=== PATIENT | female | born 1945 | race Caucasian/White ===

== ENCOUNTER → 2016-06-05 | Outpatient (CLI) | payer MEDICARE ==
--- NOTE | 2016-06-06 07:34 | BD ---
EXAMINATION TYPE: MG DEXA axial skeleton. DATE OF EXAM: 06/05/2016 3:21 PM COMPARISON: NONE CLINICAL HISTORY: POST MENOPAUSAL Height: 5'7 Weight: 179 FRAX RISK QUESTIONS: Alcohol (3 or more units per day): no Family History (Parent hip fracture): no Glucocorticoids (More than 3mos): no (Ex: prednisone, prednisolone, methylprednisolone, dexamethasone, and hydrocortisone). History of Fracture in Adulthood: no Secondary Osteoporosis: 1. Type 1 Diabetes: no 2. Hyperthyroidism: no 3. Menopause before 45: yes 4. Malnutrition: no 5. Chronic liver disease: no Rheumatoid Arthritis: not sure Current Tobacco Use: no RISK FACTORS HISTORY OF: Active: Postmenopausal woman: MEDICATIONS: Additional Medications: vitamins Additional History: post menopausal EXAM MEASUREMENTS: Bone mineral densitometry was performed using the [employer] System. Bone mineral density as measured about the Lumbar spine is: ----- L1-L4(G/cm2): 1.005 T Score Values are as follows: ----- L2: -2.1 ----- L3: -1.4 ----- L4: -1.1 ----- L1-L4:-1.5 Bone mineral density about the R hip (g/cm2): 0.872 Bone mineral density about the L hip (g/cm2): 0.822 T Score values are as follows: -----R Neck: -1.2 -----L Neck: -1.6 -----R Intertrochanter: -0.2 -----L Intertrochanter: -0.5 IMPRESSION: Osteopenia (T Score between -2.5 and -1 as noted by T score values: In the low back and bilateral hip s. There is slightly increased risk of fracture and the patient may be considered for treatment. Re-S creen 1-2 years. NOTE: T-SCORE=SD OF THE YOUNG ADULT MEAN.
--- NOTE | 2016-06-06 08:07 | MM ---
Reason for exam: screening (asymptomatic). Last mammogram was performed 16 years and 10 months ago. History: Patient is postmenopausal. Physical Findings: A clinical breast exam by your physician is recommended on an annual basis and results should be correlated with mammographic findings. MG Screening Mammo w CAD Bilateral CC and MLO view(s) were taken. Prior study comparison: May 04, 2014, mammogram, performed at [facility]. March 31, 2013, mammogram, performed at [facility]. There are scattered fibroglandular densities. Finding: There are typically benign vascular calcifications in both breasts. Asymmetric breast tissue in the right breast outer quadrant is stable. There is no discrete abnormality. ASSESSMENT: Negative, BI-RAD 1 RECOMMENDATION: Routine screening mammogram of both breasts in 1 year.
== END | disposition home or self-care (01) ==
LOC: RADMAMWWP 14:24
PROVIDERS: ATTEND Family Medicine
DX: Z12.31 Encounter for screening mammogram for malignant neoplasm of breast (principal); M85.852 Other specified disorders of bone density and structure, left thigh; M85.851 Other specified disorders of bone density and structure, right thigh; M85.88 Other specified disorders of bone density and structure, other site; Z78.0 Asymptomatic menopausal state
CPT/HCPCS: 77080; G0202

== ENCOUNTER → 2016-06-06 | Outpatient (CLI) | payer MEDICARE ==
[2016-06-06 10:11] LABS: CH 31.3; CHCM 33.4; HCT 41.2 % (34.0-46.0); HDW 2.57; HGB 13.7 gm/dL (11.4-16.0); MCH 31.4 pg (25.0-35.0); MCHC 33.3 g/dL (31.0-37.0); MCV 94.2 fL (80.0-100.0); Mean Platelet Volume 7.3; RBC 4.37 m/uL (3.80-5.40); RDW 13.2 % (11.5-15.5); WBC 5.5 k/uL (3.8-10.6); WBC (Perox) 5.47
[2016-06-06 12:00] LABS: Add Differential Manual Differential
[2016-06-06 12:02] LABS: Nucleated Red Blood Cells 0 /100 WBC (0-0); Total Cells Counted 100
[2016-06-06 12:04] LABS: Manual Review Performed
[2016-06-06 13:10] LABS: ALT 45 U/L (9-52); AST 28 U/L (14-36); Alkaline Phosphatase 93 U/L (38-126); Anion Gap 15 mmol/L; Blood Urea Nitrogen 13 mg/dL (7-17); Calcium 9.4 mg/dL (8.4-10.2); Carbon Dioxide 21 mmol/L (22-30); Chloride 107 mmol/L (98-107); Cholesterol 168 mg/dL (<200); Glucose 120 mg/dL (74-99); HDL Cholesterol 52 mg/dL (40-60); Non-African American GFR(MDRD) >60 (>60 ml/min/1.73 sqM); Potassium 4.5 mmol/L (3.5-5.1); Sodium 143 mmol/L (137-145); Total Bilirubin 0.6 mg/dL (0.2-1.3); Total Protein 7.3 g/dL (6.3-8.2); Triglycerides 112 mg/dL (<150)
[2016-06-06 13:56] LABS: Vitamin B12 580 pg/mL
== END | disposition home or self-care (01) ==
LOC: LABWHC1 09:13
PROVIDERS: ATTEND Family Medicine
DX: I10 Essential (primary) hypertension (principal); R53.83 Other fatigue; Z12.11 Encounter for screening for malignant neoplasm of colon
CPT/HCPCS: 36415; 80053; 80061; 82272; 82607; 84443; 85025

== ENCOUNTER → 2018-03-12 | Outpatient (CLI) | payer MEDICARE ==
--- NOTE | 2018-03-12 16:50 | US ---
EXAMINATION TYPE: US carotid duplex BILAT DATE OF EXAM: 03/12/2018 COMPARISON: NONE CLINICAL HISTORY: 72-year-old female 785.9 R09.89. Possible bruit on right per patient, HTN- on meds, no hx of TIA or stroke TECHNIQUE: Carotid duplex ultrasound examination. Direct Doppler criteria was utilized. FINDINGS: EXAM MEASUREMENTS: RIGHT: Peak Systolic Velocity (PSV) cm/sec ----- Right CCA: 90.4 ----- Right ICA: 111.4 ----- Right ECA: 78.9 ICA/CCA ratio: 1.2 RIGHT: End Diastole cm/sec ----- Right CCA: 24.8 ----- Right ICA: 33.8 ----- Right ECA: 10.2 LEFT: Peak Systolic Velocity (PSV) cm/sec ----- Left CCA: 84.1 ----- Left ICA: 111.4 ----- Left ECA: 43.6 ICA/CCA ratio: 1.3 LEFT: End Diastole cm/sec ----- Left CCA: 24.5 ----- Left ICA: 38.6 ----- Left ECA: 15.6 VERTEBRALS (direction of flow): Right Vertebral: Antegrade Left Vertebral: Antegrade Rhythm: Normal Nurse Executive notes: No elevated velocities or significant stenosis. No plaque. Bilateral wall thicke maria l. Limited visualization of bilateral ECA due to location of bifurcation. IMPRESSION: No hemodynamically significant stenosis appreciated in either internal carotid artery. Criteria for Assigning % of Stenosis / Diameter reduction (Estimation based on the indirect measurements of the internal carotid artery velocities (ICA PSV). 1. Normal (no stenosis)=ICA PSV < 125 cm/s: ratio < 2.0: ICA EDV<40 cm/s. 2. Less than 50% stenosis=ICA PSV < 125 cm/s: ratio < 2.0: ICA EDV<40 cm/s. 3. 50 to 69% stenosis=ICA PSV of 125 to 230 cm/s: ration 2.0 ? 4.0: ICA EDV 40-100 cm/s. 4. Greater than 70% stenosis to near occlusion= ICA PSV > 230 cm/s: ratio > 4.0: ICA EDV > 100 cm/s. 5. Near occlusion= ICA PSV velocities may be low or undetectable: variable ratio and ICA EDV. 6. Total occlusion=unable to detect flow.
--- NOTE | 2018-03-13 07:14 | ECHOF ---
Referral Reason:I10 Hypertension MEASUREMENTS -------- HEIGHT: 160.0 cm WEIGHT: 82.1 kg BP: RVIDd: 3.1 cm (< 3.3) IVSd: 1.1 cm (0.6 - 1.1) LVIDd: 3.2 cm (3.9 - 5.3) LVPWd: 1.1 cm (0.6 - 1.1) IVSs: 1.4 cm LVIDs: 2.4 cm LVPWs: 1.5 cm LAESV Index (A-L): 23.69 ml/m Ao Diam: 3.0 cm (2.0 - 3.7) AV Cusp: 1.5 cm (1.5 - 2.6) LA Diam: 3.5 cm (2.7 - 3.8) EPSS: 0.5 cm MV E Hong: 0.75 m/s MV DecT: 276 ms MV A Hong: 1.03 m/s MV E/A Ratio: 0.72 RAP: 5.00 mmHg RVSP: 12.74 mmHg MV EF SLOPE: 22.52 mm/s (70 - 150) MV EXCURSION: 1.27 cm (> 18.000) FINDINGS -------- Sinus rhythm. This was a technically adequate study. The left ventricular size is normal. There is borderline concentric left ventricular hypertrophy. Overall left ventricular systolic function is normal with, an EF between 55 - 60 %. The right ventricle is normal in size and function. Normal LA size by volume 22+/-6 ml/m2. The right atrium is normal in size. Aortic valve is trileaflet and is mildly thickened. There is no evidence of aortic regurgitation. There is no evidence of aortic stenosis. The mitral valve is normal. Mild mitral regurgitation is present. Trace tricuspid regurgitation present. Right ventricular systolic pressure is normal at < 35 mmHg. The right ventricular systolic pressure, as measured by Doppler, is 12.74mmHg. Trace/mild (physiologic) pulmonic regurgitation. The aortic root size is normal. Normal inferior vena cava with normal inspiratory collapse consistent with estimated right atrial pre ssure of 5 mmHg. There is no pericardial effusion. CONCLUSIONS -------- 1. Sinus rhythm. 2. This was a technically adequate study. 3. The left ventricular size is normal. 4. There is borderline concentric left ventricular hypertrophy. 5. Overall left ventricular systolic function is normal with, an EF between 55 - 60 %. 6. Normal LA size by volume 22+/-6 ml/m2. 7. Aortic valve is trileaflet and is mildly thickened. 8. Mild mitral regurgitation is present. 9. Trace tricuspid regurgitation present. 10. Right ventricular systolic pressure is normal at < 35 mmHg. 11. Trace/mild (physiologic) pulmonic regurgitation. 12. The aortic root size is normal. 13. There is no pericardial effusion. PRINTING ENGINEER: Christopher Dey RDCS
== END | disposition home or self-care (01) ==
LOC: RADECHMAIN 14:24
PROVIDERS: ATTEND Family Medicine
DX: I34.0 Nonrheumatic mitral (valve) insufficiency (principal); I35.8 Other nonrheumatic aortic valve disorders; I37.1 Nonrheumatic pulmonary valve insufficiency; I10 Essential (primary) hypertension; R09.89 Other specified symptoms and signs involving the circulatory and respiratory systems
CPT/HCPCS: 93306; 93880

== ENCOUNTER → 2019-01-09 | Outpatient (CLI) | payer MEDICARE ==
--- NOTE | 2019-01-13 08:18 | MM ---
Reason for exam: screening (asymptomatic). Last mammogram was performed 2 years and 7 months ago. History: Patient is postmenopausal. Physical Findings: A clinical breast exam by your physician is recommended on an annual basis and results should be correlated with mammographic findings. MG Screening Mammo w CAD Bilateral CC and MLO view(s) were taken. Prior study comparison: June 05, 2016, bilateral MG screening mammo w CAD. There are scattered fibroglandular densities. Benign vascular calcifications. No significant changes when compared with prior studies. ASSESSMENT: Negative, BI-RAD 1 RECOMMENDATION: Routine screening mammogram of both breasts in 1 year.
== END | disposition home or self-care (01) ==
LOC: RADMAMWWP 08:35
PROVIDERS: ATTEND Family Medicine
DX: Z12.31 Encounter for screening mammogram for malignant neoplasm of breast (principal)
CPT/HCPCS: 77067

== ENCOUNTER 2019-01-22 08:04 | Day surgery (SDC) | payer MEDICARE, OTHER ==
[~2019-01-22 08:04] MED LIST: LACTATED RINGERS 1,000 ML IV SCH
[2019-01-22 08:32] VITALS: TEMP 97
[2019-01-22] MEDS ORDERED: LIDOCAINE 1% 20 ML VIAL (10MG/ML) FOR IV START INTRADERMA ONE (08:32)
[2019-01-22] MEDS ORDERED: PROPOFOL 10 MG/ML 20 ML VIAL IV ONE (09:30)
[2019-01-22] MEDS ORDERED: LIDOCAINE 1% INJ 10MG/ML (20 ML MDV) ONE (09:30)
--- NOTE | 2019-01-22 09:37 | P.GSHP ---
History of Present Illness H&P Date: 01/22/19 Chief Complaint: Screening colonoscopy This is a 73-year-old female who presents today for screening colonoscopy. Patient denies a significant GI complaints. Past Medical History Past Medical History: Eye Disorder, Hypertension Additional Past Medical History / Comment(s): GLAUCOMA History of Any Multi-Drug Resistant Organisms: None Reported Past Surgical History: Cholecystectomy, Hysterectomy Additional Past Surgical History / Comment(s): BILATERAL CATARCTS WITH LENS IMPLANT. NOSE FX WHEN SHE WAS 12 YRS. Past Anesthesia/Blood Transfusion Reactions: No Reported Reaction Past Psychological History: No Psychological Hx Reported Smoking Status: Never smoker Past Alcohol Use History: None Reported Past Drug Use History: None Reported Medications and Allergies Home Medications Medication Instructions Recorded Confirmed Type Acetaminophen [Tylenol] 325 - 650 mg PO Q6H PRN 01/20/19 01/22/19 History Aspirin [Adult Low Dose Aspirin EC] 81 mg PO DAILY 01/20/19 01/22/19 History Brimonidine Tartrate [Alphagan P 1 drop BOTH EYES BID 01/20/19 01/22/19 History 0.2% Ophth Soln] Latanoprost Ophth [Xalatan 0.005%] 1 drop BOTH EYES HS 01/20/19 01/22/19 History Losartan [Cozaar] 50 mg PO QAM 01/20/19 01/22/19 History Multivitamins, Thera [Multivitamin 1 tab PO DAILY 01/20/19 01/22/19 History (formulary)] Vitamin D3 Solution 4,000 unit PO DAILY 01/20/19 01/22/19 History amLODIPine [Norvasc] 5 mg PO QAM 01/20/19 01/22/19 History Allergies Allergy/AdvReac Type Severity Reaction Status Date / Time indomethacin [From Indocin] Allergy Rapid Verified 01/22/19 08:21 Heart Rate codeine AdvReac Nausea & Verified 01/22/19 08:21 Vomiting Surgical - Exam Vital Signs Temp Pulse Resp BP Pulse Ox 97 F L 88 16 170/77 99 01/22/19 08:25 01/22/19 08:25 01/22/19 08:25 01/22/19 08:25 01/22/19 08:25 - General well developed, well nourished, no distress - Eyes PERRL - ENT normal pinna - Neck no masses - Respiratory normal expansion - Cardiovascular Rhythm: regular - Abdomen Abdomen: soft, non tender Assessment and Plan Assessment: We'll perform screening colonoscopy.
--- NOTE | 2019-01-22 09:54 | P.OP ---
Date of Procedure: 01/22/19 Preoperative Diagnosis: Screening colonoscopy Postoperative Diagnosis: Normal colon Procedure(s) Performed: Colonoscopy Anesthesia: MAC Pathology: none sent Condition: stable Disposition: PACU Description of Procedure: PROCEDURE: The patient was placed on the endoscopy table in the lateral position. Digital rectal examination was performed which revealed no abnormalities. s. Flexible colonoscope was then placed in the patient's anus and passed throughout the entire colon. The ileocecal valve was visualized. The cecum, ascending, transverse, descending and sigmoid colon were normal. The rectum was normal as well. There were no masses, polyps or diverticula noted in the entire colon. SUMMARY OF FINDINGS: Normal colonoscopy.
[2019-01-22 10:00] VITALS: RESP 16
[2019-01-22 10:26] VITALS: BP 168/74; PULSE 63
== END 2019-01-22 10:40 | disposition home or self-care (01) ==
LOC: ORWHC2ENDO 08:04
PROVIDERS: ATTEND Surgery
DX: Z12.11 Encounter for screening for malignant neoplasm of colon (principal); I10 Essential (primary) hypertension; H40.9 Unspecified glaucoma; Z90.49 Acquired absence of other specified parts of digestive tract; Z90.710 Acquired absence of both cervix and uterus; Z98.42 Cataract extraction status, left eye; Z98.41 Cataract extraction status, right eye; Z96.1 Presence of intraocular lens; Z79.82 Long term (current) use of aspirin; Z79.899 Other long term (current) drug therapy; Z88.6 Allergy status to analgesic agent; Z88.5 Allergy status to narcotic agent
CPT/HCPCS: J2001; J2704; G0121

== ENCOUNTER 2020-03-03 19:19 | Emergency (ER) | payer MEDICARE ==
--- NOTE | 2020-03-03 20:05 | ED ---
General Adult HPI - General Chief complaint: Fever Stated complaint: Fever Time Seen by Provider: 03/03/20 19:37 Source: patient Mode of arrival: ambulatory Limitations: no limitations - History of Present Illness Initial comments: 74-year-old female presents to the emergency Department with complaints congested cough, onset 1 week prior to arrival. States she developed a fever (T=101) today and is experiencing increased fatigue and mild intermittent dizziness; took 2 extra strength Tylenol at 5 PM. Reports loss of appetite, altered taste, and several episodes of diarrhea. Also states she has tried homeopathic remedies in addition to OTC cold medicine with no improvement. Denies any chest pain, shortness of breath, or difficulty breathing. No known sick contacts. Patient denies any recent rash, abdominal pain, nausea, vomiting, constipation, back pain, numbness, tingling, hematuria, dysuria, urinary urgency, urinary frequency, headache, visual changes, or any other complaints. - Related Data Home Medications Medication Instructions Recorded Confirmed Aspirin [Adult Low Dose Aspirin EC] 81 mg PO DAILY 01/20/19 03/03/20 Latanoprost Ophth [Xalatan 0.005%] 1 drop BOTH EYES HS 01/20/19 03/03/20 Acetaminophen [Tylenol Arthritis] 650 mg PO Q8H PRN 03/03/20 03/03/20 Cholecalciferol [Vitamin D3 (25 5,000 unit PO DAILY 03/03/20 03/03/20 Mcg = 1000 Iu)] Krill/Om-3/Dha/Epa/Phospho/Ast 1 cap PO DAILY 03/03/20 03/03/20 [[place]-3 Krill Oil 300 mg Sfgl] Losartan Potassium [Cozaar] 100 mg PO DAILY 03/03/20 03/03/20 Meclizine HCl [Bonine] 25 mg PO Q6H PRN 03/03/20 03/03/20 Timolol 0.5% Ophth Soln [Timoptic 1 drop BOTH EYES BID 03/03/20 03/03/20 0.5% Ophth Soln] Triamcinolone 0.1% Cream [Kenalog 1 applicatio TOPICAL DAILY 03/03/20 03/03/20 0.1% Cream] Vitamin B Complex 1 cap PO DAILY 03/03/20 03/03/20 Allergies Allergy/AdvReac Type Severity Reaction Status Date / Time indomethacin [From Indocin] Allergy Rapid Verified 03/03/20 20:00 Heart Rate codeine AdvReac Nausea & Verified 03/03/20 20:00 Vomiting Review of Systems ROS Statement: Those systems with pertinent positive or pertinent negative responses have been documented in the HPI. ROS Other: All systems not noted in ROS Statement are negative. Past Medical History Past Medical History: Hypertension, Rheumatoid Arthritis (RA) Additional Past Medical History / Comment(s): Glaucoma,vertigo History of Any Multi-Drug Resistant Organisms: None Reported Past Surgical History: Hysterectomy Additional Past Surgical History / Comment(s): nasal bone Past Psychological History: No Psychological Hx Reported Smoking Status: Never smoker Past Alcohol Use History: None Reported Past Drug Use History: None Reported General Exam Limitations: no limitations (Well-developed, well-nourished female in no acute distress. Initial temperature 99.8F, pulse 103, respirations 22, blood pressure 172/83, pulse ox 100% on room air.) General appearance: alert, in no apparent distress ENT exam: Present: normal exam, normal oropharynx, mucous membranes moist, TM's normal bilaterally Respiratory exam: Present: normal lung sounds bilaterally. Absent: respiratory distress, wheezes, rales, rhonchi, stridor Cardiovascular Exam: Present: regular rate, tachycardia, normal heart sounds, systolic murmur. Absent: rubs, gallop, clicks GI/Abdominal exam: Present: soft, normal bowel sounds. Absent: distended, tenderness, guarding, rebound, rigid Neurological exam: Present: alert, oriented X3, CN II-XII intact Psychiatric exam: Present: normal affect, normal mood Skin exam: Present: intact, diaphoretic, other (Skin somewhat cool to touch) Course Vital Signs 03/03/20 19:22 Temperature 99.8 F H Pulse Rate 103 H Respiratory 22 Rate Blood Pressure 172/83 O2 Sat by Pulse 100 Oximetry Medical Decision Making - Medical Decision Making 74-year-old female presents to the emergency Department with complaints of cough, fatigue, and decreased appetite for the past week. States she developed a fever today; reports T-max 101F. Did take 2 extra strength Tylenol prior to arrival and temperature improved. Physical examination did reveal clear equal lung sounds. No signs of respiratory distress. She reports eating and drinking without difficulty. Chest Xray was obtained and was negative for any acute proce ss. COVID swab was positive; remainder of blood work was unremarkable. Discharge instructions were discussed with patient at great length. Return parameters reviewed in detail. Patient verbalizes understanding and agrees with this plan. - Lab Data Result diagrams: 03/03/20 20:39 03/03/20 20:39 Lab Results 03/03/20 03/03/20 03/03/20 Range/Units 20:39 20:39 20:39 WBC 5.4 (3.8-10.6) k/uL RBC 4.31 (3.80-5.40) m/uL Hgb 13.0 (11.4-16.0) gm/dL Hct 38.8 (34.0-46.0) % MCV 90.0 (80.0-100.0) fL MCH 30.1 (25.0-35.0) pg MCHC 33.4 (31.0-37.0) g/dL RDW 13.1 (11.5-15.5) % Plt Count 220 (150-450) k/uL MPV 7.3 Neutrophils % 65 % Lymphocytes % 26 % Monocytes % 6 % Eosinophils % 0 % Basophils % 1 % Neutrophils # 3.5 (1.3-7.7) k/uL Lymphocytes # 1.4 (1.0-4.8) k/uL Monocytes # 0.3 (0-1.0) k/uL Eosinophils # 0.0 (0-0.7) k/uL Basophils # 0.0 (0-0.2) k/uL PT 9.7 (9.0-12.0) sec INR 0.9 (<1.2) APTT 22.1 (22.0-30.0) sec Sodium (137-145) mmol/L Potassium (3.5-5.1) mmol/L Chloride (98-107) mmol/L Carbon Dioxide (22-30) mmol/L Anion Gap mmol/L BUN (7-17) mg/dL Creatinine (0.52-1.04) mg/dL Est GFR (CKD-EPI)AfAm (>60 ml/min/1.73 sqM) Est GFR (CKD-EPI)NonAf (>60 ml/min/1.73 sqM) Glucose (74-99) mg/dL Plasma Lactic Acid Andre (0.7-2.0) mmol/L Calcium (8.4-10.2) mg/dL Total Bilirubin (0.2-1.3) mg/dL AST (14-36) U/L ALT (4-34) U/L Alkaline Phosphatase (38-126) U/L Total Protein (6.3-8.2) g/dL Albumin (3.5-5.0) g/dL Urine Color Yellow Urine Appearance Cloudy H (Clear) Urine pH 7.5 (5.0-8.0) Ur Specific [place] 1.030 (1.001-1.035) Urine Protein Trace H (Negative) Urine Glucose (UA) 4+ H (Negative) Urine Ketones Negative (Negative) Urine Blood Negative (Negative) Urine Nitrite Negative (Negative) Urine Bilirubin Negative (Negative) Urine Urobilinogen <2.0 (<2.0) mg/dL Ur Leukocyte Esterase Negative (Negative) Urine RBC 2 (0-5) /hpf Amorphous Sediment Rare H (None) /hpf Urine Mucus Rare H (None) /hpf Coronavirus (PCR) (Not Detectd) Influenza Type A RNA (Not Detectd) Influenza Type B (PCR) (Not Detectd) 03/03/20 03/03/20 03/03/20 Range/Units 20:39 20:39 20:39 WBC (3.8-10.6) k/uL RBC (3.80-5.40) m/uL Hgb (11.4-16.0) gm/dL Hct (34.0-46.0) % MCV (80.0-100.0) fL MCH (25.0-35.0) pg MCHC (31.0-37.0) g/dL RDW (11.5-15.5) % Plt Count (150-450) k/uL MPV Neutrophils % % Lymphocytes % % Monocytes % % Eosinophils % % Basophils % % Neutrophils # (1.3-7.7) k/uL Lymphocytes # (1.0-4.8) k/uL Monocytes # (0-1.0) k/uL Eosinophils # (0-0.7) k/uL Basophils # (0-0.2) k/uL PT (9.0-12.0) sec INR (<1.2) APTT (22.0-30.0) sec Sodium 138 (137-145) mmol/L Potassium 4.0 (3.5-5.1) mmol/L Chloride 108 H (98-107) mmol/L Carbon Dioxide 22 (22-30) mmol/L Anion Gap 8 mmol/L BUN 17 (7-17) mg/dL Creatinine 0.98 (0.52-1.04) mg/dL Est GFR (CKD-EPI)AfAm 66 (>60 ml/min/1.73 sqM) Est GFR (CKD-EPI)NonAf 57 (>60 ml/min/1.73 sqM) Glucose 130 H (74-99) mg/dL Plasma Lactic Acid Andre 0.8 (0.7-2.0) mmol/L Calcium 8.9 (8.4-10.2) mg/dL Total Bilirubin 0.5 (0.2-1.3) mg/dL AST 35 (14-36) U/L ALT 38 H (4-34) U/L Alkaline Phosphatase 104 (38-126) U/L Total Protein 7.4 (6.3-8.2) g/dL Albumin 4.0 (3.5-5.0) g/dL Urine Color Urine Appearance (Clear) Urine pH (5.0-8.0) Ur Specific [place] (1.001-1.035) Urine Protein (Negative) Urine Glucose (UA) (Negative) Urine Ketones (Negative) Urine Blood (Negative) Urine Nitrite (Negative) Urine Bilirubin (Negative) Urine Urobilinogen (<2.0) mg/dL Ur Leukocyte Esterase (Negative) Urine RBC (0-5) /hpf Amorphous Sediment (None) /hpf Urine Mucus (None) /hpf Coronavirus (PCR) (Not Detectd) Influenza Type A RNA Not Detected (Not Detectd) Influenza Type B (PCR) Not Detected (Not Detectd) 03/03/20 Range/Units 20:39 WBC (3.8-10.6) k/uL RBC (3.80-5.40) m/uL Hgb (11.4-16.0) gm/dL Hct (34.0-46.0) % MCV (80.0-100.0) fL MCH (25.0-35.0) pg MCHC (31.0-37.0) g/dL RDW (11.5-15.5) % Plt Count (150-450) k/uL MPV Neutrophils % % Lymphocytes % % Monocytes % % Eosinophils % % Basophils % % Neutrophils # (1.3-7.7) k/uL Lymphocytes # (1.0-4.8) k/uL Monocytes # (0-1.0) k/uL Eosinophils # (0-0.7) k/uL Basophils # (0-0.2) k/uL PT (9.0-12.0) sec INR (<1.2) APTT (22.0-30.0) sec Sodium (137-145) mmol/L Potassium (3.5-5.1) mmol/L Chloride (98-107) mmol/L Carbon Dioxide (22-30) mmol/L Anion Gap mmol/L BUN (7-17) mg/dL Creatinine (0.52-1.04) mg/dL Est GFR (CKD-EPI)AfAm (>60 ml/min/1.73 sqM) Est GFR (CKD-EPI)NonAf (>60 ml/min/1.73 sqM) Glucose (74-99) mg/dL Plasma Lactic Acid Andre (0.7-2.0) mmol/L Calcium (8.4-10.2) mg/dL Total Bilirubin (0.2-1.3) mg/dL AST (14-36) U/L ALT (4-34) U/L Alkaline Phosphatase (38-126) U/L Total Protein (6.3-8.2) g/dL Albumin (3.5-5.0) g/dL Urine Color Urine Appearance (Clear) Urine pH (5.0-8.0) Ur Specific [place] (1.001-1.035) Urine Protein (Negative) Urine Glucose (UA) (Negative) Urine Ketones (Negative) Urine Blood (Negative) Urine Nitrite (Negative) Urine Bilirubin (Negative) Urine Urobilinogen (<2.0) mg/dL Ur Leukocyte Esterase (Negative) Urine RBC (0-5) /hpf Amorphous Sediment (None) /hpf Urine Mucus (None) /hpf Coronavirus (PCR) Detected A (Not Detectd) Influenza Type A RNA (Not Detectd) Influenza Type B (PCR) (Not Detectd) - EKG Data EKG shows normal: sinus rhythm Rate: normal EKG Comments: EKG was obtained at 2131 shows normal sinus rhythm. Ventricular rate 76, WI interval 188, QRS duration 84, QT/QTC 406/456. Interpreted as abnormal ECG with possible left atrial enlargement, left ventricular hypertrophy, and cannot rule out septal infarct. - Radiology Data Radiology results: report reviewed Chest x-ray was obtained. Impression per Dr. Belcher is no active cardiopulmonary disease. No change. Disposition Clinical Impression: COVID-19, Viral syndrome Disposition: HOME SELF-CARE Condition: Good Instructions (If sedation given, give patient instructions): Fever in Adults (ED), Viral Syndrome (ED) Additional Instructions: Rest. Increase fluids. Alternate Tylenol and Motrin for fever control. Remaining home and away from others until symptoms resolve. Call your primary care provider for a recheck in 1-2 days. Return to the emergency Department with any shortness of breath, difficulty breathing, or chest tightness. Is patient prescribed a controlled substance at d/c from ED?: No Referrals: Corona Yao MD [Primary Care Provider] - 1-2 days Time of Disposition: 22:36
--- NOTE | 2020-03-03 20:41 | XR ---
EXAMINATION TYPE: XR chest 2V DATE OF EXAM: 03/03/2020 COMPARISON: 09/17/2009 HISTORY: Fever TECHNIQUE: FINDINGS: There is no heart failure nor confluent pneumonic infiltrate. Costophrenic angles are clear . There are no hilar masses. Bony thorax is intact. IMPRESSION: No active cardiopulmonary disease. No change.
[2020-03-03] MEDS: SODIUM CHLORIDE 0.9% 500 ML 500 ML IV SCH (21:00)
[2020-03-03 21:19] LABS: Calcium 8.9 mg/dL (8.4-10.2); Total Bilirubin 0.5 mg/dL (0.2-1.3); Total Protein 7.4 g/dL (6.3-8.2)
[2020-03-03 21:34] LABS: INR 0.9 (<1.2); Partial Thromboplastin Time 22.1 sec (22.0-30.0); Prothrombin Time 9.7 sec (9.0-12.0)
[2020-03-03 21:49] LABS: Basophils % (A) 1 %; Eosinophils % (A) 0 %; HCT 38.8 % (34.0-46.0); Lymphocytes # (A) 1.4 k/uL (1.0-4.8); Lymphocytes % (A) 26 %; MCH 30.1 pg (25.0-35.0); MCHC 33.4 g/dL (31.0-37.0); Mean Platelet Volume 7.3; Monocytes # (A) 0.3 k/uL (0-1.0); Monocytes % (A) 6 %; Neutrophils # (A) 3.5 k/uL (1.3-7.7); Neutrophils % (A) 65 %; Platelet Count 220 k/uL (150-450); RBC 4.31 m/uL (3.80-5.40); RDW 13.1 % (11.5-15.5); WBC 5.4 k/uL (3.8-10.6)
[2020-03-03 22:08] LABS: Amorphous Sediment,Urine Rare /hpf; Appearance,Urine Cloudy (Clear); Bilirubin,Urine Negative (Negative); Blood,Urine Negative (Negative); Color,Urine Yellow; Glucose,Urine (UA) 4+ (Negative); Ketones,Urine Negative (Negative); Leukocyte Esterase,Urine Negative (Negative); Mucus,Urine Rare /hpf; Nitrite,Urine Negative (Negative); PH, Urine 7.5 (5.0-8.0); Protein,Urine Trace (Negative); RBC,Urine 2 /hpf (0-5); Urobilinogen,Urine <2.0 mg/dL (<2.0)
[2020-03-03 22:59] VITALS: BP 179/79; PULSE 88; RESP 16; TEMP 98.9
== END 2020-03-03 22:59 | disposition home or self-care (01) ==
LOC: EC 19:19
DX: U07.1 COVID-19 (principal); B34.9 Viral infection, unspecified; I10 Essential (primary) hypertension; Z79.82 Long term (current) use of aspirin; Z79.899 Other long term (current) drug therapy; Z88.5 Allergy status to narcotic agent; Z88.8 Allergy status to other drugs, medicaments and biological substances
CPT/HCPCS: 36415; 71046; 80053; 81001; 83605; 85025; 85610; 85730; 87040; 87502; 87635; 93005; 96360; 96361; 99284

== ENCOUNTER → 2020-04-11 | Outpatient (CLI) | payer MEDICARE ==
[~2020-04-11] MED LIST changes: +ASPIRIN 81 MG ONE; -LACTATED RINGERS 1,000 ML IV SCH; +REGADENOSON 0.4 MG/5 ML SYRINGE IV ONE
--- NOTE | 2020-04-11 13:40 | P.STRESS ---
- Stress Test Note Stress Test Results/Findings: Exam Performed: NM stress lexiscan cardiolite Exam Date: 04/11/20 Reason for Exam: CAD Height: 5 ft 3 in Weight: 83.915 kg Protocol: Lexiscan Stage: NA Duration of Exercise: NA Resting Heart Rate: 78 Resting Blood Pressure: 172/88 Maximum Achieved Heart Rate: 102 Maximum Achieved Blood Pressure: 185/74 85% PMHR: 124 100% PMHR: 146 METS: NA Technologist Comment: Stress Test Results/Findings: Baseline 178 beats a minute, Baseline blood pressure 170-88 mmHg Baseline crit ECG shows sinus rhythm with normal ST segments Patient received Lexiscan infusion per protocol. Heart rate increased to the 90s. Blood pressure remained stable There is no ECG was ischemia intermittent PVCs and noted with a left bundle branch block morphology No sustained arrhythmias Impression No ECG is for ischemia during Lexiscan infusion Nuclear portion will be reported separately
--- NOTE | 2020-04-11 14:06 | NM ---
EXAMINATION TYPE: NM stress lexiscan cardiolite DATE OF EXAM: 04/11/2020 COMPARISON: NONE HISTORY: 74-year-old female shortness of breath, difficulty breathing, palpitations, hypercholesterol emia, hypertension, positive family history. I21.09, myocardial infarction. TECHNIQUE: After the intravenous administration of 10.22 mCi Tc 99m Sestamibi - Cardiolite resting S PECT images acquired 60 minutes post injection. The patient received 0.4mg Lexiscan, 25.5 mCi Tc 99m Sestamibi - Stress images obtained [address] injection FINDINGS: Review of stress and rest SPECT images demonstrates a large area of fixed decreased perfusion along t he lateral wall. Another defect on rest images along the anteroseptal wall does not persist on stress images suggesting attenuation artifact. No distinct reversibility is seen. Gated analysis shows norm al wall motion with an estimated left ventricular ejection fraction of 74 %. TID is calculated at 0.7 6, within normal limits. IMPRESSION: 1. Large fixed perfusion defect along the lateral wall could represent prominent attenuation artifact or an area of prior infarct. Further clinical correlation recommended. 2. Perfusion defect involving the anteroseptal wall on rest compatible with artifact as this area caroline ears normal on stress images. 3. Estimated LVEF of 74%. No discrete reversibility is seen.
== END | disposition home or self-care (01) ==
LOC: RADNMMAIN 08:00
PROVIDERS: ATTEND Internal Medicine
DX: Q21.8 Other congenital malformations of cardiac septa (principal)
CPT/HCPCS: 93017; 78452; A9500; J2785

== ENCOUNTER → 2020-04-29 | Outpatient (CLI) | payer MEDICARE ==
[2020-04-29 13:37] LABS: HCT 37.8 % (34.0-46.0); HGB 12.9 gm/dL (11.4-16.0); MCHC 34.3 g/dL (31.0-37.0); MCV 93.3 fL (80.0-100.0); Mean Platelet Volume 6.5; Platelet Count 355 k/uL (150-450); RBC 4.05 m/uL (3.80-5.40); RDW 13.2 % (11.5-15.5); WBC 8.3 k/uL (3.8-10.6)
[2020-04-29 13:52] LABS: Potassium 4.6 mmol/L (3.5-5.1)
== END | disposition home or self-care (01) ==
LOC: LABPAT 12:37
PROVIDERS: ATTEND Internal Medicine Interventional Cardiology
DX: Z01.818 Encounter for other preprocedural examination (principal); R07.9 Chest pain, unspecified
CPT/HCPCS: 36415; 80051; 82565; 84520; 85027

== ENCOUNTER 2020-05-03 12:02 | Inpatient (IN) | payer MEDICARE ==
[2020-05-03] MEDS ORDERED: SODIUM CHLORIDE 0.9% 1,000 ML IV SCH (13:00)
[2020-05-03] MEDS ORDERED: hydrALAZINE HCL 20 MG/ML 1 ML VIAL ONE (13:41)
[2020-05-03] MEDS ORDERED: HYDROmorphone 0.5 MG/0.5 ML SYRINGE IVP STA (13:57)
[2020-05-03] MEDS ORDERED: ASPIRIN 325 MG TAB PO STA (14:00)
[2020-05-03] MEDS ORDERED: ATORVASTATIN 80 MG TAB PO STA (14:00)
[2020-05-03] MEDS ORDERED: ALPRAZolam 0.5 MG TAB PO PRN (14:00)
[2020-05-03] MEDS ORDERED: SODIUM CHLORIDE 0.9% 1,000 ML in EMPTY BAG 1 BAG IV ONE (14:00)
[2020-05-03] MEDS ORDERED: NITROGLYCERIN SL TABS 0.4 MG TAB SUBLINGUAL PRN (14:00)
[2020-05-03] MEDS ORDERED: ACETAMINOPHEN TAB 325 MG TAB PO PRN (16:38)
[2020-05-03] MEDS: carvediloL 6.25 MG TAB PO SCH (18:01)
[2020-05-03] MEDS: LATANOPROST 0.005% OPHTH DROPS 2.5 ML BTL BOTH EYES SCH (20:10)
[2020-05-03] MEDS: TIMOLOL 0.5% OPHTH DROPS 5 ML BTL BOTH EYES SCH (20:11)
[2020-05-03] MEDS: ALPRAZolam 0.25 MG TAB PO PRN (23:24)
[2020-05-04] MEDS: LOSARTAN 50 MG TAB PO SCH (06:10)
[2020-05-04] MEDS: carvediloL 6.25 MG TAB PO SCH ×2 (06:11→17:25)
[2020-05-04] MEDS: ASPIRIN 81 MG PO SCH (06:11)
[2020-05-04] MEDS ORDERED: HEPARIN SODIUM,PORCINE 10,000 UNIT in SODIUM CHLORIDE 0.9% 1,000 ML IRRIGATION PRN (07:00)
[2020-05-04] MEDS ORDERED: HEPARIN SODIUM,PORCINE 2,500 UNIT in SODIUM CHLORIDE 0.9% 250 ML IRRIGATION PRN (07:00)
[2020-05-04] MEDS: TIMOLOL 0.5% OPHTH DROPS 5 ML BTL BOTH EYES SCH ×2 (08:09→19:46)
[2020-05-04 08:15] VITALS: RESP 16
[2020-05-04 08:15] LABS: Basophils % (A) 1 %; Eosinophils # (A) 0.2 k/uL (0-0.7); Eosinophils % (A) 4 %; HCT 34.6 % (34.0-46.0); HGB 11.9 gm/dL (11.4-16.0); Lymphocytes # (A) 1.2 k/uL (1.0-4.8); Lymphocytes % (A) 21 %; MCH 32.1 pg (25.0-35.0); MCHC 34.5 g/dL (31.0-37.0); MCV 93.2 fL (80.0-100.0); Mean Platelet Volume 6.3; Monocytes # (A) 0.4 k/uL (0-1.0); Monocytes % (A) 6 %; Neutrophils % (A) 67 %; Platelet Count 301 k/uL (150-450); RBC 3.71 m/uL (3.80-5.40); RDW 13.2 % (11.5-15.5)
[2020-05-04 08:45] LABS: African American GFR (CKD) >90 (>60 ml/min/1.73 sqM); Anion Gap 5 mmol/L; Blood Urea Nitrogen 12 mg/dL (7-17); Calcium 8.9 mg/dL (8.4-10.2); Carbon Dioxide 23 mmol/L (22-30); Chloride 109 mmol/L (98-107); Glucose 119 mg/dL (74-99); Non-African American GFR(CKD) 89 (>60 ml/min/1.73 sqM); Potassium 3.8 mmol/L (3.5-5.1); Sodium 137 mmol/L (137-145)
[2020-05-04] MEDS ORDERED: IV FLUID CONTINUATION 1,000 ML IV ONE (13:05)
[2020-05-04] MEDS ORDERED: MIDAZOLAM 2 MG/2 ML VIAL IV ONE ×2 (13:19→13:29)
[2020-05-04] MEDS ORDERED: LIDOCAINE 1% INJ 10MG/ML (20 ML MDV) SQ ONE (13:22)
[2020-05-04] MEDS ORDERED: BIVALIRUDIN BOLUS 250 MG/50 ML IV ONE (13:27)
[2020-05-04] MEDS ORDERED: BIVALIRUDIN 250 MG in SODIUM CHLORIDE 0.9% 50 ML IV ONE (13:30)
[2020-05-04] MEDS ORDERED: IOPAMIDOL-370 125ML BTL INJ ONE (13:44)
[2020-05-04] MEDS ORDERED: NITROGLYCERIN SL TABS 0.4 MG TAB SUBLINGUAL PRN (13:52)
[2020-05-04] MEDS ORDERED: MAG HYDROX/AL HYDROX/SIMETH 30 ML CUP PO PRN (13:52)
[2020-05-04] MEDS ORDERED: ATROPINE SULFATE 0.1 MG/ML 10ML SYRINGE IV PRN (13:52)
[2020-05-04] MEDS ORDERED: RX INFO: IV CONTRAST WAS GIVEN 1 EACH MISC MISCELLANE PRN (13:52)
[2020-05-04] MEDS ORDERED: ZOLPIDEM 5 MG TAB PO PRN (13:52)
[2020-05-04] MEDS ORDERED: SODIUM CHLORIDE 0.9% 1,000 ML IV SCH (14:00)
--- NOTE | 2020-05-04 15:43 | PTCA ---
PERCUTANEOUSTRANS CORORONARY ANGIOGRAPHY DATE OF SERVICE: 05/04/2020 PERFORMING PHYSICIAN: Jaquan Noriega M.D. PROCEDURES PERFORMED: 1. Intravascular ultrasound (IVUS) of the left main coronary artery. 2. Right common femoral artery angiogram. INDICATION: This is a 74-year-old female patient who was seen in the office recently for symptoms of chest discomfort concerning for angina. She underwent a heart catheterization yesterday at [facility] that revealed a concerning lesion involving the ostial left main. During engaging the left main, the patient started experiencing chest discomfort and EKG changes with dampening and ventricularization of the waveform. Because of that she was brought today to undergo an intravascular ultrasound (IVUS) of the left main coronary artery. APPROACH: Right common femoral artery. COMPLICATIONS: None. LEVEL OF SEDATION: Moderate, with sedation length of 24 minutes. PROCEDURE DESCRIPTION: After obtaining informed consent, the patient was brought to the cardiac tutorial laboratory supervisor. The right common femoral artery was cannulated using micropuncture technique. The micropuncture wire passed easily. Then I placed a 6-Moldovan sheath 11 cm at the right common femoral artery. After that, anticoagulation was initiated using Angiomax. The left main was engaged using a JL4 guide with a side hole. After that, I wired the left main and the wire was advanced to the mid LAD. After that, I did intravascular ultrasound (IVUS) of the left main with manual pullback. We identified a lesion at the ostial left main with mixed plaque and an area stenosis of 79% with a minimal luminal area of 4.6 mm2. CONCLUSION: 1. Severe ostial left main disease with a minimal luminal area of 4.6 mm2 and an area of stenosis of 79%. POST-PROCEDURE MANAGEMENT: 1. Consult surgeon for evaluation of coronary artery bypass grafting and heart team. 2. Follow up with the patient. MMODL / IJN: [id number] /
[2020-05-04 16:24] LABS: Appearance,Urine Clear (Clear); Bacteria,Urine Rare /hpf; Bilirubin,Urine Negative (Negative); Blood,Urine Large (Negative); Color,Urine Light Yellow; Glucose,Urine (UA) Negative (Negative); Ketones,Urine Negative (Negative); Leukocyte Esterase,Urine Negative (Negative); Nitrite,Urine Negative (Negative); Protein,Urine Negative (Negative); RBC,Urine 3 /hpf (0-5); Specific Gravity,Urine 1.032 (1.001-1.035); Squamous Epithelial Cell,Urine 3 /hpf (0-4); Urobilinogen,Urine <2.0 mg/dL (<2.0); WBC,Urine 2 /hpf (0-5)
--- NOTE | 2020-05-04 16:26 | US ---
EXAMINATION TYPE: US carotid duplex BILAT DATE OF EXAM: 05/04/2020 COMPARISON: US CLINICAL HISTORY: Pre-Op Cardiac Surgery. CAD EXAM MEASUREMENTS: RIGHT: Peak Systolic Velocity (PSV) cm/sec ----- Right CCA: 85.2 ----- Right ICA: 86.7 ----- Right ECA: 67.5 ICA/CCA ratio: 1.0 RIGHT: End Diastole cm/sec ----- Right CCA: 18.3 ----- Right ICA: 20.6 ----- Right ECA: 5.9 LEFT: Peak Systolic Velocity (PSV) cm/sec ----- Left CCA: 18.3 ----- Left ICA: 20.6 ----- Left ECA: 5.9 ICA/CCA ratio: 1.3 LEFT: End Diastole cm/sec ----- Left CCA: 91.9 ----- Left ICA: 120.1 ----- Left ECA: 47.6 VERTEBRALS (direction of flow): Right Vertebral: Antegrade Left Vertebral: Antegrade Rhythm: one episode arrhythmia noted on image #[id number] Grayscale, color Doppler, spectral Doppler imaging performed of the carotid arteries. Waveform analys is does not show significant stenosis of the internal carotid arteries. Mild intimal wall changes noted at bilateral carotid bifurcation, and PSV is wnl bilaterally. High ca rotid bifurcation is noted bilaterally. Tortuous right CCA is noted proximally. IMPRESSION: No hemodynamic significant stenosis of the proximal internal carotid arteries by Doppler criteria, an indirect measurement of carotid stenosis Criteria for Assigning % of Stenosis / Diameter reduction (Estimation based on the indirect measurements of the internal carotid artery velocities (ICA PSV). 1. Normal (no stenosis)=ICA PSV < 125 cm/s: ratio < 2.0: ICA EDV<40 cm/s. 2. Less than 50% stenosis=ICA PSV < 125 cm/s: ratio < 2.0: ICA EDV<40 cm/s. 3. 50 to 69% stenosis=ICA PSV of 125 to 230 cm/s: ration 2.0 ? 4.0: ICA EDV 40-100 cm/s. 4. Greater than 70% stenosis to near occlusion= ICA PSV > 230 cm/s: ratio > 4.0: ICA EDV > 100 cm/s. 5. Near occlusion= ICA PSV velocities may be low or undetectable: variable ratio and ICA EDV. 6. Total occlusion=unable to detect flow.
--- NOTE | 2020-05-04 16:58 | P.GSCN ---
<Dhaval Jackson - Last Filed: 05/04/20 16:56> History of Present Illness Consult date: 05/04/20 Reason for Consult: Coronary artery disease with left main disease per IVUS Requesting physician: Jaquan Noriega History of present illness: This is a 74-year-old female patient who follows with Dr. Corona Yao on an outpatient basis. She has past medical history significant for hypertension, hyperlipidemia, rheumatoid arthritis, glaucoma, vertigo, depression, COVID 19 positive in February 2020 and she is a lifetime nonsmoker. Recently, the patie nt has had complaints of progressive shortness of breath associated with episodes of becoming diaphoretic with activity. The patient denies any complaints of chest pain or pressure, nausea, vomiting, diarrhea, constipation, fever, chills, orthopnea, edema or any other aggravating or relieving symptoms. According to the patient she underwent a 12-lead EKG at her primary care physician's office which showed some abnormal EKG changes. For further evaluation she underwent a stress Lexiscan Cardiolite test on 04/11/2020 which showed a large fixed perfusion defect along the lateral wall which was suspicious for an area of prior infarct, a perfusion defect involving the anterior septal wall on rest compatible with artifact as the area appeared normal on the stress images per the report, and an estimated left ventricular ejection fraction of 74%. Due to the findings on the stress test she was recommended to undergo an elective cardiac catheterization and on 05/03/2020 a cardiac catheterization was performed at [facility]. During heart catheterization at [facility] the patient developed some chest pain and EKG changes and the cardiac catheterization was halted and was subsequently brought to [facility] for further evaluation and cardiac catheterization with IVUS. Today 05/04/2020 the patient underwent a cardiac catheterization with IVUS which was performed by Dr. Noriega and demonstrated a 79% stenosis to her left main coronary artery by IVUS. Due to the findings on the cardiac catheterization a consult was placed to Dr. Cleveland Bullard from cardiothoracic surgery for further evaluation and treatment recommendations including myocardial revascularization surgery. The patient also was noted to have a COVID 19 test and result from [facility] which will showed not detected. Review of Systems A 14 point review of systems was completed was negative except as mentioned in HPI. Past Medical History Past Medical History: Hyperlipidemia, Hypertension, Rheumatoid Arthritis (RA) Additional Past Medical History / Comment(s): Glaucoma,vertigo, blood clot with my last 40 years ago. History of Any Multi-Drug Resistant Organisms: None Reported Past Surgical History: Cholecystectomy, Hysterectomy Additional Past Surgical History / Comment(s): nasal surgery due to a broken nose in the past, bilateral cataracts. Past Anesthesia/Blood Transfusion Reactions: No Reported Reaction Additional Past Anesthesia/Blood Transfusion Reaction / Comm: never had a blood transfusion. Past Psychological History: Depression Smoking Status: Never smoker Past Alcohol Use History: Rare Past Drug Use History: None Reported - Past Family History Mother Family Medical History: CVA/TIA, Diabetes Mellitus, Hypertension, Thyroid Disorder Additional Family Medical History / Comment(s): She is currently 94 years old. Father Family Medical History: Dementia Medications and Allergies Home Medications Medication Instructions Recorded Confirmed Type Aspirin [Adult Low Dose Aspirin EC] 81 mg PO DAILY 01/20/19 05/03/20 History Latanoprost Ophth [Xalatan 0.005%] 1 drop BOTH EYES HS 01/20/19 05/03/20 History Acetaminophen [Tylenol Arthritis] 650 mg PO Q8H PRN 03/03/20 05/03/20 History Cholecalciferol [Vitamin D3 (25 5,000 unit PO DAILY 03/03/20 05/03/20 History Mcg = 1000 Iu)] Krill/Om-3/Dha/Epa/Phospho/Ast 1 cap PO DAILY 03/03/20 05/03/20 History [[place]-3 Krill Oil 300 mg Sfgl] Timolol 0.5% Ophth Soln [Timoptic 1 drop BOTH EYES BID 03/03/20 05/03/20 History 0.5% Ophth Soln] Triamcinolone 0.1% Cream [Kenalog 1 applicatio TOPICAL DAILY 03/03/20 05/03/20 History 0.1% Cream] Ashwagandha Root Extract 300 mg PO DAILY 05/03/20 05/03/20 History Turmeric Root Extract [Turmeric] 1,053 mg PO DAILY 05/03/20 05/03/20 History Valsartan 320 mg PO DAILY 05/03/20 05/03/20 History Vit B-12 + Folic Acid + Vit C 1 tab PO DAILY 05/03/20 05/03/20 History carvediloL [Coreg] 6.25 mg PO BID 05/03/20 05/03/20 History traZODone HCL 50 mg PO HS PRN 05/03/20 05/03/20 History Allergies Allergy/AdvReac Type Severity Reaction Status Date / Time indomethacin [From Indocin] Allergy Rapid Verified 05/03/20 18:21 Heart Rate codeine AdvReac Nausea & Verified 05/03/20 18:21 Vomiting Surgical - Exam Vital Signs Pulse Resp BP Pulse Ox 70 16 209/89 100 05/03/20 12:55 05/03/20 12:55 05/03/20 12:55 05/03/20 12:55 - General well developed, well nourished, no distress, no pain, obese - Eyes PERRL, normal ocular movement, no icteric - ENT normal pinna, normal nares, normal mucosa, no hearing loss, no congestion, poor correction - Neck Neck is supple, no lymphadenopathy. no masses, no bruits, trachea midline, no venous distension - Respiratory Lung sounds essentially clear throughout. No wheezes, rhonchi or crackles. Respirations are symmetrical and nonlabored. - Cardiovascular Regular rhythm and rate. S1 and S2 present, negative for S3, or gallop. Positive systolic murmur 2/6 heard best to her left sternal border. No edema present. - Abdomen Abdomen is soft, nontender and nondistended. Active bowel sounds present in all 4 abdominal quadrants. No guarding or rigidity. No organomegaly appreciated. - Genitourinary Deferred - Rectum deferred - Integumentary no rash, no growths, no abnormal pigmentation - Neurologic Cranial nerves II through XII intact. No focal or motor deficit. normal coordination, normal sensation - Musculoskeletal Strength equal bilaterally. - Psychiatric oriented to time, oriented to person, oriented to place, speech is normal, memory intact Results - Labs 05/04/20 07:58 05/04/20 07:58 Abnormal Lab Results - Last 24 Hours (Table) 05/04/20 05/04/20 Range/Units 07:58 07:58 RBC 3.71 L (3.80-5.40) m/uL Chloride 109 H (98-107) mmol/L Glucose 119 H (74-99) mg/dL Diabetes panel 05/04/20 Range/Units 07:58 Sodium 137 (137-145) mmol/L Potassium 3.8 (3.5-5.1) mmol/L Chloride 109 H (98-107) mmol/L Carbon Dioxide 23 (22-30) mmol/L BUN 12 (7-17) mg/dL Creatinine 0.62 (0.52-1.04) mg/dL Glucose 119 H (74-99) mg/dL Calcium 8.9 (8.4-10.2) mg/dL Calcium panel 05/04/20 Range/Units 07:58 Calcium 8.9 (8.4-10.2) mg/dL Pituitary panel 05/04/20 Range/Units 07:58 Sodium 137 (137-145) mmol/L Potassium 3.8 (3.5-5.1) mmol/L Chloride 109 H (98-107) mmol/L Carbon Dioxide 23 (22-30) mmol/L BUN 12 (7-17) mg/dL Creatinine 0.62 (0.52-1.04) mg/dL Glucose 119 H (74-99) mg/dL Calcium 8.9 (8.4-10.2) mg/dL Adrenal panel 05/04/20 Range/Units 07:58 Sodium 137 (137-145) mmol/L Potassium 3.8 (3.5-5.1) mmol/L Chloride 109 H (98-107) mmol/L Carbon Dioxide 23 (22-30) mmol/L BUN 12 (7-17) mg/dL Creatinine 0.62 (0.52-1.04) mg/dL Glucose 119 H (74-99) mg/dL Calcium 8.9 (8.4-10.2) mg/dL - Imaging Additional studies: Cardiac catheterization films reviewed by Dr. Cleveland Bullard. Assessment and Plan Assessment: 1. Coronary artery disease with left main disease 2. History of hypertension 3. History of hyperlipidemia 4. History of vertigo 5. History of rheumatoid arthritis 6. History of glaucoma 7. Lifetime nonsmoker Plan: The patient was seen and examined at her bedside on the cardiac stepdown unit. Her chart diagnostics were reviewed. Her case was discussed in detail with Dr. Cleveland Bullard from cardiothoracic surgery. Dr. Cleveland Bullard evaluated the patient also at her bedside on the cardiac stepdown unit. Preoperative teaching and preoperative testing have been initiated. Once her preoperative testing has been completed and all the results of been obtained a STS risk score will be calculated in discussed with the patient. Treatment options including myocardial revascularization surgery were discussed with the patient by Dr. Cleveland Bullard. Knowing and understanding the risks of myocardial revascularization surgery the patient wishes to proceed with the surgical option. Continue to optimize medical management with aspirin, statin and beta carlos. Medical management other comorbidities per primary care service. More recommendations to follow based on patient's clinical course. The patient will tentatively be scheduled for myocardial revascularization surgery with Dr. Cleveland Bullard on 05/11/2020 with left internal mammary artery and endoscopic vein harvest. Per the cardiothoracic surgery standpoint the patient can be discharged home and brought back for surgery on an outpatient basis. We will obtain a 5 m walk test tomorrow 05/05/2020 when the patient is able to ambulate. Thank you Dr. Noriega for this consult and we will look for to working with you in the care of this patient. Time with Patient: Greater than 30 <Cleveland Bullard - Last Filed: 05/04/20 17:05> Surgical - Exam Vital Signs Pulse Resp BP Pulse Ox 70 16 209/89 100 05/03/20 12:55 05/03/20 12:55 05/03/20 12:55 05/03/20 12:55 Results - Labs 05/04/20 07:58 05/04/20 07:58 Abnormal Lab Results - Last 24 Hours (Table) 05/04/20 05/04/20 05/04/20 Range/Units 07:58 07:58 16:19 RBC 3.71 L (3.80-5.40) m/uL Chloride 109 H (98-107) mmol/L Glucose 119 H (74-99) mg/dL Urine Blood Large H (Negative) Urine Bacteria Rare H (None) /hpf Diabetes panel 05/04/20 Range/Units 07:58 Sodium 137 (137-145) mmol/L Potassium 3.8 (3.5-5.1) mmol/L Chloride 109 H (98-107) mmol/L Carbon Dioxide 23 (22-30) mmol/L BUN 12 (7-17) mg/dL Creatinine 0.62 (0.52-1.04) mg/dL Glucose 119 H (74-99) mg/dL Calcium 8.9 (8.4-10.2) mg/dL Calcium panel 05/04/20 Range/Units 07:58 Calcium 8.9 (8.4-10.2) mg/dL Pituitary panel 05/04/20 Range/Units 07:58 Sodium 137 (137-145) mmol/L Potassium 3.8 (3.5-5.1) mmol/L Chloride 109 H (98-107) mmol/L Carbon Dioxide 23 (22-30) mmol/L BUN 12 (7-17) mg/dL Creatinine 0.62 (0.52-1.04) mg/dL Glucose 119 H (74-99) mg/dL Calcium 8.9 (8.4-10.2) mg/dL Adrenal panel 05/04/20 Range/Units 07:58 Sodium 137 (137-145) mmol/L Potassium 3.8 (3.5-5.1) mmol/L Chloride 109 H (98-107) mmol/L Carbon Dioxide 23 (22-30) mmol/L BUN 12 (7-17) mg/dL Creatinine 0.62 (0.52-1.04) mg/dL Glucose 119 H (74-99) mg/dL Calcium 8.9 (8.4-10.2) mg/dL Assessment and Plan Plan: The patient was seen and examined. The history and physical findings were verified. I agree with the above assessment and plan. The patient is a 74 y/o female who presented to her guest relations coordinator with shortness of breath and was found to have an abnormal stress test. Cardiac catheterization revealed a left main coronary artery lesion confirmed with IVUS. Coronary artery bypass was recommended. The risks, benefits, and alternatives to surgery were discussed with the patient. All of her questions were answered. We will obtain our pre-operative workup. Plan for CABG as outpatient 05/11/2020.
[2020-05-04] MEDS: LATANOPROST 0.005% OPHTH DROPS 2.5 ML BTL BOTH EYES SCH (19:47)
[2020-05-04] MEDS ORDERED: ATORVASTATIN 80 MG TAB PO SCH (21:00)
--- NOTE | 2020-05-04 21:20 | XR ---
EXAMINATION TYPE: XR chest 2V DATE OF EXAM: 05/04/2020 COMPARISON: 03/03/2020 HISTORY: Fever TECHNIQUE: 2 views FINDINGS: Heart and mediastinum are normal. Lungs are clear. Diaphragm is normal. Bony thorax appears normal. There are chest leads. IMPRESSION: Normal chest. No adverse change.
[2020-05-04] MEDS ORDERED: traZODone HCL 50 MG TAB PO PRN (21:51)
--- NOTE | 2020-05-04 21:51 | P.CONS ---
History of Present Illness - Reason for Consult Consult date: 05/04/20 Medical Management Requesting physician: Jaquan Noriega - Chief Complaint Left main 79 % stenosis/ medical management. - History of Present Illness This is a 74 year old female one of my patient with a previous medical history significant for hypertension and hypertensive cardiovascular disease, hyperlipidemia, Rheumatoid arthritis, vertigo, depression and Glaucoma, was seen and evaluated in my office for uncontrolled hypertension and feeling diaphoretic, with dyspnea on exertion, had a 12- Lead EKG that showed poor R wave progression and based on that it was recommended for her to undergo Lexiscan stress test on 04/11/2020 which showed a large fixed area of perfusion defect in the lateral wall suggestive of prior AR and a defect in the anteroseptal area during rest and not during exercise suggestive of an artifact, was not too sure so I referred the patient to see who recommended Left heart catherization which was done today at [facility] through the right radial approach and while he was engaging the left main she developed EKG changes and chest pain so the procedure was aborted and she was sent to [facility] for Left heart catherization through the right femoral artery with IVUS that showed 79 % stenosis of Left main and the option was given to her of doing angioplasty VS revascularization so she was admitted for evaluation by cardiothoracic surgery for CABG that will be performed by next week. Review of Systems Constitutional: Denies anorexia, Denies chronic pain, Denies lethargy, Denies weakness, Denies weight gain Eyes: denies blurred vision, denies bulging eye, denies decreased vision Ears, nose, mouth and throat: Reports vertigo, Denies dysphagia, Denies neck lump, Denies sore throat Cardiovascular: Reports decreased exercise tolerance, Reports dyspnea on exertion, Reports shortness of breath, Denies chest pain, Denies leg edema, Denies lightheadedness, Denies rapid heart beat, Denies syncope Respiratory: Denies congestion, Denies cough, Denies cough with sputum, Denies home oxygen, Denies respiratory infections, Denies sleep apnea, Denies snoring, Denies wheezing Gastrointestinal: Denies abdominal pain, Denies bloating, Denies BRBPR, Denies diarrhea, Denies loss of appetite, Denies melena, Denies nausea, Denies vomiting Genitourinary: Denies dysuria, Denies nocturia Menstruation: Reports postmenopausal Musculoskeletal: Denies myalgias Musculoskeletal: absent: ankle pain, ankle stiffness, ankle swelling, elbow pain, elbow stiffness, elbow swelling, foot pain, foot stiffness, foot swelling, hand pain, hand stiffness, hand swelling, hip pain, hip stiffness, hip swelling, knee pain, knee stiffness, knee swelling, shoulder pain, shoulder stiffness, shoulder swelling, wrist pain, wrist stiffness, wrist swelling Integumentary: Denies pruritus, Denies rash Neurological: Denies numbness, Denies weakness Psychiatric: Reports depression, Denies anxiety, Denies sadness/tearfulness, Denies sleep disturbances, Denies suicidal ideation Endocrine: Denies fatigue, Denies weight change Past Medical History Past Medical History: Coronary Artery Disease (CAD), Eye Disorder, Hyperlipidemia, Hypertension, Rheumatoid Arthritis (RA) Additional Past Medical History / Comment(s): Glaucoma,vertigo, blood clot with my last 40 years ago. History of Any Multi-Drug Resistant Organisms: None Reported Past Surgical History: Cholecystectomy, Hysterectomy Additional Past Surgical History / Comment(s): nasal surgery due to a broken nose in the past, bilateral cataracts, colonoscopy 2019 Past Anesthesia/Blood Transfusion Reactions: No Reported Reaction Additional Past Anesthesia/Blood Transfusion Reaction / Comm: never had a blood transfusion. Past Psychological History: Depression Smoking Status: Never smoker Past Alcohol Use History: Rare Past Drug Use History: None Reported - Past Family History Mother Family Medical History: CVA/TIA, Diabetes Mellitus, Hypertension, Thyroid Disorder Additional Family Medical History / Comment(s): She is currently 94 years old. Father History Unknown: Yes Family Medical History: Dementia (Father at the age of 80 from dementia) Brother(s) Family Medical History: No Reported History (patient has 5 brothers ok.) Sister(s) Family Medical History: No Reported History (patient had 7 sisters one .) Son(s) Family Medical History: No Reported History (patient has 3 sons with no major medical issues.) Daughter(s) Family Medical History: No Reported History (Patient has 4 daughters with no major medical priblems.) Medications and Allergies Home Medications Medication Instructions Recorded Confirmed Type Aspirin [Adult Low Dose Aspirin EC] 81 mg PO DAILY 01/20/19 05/03/20 History Latanoprost Ophth [Xalatan 0.005%] 1 drop BOTH EYES HS 01/20/19 05/03/20 History Acetaminophen [Tylenol Arthritis] 650 mg PO Q8H PRN 03/03/20 05/03/20 History Cholecalciferol [Vitamin D3 (25 5,000 unit PO DAILY 03/03/20 05/03/20 History Mcg = 1000 Iu)] Krill/Om-3/Dha/Epa/Phospho/Ast 1 cap PO DAILY 03/03/20 05/03/20 History [[place]-3 Krill Oil 300 mg Sfgl] Timolol 0.5% Ophth Soln [Timoptic 1 drop BOTH EYES BID 03/03/20 05/03/20 History 0.5% Ophth Soln] Triamcinolone 0.1% Cream [Kenalog 1 applicatio TOPICAL DAILY 03/03/20 05/03/20 History 0.1% Cream] Ashwagandha Root Extract 300 mg PO DAILY 05/03/20 05/03/20 History Turmeric Root Extract [Turmeric] 1,053 mg PO DAILY 05/03/20 05/03/20 History Valsartan 320 mg PO DAILY 05/03/20 05/03/20 History Vit B-12 + Folic Acid + Vit C 1 tab PO DAILY 05/03/20 05/03/20 History carvediloL [Coreg] 6.25 mg PO BID 05/03/20 05/03/20 History traZODone HCL 50 mg PO HS PRN 05/03/20 05/03/20 History Allergies Allergy/AdvReac Type Severity Reaction Status Date / Time indomethacin [From Indocin] Allergy Rapid Verified 05/03/20 18:21 Heart Rate codeine AdvReac Nausea & Verified 05/03/20 18:21 Vomiting Physical Exam Vitals: Vital Signs Temp Pulse Resp BP Pulse Ox 05/04/20 14:45 171/79 05/04/20 11:26 98.7 F 71 16 151/70 98 05/04/20 07:30 98.6 F 77 16 147/66 98 05/04/20 06:12 97.4 F L 79 18 174/76 98 05/04/20 04:00 98.4 F 76 16 148/65 98 05/03/20 23:54 98.4 F 82 18 142/62 98 05/03/20 20:00 98.4 F 91 18 170/74 93 L 05/03/20 16:52 78 16 158/68 99 Intake and Output 05/04/20 05/04/20 05/04/20 06:59 14:59 22:59 Intake Total 456 Balance 456 Intake: IV 56 Intake, IV Titration 400 Amount Sodium Chloride 0.9% 1, 400 000 ml @ 75 mls/hr IV . [id number] JOSE DAVID Rx#:[id number] Other: Voiding Method Toilet # Voids 1 Weight 82.7 kg Physical examination: HEENT: head is atraumatic normocephalic pupils were equal round reactive to light and accommodations extra ocular muscle movements were intact. Neck: supple, no JVP. Chest: decreased breath sounds at the bases otherwise clear to auscultation bilaterally. Heart: first heart sound is depressed , second heart sound is normal there is no gallop or murmur. Abdomen: soft non tender, non distended positive bowel sounds. Extremities: there is no edema no calf tenderness DP + 2 bilaterally. Neurologic examination: patient is awake alert and oriented X 3 CN II-XII are grossly intact, muscle power 5/5 in upper and lower extremity bilaterally. Results CBC & Chem 7: 05/04/20 07:58 05/04/20 07:58 Labs: Abnormal Lab Results - Last 24 Hours (Table) 05/04/20 05/04/20 Range/Units 07:58 07:58 RBC 3.71 L (3.80-5.40) m/uL Chloride 109 H (98-107) mmol/L Glucose 119 H (74-99) mg/dL Assessment and Plan Assessment: Assessment and Plan: 1. CAD with 79 % stenosis of the left main by IVUS. patient is being evaluated by cardiothoracic surgery for CABG next week. 2. Hypertension and hypertensive cardiovascular disease. we will continue with Diovan 320 mg orally daily and Carvedilol 6.25 mg orally bid, we will continue with BP monitoring. 3. Glaucoma. we will continue with current eye drops. 4. Insomnia. we will continue with Trazodone 100 mg orally daily. 5. Vitamin D deficiency. we will continue with vitamin D supplement. 6. Hyperlipidemia. we will start Lipitor 80 mg orally daily. 7. Thank you for the consult we will follow up with you.
[2020-05-04] MEDS: ALPRAZolam 0.25 MG TAB PO PRN (22:27)
[2020-05-05 04:34] LABS: Hepatitis A Antibody IgM Non-Reactive (Non-Reactive); Hepatitis B Core IgM Non-Reactive (Non-Reactive); Hepatitis B Surface Antigen Non-Reactive (Non-Reactive); Hepatitis C IgG Antibody Non-Reactive (Non-Reactive)
[2020-05-05] MEDS: carvediloL 6.25 MG TAB PO SCH (06:25)
[2020-05-05] MEDS ORDERED: carvediloL 6.25 MG TAB PO STA (07:48)
[2020-05-05 08:17] LABS: INR 0.9 (<1.2); Partial Thromboplastin Time 23.6 sec (22.0-30.0); Prothrombin Time 10.2 sec (9.0-12.0)
[2020-05-05 08:18] LABS: ALT 27 U/L (4-34); AST 21 U/L (14-36); African American GFR (CKD) >90 (>60 ml/min/1.73 sqM); Albumin 3.5 g/dL (3.5-5.0); Alkaline Phosphatase 78 U/L (38-126); Anion Gap 3 mmol/L; Blood Urea Nitrogen 13 mg/dL (7-17); Carbon Dioxide 26 mmol/L (22-30); Chloride 109 mmol/L (98-107); Cholesterol 149 mg/dL (<200); Glucose 133 mg/dL (74-99); HDL Cholesterol 38 mg/dL (40-60); LDL Cholesterol,Calculated 90 mg/dL (0-99); Magnesium 1.9 mg/dL (1.6-2.3); Non-African American GFR(CKD) 79 (>60 ml/min/1.73 sqM); Potassium 4.1 mmol/L (3.5-5.1); Sodium 138 mmol/L (137-145); Total Bilirubin 0.4 mg/dL (0.2-1.3); Total Protein 6.6 g/dL (6.3-8.2); Triglycerides 104 mg/dL (<150)
[2020-05-05] MEDS: LOSARTAN 50 MG TAB PO SCH (09:17)
[2020-05-05] MEDS: ASPIRIN 81 MG PO SCH (09:17)
[2020-05-05] MEDS: TIMOLOL 0.5% OPHTH DROPS 5 ML BTL BOTH EYES SCH (09:18)
--- NOTE | 2020-05-05 10:47 | P.CNPUL ---
History of Present Illness Consult date: 05/05/20 Requesting physician: Cleveland Bullard Reason for consult: dyspnea Chief complaint: Shortness of breath, chest pain History of present illness: This is a very pleasant 74-year-old female patient with a known history hypertension, hyperlipidemia, rheumatoid arthritis. She is a lifelong nonsmoker and has not been seen by a nicking machine operator in the past. recently she had been having issues with shortness oxertion. Subsequent stress test revealed possible ischemiand she was admitted to [facility] for cardiac catheterization at which time she developed chest discomfort and EKG changes. the procedure was stopped and she was transferred here to [facility] and found to have left main disease and is now recommended coronary artery bypass grafting. The plan is for her to be discharged home and brought back on 05/11/2020 for the pro She did undergo spirometry with an FEV1 81%. Currently she denies shortness of breath, cough or congestion. No fever, chills or night sweats. No nausea, vomiting or diarrhea. Of note, she did have CoVID 19 back in February 2020 and subsequently recovered. Follow-up testing here was negative. Review of Systems REVIEW OF SYSTEMS: CONSTITUTIONAL: Denies any recent significant weight loss or weight gain. EYES: Denies change in vision. EARS, NOSE, MOUTH, THROAT: Denies headaches, denies sore throat. CARDIOVASCULAR: Positive for chest pain, palpitations no syncopal episodes. RESPIRATORY: Positive for shortness of breath, no cough, congestion or hemoptysis. GASTROINTESTINAL: Denies change in appetite, denies abdominal pain GENITOURINARY: Denies hematuria, denies infections. MUSKULOSKELETAL: Denies pain, denies swelling. INTEGUMENTARY: Denies rash, denies eczema. NEUROLOGICAL: Denies recent memory loss, no recent seizure activity. PSYCHIATRIC: Denies anxiety, denies depression. HEMATOLOGIC/LYMPHATIC: Denies anemia, denies enlarged lymph nodes. Past Medical History Past Medical History: Coronary Artery Disease (CAD), Eye Disorder, Hyperlipidemia, Hypertension, Rheumatoid Arthritis (RA) Additional Past Medical History / Comment(s): Glaucoma,vertigo, blood clot with my last 40 years ago. History of Any Multi-Drug Resistant Organisms: None Reported Past Surgical History: Cholecystectomy, Hysterectomy Additional Past Surgical History / Comment(s): nasal surgery due to a broken nose in the past, bilateral cataracts, colonoscopy 2019 Past Anesthesia/Blood Transfusion Reactions: No Reported Reaction Additional Past Anesthesia/Blood Transfusion Reaction / Comment(s): never had a blood transfusion. Past Psychological History: Depression Smoking Status: Never smoker Past Alcohol Use History: Rare Past Drug Use History: None Reported - Past Family History Mother Family Medical History: CVA/TIA, Diabetes Mellitus, Hypertension, Thyroid Disorder Additional Family Medical History / Comment(s): She is currently 94 years old. Father History Unknown: Yes Family Medical History: Dementia (Father at the age of 80 from dementia) Brother(s) Family Medical History: No Reported History (patient has 5 brothers ok.) Sister(s) Family Medical History: No Reported History (patient had 7 sisters one .) Son(s) Family Medical History: No Reported History (patient has 3 sons with no major medical issues.) Daughter(s) Family Medical History: No Reported History (Patient has 4 daughters with no major medical priblems.) Medications and Allergies Home Medications Medication Instructions Recorded Confirmed Type Aspirin [Adult Low Dose Aspirin EC] 81 mg PO DAILY 01/20/19 05/03/20 History Latanoprost Ophth [Xalatan 0.005%] 1 drop BOTH EYES HS 01/20/19 05/03/20 History Acetaminophen [Tylenol Arthritis] 650 mg PO Q8H PRN 03/03/20 05/03/20 History Cholecalciferol [Vitamin D3 (25 5,000 unit PO DAILY 03/03/20 05/03/20 History Mcg = 1000 Iu)] Krill/Om-3/Dha/Epa/Phospho/Ast 1 cap PO DAILY 03/03/20 05/03/20 History [[place]-3 Krill Oil 300 mg Sfgl] Timolol 0.5% Ophth Soln [Timoptic 1 drop BOTH EYES BID 03/03/20 05/03/20 History 0.5% Ophth Soln] Triamcinolone 0.1% Cream [Kenalog 1 applicatio TOPICAL DAILY 03/03/20 05/03/20 History 0.1% Cream] Ashwagandha Root Extract 300 mg PO DAILY 05/03/20 05/03/20 History Turmeric Root Extract [Turmeric] 1,053 mg PO DAILY 05/03/20 05/03/20 History Valsartan 320 mg PO DAILY 05/03/20 05/03/20 History Vit B-12 + Folic Acid + Vit C 1 tab PO DAILY 05/03/20 05/03/20 History carvediloL [Coreg] 6.25 mg PO BID 05/03/20 05/03/20 History traZODone HCL 50 mg PO HS PRN 05/03/20 05/03/20 History Allergies Allergy/AdvReac Type Severity Reaction Status Date / Time indomethacin [From Indocin] Allergy Rapid Verified 05/03/20 18:21 Heart Rate codeine AdvReac Nausea & Verified 05/03/20 18:21 Vomiting Physical Exam Vitals: Vital Signs Temp Pulse Resp BP BP Pulse Ox 05/05/20 05:03 98.0 F 72 16 169/71 94 L 05/04/20 23:00 86 16 149/67 98 05/04/20 19:44 98.5 F 90 16 145/65 97 05/04/20 17:37 80 174/59 97 05/04/20 16:37 78 186/81 98 05/04/20 16:00 75 177/75 98 05/04/20 15:37 74 175/77 98 05/04/20 14:45 171/79 05/04/20 11:26 98.7 F 71 16 151/70 98 Intake and Output 05/04/20 05/05/20 05/05/20 22:59 06:59 14:59 Intake Total 540 560 Output Total 300 Balance 240 560 Intake: Oral 540 560 Output: Urine 300 Other: # Voids 1 Weight 82.8 kg GENERAL EXAM: Alert, very pleasant 74-year-old female patient, on room air, comfortable in no apparent distress. HEAD: Normocephalic. EYES: Normal reaction of pupils, equal size. NOSE: Clear with pink turbinates. THROAT: No erythema or exudates. NECK: No masses, no JVD. CHEST: No chest wall deformity. LUNGS: Equal air entry with no crackles, wheeze, rhonchi or dullness. CVS: S1 and S2 normal with no audible murmur, regular rhythm. ABDOMEN: No hepatosplenomegaly, normal bowel sounds, no guarding or rigidity. SPINE: No scoliosis or deformity SKIN: No rashes CENTRAL NERVOUS SYSTEM: No focal deficits, tone is normal in all 4 extremities. EXTREMITIES: There is no peripheral edema. No clubbing, no cyanosis. Peripheral pulses are intact. Results - Laboratory Findings CBC and BMP: 05/04/20 07:58 05/05/20 07:09 PT/INR, D-dimer PT 10.2 sec (9.0-12.0) 05/05/20 07:09 INR 0.9 (<1.2) 05/05/20 07:09 Abnormal lab findings: Abnormal Labs 05/04/20 05/04/20 05/04/20 07:58 07:58 16:19 RBC 3.71 L Chloride 109 H Glucose 119 H HDL Cholesterol Urine Blood Large H Urine Bacteria Rare H 05/05/20 07:09 RBC Chloride 109 H Glucose 133 H HDL Cholesterol 38 L Urine Blood Urine Bacteria - Diagnostic Findings Chest x-ray: image reviewed Assessment and Plan Assessment: 1 Coronary artery disease including left main stenosis, plan is for coronary artery bypass grafting on 05/11/2020. 2 Hyperlipidemia 3 Hypertension 4 Rheumatoid arthritis 5 Lifelong nonsmoker 6 Glaucoma plan: The patient was seen and evaluated by Dr. Cottrell She is stable for surgery from the pulmonary standpoint We will follow her in the immediate postoperative setting We will plan for early extubation protocol as tolerated She has been educated regarding use of the incentive spirometer I, the cosigning physician, performed a history & physical examination of the patient. Lungs sounds are clear. Maintaining good O2 saturations in the 90s on room air. I discussed the assessment and plan of care with my nurse practitioner, Filomena Ariza. I attest to the above consultation as dictated by her. Time with Patient: Greater than 30
[2020-05-05 11:10] VITALS: TEMP 97.3
[2020-05-05 11:11] VITALS: BMI 32.3
--- NOTE | 2020-05-05 12:43 | ECHOF ---
Referral Reason:preop cardiac surgery MEASUREMENTS -------- HEIGHT: 160.0 cm WEIGHT: 82.6 kg BP: 169/71 RVIDd: 2.8 cm (< 3.3) IVSd: 1.5 cm (0.6 - 1.1) LVIDd: 4.5 cm (3.9 - 5.3) LVPWd: 1.4 cm (0.6 - 1.1) IVSs: 1.6 cm LVIDs: 3.0 cm LVPWs: 1.7 cm LA Diam: 3.4 cm (2.7 - 3.8) LAESV Index (A-L): 27.22 ml/m Ao Diam: 3.1 cm (2.0 - 3.7) AV Cusp: 1.7 cm (1.5 - 2.6) MV EXCURSION: 12.364 mm (> 18.000) MV EF SLOPE: 18 mm/s (70 - 150) EPSS: 0.9 cm MV E Hong: 0.72 m/s MV DecT: 328 ms MV A Hong: 1.06 m/s MV E/A Ratio: 0.68 RAP: 5.00 mmHg RVSP: 20.86 mmHg FINDINGS -------- Sinus rhythm. This was a technically adequate study. The left ventricular size is normal. There is moderate concentric left ventricular hypertrophy. O verall left ventricular systolic function is normal with, an EF between 55 - 60 %. The right ventricle is normal in size. Normal LA size by volume 22+/-6 ml/m2. The right atrial size is normal. Aneurysmal Interatrial septum. There is mild aortic valve sclerosis. The mitral valve leaflets are mildly thickened. Mild mitral regurgitation is present. The tricuspid valve appears structurally normal. Trace tricuspid regurgitation present. Right alberto tricular systolic pressure is normal at < 35 mmHg. There is no pulmonic regurgitation present. The aortic root size is normal. Normal inferior vena cava with normal inspiratory collapse consistent with estimated right atrial pre ssure of 5 mmHg. There is no pericardial effusion. CONCLUSIONS -------- 1. The left ventricular size is normal. 2. There is moderate concentric left ventricular hypertrophy. 3. Overall left ventricular systolic function is normal with, an EF between 55 - 60 %. 4. Normal LA size by volume 22+/-6 ml/m2. 5. There is mild aortic valve sclerosis. 6. Mild mitral regurgitation is present. 7. Trace tricuspid regurgitation present. 8. There is no pericardial effusion. WELDER TACK: Jada Frank RDCS
[2020-05-05 13:46] VITALS: BP 134/61; PULSE 71
--- NOTE | 2020-05-05 13:54 | P.PN ---
Subjective Progress Note Date: 05/05/20 This is a 74 year old female one of my patient with a previous medical history significant for hypertension and hypertensive cardiovascular disease, hyperlipidemia, Rheumatoid arthritis, vertigo, depression and Glaucoma, was seen and evaluated in my office for uncontrolled hypertension and feeling diapho retic, with dyspnea on exertion, had a 12- Lead EKG that showed poor R wave progression and based on that it was recommended for her to undergo Lexiscan stress test on 04/11/2020 which showed a large fixed area of perfusion defect in the lateral wall suggestive of prior MO and a defect in the anteroseptal area during rest and not during exercise suggestive of an artifact, was not too sure so I referred the patient to see who recommended Left heart catherization which was done today at [facility] through the right radial approach and while he was engaging the left main she developed EKG changes and chest pain so the procedure was aborted and she was sent to [facility] for Left heart catherization through the right femoral artery with IVUS that showed 79 % stenosis of Left main and the option was given to her of doing angioplasty VS revascularization so she was admitted for evaluation by cardiothoracic surgery for CABG that will be performed by next week. 05/05: Chest x-ray done this morning is normal. Carotid ultrasound revealed no hemodynamically significant stenosis. Patient has been seen by cardiothoracic surgery and plan is for CABG as outpatient on May 11. Patient has been afebrile, heart rate 72, blood pressure 169/71, pulse ox 94-98% on room air. INR 0.9. BUN 13 and creatinine 0.75. Blood sugar 133. Liver function tests normal. TSH 3.580. Triglycerides 104, cholesterol 149, LDL 90, HDL 38. Hepatitis panel negative. His afternoon. She is currently denying having any chest pain or shortness of breath. She states she is less anxious from yesterday. No abdominal pain. She had a BM today. She is scheduled for discharge home later today. Objective - Vital Signs Vital signs: Vital Signs Temp 98.0 F 05/05/20 05:03 Pulse 72 05/05/20 05:03 Resp 16 05/05/20 05:03 BP 169/71 05/05/20 05:03 Pulse Ox 94 L 05/05/20 05:03 Intake & Output 01/05/05/20 05/05/20 18:59 06:59 18:59 Intake Total 996 560 Output Total 300 Balance 696 560 Weight 82.8 kg Intake: IV 56 Intake, IV Titration 400 Amount Sodium Chloride 0.9% 1, 400 000 ml @ 75 mls/hr IV . [id number] JOSE DAVID Rx#:[id number] Oral 540 560 Output: Urine 300 Other: Voiding Method Toilet # Voids 1 - Exam Review of Systems Constitutional: Denies anorexia, Denies chronic pain, Denies lethargy, Denies weakness, Denies weight gain Eyes: denies blurred vision, denies bulging eye, denies decreased vision Ears, nose, mouth and throat: Reports vertigo, Denies dysphagia, Denies neck lump, Denies sore throat Cardiovascular: Reports decreased exercise tolerance, Reports dyspnea on exertion, denies shortness of breath, Denies chest pain, Denies leg edema, Denies lightheadedness, Denies rapid heart beat, Denies syncope Respiratory: Denies congestion, Denies cough, Denies cough with sputum, Denies home oxygen, Denies respiratory infections, Denies sleep apnea, Denies snoring, Denies wheezing Gastrointestinal: Denies abdominal pain, Denies bloating, Denies BRBPR, Denies diarrhea, Denies loss of appetite, Denies melena, Denies nausea, Denies vomiting Genitourinary: Denies dysuria, Denies nocturia Menstruation: Reports postmenopausal Musculoskeletal: Denies myalgias Musculoskeletal: absent: ankle pain, ankle stiffness, ankle swelling, elbow pain, elbow stiffness, elbow swelling, foot pain, foot stiffness, foot swelling, hand pain, hand stiffness, hand swelling, hip pain, hip stiffness, hip swelling, knee pain, knee stiffness, knee swelling, shoulder pain, shoulder stiffness, shoulder swelling, wrist pain, wrist stiffness, wrist swelling Integumentary: Denies pruritus, Denies rash Neurological: Denies numbness, Denies weakness Psychiatric: Reports depression, Denies anxiety, Denies sadness/tearfulness, Denies sleep disturbances, Denies suicidal ideation Endocrine: Denies fatigue, Denies weight change Physical examination: GEN: Patient is sitting up at the edge of the bed appears to be comfortable and in no acute distress. HEENT: head is atraumatic normocephalic pupils were equal round reactive to light and accommodations extra ocular muscle movements were intact. Neck: supple, no JVP. Chest: decreased breath sounds at the bases otherwise clear to auscultation bilaterally. Heart: first heart sound is depressed , second heart sound is normal there is no gallop or murmur. Abdomen: soft non tender, non distended positive bowel sounds. Extremities: there is no edema no calf tenderness DP + 2 bilaterally. Neurologic examination: patient is awake alert and oriented X 3 CN II-XII are grossly intact, muscle power 5/5 in upper and lower extremity bilaterally. - Labs CBC & Chem 7: 05/04/20 07:58 05/05/20 07:09 Labs: Abnormal Lab Results - Last 24 Hours (Table) 05/04/20 05/05/20 Range/Units 16:19 07:09 Chloride 109 H (98-107) mmol/L Glucose 133 H (74-99) mg/dL HDL Cholesterol 38 L (40-60) mg/dL Urine Blood Large H (Negative) Urine Bacteria Rare H (None) /hpf Assessment and Plan Assessment: 1. CAD with 79 % stenosis of the left main by IVUS. patient is being evaluated by cardiothoracic surgery for CABG on May 11. 2. Hypertension and hypertensive cardiovascular disease. we will continue with Diovan 320 mg orally daily and Carvedilol 6.25 mg orally bid, we will continue with BP monitoring. 3. Glaucoma. we will continue with current eye drops. 4. Insomnia. we will continue with Trazodone 100 mg orally daily. 5. Vitamin D deficiency. we will continue with vitamin D supplement. 6. Hyperlipidemia. we will start Lipitor 80 mg orally daily. 7. Thank you for the consult we will follow up with you. Discharge plan: Home today. Impression and plan of care have been directed as dictated by the signing physician. Barbara De Los Santos nurse practitioner acting as scribe for signing physician.
--- NOTE | 2020-05-05 16:20 | DS ---
DISCHARGE SUMMARY DATE OF ADMISSION: 05/04/2020 DATE OF DISCHARGE: 05/05/2020 BRIEF HISTORY: This is a 74-year-old female patient who was experiencing symptoms of chest pain and shortness of breath with exertion and underwent a heart catheterization that revealed intermediate to severe lesion involving the ostial left main coronary artery. She underwent intravascular ultrasound (IVUS) yesterday and that confirmed the persistence of the flow-limiting lesion. She was seen yesterday by the cardiothoracic surgical team and the plan is to pursue coronary artery bypass grafting in the next few days. The patient is going to be discharged home and I am going to follow up with the patient in a week in the office. MMODL / IJN: [id number] /
[2020-05-05] MEDS ORDERED: carvediloL 6.25 MG TAB PO SCH (17:30)
== END 2020-05-05 14:25 | disposition home or self-care (01) | DRG 303 ==
LOC: 3SCARD 12:52
PROVIDERS: ADMIT Internal Medicine Interventional Cardiology; ATTEND Internal Medicine Interventional Cardiology
PROC: B241ZZ3 Ultrasonography of Multiple Coronary Arteries, Intravascular (ICD-10-PCS; principal; 2020-05-04 08:30)
DX: I25.10 Atherosclerotic heart disease of native coronary artery without angina pectoris (principal); F17.210 Nicotine dependence, cigarettes, uncomplicated; E78.5 Hyperlipidemia, unspecified; M06.9 Rheumatoid arthritis, unspecified; I11.9 Hypertensive heart disease without heart failure; H40.9 Unspecified glaucoma; G47.00 Insomnia, unspecified; E55.9 Vitamin D deficiency, unspecified; F32.9 Major depressive disorder, single episode, unspecified; Z79.82 Long term (current) use of aspirin; Z79.899 Other long term (current) drug therapy; Z88.6 Allergy status to analgesic agent; Z88.5 Allergy status to narcotic agent; Z90.49 Acquired absence of other specified parts of digestive tract; Z90.710 Acquired absence of both cervix and uterus; Z98.42 Cataract extraction status, left eye; Z98.41 Cataract extraction status, right eye; Z98.890 Other specified postprocedural states; Z82.3 Family history of stroke; Z83.3 Family history of diabetes mellitus; Z82.49 Family history of ischemic heart disease and other diseases of the circulatory system; Z83.49 Family history of other endocrine, nutritional and metabolic diseases; Z81.8 Family history of other mental and behavioral disorders
CPT/HCPCS: 71046; 80048; 80053; 80061; 80074; 81001; 83036; 83735; 84443; 85025; 85610; 85730; 86850; 86900; 86901; 87070; 92978; 93306; 93454; 93880; 93922; 93970; 94150

== ENCOUNTER 2020-05-11 05:31 | Inpatient (IN) | payer MEDICARE ==
[~2020-05-11 05:31] MED LIST changes: +ALBUMIN HUMAN 25% 50 ML IV ONE; +ALBUMIN HUMAN 5% 500 ML IVPB ONE; +ASPIRIN 325 MG TAB PO ONE; -ASPIRIN 81 MG ONE; +ATORVASTATIN 10 MG TAB PO ONE; +CALCIUM CHLORIDE 100 MG/ML 10 ML SYRINGE IV ONE; +CHLORHEXIDINE GLUCONATE 15 ML CUP MUCOUS MEM ONE; +CLEVIDIPINE BUTYRATE 25 MG in EMPTY BAG 1 BAG IV ONE; +DEXTROSE 5% IN WATER 1,000 ML with POTASSIUM CHLORIDE 110 MEQ, MAGNESIUM SULFATE 16 MEQ... IV ONE; +DEXTROSE 5% IN WATER 1,000 ML with POTASSIUM CHLORIDE 25 MEQ, SODIUM CHLORIDE 4MEQ/ML V... IRRIGATION ONE; +HEPARIN SODIUM 1,000 UN/ML (10ML VL) IV ONE; +HEPARIN SODIUM,PORCINE 5,000 UNIT in SODIUM CHLORIDE 0.9% 500 ML 500 ML IV ONE; +INSULIN REGULAR 100 UNIT in SODIUM CHLORIDE 0.9% 100 ML IV ONE; +LACTATED RINGERS 1,000 ML IV ONE; +MAGNESIUM SULFATE MG 500 MG/ML IV ONE; +MANNITOL 25% 12.5 GM/50 ML VIAL IV ONE; +METOPROLOL TARTRATE 12.5 MG TAB PO ONE; +NITROGLYCERIN-D5W PMX 25 MG/250 ML BTL IV ONE; +NITROGLYCERIN-D5W PMX 50 MG in DEXTROSE/WATER 1 250ML.BAG IV ONE; +NOREPINEPHRINE 4 MG in SODIUM CHLORIDE 0.9% 250 ML IV ONE; +PAPAVERINE 360 MG in SODIUM CHLORIDE 0.9% 90 ML IV ONE; +PHENYLEPHRINE 10 MG/ML VIAL IV ONE; +PHENYLEPHRINE 40 MG in SODIUM CHLORIDE 0.9% 250 ML IV ONE; +PROTAMINE SULFATE 10 MG/ML 25 ML VIAL IV ONE; +PROTAMINE SULFATE 250 MG in EMPTY BAG 1 BAG IV ONE; -REGADENOSON 0.4 MG/5 ML SYRINGE IV ONE; +SODIUM BICARB 8.4% 50 ML SYR (1 MEQ/ML) IV ONE; +SODIUM CHLORIDE 0.9% 1,000 ML IV ONE; +TRANEXAMIC ACID 2,000 MG in SODIUM CHLORIDE 0.9% 80 ML IV ONE; +ceFAZolin 1,000 MG in SODIUM CHLORIDE 0.9% IRRIGATIO 1,000 ML IRRIGATION ONE; +propofoL 1,000 MG/100 ML VIAL IV ONE
[2020-05-11] MEDS ORDERED: ONDANSETRON 4 MG/2 ML VIAL ONE (06:34)
[2020-05-11] MEDS ORDERED: ONDANSETRON 4 MG/2 ML VIAL IVP ONE (06:38)
[2020-05-11] MEDS ORDERED: PROTAMINE SULFATE 10 MG/ML 25 ML VIAL IV ONE (07:20)
[2020-05-11] MEDS ORDERED: MAGNESIUM SULFATE 4 MEQ/ML 10ML VIAL ONE (07:20)
[2020-05-11] MEDS ORDERED: fentaNYL (PF) 50 MCG/ML 50 ML VIAL ONE (07:20)
[2020-05-11] MEDS ORDERED: CALCIUM CHLORIDE 100 MG/ML 10 ML SYRINGE ONE (07:20)
[2020-05-11] MEDS ORDERED: PROPOFOL 10 MG/ML 20 ML VIAL IV ONE (07:20)
[2020-05-11] MEDS ORDERED: SODIUM CHLORIDE 0.9% 250 ML BAG ONE (07:20)
[2020-05-11] MEDS ORDERED: LIDOCAINE 2% SYG (PF) 100 MG/5 ML ONE (07:20)
[2020-05-11] MEDS ORDERED: SODIUM CHLORIDE 0.9% IRRIG 1,000 ML BTL IRRIGATION ONE (07:20)
[2020-05-11] MEDS ORDERED: INSULIN REGULAR 100 UNIT/ML VIAL ONE (07:20)
[2020-05-11] MEDS ORDERED: HEPARIN SODIUM,PORCINE 10,000 UNIT/ML 1 ML VIAL ONE (07:20)
[2020-05-11] MEDS ORDERED: PHENYLEPHRINE 10 MG/ML VIAL ONE (07:20)
[2020-05-11] MEDS ORDERED: POTASSIUM CHLORIDE OPEN HEART 20 MEQ/50 ML BAG IVPB ONE (07:20)
[2020-05-11] MEDS ORDERED: VECURONIUM 10 MG VIAL IV ONE (07:20)
[2020-05-11] MEDS ORDERED: TRANEXAMIC ACID 1,000 MG/10 ML VIAL ONE (07:20)
[2020-05-11] MEDS ORDERED: ELECTROLYTE-R (PH 7.4) 1,000 ML IV.SOLN IV ONE (07:20)
[2020-05-11] MEDS ORDERED: MIDAZOLAM 2 MG/2 ML VIAL ONE (07:20)
[2020-05-11] MEDS ORDERED: NITROGLYCERIN-D5W PMX 50 MG/250 ML BOTTLE IV ONE (07:20)
[2020-05-11] MEDS ORDERED: fentaNYL (PF) 50 MCG/ML 2 ML AMP ONE (07:20)
[2020-05-11 08:24] LABS: ABG Base Excess -0.7 mmol/L; ABG Glucose Whole Blood 107 mg/dL (75-99); ABG HCO3 23 mmol/L (21-25); ABG Hematocrit 33 % (34.0-46.0); ABG Ionized Calcium 4.6 mg/dL (4.5-5.3); ABG Lactic Acid Whole Blood 1.3 mmol/L (0.5-1.6); ABG PCO2 34 mmHg (35-45); ABG PH 7.44 (7.35-7.45); ABG Potassium Whole Blood 4.3 mmol/L (3.4-4.5); ABG Sodium Whole Blood 140 mmol/L (135-146); ABG TCO2 24 mmol/L (19-24)
[2020-05-11 10:24] LABS: ABG Glucose Whole Blood 146 mg/dL (75-99); ABG HCO3 23 mmol/L (21-25); ABG Hematocrit 29 % (34.0-46.0); ABG Ionized Calcium 4.6 mg/dL (4.5-5.3); ABG Lactic Acid Whole Blood 0.9 mmol/L (0.5-1.6); ABG Oxygen Saturation 99.7 % (94-97); ABG PCO2 38 mmHg (35-45); ABG PH 7.39 (7.35-7.45); ABG PO2 275 mmHg (83-108); ABG Potassium Whole Blood 3.6 mmol/L (3.4-4.5); ABG Sodium Whole Blood 139 mmol/L (135-146); ABG TCO2 24 mmol/L (19-24)
[2020-05-11 10:59] LABS: ABG Glucose Whole Blood 123 mg/dL (75-99); ABG HCO3 20 mmol/L (21-25); ABG Ionized Calcium 3.7 mg/dL (4.5-5.3); ABG Lactic Acid Whole Blood 0.9 mmol/L (0.5-1.6); ABG PCO2 33 mmHg (35-45); ABG PH 7.38 (7.35-7.45); ABG Potassium Whole Blood 3.5 mmol/L (3.4-4.5); ABG Sodium Whole Blood 134 mmol/L (135-146); ABG TCO2 21 mmol/L (19-24)
[2020-05-11 11:31] LABS: ABG Base Excess 1.5 mmol/L; ABG Glucose Whole Blood 199 mg/dL (75-99); ABG HCO3 26 mmol/L (21-25); ABG Lactic Acid Whole Blood 1.3 mmol/L (0.5-1.6); ABG PCO2 37 mmHg (35-45); ABG PH 7.45 (7.35-7.45); ABG PO2 349 mmHg (83-108); ABG Potassium Whole Blood 4.6 mmol/L (3.4-4.5); ABG Sodium Whole Blood 137 mmol/L (135-146); ABG TCO2 27 mmol/L (19-24)
[2020-05-11 12:11] LABS: ABG Base Excess -0.4 mmol/L; ABG Glucose Whole Blood 205 mg/dL (75-99); ABG HCO3 25 mmol/L (21-25); ABG Ionized Calcium 4.1 mg/dL (4.5-5.3); ABG PCO2 40 mmHg (35-45); ABG PH 7.39 (7.35-7.45); ABG PO2 388 mmHg (83-108); ABG Potassium Whole Blood 4.6 mmol/L (3.4-4.5); ABG Sodium Whole Blood 137 mmol/L (135-146); ABG TCO2 26 mmol/L (19-24)
[2020-05-11 13:01] LABS: ABG Glucose Whole Blood 96 mg/dL (75-99); ABG HCO3 23 mmol/L (21-25); ABG Ionized Calcium 4.6 mg/dL (4.5-5.3); ABG Oxygen Saturation 99.4 % (94-97); ABG PCO2 38 mmHg (35-45); ABG PH 7.39 (7.35-7.45); ABG PO2 160 mmHg (83-108); ABG Potassium Whole Blood 3.7 mmol/L (3.4-4.5); ABG Sodium Whole Blood 140 mmol/L (135-146); ABG TCO2 24 mmol/L (19-24)
[2020-05-11] MEDS ORDERED: ALBUMIN HUMAN 5% 250 ML IVPB ONE (13:04)
[2020-05-11 13:27] LABS: ABG PO2 >420 mmHg (83-108)
[2020-05-11 13:28] LABS: ABG PO2 >420 mmHg (83-108)
[2020-05-11 13:29] LABS: ABG Hematocrit 20 % (34.0-46.0)
[2020-05-11 13:30] LABS: ABG Hematocrit 18 % (34.0-46.0)
[2020-05-11 13:31] LABS: ABG Hematocrit 18 % (34.0-46.0); ABG Lactic Acid Whole Blood 2.6 mmol/L (0.5-1.6)
[2020-05-11 13:32] LABS: ABG Hematocrit 21 % (34.0-46.0); ABG Lactic Acid Whole Blood 3.6 mmol/L (0.5-1.6)
[2020-05-11] MEDS ORDERED: CALCIUM GLUCONATE 2 GM in SODIUM CHLORIDE 0.9% 100 ML IVPB PRN (13:52)
[2020-05-11] MEDS ORDERED: DEXTROSE 5% IN WATER 100 ML with AMIODARONE 150 MG IV PRN (13:52)
[2020-05-11] MEDS ORDERED: ONDANSETRON 4 MG/2 ML VIAL IVP PRN (13:52)
[2020-05-11] MEDS ORDERED: Potassium Replacement Protocol 1 EACH MISC MISCELLANE PRN (13:52)
[2020-05-11] MEDS ORDERED: LACTATED RINGERS 1,000 ML IV SCH (13:52)
[2020-05-11] MEDS ORDERED: DEXMEDETOMIDINE/0.9% NACL(PMX) 400 MCG in EMPTY BAG 1 BAG IV SCH (13:52)
[2020-05-11] MEDS ORDERED: NITROGLYCERIN-D5W PMX 50 MG in DEXTROSE/WATER 1 250ML.BAG IV SCH (13:52)
[2020-05-11] MEDS ORDERED: hydrALAZINE HCL 20 MG/ML 1 ML VIAL IVP PRN (13:52)
[2020-05-11] MEDS ORDERED: AMIODARONE 450 MG in DEXTROSE 5% IN WATER 250 ML IV PRN ×2 (13:52)
[2020-05-11] MEDS ORDERED: IPRATROPIUM-ALBUTEROL 3 ML NEB INHALATION PRN (13:52)
[2020-05-11] MEDS ORDERED: METOCLOPRAMIDE 5 MG/ML 2 ML VIAL IVP PRN (13:52)
[2020-05-11] MEDS ORDERED: Magnesium Replacement Protocol 1 EACH MISC MISCELLANE PRN (13:52)
[2020-05-11] MEDS ORDERED: AMIODARONE 360 MG in DEXTROSE 5% IN WATER 200 ML IV PRN ×2 (13:52)
[2020-05-11] MEDS ORDERED: Phosphorus Replacement Protoco 1 EACH MISC MISCELLANE PRN (13:52)
[2020-05-11 14:37] LABS: Glucose,Whole Blood 92 mg/dL (75-99)
[2020-05-11] MEDS: CLEVIDIPINE BUTYRATE 25 MG in EMPTY BAG 1 BAG IV SCH (14:45)
[2020-05-11] MEDS ORDERED: MUPIROCIN 2% OINT 22 GM TUBE NASAL ONE (14:45)
[2020-05-11 14:56] LABS: Ionized Calcium 4.9 mg/dL (4.5-5.3)
[2020-05-11 14:59] LABS: INR 1.2 (<1.2); Partial Thromboplastin Time 28.2 sec (22.0-30.0); Prothrombin Time 12.2 sec (9.0-12.0)
[2020-05-11 15:05] LABS: Glucose,Whole Blood 129 mg/dL (75-99)
[2020-05-11 15:10] LABS: ABG Base Excess -0.6 mmol/L; ABG HCO3 25 mmol/L (21-25); ABG Oxygen Saturation 99.3 % (94-97); ABG PCO2 43 mmHg (35-45); ABG PH 7.37 (7.35-7.45); ABG PO2 146 mmHg (83-108); ABG TCO2 26 mmol/L (19-24)
[2020-05-11 15:22] LABS: Basophils % (A) 0 %; Eosinophils # (A) 0.1 k/uL (0-0.7); Eosinophils % (A) 1 %; HCT 23.4 % (34.0-46.0); Lymphocytes # (A) 0.6 k/uL (1.0-4.8); Lymphocytes % (A) 7 %; MCHC 34.9 g/dL (31.0-37.0); MCV 91.8 fL (80.0-100.0); Mean Platelet Volume 6.8; Monocytes # (A) 0.6 k/uL (0-1.0); Monocytes % (A) 7 %; Neutrophils # (A) 7.4 k/uL (1.3-7.7); Platelet Count 159 k/uL (150-450); RBC 2.55 m/uL (3.80-5.40); WBC 8.7 k/uL (3.8-10.6)
--- NOTE | 2020-05-11 15:22 | XR ---
EXAMINATION TYPE: XR chest 1V portable DATE OF EXAM: 05/11/2020 CLINICAL HISTORY: Post open cardiac surgery. TECHNIQUE: Single AP portable supine view of the chest is obtained. COMPARISON: Chest x-ray from one week earlier FINDINGS: New endotracheal tube at aortic knob level just above marianela 1 to 2 cm. Advise pulling miller k 3 cm to be in more ideal position. Orogastric tube projects below diaphragm. Left-sided chest tube. 2 mediastinal drainage catheters. Right internal jugular Dwight-Cristobal catheter terminates the level of pulmonary outflow tract. Overlying epicardial pacer wires. Post-CABG changes with mediastinal clips a nd sternal wires now present. Left atrial appendage clip noted. Heart size more prominent, upper limits of normal. Thoracic aorta. Mild to moderate central vascular congestion and patchy bibasilar opacities. Cholecystectomy clips noted. Osseous structures are intact . No pneumothorax noted bilaterally. IMPRESSION: 1. Tubes and lines as detailed above fairly satisfactory in position. Consider pulling back endotrach eal tube 3 cm. 2. Mild to moderate central vascular congestion and patchy left greater than right bibasilar atelecta sis and/or infiltrate.
[2020-05-11 15:32] LABS: ALT 261 U/L (4-34); AST 415 U/L (14-36); African American GFR (CKD) >90 (>60 ml/min/1.73 sqM); Albumin 2.9 g/dL (3.5-5.0); Alkaline Phosphatase 62 U/L (38-126); Anion Gap 5 mmol/L; Blood Urea Nitrogen 18 mg/dL (7-17); Calcium 7.7 mg/dL (8.4-10.2); Carbon Dioxide 24 mmol/L (22-30); Chloride 109 mmol/L (98-107); Glucose 88 mg/dL (74-99); Magnesium 2.9 mg/dL (1.6-2.3); Non-African American GFR(CKD) 87 (>60 ml/min/1.73 sqM); Potassium 4.3 mmol/L (3.5-5.1); Sodium 138 mmol/L (137-145); Total Bilirubin 1.3 mg/dL (0.2-1.3); Total Protein 4.9 g/dL (6.3-8.2)
[2020-05-11 15:54] LABS: HGB 8.2 gm/dL (11.4-16.0)
[2020-05-11] MEDS ORDERED: IPRATROPIUM-ALBUTEROL 3 ML NEB INHALATION SCH (16:00)
[2020-05-11 16:03] LABS: Glucose,Whole Blood 125 mg/dL (75-99)
[2020-05-11] MEDS: INSULIN REGULAR 100 UNIT in SODIUM CHLORIDE 0.9% 100 ML IV SCH (16:17)
--- NOTE | 2020-05-11 16:37 | P.CNPUL ---
History of Present Illness Consult date: 05/11/20 Requesting physician: Cleveland Bullard Reason for consult: other (Ventilator/critical care management) Chief complaint: Chest pain, shortness of breath on exertion History of present illness: This is a very pleasant 74-year-old female patient with a known history hypertension, hyperlipidemia, rheumatoid arthritis. She is a lifelong nonsmoker and has not been seen by a managed care analyst in the past. Recently she had been having issues with shortness of breath on exertion. Subsequent stress test reve aled possible ischemia and she was admitted to [facility] for cardiac catheterization at which time she developed chest discomfort and EKG changes. The procedure was stopped and she was transferred here to [facility] and found to have significant coronary artery disease was recommended coronary artery bypass grafting. Echocardiogram revealed preserved left ventricular systolic function with ejection fraction 55-60%. Spirometry with an FEV1 81%. She was subsequently discharged on 05/05/2020 and brought in today 05/11/2020 for the surgery. She had undergone coronary artery bypass grafting utilizing a RIVERA to the LAD and saphenous vein graft to the OM. She is seen today in the ntensive care unit in the immediate postoperative period. She is currently intubated on a mechanical ventilator at assist control 12, tidal on 400, FiO2 40% and a PEEP of 5. Arterial blood gases revealed a pO2 of 146, pCO2 43, pH 7.37. White count 8.7. Hemoglobin 8.2. Platelet count 159. Sodium 138. Potassium 4.3. Creatinine 0.67. Glucose 125. AST 4:15. ALT 261. She is currently on a clevidipine at 2 mg per hour, insulin drip at 1 unit per hour. Propofol at 30 mcg/kg/m, nitroglycerin drip at 5 mcg/m. Right IJ Elmendorf-Cristobal catheter in place. Cardiac output 4.0. Cardiac index 2.2. CVP 17. PA pressure 31/21. Chest x-ray reveals optimal placement of he nasogastric tube. Endotrach eal tube to be pulled back 2 cm. Two mediastinal and left sided chest tubes in place. Epicardial wires in place. She is initiated on bronchodilators. Review of Systems ROS unobtainable: due to endotracheal tube Past Medical History Past Medical History: Coronary Artery Disease (CAD), Eye Disorder, Hyperlipidemia, Hypertension, Rheumatoid Arthritis (RA) Additional Past Medical History / Comment(s): Glaucoma,vertigo, superficial blood clot with last 40 years ago, SOB w/exertion, states had mild covid in Nov.-not hospitalized for History of Any Multi-Drug Resistant Organisms: None Reported Past Surgical History: Cholecystectomy, Heart Catheterization, Hysterectomy Additional Past Surgical History / Comment(s): nasal surgery due to a broken nose in the past, bilateral cataracts, colonoscopy 2019 Past Anesthesia/Blood Transfusion Reactions: No Reported Reaction Additional Past Anesthesia/Blood Transfusion Reaction / Comment(s): never had a blood transfusion. Smoking Status: Never smoker - Past Family History Mother Family Medical History: CVA/TIA, Diabetes Mellitus, Hypertension, Thyroid Disorder Additional Family Medical History / Comment(s): She is currently 94 years old. Father History Unknown: Yes Family Medical History: Dementia Brother(s) Family Medical History: No Reported History Sister(s) Family Medical History: No Reported History Son(s) Family Medical History: No Reported History Daughter(s) Family Medical History: No Reported History Medications and Allergies Home Medications Medication Instructions Recorded Confirmed Type Aspirin [Adult Low Dose Aspirin EC] 81 mg PO DAILY 01/20/19 05/11/20 History Latanoprost Ophth [Xalatan 0.005%] 1 drop BOTH EYES HS 01/20/19 05/11/20 History Cholecalciferol [Vitamin D3 (25 5,000 unit PO DAILY 03/03/20 05/11/20 History Mcg = 1000 Iu)] Timolol 0.5% Ophth Soln [Timoptic 1 drop BOTH EYES BID 03/03/20 05/11/20 History 0.5% Ophth Soln] Vit B-12 + Folic Acid + Vit C 1 tab PO DAILY 05/03/20 05/11/20 History carvediloL [Coreg] 6.25 mg PO BID 05/03/20 05/11/20 History traZODone HCL 50 mg PO HS PRN 05/03/20 05/11/20 History Atorvastatin [Lipitor] 80 mg PO HS #90 tab 05/05/20 05/11/20 Rx Losartan [Cozaar] 50 mg PO DAILY #90 tab 05/05/20 05/11/20 Rx Mupirocin [Mupirocin 2%] 1 applic EA NOSTRIL BID #1 tube 05/07/20 05/11/20 Rx Krill/Om-3/Dha/Epa/Phospho/Ast 1 each PO DAILY 05/09/20 05/11/20 History [Megared [place]-3 Krill 350 mg] Mupirocin 2% Oint [Bactroban 2% 1 applic NASAL BID 05/10/20 05/11/20 History Oint] Allergies Allergy/AdvReac Type Severity Reaction Status Date / Time indomethacin [From Indocin] Allergy Rapid Verified 05/11/20 05:47 Heart Rate codeine AdvReac Nausea & Verified 05/11/20 05:47 Vomiting hydromorphone [From Dilaudid] AdvReac Nausea & Verified 05/11/20 05:47 Vomiting Physical Exam Vitals: Vital Signs Temp Pulse Pulse Resp BP Pulse Ox 05/11/20 15:00 96.8 F L 72 12 100 05/11/20 14:50 70 12 100 05/11/20 14:40 13 100 05/11/20 14:30 73 13 05/11/20 06:03 98.9 F 74 16 153/80 98 Intake and Output 05/11/20 05/11/20 05/11/20 06:59 14:59 22:59 Intake Total 100 52.233 90.733 Output Total 1250 90 Balance 100 -1197.767 0.733 Intake: IV 100 52 89 CO/CI 30 LR 50 pressure bag 9 Intake, IV Titration 0.233 1.733 Amount Clevidipine Butyrate 25 0.233 1.733 mg In Empty Bag 1 bag @ 1 MG/HR 2 mls/hr IV .Q24H [facility] Rx#:[id number] Output: Chest Tube Drainage 15 LP 0 MS x2 15 Urine 250 75 Estimated Blood Loss 1000 Other: Weight 83.4 kg ABP, PAP, CO, CI - Last 8 Hours Arterial Blood Pressure 126/51 Arterial Blood Pressure 132/62 Arterial Blood Pressure 165/71 Arterial Blood Pressure 132/63 Arterial Blood Pressure 162/9 Pulmonary Artery Pressure 53/10 Pulmonary Artery Pressure 37/25 Pulmonary Artery Pressure 45/16 Pulmonary Artery Pressure 43/17 Pulmonary Artery Pressure 113/22 Cardiac Output 4.4 Cardiac Output 4.4 Cardiac Output 3.8 Cardiac Index 2.4 Cardiac Index 2.4 Cardiac Index 2 GENERAL EXAM: Intubated, sedated 74-year-old female patient, on the mechanical ventilator, comfortable in no apparent distress. HEAD: Normocephalic. EYES: Sluggish reaction of pupils, equal size. NOSE: Clear with pink turbinates. THROAT: Oral gastric in endotracheal tubes in place. No erythema or exudates. NECK: Right IJ Elmendorf-Cristobal catheter in place. No masses, no JVD. CHEST: Sternal dressing dry and intact. Heart rate in place. LUNGS: Equal air entry with no crackles, wheeze, rhonchi or dullness. CVS: S1 and S2 normal with no audible murmur, regular rhythm. ABDOMEN: No hepatosplenomegaly, hypoactive bowel sounds, no guarding or rigidity. SPINE: No scoliosis or deformity SKIN: No rashes CENTRAL NERVOUS SYSTEM: Sedated, tone is normal in all 4 extremities. EXTREMITIES: There is trace peripheral edema. SCDs in place. No clubbing, no cyanosis. Peripheral pulses are intact. Results - Laboratory Findings CBC and BMP: 05/11/20 14:30 05/11/20 14:30 ABG ABG pH 7.37 (7.35-7.45) 05/11/20 14:37 ABG pCO2 43 mmHg (35-45) 05/11/20 14:37 ABG pO2 146 mmHg (83-108) H 05/11/20 14:37 ABG O2 Saturation 99.3 % (94-97) H 05/11/20 14:37 PT/INR, D-dimer PT 12.2 sec (9.0-12.0) H 05/11/20 14:30 INR 1.2 (<1.2) H 05/11/20 14:30 Abnormal lab findings: Abnormal Labs 05/05/20 05/11/20 05/11/20 07:09 08:25 10:25 PT INR ABG pCO2 34 L ABG pO2 >420 H 275 H ABG HCO3 ABG Total CO2 ABG O2 Saturation 100.0 H 99.7 H ABG Hematocrit 33 L 29 L ABG Sodium ABG Potassium ABG Ionized Calcium ABG Glucose 107 H 146 H ABG Lactic Acid Hemoglobin 10.9 L 9.6 L Chloride BUN POC Glucose (mg/dL) Calcium Magnesium AST ALT Total Protein Albumin Arterial Blood Potassium Arterial Blood Glucose 107 H 146 H Crossmatch See Detail 05/11/20 05/11/20 05/11/20 11:00 11:32 12:12 PT INR ABG pCO2 33 L ABG pO2 >420 H 349 H 160 H ABG HCO3 20 L 26 H ABG Total CO2 27 H ABG O2 Saturation 100.0 H 100.0 H 99.4 H ABG Hematocrit 20 L* 18 L* 21 L ABG Sodium 134 L ABG Potassium 4.6 H ABG Ionized Calcium 3.7 L 4.0 L ABG Glucose 123 H 199 H ABG Lactic Acid 3.6 H* Hemoglobin 6.4 L* 6.0 L* 6.9 L* Chloride BUN POC Glucose (mg/dL) Calcium Magnesium AST ALT Total Protein Albumin Arterial Blood Potassium 4.6 H Arterial Blood Glucose 123 H 199 H Crossmatch 05/11/20 05/11/20 05/11/20 13:01 14:30 14:30 PT 12.2 H INR 1.2 H ABG pCO2 ABG pO2 388 H ABG HCO3 ABG Total CO2 26 H ABG O2 Saturation 100.0 H ABG Hematocrit 18 L* ABG Sodium ABG Potassium 4.6 H ABG Ionized Calcium 4.1 L ABG Glucose 205 H ABG Lactic Acid 2.6 H* Hemoglobin 5.8 L* Chloride 109 H BUN 18 H POC Glucose (mg/dL) Calcium 7.7 L Magnesium 2.9 H AST 415 H ALT 261 H Total Protein 4.9 L Albumin 2.9 L Arterial Blood Potassium 4.6 H Arterial Blood Glucose 205 H Crossmatch 05/11/20 05/11/20 14:37 15:04 PT INR ABG pCO2 ABG pO2 146 H ABG HCO3 ABG Total CO2 26 H ABG O2 Saturation 99.3 H ABG Hematocrit ABG Sodium ABG Potassium ABG Ionized Calcium ABG Glucose ABG Lactic Acid Hemoglobin Chloride BUN POC Glucose (mg/dL) 129 H Calcium Magnesium AST ALT Total Protein Albumin Arterial Blood Potassium Arterial Blood Glucose Crossmatch - Diagnostic Findings Chest x-ray: image reviewed Assessment and Plan Assessment: 1 Coronary artery disease status post coronary artery bypass grafting utilizing a RIVERA to the LAD, saphenous vein graft to the OM. Postoperative day #0 2 Hyperlipidemia 3 Hypertension 4 Rheumatoid arthritis 5 Lifelong nonsmoker 6 Glaucoma Plan: The patient was seen and evaluated by Dr. Jamison Chest x-ray, ABGs and labs reviewed Endotracheal tube to be pulled back 2 cm Continue bronchodilators Plan is to follow early extubation protocol Will await weaning parameters once awake and appropriate We will continue to follow and make further recommendations based on her clinical status. I, the cosigning physician, performed a history & physical examination of the patient. Lungs sounds are clear. Maintaining good O2 saturations in the 90s on 50% FiO2 via the mechanical ventilator. I discussed the assessment and plan of care with my nurse practitioner, Filomena Ariza. I attest to the above consultation as dictated by her. Time with Patient: Greater than 30
[2020-05-11 17:22] LABS: Glucose,Whole Blood 116 mg/dL (75-99)
[2020-05-11] MEDS: FERROUS SULFATE 325 MG TAB PO SCH (17:48)
[2020-05-11] MEDS: KETOROLAC 15 MG/ML 1 ML VIAL IVP SCH ×2 (17:48→23:00)
[2020-05-11] MEDS: ACETAMINOPHEN IV (For NPO) 1,000 MG in EMPTY BAG 1 BAG IVPB SCH ×2 (17:49→23:00)
[2020-05-11 17:55] LABS: Basophils % (A) 0 %; Eosinophils % (A) 0 %; HGB 8.5 gm/dL (11.4-16.0); Lymphocytes # (A) 0.5 k/uL (1.0-4.8); Lymphocytes % (A) 5 %; MCH 31.4 pg (25.0-35.0); MCHC 34.1 g/dL (31.0-37.0); Mean Platelet Volume 7.5; Monocytes # (A) 0.5 k/uL (0-1.0); Monocytes % (A) 5 %; Neutrophils # (A) 8.9 k/uL (1.3-7.7); Neutrophils % (A) 88 %; Platelet Count 216 k/uL (150-450); RBC 2.72 m/uL (3.80-5.40); RDW 13.6 % (11.5-15.5)
[2020-05-11 18:14] LABS: Glucose,Whole Blood 130 mg/dL (75-99)
[2020-05-11] MEDS ORDERED: MILRINONE-D5W PMX 20 MG in DEXTROSE/WATER 1 100ML.BAG IV SCH (18:30)
[2020-05-11] MEDS: IPRATROPIUM-ALBUTEROL 3 ML NEB INHALATION SCH ×2 (19:07→19:51)
[2020-05-11 19:30] LABS: Glucose,Whole Blood 145 mg/dL (75-99)
--- NOTE | 2020-05-11 19:44 | OP ---
OPERATIVE REPORT DATE OF SURGERY: 05/11/2020 PREOPERATIVE DIAGNOSIS: Coronary artery disease. POSTOPERATIVE DIAGNOSIS: Coronary artery disease. PROCEDURE: 1. Coronary artery bypass grafting x 2 vessels (left internal mammary artery to left anterior descending artery, saphenous vein graft to obtuse marginal artery). 2. Endoscopic harvest, left greater saphenous vein. 3. Epiaortic ultrasound. 4. Transesophageal echocardiogram. 5. Ligation of left atrial appendage using 35 mm AtriClip. 6. Lysis of pericardial adhesions SURGEON: Cleveland Bullard M.D. ASSISTANTS: 1. Dhaval Jackson NP. 2. MAIDA Ortega. ANESTHESIA: General. SPECIMEN: None. COMPLICATIONS: None. INDICATION: The patient is a 74-year-old female with a past medical history significant for hyperlipidemia, hypertension and rheumatoid arthritis who reports progressive shortness of breath with diaphoresis during activity. A cardiac catheterization revealed a nearly 80% stenosis in the left main coronary artery as documented by IVUS. A coronary artery bypass was recommended. The risks, benefits and alternatives of this procedure were discussed the patient. All of her questions were answered. Consent was obtained. FINDINGS: The left internal mammary artery was a good conduit with brisk flow. The saphenous vein was a good conduit. The LAD measured 1.3 mm in diameter. The obtuse marginal artery measured 1.5 mm in diameter. PROCEDURE IN DETAIL: The patient was taken to the operating room and placed supine on the operating table. After the induction of general anesthesia, she was prepped and draped in the usual sterile fashion. Preoperative transesophageal echocardiogram confirmed a normal ejection fraction with no significant valvular pathology. A median sternotomy was performed. The left internal mammary artery was harvested in the standard fashion, taking care to clip all branches. Intravenous heparin was administered and the vessel was transected distally revealing brisk flow. Simultaneously, greater saphenous vein was harvested from the left lower extremity using endoscopic technique. All branches were tied. Both the mammary artery and the saphenous vein were good conduits. The pericardium was carefully opened and significant adhesions were encountered. The majority were sharply lysed using scissors. A pericardial cradle was created. The ascending aorta was palpated. There was no calcified plaque noted. Epiaortic ultrasound was then performed on the ascending aorta. No significant calcific plaque or atheromatous disease was identified. An arterial cannula was placed in the distal ascending aorta. A venous cannula was placed through the right atrial appendage and directed into the IVC. Both antegrade and retrograde catheters were placed as well. The patient was then placed on cardiopulmonary bypass with good decompression of the heart. At this point the remainder of the adhesions were divided with the heart on bypass and empty. Again adhesions were lysed sharply using scissors. Once the heart was circumferentially freed up from the pericardium, an aortic cross-clamp was applied to the ascending aorta. Cold blood potassium cardioplegia was delivered in both antegrade and retrograde fashion to achieve arrest of the heart. Of note, cardioplegia was delivered every 15 to 20 minutes while the patient remained under cross- clamp. I began by inspecting the lateral wall. The obtuse marginal artery was identified. It was dissected free. A small arteriotomy was created. This vessel accepted a 1.0 mm probe. Using saphenous vein in reverse fashion, an end-to-side anastomosis was created. This was performed using running 7-0 Prolene suture. The graft was hemostatic and had great flow. Of note, the coronary artery was thin-walled. Next, attention was turned to the anterior wall. A single vessel was noted on the anterior surface of the heart. It was dissected free. I felt this was compatible with the left anterior descending artery. A small arteriotomy was created. This vessel accepted a 1.0 mm probe. Using the left internal mammary artery, an end-to-side anastomosis was created. This was performed running 8-0 Prolene suture. The graft was hemostatic. The mammary pedicle was then tacked down to the anterior surface of the heart. Attention was then turned to the proximal anastomosis. This was performed using a running 6-0 Prolene suture. One liter of warm blood was delivered in retrograde fashion. Both lidocaine and magnesium were administered as well. The aortic cross- clamp was removed. The vein graft was de-aired in the standard fashion. Distal anastomoses were inspected and appeared to be hemostatic. Temporary atrial and ventricular pacing wires were placed and brought through the skin. The patient was then weaned off cardiopulmonary bypass. She without difficulty or need for any pressors. Follow-up transesophageal echocardiogram confirmed good left ventricular ejection fraction and no valvular pathology. Protamine was administered. There were no adverse reactions. Remaining cannulas were then removed. The mediastinum was copiously irrigated with warm saline solution. Again all surgical sites were inspected and appeared to be hemostatic. Soft tissues were reapproximated over the ascending aorta as well as over the apex of the heart. Straight 32-Sami chest tubes were placed in both the left pleural space and the mediastinum. These were all secured to the skin using sutures. 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 Concord cables were placed carefully in a [id number] fashion. At the completion of the closure, the sternum was well aligned. The remainder of the wound was closed in layers. A sterile dressing was applied. The patient appeared to tolerate the procedure well. There were no immediate complications. She returned to the ICU in critical but stable condition. MMODL / TIMN: [id number] / [id number]
[2020-05-11] MEDS: LATANOPROST 0.005% OPHTH DROPS 2.5 ML BTL BOTH EYES SCH (20:37)
[2020-05-11] MEDS: MUPIROCIN 2% OINT 22 GM TUBE NASAL SCH (20:37)
[2020-05-11] MEDS: TIMOLOL 0.5% OPHTH DROPS 5 ML BTL BOTH EYES SCH (20:37)
[2020-05-11 20:39] LABS: Basophils % (A) 0 %; Eosinophils % (A) 0 %; HCT 23.9 % (34.0-46.0); HGB 8.4 gm/dL (11.4-16.0); Lymphocytes # (A) 0.3 k/uL (1.0-4.8); Lymphocytes % (A) 3 %; MCV 91.4 fL (80.0-100.0); Mean Platelet Volume 8.3; Monocytes # (A) 0.5 k/uL (0-1.0); Monocytes % (A) 6 %; Neutrophils # (A) 7.7 k/uL (1.3-7.7); Neutrophils % (A) 90 %; Platelet Count 169 k/uL (150-450); RBC 2.61 m/uL (3.80-5.40); RDW 13.2 % (11.5-15.5); WBC 8.6 k/uL (3.8-10.6)
[2020-05-11 21:03] LABS: Glucose,Whole Blood 168 mg/dL (75-99)
[2020-05-11] MEDS: ALBUMIN HUMAN 5% 250 ML in EMPTY BAG 1 BAG IVPB PRN (21:11)
[2020-05-11 21:55] LABS: Glucose,Whole Blood 151 mg/dL (75-99)
[2020-05-11 22:56] LABS: Glucose,Whole Blood 138 mg/dL (75-99)
[2020-05-11] MEDS: HEPARIN SODIUM,PORCINE 5,000 UNIT/ML 1 ML VIAL SQ SCH (23:00)
[2020-05-12] MEDS: HEPARIN SODIUM,PORCINE 5,000 UNIT/ML 1 ML VIAL SQ SCH ×4 (00:01→23:09)
[2020-05-12 00:03] LABS: Glucose,Whole Blood 145 mg/dL (75-99)
[2020-05-12 00:56] LABS: Glucose,Whole Blood 132 mg/dL (75-99)
[2020-05-12 01:58] LABS: Glucose,Whole Blood 127 mg/dL (75-99)
[2020-05-12 02:56] LABS: Glucose,Whole Blood 130 mg/dL (75-99)
[2020-05-12 03:49] LABS: Glucose,Whole Blood 133 mg/dL (75-99)
[2020-05-12 04:01] LABS: Basophils % (A) 1 %; Eosinophils % (A) 0 %; HCT 21.2 % (34.0-46.0); HGB 7.4 gm/dL (11.4-16.0); Lymphocytes # (A) 0.4 k/uL (1.0-4.8); Lymphocytes % (A) 6 %; MCH 32.4 pg (25.0-35.0); MCHC 35.1 g/dL (31.0-37.0); MCV 92.3 fL (80.0-100.0); Mean Platelet Volume 8.4; Monocytes # (A) 0.4 k/uL (0-1.0); Monocytes % (A) 5 %; Neutrophils # (A) 6.8 k/uL (1.3-7.7); Neutrophils % (A) 88 %; Platelet Count 167 k/uL (150-450); RBC 2.29 m/uL (3.80-5.40); RDW 13.3 % (11.5-15.5); WBC 7.7 k/uL (3.8-10.6)
[2020-05-12 04:19] LABS: Ionized Calcium 4.7 mg/dL (4.5-5.3)
[2020-05-12 04:32] LABS: Calcium 7.9 mg/dL (8.4-10.2); Magnesium 2.3 mg/dL (1.6-2.3); Total Bilirubin 0.7 mg/dL (0.2-1.3); Total Protein 4.9 g/dL (6.3-8.2)
[2020-05-12 05:03] LABS: Glucose,Whole Blood 135 mg/dL (75-99)
[2020-05-12] MEDS: KETOROLAC 15 MG/ML 1 ML VIAL IVP SCH ×3 (05:20→17:10)
[2020-05-12] MEDS: ALBUMIN HUMAN 5% 250 ML in EMPTY BAG 1 BAG IVPB PRN ×5 (06:15→14:28)
[2020-05-12] MEDS: HYDROcodone/APAP 5-325MG 1 EACH TAB PO PRN ×3 (06:24→22:07)
--- NOTE | 2020-05-12 06:41 | P.CONS ---
History of Present Illness - Reason for Consult Consult date: 05/11/20 Medical Management Requesting physician: Cleveland Bullard - Chief Complaint Post CABG X 2 RIVERA to LAD and SBG to OM1. - History of Present Illness This is a 74 year old female one of my patient with a previous medical history significant for hypertension and hypertensive cardiovascular disease, hyperlipidemia, Rheumatoid arthritis, vertigo, depression and Glaucoma, was seen and evaluated in my office for uncontrolled hypertension and feeling diaphoretic, with dyspnea on exertion, had a 12- Lead EKG that showed poor R wave progression and based on that it was recommended for her to undergo Lexiscan stress test on 04/11/2020 which showed a large fixed area of perfusion defect in the lateral wall suggestive of prior RI and a defect in the anteroseptal area during rest and not during exercise suggestive of an artifact, was not too sure so I referred the patient to see who recommended Left heart catherization which was done at [facility] through the right radial approach and while he was engaging the left main she developed EKG changes and chest pain so the procedure was aborted and she was sent to [facility] for Left heart catherization through the right femoral artery with IVUS that showed 79 % stenosis of Left main and the option was given to her of doing angioplasty VS revascularization so she was evaluated by cardiothoracic surgery for CABG an s he is scheduled for today , she underwent RIVERA to LAD and SVG to OM1 patient had lost a lot of blood in the OR her HGB dropped to 5 and she is currently in the ICU on Cleviprex drip 3 mg/h and also currently on the ventilator with FIO2 50% and the plan is to extubate later on tonight. Review of Systems ROS unobtainable: due to endotracheal tube Past Medical History Past Medical History: Coronary Artery Disease (CAD), Eye Disorder, Hyperlipidemia, Hypertension, Rheumatoid Arthritis (RA) Additional Past Medical History / Comment(s): Glaucoma,vertigo, superficial blood clot with last 40 years ago, SOB w/exertion, states had mild covid in Nov.-not hospitalized for History of Any Multi-Drug Resistant Organisms: None Reported Past Surgical History: Cholecystectomy, Heart Catheterization, Hysterectomy Additional Past Surgical History / Comment(s): nasal surgery due to a broken nose in the past, bilateral cataracts, colonoscopy 2018 Past Anesthesia/Blood Transfusion Reactions: No Reported Reaction Additional Past Anesthesia/Blood Transfusion Reaction / Comm: never had a blood transfusion. Smoking Status: Never smoker - Past Family History Mother Family Medical History: CVA/TIA, Diabetes Mellitus, Hypertension, Thyroid Disorder Additional Family Medical History / Comment(s): She is currently 94 years old. Father History Unknown: Yes Family Medical History: Dementia Brother(s) Family Medical History: No Reported History Sister(s) Family Medical History: No Reported History Son(s) Family Medical History: No Reported History Daughter(s) Family Medical History: No Reported History Medications and Allergies Home Medications Medication Instructions Recorded Confirmed Type Aspirin [Adult Low Dose Aspirin EC] 81 mg PO DAILY 01/20/19 05/11/20 History Latanoprost Ophth [Xalatan 0.005%] 1 drop BOTH EYES HS 01/20/19 05/11/20 History Cholecalciferol [Vitamin D3 (25 5,000 unit PO DAILY 03/03/20 05/11/20 History Mcg = 1000 Iu)] Timolol 0.5% Ophth Soln [Timoptic 1 drop BOTH EYES BID 03/03/20 05/11/20 History 0.5% Ophth Soln] Vit B-12 + Folic Acid + Vit C 1 tab PO DAILY 05/03/20 05/11/20 History carvediloL [Coreg] 6.25 mg PO BID 05/03/20 05/11/20 History traZODone HCL 50 mg PO HS PRN 05/03/20 05/11/20 History Atorvastatin [Lipitor] 80 mg PO HS #90 tab 05/05/20 05/11/20 Rx Losartan [Cozaar] 50 mg PO DAILY #90 tab 05/05/20 05/11/20 Rx Mupirocin [Mupirocin 2%] 1 applic EA NOSTRIL BID #1 tube 05/07/20 05/11/20 Rx Krill/Om-3/Dha/Epa/Phospho/Ast 1 each PO DAILY 05/09/20 05/11/20 History [[place]-3 Krill 350 mg] Mupirocin 2% Oint [Bactroban 2% 1 applic NASAL BID 05/10/20 05/11/20 History Oint] Allergies Allergy/AdvReac Type Severity Reaction Status Date / Time indomethacin [From Indocin] Allergy Rapid Verified 05/11/20 05:47 Heart Rate codeine AdvReac Nausea & Verified 05/11/20 05:47 Vomiting hydromorphone [From Dilaudid] AdvReac Nausea & Verified 05/11/20 05:47 Vomiting Physical Exam Vitals: Vital Signs Temp Pulse Pulse Resp BP Pulse Ox 05/12/20 05:00 96 20 97 05/12/20 04:30 96 18 98 05/12/20 04:00 99 22 98 05/12/20 03:30 93 20 99 05/12/20 03:00 92 22 99 05/12/20 02:30 91 19 98 05/12/20 02:00 93 28 H 98 05/12/20 01:30 96 19 99 05/12/20 01:00 95 18 99 05/12/20 00:30 97 20 99 05/12/20 00:06 96 19 100 05/12/20 00:00 97 19 98 05/11/20 23:30 96 21 98 05/11/20 23:00 102 H 27 H 100 05/11/20 22:30 104 H 20 100 05/11/20 22:00 99 20 100 05/11/20 21:30 97 25 H 100 05/11/20 21:00 98 24 100 05/11/20 20:30 97 20 100 05/11/20 20:06 104 H 05/11/20 20:00 97 27 H 100 05/11/20 19:51 96 05/11/20 19:30 95 24 100 05/11/20 19:10 87 26 H 100 05/11/20 19:00 80 16 100 05/11/20 18:50 80 17 100 05/11/20 18:40 80 14 100 05/11/20 18:30 80 25 H 100 05/11/20 18:20 80 15 100 05/11/20 18:10 80 13 100 05/11/20 18:00 80 17 99 05/11/20 17:50 80 13 99 05/11/20 17:40 80 14 99 05/11/20 17:30 13 100 05/11/20 17:20 60 16 100 05/11/20 17:10 59 L 19 100 05/11/20 17:00 61 17 100 05/11/20 16:50 61 18 100 05/11/20 16:40 62 16 100 05/11/20 16:30 70 13 05/11/20 16:20 63 13 05/11/20 16:10 71 12 05/11/20 16:00 97.2 F L 70 10 L 100 05/11/20 15:50 71 12 05/11/20 15:40 67 12 05/11/20 15:30 75 12 05/11/20 15:20 74 13 05/11/20 15:10 74 12 05/11/20 15:00 96.8 F L 72 12 05/11/20 14:50 70 12 05/11/20 14:40 13 05/11/20 14:30 73 13 05/11/20 06:03 98.9 F 74 16 153/80 98 Intake and Output 05/11/20 05/11/20 05/12/20 14:59 22:59 06:59 Intake Total 52.233 1003.695 575.425 Output Total 1250 1355 430 Balance -1197.767 -351.305 145.425 Intake: IV 52 982 573 ACETAMINOPHEN IV (For NPO 100 100 ) 1,000 mg In Empty Bag 1 bag @ 400 mls/hr IVPB Q6HR JOSE DAVID Rx#:[id number] Albumin Human 5% 250 ml @ 250 0 mls/hr IVPB .STK-MED ONE Rx#:[id number] CO/CI 190 60 LR 370 350 pressure bag 72 63 Intake, IV Titration 0.233 21.695 2.425 Amount Clevidipine Butyrate 25 0.233 10.366 mg In Empty Bag 1 bag @ 1 MG/HR 2 mls/hr IV .Q24H JOSE DAVID Rx#:[id number] Insulin Regular 100 unit 8.576 2.425 In Sodium Chloride 0.9% 100 ml @ Per Protocol IV .Q0M JOSE DAVID Rx#:[id number] propofoL 1,000 mg In 2.753 Empty Bag 1 bag @ Titrate IV .Q0M JOSE DAVID Rx#: [id number] Output: Chest Tube Drainage 275 210 LP 160 102 MS x2 115 108 Gastric Drainage 400 Urine 250 680 220 Estimated Blood Loss 1000 Other: Voiding Method Indwelling Catheter Indwelling Catheter ABP, PAP, CO, CI - Last 8 Hours Arterial Blood Pressure 108/45 Arterial Blood Pressure 124/47 Arterial Blood Pressure 106/44 Arterial Blood Pressure 120/49 Arterial Blood Pressure 96/45 Arterial Blood Pressure 99/46 Arterial Blood Pressure 101/49 Arterial Blood Pressure 113/52 Arterial Blood Pressure 111/52 Arterial Blood Pressure 109/54 Arterial Blood Pressure 108/53 Arterial Blood Pressure 115/54 Arterial Blood Pressure 113/54 Arterial Blood Pressure 109/56 Arterial Blood Pressure 106/50 Arterial Blood Pressure 104/49 Pulmonary Artery Pressure 25/10 Pulmonary Artery Pressure 25/10 Pulmonary Artery Pressure 27/13 Pulmonary Artery Pressure 27/13 Pulmonary Artery Pressure 28/14 Pulmonary Artery Pressure 28/15 Pulmonary Artery Pressure 25/13 Pulmonary Artery Pressure 24/12 Pulmonary Artery Pressure 26/14 Pulmonary Artery Pressure 27/16 Pulmonary Artery Pressure 26/16 Pulmonary Artery Pressure 25/14 Pulmonary Artery Pressure 29/18 Pulmonary Artery Pressure 23/10 Pulmonary Artery Pressure 25/11 Cardiac Output 4.5 Cardiac Output 4.1 Cardiac Output 4.7 Cardiac Output 4.6 Cardiac Index 2.4 Cardiac Index 2.2 Cardiac Index 2.5 Cardiac Index 2.5 Physical examination: HEENT: head is atraumatic normocephalic there is ET and OGT in place. Neck: supple, no JVP. Chest: decreased breath sounds at the bases otherwise clear to auscultation bilaterally, there is [address] Heart: first heart sound is depressed , second heart sound is normal there is gallop but no murmur. Abdomen: soft non tender, non distended positive bowel sounds. Extremities: there is no edema no calf tenderness DP + 2 bilaterally. Neurologic examination: patient is currently sedated on the ventilator. Results CBC & Chem 7: 05/12/20 03:50 05/12/20 03:50 Labs: Abnormal Lab Results - Last 24 Hours (Table) 05/05/20 05/11/20 05/11/20 Range/Units 07:09 08:25 10:25 RBC (3.80-5.40) m/uL Hgb (11.4-16.0) gm/dL Hct (34.0-46.0) % Neutrophils # (1.3-7.7) k/uL Lymphocytes # (1.0-4.8) k/uL PT (9.0-12.0) sec INR (<1.2) ABG pCO2 34 L (35-45) mmHg ABG pO2 >420 H 275 H (83-108) mmHg ABG HCO3 (21-25) mmol/L ABG Total CO2 (19-24) mmol/L ABG O2 Saturation 100.0 H 99.7 H (94-97) % ABG Hematocrit 33 L 29 L (34.0-46.0) % ABG Sodium (135-146) mmol/L ABG Potassium (3.4-4.5) mmol/L ABG Ionized Calcium (4.5-5.3) mg/dL ABG Glucose 107 H 146 H (75-99) mg/dL ABG Lactic Acid (0.5-1.6) mmol/L Hemoglobin 10.9 L 9.6 L (11.4-16.0) gm/dL Chloride (98-107) mmol/L BUN (7-17) mg/dL Glucose (74-99) mg/dL POC Glucose (mg/dL) (75-99) mg/dL Calcium (8.4-10.2) mg/dL Magnesium (1.6-2.3) mg/dL AST (14-36) U/L ALT (4-34) U/L Total Protein (6.3-8.2) g/dL Albumin (3.5-5.0) g/dL Arterial Blood Potassium (3.4-4.5) mmol/L Arterial Blood Glucose 107 H 146 H (75-99) mg/dL Crossmatch See Detail 05/11/20 05/11/20 05/11/20 Range/Units 11:00 11:32 12:12 RBC (3.80-5.40) m/uL Hgb (11.4-16.0) gm/dL Hct (34.0-46.0) % Neutrophils # (1.3-7.7) k/uL Lymphocytes # (1.0-4.8) k/uL PT (9.0-12.0) sec INR (<1.2) ABG pCO2 33 L (35-45) mmHg ABG pO2 >420 H 349 H 160 H (83-108) mmHg ABG HCO3 20 L 26 H (21-25) mmol/L ABG Total CO2 27 H (19-24) mmol/L ABG O2 Saturation 100.0 H 100.0 H 99.4 H (94-97) % ABG Hematocrit 20 L* 18 L* 21 L (34.0-46.0) % ABG Sodium 134 L (135-146) mmol/L ABG Potassium 4.6 H (3.4-4.5) mmol/L ABG Ionized Calcium 3.7 L 4.0 L (4.5-5.3) mg/dL ABG Glucose 123 H 199 H (75-99) mg/dL ABG Lactic Acid 3.6 H* (0.5-1.6) mmol/L Hemoglobin 6.4 L* 6.0 L* 6.9 L* (11.4-16.0) gm/dL Chloride (98-107) mmol/L BUN (7-17) mg/dL Glucose (74-99) mg/dL POC Glucose (mg/dL) (75-99) mg/dL Calcium (8.4-10.2) mg/dL Magnesium (1.6-2.3) mg/dL AST (14-36) U/L ALT (4-34) U/L Total Protein (6.3-8.2) g/dL Albumin (3.5-5.0) g/dL Arterial Blood Potassium 4.6 H (3.4-4.5) mmol/L Arterial Blood Glucose 123 H 199 H (75-99) mg/dL Crossmatch 05/11/20 05/11/20 05/11/20 Range/Units 13:01 14:30 14:30 RBC 2.55 L (3.80-5.40) m/uL Hgb 8.2 L D (11.4-16.0) gm/dL Hct 23.4 L (34.0-46.0) % Neutrophils # (1.3-7.7) k/uL Lymphocytes # 0.6 L (1.0-4.8) k/uL PT 12.2 H (9.0-12.0) sec INR 1.2 H (<1.2) ABG pCO2 (35-45) mmHg ABG pO2 388 H (83-108) mmHg ABG HCO3 (21-25) mmol/L ABG Total CO2 26 H (19-24) mmol/L ABG O2 Saturation 100.0 H (94-97) % ABG Hematocrit 18 L* (34.0-46.0) % ABG Sodium (135-146) mmol/L ABG Potassium 4.6 H (3.4-4.5) mmol/L ABG Ionized Calcium 4.1 L (4.5-5.3) mg/dL ABG Glucose 205 H (75-99) mg/dL ABG Lactic Acid 2.6 H* (0.5-1.6) mmol/L Hemoglobin 5.8 L* (11.4-16.0) gm/dL Chloride (98-107) mmol/L BUN (7-17) mg/dL Glucose (74-99) mg/dL POC Glucose (mg/dL) (75-99) mg/dL Calcium (8.4-10.2) mg/dL Magnesium (1.6-2.3) mg/dL AST (14-36) U/L ALT (4-34) U/L Total Protein (6.3-8.2) g/dL Albumin (3.5-5.0) g/dL Arterial Blood Potassium 4.6 H (3.4-4.5) mmol/L Arterial Blood Glucose 205 H (75-99) mg/dL Crossmatch 05/11/20 05/11/20 05/11/20 Range/Units 14:30 14:37 15:04 RBC (3.80-5.40) m/uL Hgb (11.4-16.0) gm/dL Hct (34.0-46.0) % Neutrophils # (1.3-7.7) k/uL Lymphocytes # (1.0-4.8) k/uL PT (9.0-12.0) sec INR (<1.2) ABG pCO2 (35-45) mmHg ABG pO2 146 H (83-108) mmHg ABG HCO3 (21-25) mmol/L ABG Total CO2 26 H (19-24) mmol/L ABG O2 Saturation 99.3 H (94-97) % ABG Hematocrit (34.0-46.0) % ABG Sodium (135-146) mmol/L ABG Potassium (3.4-4.5) mmol/L ABG Ionized Calcium (4.5-5.3) mg/dL ABG Glucose (75-99) mg/dL ABG Lactic Acid (0.5-1.6) mmol/L Hemoglobin (11.4-16.0) gm/dL Chloride 109 H (98-107) mmol/L BUN 18 H (7-17) mg/dL Glucose (74-99) mg/dL POC Glucose (mg/dL) 129 H (75-99) mg/dL Calcium 7.7 L (8.4-10.2) mg/dL Magnesium 2.9 H (1.6-2.3) mg/dL AST 415 H (14-36) U/L ALT 261 H (4-34) U/L Total Protein 4.9 L (6.3-8.2) g/dL Albumin 2.9 L (3.5-5.0) g/dL Arterial Blood Potassium (3.4-4.5) mmol/L Arterial Blood Glucose (75-99) mg/dL Crossmatch 05/11/20 05/11/20 05/11/20 Range/Units 16:02 17:20 17:45 RBC 2.72 L (3.80-5.40) m/uL Hgb 8.5 L (11.4-16.0) gm/dL Hct 25.0 L (34.0-46.0) % Neutrophils # 8.9 H (1.3-7.7) k/uL Lymphocytes # 0.5 L (1.0-4.8) k/uL PT (9.0-12.0) sec INR (<1.2) ABG pCO2 (35-45) mmHg ABG pO2 (83-108) mmHg ABG HCO3 (21-25) mmol/L ABG Total CO2 (19-24) mmol/L ABG O2 Saturation (94-97) % ABG Hematocrit (34.0-46.0) % ABG Sodium (135-146) mmol/L ABG Potassium (3.4-4.5) mmol/L ABG Ionized Calcium (4.5-5.3) mg/dL ABG Glucose (75-99) mg/dL ABG Lactic Acid (0.5-1.6) mmol/L Hemoglobin (11.4-16.0) gm/dL Chloride (98-107) mmol/L BUN (7-17) mg/dL Glucose (74-99) mg/dL POC Glucose (mg/dL) 125 H 116 H (75-99) mg/dL Calcium (8.4-10.2) mg/dL Magnesium (1.6-2.3) mg/dL AST (14-36) U/L ALT (4-34) U/L Total Protein (6.3-8.2) g/dL Albumin (3.5-5.0) g/dL Arterial Blood Potassium (3.4-4.5) mmol/L Arterial Blood Glucose (75-99) mg/dL Crossmatch 05/11/20 05/11/20 05/11/20 Range/Units 18:13 19:28 20:36 RBC 2.61 L (3.80-5.40) m/uL Hgb 8.4 L (11.4-16.0) gm/dL Hct 23.9 L (34.0-46.0) % Neutrophils # (1.3-7.7) k/uL Lymphocytes # 0.3 L (1.0-4.8) k/uL PT (9.0-12.0) sec INR (<1.2) ABG pCO2 (35-45) mmHg ABG pO2 (83-108) mmHg ABG HCO3 (21-25) mmol/L ABG Total CO2 (19-24) mmol/L ABG O2 Saturation (94-97) % ABG Hematocrit (34.0-46.0) % ABG Sodium (135-146) mmol/L ABG Potassium (3.4-4.5) mmol/L ABG Ionized Calcium (4.5-5.3) mg/dL ABG Glucose (75-99) mg/dL ABG Lactic Acid (0.5-1.6) mmol/L Hemoglobin (11.4-16.0) gm/dL Chloride (98-107) mmol/L BUN (7-17) mg/dL Glucose (74-99) mg/dL POC Glucose (mg/dL) 130 H 145 H (75-99) mg/dL Calcium (8.4-10.2) mg/dL Magnesium (1.6-2.3) mg/dL AST (14-36) U/L ALT (4-34) U/L Total Protein (6.3-8.2) g/dL Albumin (3.5-5.0) g/dL Arterial Blood Potassium (3.4-4.5) mmol/L Arterial Blood Glucose (75-99) mg/dL Crossmatch 05/11/20 05/11/20 05/11/20 Range/Units 21:02 21:54 22:55 RBC (3.80-5.40) m/uL Hgb (11.4-16.0) gm/dL Hct (34.0-46.0) % Neutrophils # (1.3-7.7) k/uL Lymphocytes # (1.0-4.8) k/uL PT (9.0-12.0) sec INR (<1.2) ABG pCO2 (35-45) mmHg ABG pO2 (83-108) mmHg ABG HCO3 (21-25) mmol/L ABG Total CO2 (19-24) mmol/L ABG O2 Saturation (94-97) % ABG Hematocrit (34.0-46.0) % ABG Sodium (135-146) mmol/L ABG Potassium (3.4-4.5) mmol/L ABG Ionized Calcium (4.5-5.3) mg/dL ABG Glucose (75-99) mg/dL ABG Lactic Acid (0.5-1.6) mmol/L Hemoglobin (11.4-16.0) gm/dL Chloride (98-107) mmol/L BUN (7-17) mg/dL Glucose (74-99) mg/dL POC Glucose (mg/dL) 168 H 151 H 138 H (75-99) mg/dL Calcium (8.4-10.2) mg/dL Magnesium (1.6-2.3) mg/dL AST (14-36) U/L ALT (4-34) U/L Total Protein (6.3-8.2) g/dL Albumin (3.5-5.0) g/dL Arterial Blood Potassium (3.4-4.5) mmol/L Arterial Blood Glucose (75-99) mg/dL Crossmatch 05/11/20 05/12/20 05/12/20 Range/Units 23:59 00:55 01:56 RBC (3.80-5.40) m/uL Hgb (11.4-16.0) gm/dL Hct (34.0-46.0) % Neutrophils # (1.3-7.7) k/uL Lymphocytes # (1.0-4.8) k/uL PT (9.0-12.0) sec INR (<1.2) ABG pCO2 (35-45) mmHg ABG pO2 (83-108) mmHg ABG HCO3 (21-25) mmol/L ABG Total CO2 (19-24) mmol/L ABG O2 Saturation (94-97) % ABG Hematocrit (34.0-46.0) % ABG Sodium (135-146) mmol/L ABG Potassium (3.4-4.5) mmol/L ABG Ionized Calcium (4.5-5.3) mg/dL ABG Glucose (75-99) mg/dL ABG Lactic Acid (0.5-1.6) mmol/L Hemoglobin (11.4-16.0) gm/dL Chloride (98-107) mmol/L BUN (7-17) mg/dL Glucose (74-99) mg/dL POC Glucose (mg/dL) 145 H 132 H 127 H (75-99) mg/dL Calcium (8.4-10.2) mg/dL Magnesium (1.6-2.3) mg/dL AST (14-36) U/L ALT (4-34) U/L Total Protein (6.3-8.2) g/dL Albumin (3.5-5.0) g/dL Arterial Blood Potassium (3.4-4.5) mmol/L Arterial Blood Glucose (75-99) mg/dL Crossmatch 05/12/20 05/12/20 05/12/20 Range/Units 02:54 03:47 03:50 RBC 2.29 L (3.80-5.40) m/uL Hgb 7.4 L (11.4-16.0) gm/dL Hct 21.2 L (34.0-46.0) % Neutrophils # (1.3-7.7) k/uL Lymphocytes # 0.4 L (1.0-4.8) k/uL PT (9.0-12.0) sec INR (<1.2) ABG pCO2 (35-45) mmHg ABG pO2 (83-108) mmHg ABG HCO3 (21-25) mmol/L ABG Total CO2 (19-24) mmol/L ABG O2 Saturation (94-97) % ABG Hematocrit (34.0-46.0) % ABG Sodium (135-146) mmol/L ABG Potassium (3.4-4.5) mmol/L ABG Ionized Calcium (4.5-5.3) mg/dL ABG Glucose (75-99) mg/dL ABG Lactic Acid (0.5-1.6) mmol/L Hemoglobin (11.4-16.0) gm/dL Chloride (98-107) mmol/L BUN (7-17) mg/dL Glucose (74-99) mg/dL POC Glucose (mg/dL) 130 H 133 H (75-99) mg/dL Calcium (8.4-10.2) mg/dL Magnesium (1.6-2.3) mg/dL AST (14-36) U/L ALT (4-34) U/L Total Protein (6.3-8.2) g/dL Albumin (3.5-5.0) g/dL Arterial Blood Potassium (3.4-4.5) mmol/L Arterial Blood Glucose (75-99) mg/dL Crossmatch 05/12/20 05/12/20 Range/Units 03:50 05:01 RBC (3.80-5.40) m/uL Hgb (11.4-16.0) gm/dL Hct (34.0-46.0) % Neutrophils # (1.3-7.7) k/uL Lymphocytes # (1.0-4.8) k/uL PT (9.0-12.0) sec INR (<1.2) ABG pCO2 (35-45) mmHg ABG pO2 (83-108) mmHg ABG HCO3 (21-25) mmol/L ABG Total CO2 (19-24) mmol/L ABG O2 Saturation (94-97) % ABG Hematocrit (34.0-46.0) % ABG Sodium (135-146) mmol/L ABG Potassium (3.4-4.5) mmol/L ABG Ionized Calcium (4.5-5.3) mg/dL ABG Glucose (75-99) mg/dL ABG Lactic Acid (0.5-1.6) mmol/L Hemoglobin (11.4-16.0) gm/dL Chloride (98-107) mmol/L BUN 20 H (7-17) mg/dL Glucose 120 H (74-99) mg/dL POC Glucose (mg/dL) 135 H (75-99) mg/dL Calcium 7.9 L (8.4-10.2) mg/dL Magnesium (1.6-2.3) mg/dL AST 177 H (14-36) U/L ALT 183 H (4-34) U/L Total Protein 4.9 L (6.3-8.2) g/dL Albumin 3.0 L (3.5-5.0) g/dL Arterial Blood Potassium (3.4-4.5) mmol/L Arterial Blood Glucose (75-99) mg/dL Crossmatch Assessment and Plan Assessment: Assessment and plan: 1. POD #0 S/P CABG X2 with RIVERA to LAD and SCG to OM1. we will continue with current treatment as per cardiothoracic and ICU teams. 2. Acute blood loss anemia. Post 2 units of PRBCs. 3. Acute vent dependent respiratory failure due to CABG x2 . we will continue with weaning parameter and she will likely be extubated later on today. 4. Hypertension and hypertensive cardiovascular disease. we will continue with metoprolol 12.5 mg orally bid and currently on Cleviprex drip 3 mg/h and hydralazine as needed. 5. Glaucoma. we will continue with current eye drops. 6. Hyperlipidemia. we will start Lipitor 40 mg orally daily. 9. Thank you for the consult we will follow with you.
[2020-05-12 06:57] LABS: Glucose,Whole Blood 139 mg/dL (75-99)
[2020-05-12] MEDS: FERROUS SULFATE 325 MG TAB PO SCH ×2 (06:59→17:10)
[2020-05-12] MEDS: IPRATROPIUM-ALBUTEROL 3 ML NEB INHALATION SCH ×4 (07:28→19:16)
[2020-05-12] MEDS ORDERED: ACETAMINOPHEN TAB 325 MG TAB PO PRN (07:28)
[2020-05-12 08:15] LABS: Glucose,Whole Blood 208 mg/dL (75-99)
[2020-05-12] MEDS: CHOLECALCIFEROL 25 MCG (1000 IU) TABLET PO SCH (08:20)
[2020-05-12] MEDS: ATORVASTATIN 40 MG TAB PO SCH (08:20)
[2020-05-12] MEDS: CLOPIDOGREL 75 MG TAB PO SCH (08:20)
[2020-05-12] MEDS: ASPIRIN 325 MG TAB PO SCH (08:20)
[2020-05-12] MEDS: METOPROLOL TARTRATE 12.5 MG TAB PO SCH ×2 (08:20→20:27)
[2020-05-12] MEDS: TIMOLOL 0.5% OPHTH DROPS 5 ML BTL BOTH EYES SCH ×2 (08:22→20:16)
[2020-05-12] MEDS: MUPIROCIN 2% OINT 22 GM TUBE NASAL SCH ×2 (08:24→20:24)
--- NOTE | 2020-05-12 08:54 | P.PN ---
Subjective Progress Note Date: 05/12/20 Principal diagnosis: Coronary artery disease with left main disease. Previous medical history of hypertension, hyperlipidemia, lifelong nonsmoker, Covid 19 positive in February 2020, rheumatoid arthritis, vertigo, depression, and glaucoma. POD #1 coronary bypass grafting 2 vessels, left internal mammary artery to the left anterior descending artery, reverse saphenous vein graft to the obtuse marginal artery, endoscopic harvesting of the left greater saphenous vein, epi-aortic ultrasound, intraoperative transesophageal echocardiogram, ligation of the left atrial appendage using a 35 mm AtriClip Postoperative acute blood loss anemia, expected outcome given hemodilution and cardiopulmonary bypass pump Elevated transaminases, unexpected, trending down The patient is currently sitting up in a recliner in no acute distress. She was successfully extubated last night at 19:46. Does complain of mild postoperative surgical pain, difficulty taking deep breath due to chest tubes but otherwise no significant complaints. Remains in sinus rhythm and hemodynamically stable. Was on a touch of Primacor overnight, currently off Primacor with CO/CI 4.6/2.5. Right internal jugular [place]/Cordis, right radial line, mediastinal and left pleural chest tubes along with epicardial pacemaker wires all present. No other new concerns. Objective - Vital Signs Vital signs: Vital Signs Temp 97.2 F L 05/11/20 16:00 Pulse 93 05/12/20 08:00 Resp 22 05/12/20 08:00 BP 126/50 05/12/20 06:30 Pulse Ox 98 05/12/20 08:00 Intake & Output 05/11/20 05/12/20 05/12/20 18:59 06:59 18:59 Intake Total 682.495 6689.001 165.626 Output Total 2230 805 250 Balance -1738.648 644.001 -84.374 Weight 86.5 kg Intake: IV 478 1438 158 ACETAMINOPHEN IV (For NPO 100 100 ) 1,000 mg In Empty Bag 1 bag @ 400 mls/hr IVPB Q6HR [facility] Rx#:[id number] Albumin Human 5% 250 ml @ 500 0 mls/hr IVPB .[facility] Rx#:[id number] CO/CI 120 130 40 LR 170 600 100 pressure bag 36 108 18 Intake, IV Titration 13.352 11.001 7.626 Amount Clevidipine Butyrate 25 10.599 mg In Empty Bag 1 bag @ 1 MG/HR 2 mls/hr IV .Q24H [facility] Rx#:[id number] Insulin Regular 100 unit 11.001 7.626 In Sodium Chloride 0.9% 100 ml @ Per Protocol IV .Q0M [facility] Rx#:[id number] propofoL 1,000 mg In 2.753 Empty Bag 1 bag @ Titrate IV .Q0M [facility] Rx#: [id number] Output: Chest Tube Drainage 95 390 160 LP 60 202 60 MS x2 35 188 100 Gastric Drainage 400 Urine 735 415 90 Estimated Blood Loss 1000 Other: Voiding Method Indwelling Catheter Indwelling Catheter ABP, PAP, CO, CI - Last Documented Arterial Blood Pressure 112/43 Pulmonary Artery Pressure 25/10 Cardiac Output 4.6 Cardiac Index 2.5 - Constitutional General appearance: Present: cooperative, no acute distress, obese - Respiratory Details: Lungs sounds diminished bilaterally. Respirations even, nonlabored. Currently on 2 L nasal cannula with oxygen saturation 98%. Barely able to achieve 250 mL on incentive spirometry. Weak cough. Mediastinal chest tubes present to continuous wall suction, 110 mL serosanguineous drainage overnight, 300 mL since surgery. Left pleural chest tubes present to continuous wall suction, 100 mL serosanguineous drainage overnight, 350 mL since surgery. No air leaks present. - Cardiovascular Details: S1, S2 present. Regular rate and rhythm, sinus rhythm on telemetry. Sternum stable. A/V epicardial pacemaker wires present, connected to generator, generator currently off. Palpable peripheral pulses bilaterally. Generalized trace edema present. No calf pain or tenderness noted. Heart hugger in place with patient demonstrating appropriate use. Antiembolism stockings, SCDs present. Right internal jugular [place]/Cordis, right radial arterial line present. Last CO/CI 4.6/2.5 on no inotropes or pressors. - Gastrointestinal Gastrointestinal Comment(s): Soft, nontender, nondistended. Hypoactive bowel sounds present 4 quadrants. Tolerating clear liquids. Negative flatus - Genitourinary Genitourinary Comment(s): Zavala present draining clear, yellow urine. Output 30-60 mL/h overnight. - Integumentary Integumentary Comment(s): Skin is warm and dry with evidence of good perfusion. Anterior chest incision well approximated and covered with dry intact dressing. Left lower extremity EVH site well approximated without redness or drainage - Neurologic Neurologic: Present: CNII-XII intact - Musculoskeletal Musculoskeletal: Present: gait normal, strength equal bilaterally - Psychiatric Psychiatric: Present: A&O x's 3, appropriate affect, intact judgment & insight - Allied health notes Allied health notes reviewed: nursing - Labs CBC & Chem 7: 05/12/20 03:50 05/12/20 03:50 Labs: Abnormal Lab Results - Last 24 Hours (Table) 05/05/20 05/11/20 05/11/20 Range/Units 07:09 08:25 10:25 RBC (3.80-5.40) m/uL Hgb (11.4-16.0) gm/dL Hct (34.0-46.0) % Neutrophils # (1.3-7.7) k/uL Lymphocytes # (1.0-4.8) k/uL PT (9.0-12.0) sec INR (<1.2) ABG pCO2 34 L (35-45) mmHg ABG pO2 >420 H 275 H (83-108) mmHg ABG HCO3 (21-25) mmol/L ABG Total CO2 (19-24) mmol/L ABG O2 Saturation 100.0 H 99.7 H (94-97) % ABG Hematocrit 33 L 29 L (34.0-46.0) % ABG Sodium (135-146) mmol/L ABG Potassium (3.4-4.5) mmol/L ABG Ionized Calcium (4.5-5.3) mg/dL ABG Glucose 107 H 146 H (75-99) mg/dL ABG Lactic Acid (0.5-1.6) mmol/L Hemoglobin 10.9 L 9.6 L (11.4-16.0) gm/dL Chloride (98-107) mmol/L BUN (7-17) mg/dL Glucose (74-99) mg/dL POC Glucose (mg/dL) (75-99) mg/dL Calcium (8.4-10.2) mg/dL Magnesium (1.6-2.3) mg/dL AST (14-36) U/L ALT (4-34) U/L Total Protein (6.3-8.2) g/dL Albumin (3.5-5.0) g/dL Arterial Blood Potassium (3.4-4.5) mmol/L Arterial Blood Glucose 107 H 146 H (75-99) mg/dL Crossmatch See Detail 05/11/20 05/11/20 05/11/20 Range/Units 11:00 11:32 12:12 RBC (3.80-5.40) m/uL Hgb (11.4-16.0) gm/dL Hct (34.0-46.0) % Neutrophils # (1.3-7.7) k/uL Lymphocytes # (1.0-4.8) k/uL PT (9.0-12.0) sec INR (<1.2) ABG pCO2 33 L (35-45) mmHg ABG pO2 >420 H 349 H 160 H (83-108) mmHg ABG HCO3 20 L 26 H (21-25) mmol/L ABG Total CO2 27 H (19-24) mmol/L ABG O2 Saturation 100.0 H 100.0 H 99.4 H (94-97) % ABG Hematocrit 20 L* 18 L* 21 L (34.0-46.0) % ABG Sodium 134 L (135-146) mmol/L ABG Potassium 4.6 H (3.4-4.5) mmol/L ABG Ionized Calcium 3.7 L 4.0 L (4.5-5.3) mg/dL ABG Glucose 123 H 199 H (75-99) mg/dL ABG Lactic Acid 3.6 H* (0.5-1.6) mmol/L Hemoglobin 6.4 L* 6.0 L* 6.9 L* (11.4-16.0) gm/dL Chloride (98-107) mmol/L BUN (7-17) mg/dL Glucose (74-99) mg/dL POC Glucose (mg/dL) (75-99) mg/dL Calcium (8.4-10.2) mg/dL Magnesium (1.6-2.3) mg/dL AST (14-36) U/L ALT (4-34) U/L Total Protein (6.3-8.2) g/dL Albumin (3.5-5.0) g/dL Arterial Blood Potassium 4.6 H (3.4-4.5) mmol/L Arterial Blood Glucose 123 H 199 H (75-99) mg/dL Crossmatch 05/11/20 05/11/20 05/11/20 Range/Units 13:01 14:30 14:30 RBC 2.55 L (3.80-5.40) m/uL Hgb 8.2 L D (11.4-16.0) gm/dL Hct 23.4 L (34.0-46.0) % Neutrophils # (1.3-7.7) k/uL Lymphocytes # 0.6 L (1.0-4.8) k/uL PT 12.2 H (9.0-12.0) sec INR 1.2 H (<1.2) ABG pCO2 (35-45) mmHg ABG pO2 388 H (83-108) mmHg ABG HCO3 (21-25) mmol/L ABG Total CO2 26 H (19-24) mmol/L ABG O2 Saturation 100.0 H (94-97) % ABG Hematocrit 18 L* (34.0-46.0) % ABG Sodium (135-146) mmol/L ABG Potassium 4.6 H (3.4-4.5) mmol/L ABG Ionized Calcium 4.1 L (4.5-5.3) mg/dL ABG Glucose 205 H (75-99) mg/dL ABG Lactic Acid 2.6 H* (0.5-1.6) mmol/L Hemoglobin 5.8 L* (11.4-16.0) gm/dL Chloride (98-107) mmol/L BUN (7-17) mg/dL Glucose (74-99) mg/dL POC Glucose (mg/dL) (75-99) mg/dL Calcium (8.4-10.2) mg/dL Magnesium (1.6-2.3) mg/dL AST (14-36) U/L ALT (4-34) U/L Total Protein (6.3-8.2) g/dL Albumin (3.5-5.0) g/dL Arterial Blood Potassium 4.6 H (3.4-4.5) mmol/L Arterial Blood Glucose 205 H (75-99) mg/dL Crossmatch 05/11/20 05/11/20 05/11/20 Range/Units 14:30 14:37 15:04 RBC (3.80-5.40) m/uL Hgb (11.4-16.0) gm/dL Hct (34.0-46.0) % Neutrophils # (1.3-7.7) k/uL Lymphocytes # (1.0-4.8) k/uL PT (9.0-12.0) sec INR (<1.2) ABG pCO2 (35-45) mmHg ABG pO2 146 H (83-108) mmHg ABG HCO3 (21-25) mmol/L ABG Total CO2 26 H (19-24) mmol/L ABG O2 Saturation 99.3 H (94-97) % ABG Hematocrit (34.0-46.0) % ABG Sodium (135-146) mmol/L ABG Potassium (3.4-4.5) mmol/L ABG Ionized Calcium (4.5-5.3) mg/dL ABG Glucose (75-99) mg/dL ABG Lactic Acid (0.5-1.6) mmol/L Hemoglobin (11.4-16.0) gm/dL Chloride 109 H (98-107) mmol/L BUN 18 H (7-17) mg/dL Glucose (74-99) mg/dL POC Glucose (mg/dL) 129 H (75-99) mg/dL Calcium 7.7 L (8.4-10.2) mg/dL Magnesium 2.9 H (1.6-2.3) mg/dL AST 415 H (14-36) U/L ALT 261 H (4-34) U/L Total Protein 4.9 L (6.3-8.2) g/dL Albumin 2.9 L (3.5-5.0) g/dL Arterial Blood Potassium (3.4-4.5) mmol/L Arterial Blood Glucose (75-99) mg/dL Crossmatch 05/11/20 05/11/20 05/11/20 Range/Units 16:02 17:20 17:45 RBC 2.72 L (3.80-5.40) m/uL Hgb 8.5 L (11.4-16.0) gm/dL Hct 25.0 L (34.0-46.0) % Neutrophils # 8.9 H (1.3-7.7) k/uL Lymphocytes # 0.5 L (1.0-4.8) k/uL PT (9.0-12.0) sec INR (<1.2) ABG pCO2 (35-45) mmHg ABG pO2 (83-108) mmHg ABG HCO3 (21-25) mmol/L ABG Total CO2 (19-24) mmol/L ABG O2 Saturation (94-97) % ABG Hematocrit (34.0-46.0) % ABG Sodium (135-146) mmol/L ABG Potassium (3.4-4.5) mmol/L ABG Ionized Calcium (4.5-5.3) mg/dL ABG Glucose (75-99) mg/dL ABG Lactic Acid (0.5-1.6) mmol/L Hemoglobin (11.4-16.0) gm/dL Chloride (98-107) mmol/L BUN (7-17) mg/dL Glucose (74-99) mg/dL POC Glucose (mg/dL) 125 H 116 H (75-99) mg/dL Calcium (8.4-10.2) mg/dL Magnesium (1.6-2.3) mg/dL AST (14-36) U/L ALT (4-34) U/L Total Protein (6.3-8.2) g/dL Albumin (3.5-5.0) g/dL Arterial Blood Potassium (3.4-4.5) mmol/L Arterial Blood Glucose (75-99) mg/dL Crossmatch 05/11/20 05/11/20 05/11/20 Range/Units 18:13 19:28 20:36 RBC 2.61 L (3.80-5.40) m/uL Hgb 8.4 L (11.4-16.0) gm/dL Hct 23.9 L (34.0-46.0) % Neutrophils # (1.3-7.7) k/uL Lymphocytes # 0.3 L (1.0-4.8) k/uL PT (9.0-12.0) sec INR (<1.2) ABG pCO2 (35-45) mmHg ABG pO2 (83-108) mmHg ABG HCO3 (21-25) mmol/L ABG Total CO2 (19-24) mmol/L ABG O2 Saturation (94-97) % ABG Hematocrit (34.0-46.0) % ABG Sodium (135-146) mmol/L ABG Potassium (3.4-4.5) mmol/L ABG Ionized Calcium (4.5-5.3) mg/dL ABG Glucose (75-99) mg/dL ABG Lactic Acid (0.5-1.6) mmol/L Hemoglobin (11.4-16.0) gm/dL Chloride (98-107) mmol/L BUN (7-17) mg/dL Glucose (74-99) mg/dL POC Glucose (mg/dL) 130 H 145 H (75-99) mg/dL Calcium (8.4-10.2) mg/dL Magnesium (1.6-2.3) mg/dL AST (14-36) U/L ALT (4-34) U/L Total Protein (6.3-8.2) g/dL Albumin (3.5-5.0) g/dL Arterial Blood Potassium (3.4-4.5) mmol/L Arterial Blood Glucose (75-99) mg/dL Crossmatch 05/11/20 05/11/20 05/11/20 Range/Units 21:02 21:54 22:55 RBC (3.80-5.40) m/uL Hgb (11.4-16.0) gm/dL Hct (34.0-46.0) % Neutrophils # (1.3-7.7) k/uL Lymphocytes # (1.0-4.8) k/uL PT (9.0-12.0) sec INR (<1.2) ABG pCO2 (35-45) mmHg ABG pO2 (83-108) mmHg ABG HCO3 (21-25) mmol/L ABG Total CO2 (19-24) mmol/L ABG O2 Saturation (94-97) % ABG Hematocrit (34.0-46.0) % ABG Sodium (135-146) mmol/L ABG Potassium (3.4-4.5) mmol/L ABG Ionized Calcium (4.5-5.3) mg/dL ABG Glucose (75-99) mg/dL ABG Lactic Acid (0.5-1.6) mmol/L Hemoglobin (11.4-16.0) gm/dL Chloride (98-107) mmol/L BUN (7-17) mg/dL Glucose (74-99) mg/dL POC Glucose (mg/dL) 168 H 151 H 138 H (75-99) mg/dL Calcium (8.4-10.2) mg/dL Magnesium (1.6-2.3) mg/dL AST (14-36) U/L ALT (4-34) U/L Total Protein (6.3-8.2) g/dL Albumin (3.5-5.0) g/dL Arterial Blood Potassium (3.4-4.5) mmol/L Arterial Blood Glucose (75-99) mg/dL Crossmatch 05/11/20 05/12/20 05/12/20 Range/Units 23:59 00:55 01:56 RBC (3.80-5.40) m/uL Hgb (11.4-16.0) gm/dL Hct (34.0-46.0) % Neutrophils # (1.3-7.7) k/uL Lymphocytes # (1.0-4.8) k/uL PT (9.0-12.0) sec INR (<1.2) ABG pCO2 (35-45) mmHg ABG pO2 (83-108) mmHg ABG HCO3 (21-25) mmol/L ABG Total CO2 (19-24) mmol/L ABG O2 Saturation (94-97) % ABG Hematocrit (34.0-46.0) % ABG Sodium (135-146) mmol/L ABG Potassium (3.4-4.5) mmol/L ABG Ionized Calcium (4.5-5.3) mg/dL ABG Glucose (75-99) mg/dL ABG Lactic Acid (0.5-1.6) mmol/L Hemoglobin (11.4-16.0) gm/dL Chloride (98-107) mmol/L BUN (7-17) mg/dL Glucose (74-99) mg/dL POC Glucose (mg/dL) 145 H 132 H 127 H (75-99) mg/dL Calcium (8.4-10.2) mg/dL Magnesium (1.6-2.3) mg/dL AST (14-36) U/L ALT (4-34) U/L Total Protein (6.3-8.2) g/dL Albumin (3.5-5.0) g/dL Arterial Blood Potassium (3.4-4.5) mmol/L Arterial Blood Glucose (75-99) mg/dL Crossmatch 05/12/20 05/12/20 05/12/20 Range/Units 02:54 03:47 03:50 RBC 2.29 L (3.80-5.40) m/uL Hgb 7.4 L (11.4-16.0) gm/dL Hct 21.2 L (34.0-46.0) % Neutrophils # (1.3-7.7) k/uL Lymphocytes # 0.4 L (1.0-4.8) k/uL PT (9.0-12.0) sec INR (<1.2) ABG pCO2 (35-45) mmHg ABG pO2 (83-108) mmHg ABG HCO3 (21-25) mmol/L ABG Total CO2 (19-24) mmol/L ABG O2 Saturation (94-97) % ABG Hematocrit (34.0-46.0) % ABG Sodium (135-146) mmol/L ABG Potassium (3.4-4.5) mmol/L ABG Ionized Calcium (4.5-5.3) mg/dL ABG Glucose (75-99) mg/dL ABG Lactic Acid (0.5-1.6) mmol/L Hemoglobin (11.4-16.0) gm/dL Chloride (98-107) mmol/L BUN (7-17) mg/dL Glucose (74-99) mg/dL POC Glucose (mg/dL) 130 H 133 H (75-99) mg/dL Calcium (8.4-10.2) mg/dL Magnesium (1.6-2.3) mg/dL AST (14-36) U/L ALT (4-34) U/L Total Protein (6.3-8.2) g/dL Albumin (3.5-5.0) g/dL Arterial Blood Potassium (3.4-4.5) mmol/L Arterial Blood Glucose (75-99) mg/dL Crossmatch 05/12/20 05/12/20 05/12/20 Range/Units 03:50 05:01 06:56 RBC (3.80-5.40) m/uL Hgb (11.4-16.0) gm/dL Hct (34.0-46.0) % Neutrophils # (1.3-7.7) k/uL Lymphocytes # (1.0-4.8) k/uL PT (9.0-12.0) sec INR (<1.2) ABG pCO2 (35-45) mmHg ABG pO2 (83-108) mmHg ABG HCO3 (21-25) mmol/L ABG Total CO2 (19-24) mmol/L ABG O2 Saturation (94-97) % ABG Hematocrit (34.0-46.0) % ABG Sodium (135-146) mmol/L ABG Potassium (3.4-4.5) mmol/L ABG Ionized Calcium (4.5-5.3) mg/dL ABG Glucose (75-99) mg/dL ABG Lactic Acid (0.5-1.6) mmol/L Hemoglobin (11.4-16.0) gm/dL Chloride (98-107) mmol/L BUN 20 H (7-17) mg/dL Glucose 120 H (74-99) mg/dL POC Glucose (mg/dL) 135 H 139 H (75-99) mg/dL Calcium 7.9 L (8.4-10.2) mg/dL Magnesium (1.6-2.3) mg/dL AST 177 H (14-36) U/L ALT 183 H (4-34) U/L Total Protein 4.9 L (6.3-8.2) g/dL Albumin 3.0 L (3.5-5.0) g/dL Arterial Blood Potassium (3.4-4.5) mmol/L Arterial Blood Glucose (75-99) mg/dL Crossmatch 05/12/20 Range/Units 08:13 RBC (3.80-5.40) m/uL Hgb (11.4-16.0) gm/dL Hct (34.0-46.0) % Neutrophils # (1.3-7.7) k/uL Lymphocytes # (1.0-4.8) k/uL PT (9.0-12.0) sec INR (<1.2) ABG pCO2 (35-45) mmHg ABG pO2 (83-108) mmHg ABG HCO3 (21-25) mmol/L ABG Total CO2 (19-24) mmol/L ABG O2 Saturation (94-97) % ABG Hematocrit (34.0-46.0) % ABG Sodium (135-146) mmol/L ABG Potassium (3.4-4.5) mmol/L ABG Ionized Calcium (4.5-5.3) mg/dL ABG Glucose (75-99) mg/dL ABG Lactic Acid (0.5-1.6) mmol/L Hemoglobin (11.4-16.0) gm/dL Chloride (98-107) mmol/L BUN (7-17) mg/dL Glucose (74-99) mg/dL POC Glucose (mg/dL) 208 H (75-99) mg/dL Calcium (8.4-10.2) mg/dL Magnesium (1.6-2.3) mg/dL AST (14-36) U/L ALT (4-34) U/L Total Protein (6.3-8.2) g/dL Albumin (3.5-5.0) g/dL Arterial Blood Potassium (3.4-4.5) mmol/L Arterial Blood Glucose (75-99) mg/dL Crossmatch - Imaging and Cardiology Chest x-ray: image reviewed Assessment and Plan Assessment: 1. Coronary artery disease with left main disease, status post 2 vessel CABG 2. Hypertension 3. Hyperlipidemia, treated, cholesterol 149, LDL 90 4. Lifelong nonsmoker, preoperative FEV1 81% of predicted 5. Covid 19 positive in February 2020, repeat test completed 05/03/2020 at [facility] was negative 6. Rheumatoid arthritis 7. Vertigo 8. Depression 9. Glaucoma 10. Postoperative acute blood loss anemia 11. Elevated transaminases Plan: 1. Continue aspirin, statin, Plavix, beta carlos therapy. Will increase beta carlos therapy as tolerated 2. Discontinue Primacor, IV nitro 3. Wean O2 as tolerated. Encourage incentive spirometry 10 times every hour while awake. Bronchodilators per pulmonology 4. Increase activity, ambulate as tolerated. PT/OT/cardiac rehab consulted 5. Will monitor daily labs and x-rays. Electrolyte replacement per protocol. No transfusion at this point, will avoid if possible 6. GI/DVT prophylaxis 7. Discontinue [place]. Connect Cordis to continuous CVP monitoring 8. Insulin management per primary care service. Patient is not diabetic, preoperative hemoglobin A1c 6% 9. Continue mediastinal and left pleural chest tubes, arterial line for another 24 hours 10. Continue Zavala catheter for another 24 hours for strict accurate intake and output. Daily weights 11. More recommendations to follow based on patient's progress Time with Patient: Greater than 30
[2020-05-12] MEDS ORDERED: FOLIC ACID PO SCH (09:00)
[2020-05-12] MEDS ORDERED: PANTOPRAZOLE 40 MG/10 ML VIAL IVP SCH (09:00)
[2020-05-12] MEDS ORDERED: ASCORBIC ACID PO SCH (09:00)
[2020-05-12] MEDS ORDERED: bisacodyL 10 MG SUPP RECTAL PRN (09:00)
[2020-05-12] MEDS ORDERED: CYANOCOBALAMIN PO SCH (09:00)
[2020-05-12] MEDS ORDERED: MAGNESIUM HYDROXIDE 2,400 MG/10 ML CUP PO PRN (09:00)
--- NOTE | 2020-05-12 09:02 | CONS ---
CONSULTATION This is a 74-year-old lady with a known history of hypertension, hyperlipidemia, who had abnormal stress test and underwent a cardiac cath performed by Dr. Noriega, which revealed an ostial left main lesion which was again confirmed by intravascular ultrasound and yesterday she underwent aortocoronary bypass surgery with a RIVERA to LAD and vein graft to the obtuse marginal. Postoperatively I am seeing this patient. She has been extubated. She is not on any pressors. She is in sinus rhythm, hemodynamically stable, but not doing so well with incentive spirometry. She is resting comfortably with some incisional pain. PAST MEDICAL HISTORY: 1. Hypertension. 2. Hyperlipidemia. 3. History of abnormal stress test. 4. Cardiac cath which revealed ostial left main disease and underwent aortocoronary bypass surgery yesterday. MEDICATIONS: Medications at home include Coreg 6.25 mg b.i.d., losartan 50 mg daily, atorvastatin 80 mg daily, aspirin 81 mg daily. ALLERGIES: INDOCIN, CODEINE, and HYDROMORPHONE. PHYSICAL EXAMINATION: On examination, blood pressure is 120/70, pulse rate is 70 per minute, regular. HEENT: Unremarkable. Fundus was not examined. No JVD. S1, S2 heard normally. No significant murmurs. Lungs reveal diminished air entry. Abdomen is soft. Lower extremities reveal diminished pulses. Central nervous system assessment revealed no focal deficits. EKG revealed no acute changes, sinus rhythm. IMPRESSION: 1. Status post aortocoronary bypass surgery yesterday. 2. Hypertension. 3. Hyperlipidemia. RECOMMENDATIONS: I would recommend that we continue incentive spirometry pulmonary toilet. Same medications. Gradual increase in activity. MMODL / IJN: [id number] /
[2020-05-12 09:11] LABS: Glucose,Whole Blood 223 mg/dL (75-99)
--- NOTE | 2020-05-12 09:32 | XR ---
EXAMINATION TYPE: XR chest 1V portable DATE OF EXAM: 05/12/2020 COMPARISON: 05/11/2020 INDICATION: Postoperative cardiac surgery TECHNIQUE: Single frontal view of the chest is obtained. FINDINGS: The heart size is normal. The pulmonary vasculature is normal. There is a infiltrate at the left base. Right lung appears clear. Bethany-Cristobal catheter is present with the tip in the main urinary artery region. Mediastinal tubes are p resent. Left-sided chest tube is present. No sizable pneumothorax is evident. IMPRESSION: 1. Left lower lobe infiltrate, worsening from comparison. 2. Lines and catheters discussed above.
[2020-05-12] MEDS: SODIUM CHLORIDE 0.9% 500 ML 500 ML IV SCH (10:12)
[2020-05-12 10:21] LABS: Glucose,Whole Blood 177 mg/dL (75-99)
[2020-05-12 10:31] VITALS: BMI 33.7
[2020-05-12 11:11] LABS: Glucose,Whole Blood 137 mg/dL (75-99)
[2020-05-12 12:14] LABS: Glucose,Whole Blood 107 mg/dL (75-99)
--- NOTE | 2020-05-12 13:25 | P.PN ---
Subjective Progress Note Date: 05/12/20 Principal diagnosis: Status post CABG 2 vessels, postoperative day #1. This is a very pleasant 74-year-old female patient with a known history hypertension, hyperlipidemia, rheumatoid arthritis. 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 Recently she had been having issues with shortness of breath on exertion. Subsequent stress test rev ealed possible ischemia and she was admitted to [facility] for cardiac catheterization at which time she developed chest discomfort and EKG changes. The procedure was stopped and she was transferred here to [facility] and found to have significant coronary artery disease was recommended coronary artery bypass grafting. Echocardiogram revealed preserved left ventricular systolic function with ejection fraction 55-60%. Spirometry with an FEV1 81%. She was subsequently discharged on 05/05/2020 and brought in today 05/11/2020 for the surgery. She had undergone coronary artery bypass grafting utilizing a RIVERA to the LAD and saphenous vein graft to the OM. She is seen today in the intensive care unit in the immediate postoperative period. She is currently intubated on a mechanical ventilator at assist control 12, tidal on 400, FiO2 40% and a PEEP of 5. Arterial blood gases revealed a pO2 of 146, pCO2 43, pH 7.37. White count 8.7. Hemoglobin 8.2. Platelet count 159. Sodium 138. Potassium 4.3. Creatinine 0.67. Glucose 125. AST 4:15. ALT 261. She is currently on a clevidipine at 2 mg per hour, insulin drip at 1 unit per hour. Propofol at 30 mcg/kg/m, nitroglycerin drip at 5 mcg/m. Right IJ Garland-Cristobal catheter in place. Cardiac output 4.0. Cardiac index 2.2. CVP 17. PA pressure 31/21. Chest x-ray reveals optimal placement of he nasogastric tube. Endotrac heal tube to be pulled back 2 cm. Two mediastinal and left sided chest tubes in place. Epicardial wires in place. She is initiated on bronchodilators. Reevaluated today on 05/12/2020, patient is postoperative day #1, she had CABG 2, RIVERA to LAD, and saphenous vein graft to obtuse marginal artery. Patient was extubated at 19:46, uneventfully, and she tolerated the extubation well. She is presently sitting in bed, on 2 L nasal cannula, in no distress. She is hemodynamically stable, not requiring any inotropes or process. Her cardiac output is 4.6 cardiac index is 2.5. Continues to have a right internal jugular Garland/Cordis, she continues to have mediastinal and left pleural chest tubes along with epicardial pacemaker wires. Chest x-ray showed mostly left lower lobe atelectasis, lines and catheters are all in place as expected. WBC count is 7.7 hemoglobin is 7.4. Basic metabolic profile and renal profile are normal. Objective - Vital Signs Vital signs: Vital Signs Temp 97.2 F L 05/11/20 16:00 Pulse 87 05/12/20 12:01 Resp 23 05/12/20 12:15 BP 119/59 05/12/20 11:30 Pulse Ox 94 L 05/12/20 12:01 Intake & Output 05/11/20 05/12/20 05/12/20 18:59 06:59 18:59 Intake Total 064.413 4429.001 775.037 Output Total 2230 805 544 Balance -1738.648 644.001 231.037 Weight 86.5 kg 86.5 kg Intake: IV 478 1438 632 ACETAMINOPHEN IV (For NPO 100 100 ) 1,000 mg In Empty Bag 1 bag @ 400 mls/hr IVPB Q6HR [facility] Rx#:[id number] Albumin Human 5% 250 ml @ 500 250 0 mls/hr IVPB .STK-MED ONE Rx#:[id number] CO/CI 120 130 40 LR 170 600 210 Sodium Chloride 0.9% 500 40 ml 500 ml @ 20 mls/hr IV .Q24H [facility] Rx#:[id number] ceFAZolin 2 gm In Sodium 50 Chloride 0.9% 50 ml @ 100 mls/hr IVPB Q8H [facility] Rx#: [id number] pressure bag 36 108 42 Intake, IV Titration 13.352 11.001 23.037 Amount Clevidipine Butyrate 25 10.599 mg In Empty Bag 1 bag @ 1 MG/HR 2 mls/hr IV .Q24H [facility] Rx#:[id number] Insulin Regular 100 unit 11.001 23.037 In Sodium Chloride 0.9% 100 ml @ Per Protocol IV .Q0M [facility] Rx#:[id number] propofoL 1,000 mg In 2.753 Empty Bag 1 bag @ Titrate IV .Q0M [facility] Rx#: [id number] Oral 120 Output: Chest Tube Drainage 95 390 350 LP 60 202 90 MS x2 35 188 260 Gastric Drainage 400 Urine 735 415 194 Estimated Blood Loss 1000 Other: Voiding Method Indwelling Catheter Indwelling Catheter Indwelling Catheter ABP, PAP, CO, CI - Last Documented Arterial Blood Pressure 90/39 Pulmonary Artery Pressure 19/8 Cardiac Output 4.6 Cardiac Index 2.5 - Exam Physical Exam: Revealed a 74-year-old female, sitting in a bedside chair, on 2 L nasal cannula, in no distress, O2 saturations 98%. Doing poorly with incentive spirometry achieving less than 250 ML. Head: Atraumatic, normocephalic. HEENT:[Neck is supple.] [No neck masses.] [No thyromegaly.] [No JVD.] Chest: [Symmetrical chest expansion, diminished breath sounds at the bases especially at the left base..]Mediastinal chest tubes present to continuous wall suction, 110 mL serosanguineous drainage overnight, 300 mL since surgery. Left pleural chest tubes present to continuous wall suction, 100 mL serosanguineous drainage overnight, 350 mL since surgery. No air leaks present. Cardiac Exam: [Normal S1 and S2, no S3 gallop, no murmur.]Sternum stable. A/V epicardial pacemaker wires present, connected to generator, generator currently off. Palpable peripheral pulses bilaterally. Generalized trace edema present. No calf pain or tenderness noted. Heart hugger in place with patient demonstrating appropriate use. Antiembolism stockings, SCDs present. Right internal jugular Garland/Cordis, right radial arterial line present. Last CO/CI 4.6/2.5 on no inotropes or pressors. Abdomen: [Soft, nontender, no megaly, no rebound, no guarding, normal bowel sounds.] Extremities: [No clubbing, no edema, no cyanosis.] Neurological Exam: [No focal neurologic deficit.] Alert and oriented 3. Psychiatric: Normal mood, affect and normal mental status examination. Skin: No rashes. Musculoskeletal: No limitation in range of motion, no deformities. - Labs CBC & Chem 7: 05/12/20 03:50 05/12/20 03:50 Labs: Abnormal Lab Results - Last 24 Hours (Table) 0105/11/20 05/11/20 Range/Units 07:09 08:25 10:25 RBC (3.80-5.40) m/uL Hgb (11.4-16.0) gm/dL Hct (34.0-46.0) % Neutrophils # (1.3-7.7) k/uL Lymphocytes # (1.0-4.8) k/uL PT (9.0-12.0) sec INR (<1.2) ABG pCO2 34 L (35-45) mmHg ABG pO2 >420 H 275 H (83-108) mmHg ABG HCO3 (21-25) mmol/L ABG Total CO2 (19-24) mmol/L ABG O2 Saturation 100.0 H 99.7 H (94-97) % ABG Hematocrit 33 L 29 L (34.0-46.0) % ABG Sodium (135-146) mmol/L ABG Potassium (3.4-4.5) mmol/L ABG Ionized Calcium (4.5-5.3) mg/dL ABG Glucose 107 H 146 H (75-99) mg/dL ABG Lactic Acid (0.5-1.6) mmol/L Hemoglobin 10.9 L 9.6 L (11.4-16.0) gm/dL Chloride (98-107) mmol/L BUN (7-17) mg/dL Glucose (74-99) mg/dL POC Glucose (mg/dL) (75-99) mg/dL Calcium (8.4-10.2) mg/dL Magnesium (1.6-2.3) mg/dL AST (14-36) U/L ALT (4-34) U/L Total Protein (6.3-8.2) g/dL Albumin (3.5-5.0) g/dL Arterial Blood Potassium (3.4-4.5) mmol/L Arterial Blood Glucose 107 H 146 H (75-99) mg/dL Crossmatch See Detail 05/11/20 05/11/20 05/11/20 Range/Units 11:00 11:32 12:12 RBC (3.80-5.40) m/uL Hgb (11.4-16.0) gm/dL Hct (34.0-46.0) % Neutrophils # (1.3-7.7) k/uL Lymphocytes # (1.0-4.8) k/uL PT (9.0-12.0) sec INR (<1.2) ABG pCO2 33 L (35-45) mmHg ABG pO2 >420 H 349 H 160 H (83-108) mmHg ABG HCO3 20 L 26 H (21-25) mmol/L ABG Total CO2 27 H (19-24) mmol/L ABG O2 Saturation 100.0 H 100.0 H 99.4 H (94-97) % ABG Hematocrit 20 L* 18 L* 21 L (34.0-46.0) % ABG Sodium 134 L (135-146) mmol/L ABG Potassium 4.6 H (3.4-4.5) mmol/L ABG Ionized Calcium 3.7 L 4.0 L (4.5-5.3) mg/dL ABG Glucose 123 H 199 H (75-99) mg/dL ABG Lactic Acid 3.6 H* (0.5-1.6) mmol/L Hemoglobin 6.4 L* 6.0 L* 6.9 L* (11.4-16.0) gm/dL Chloride (98-107) mmol/L BUN (7-17) mg/dL Glucose (74-99) mg/dL POC Glucose (mg/dL) (75-99) mg/dL Calcium (8.4-10.2) mg/dL Magnesium (1.6-2.3) mg/dL AST (14-36) U/L ALT (4-34) U/L Total Protein (6.3-8.2) g/dL Albumin (3.5-5.0) g/dL Arterial Blood Potassium 4.6 H (3.4-4.5) mmol/L Arterial Blood Glucose 123 H 199 H (75-99) mg/dL Crossmatch 05/11/20 05/11/20 05/11/20 Range/Units 13:01 14:30 14:30 RBC 2.55 L (3.80-5.40) m/uL Hgb 8.2 L D (11.4-16.0) gm/dL Hct 23.4 L (34.0-46.0) % Neutrophils # (1.3-7.7) k/uL Lymphocytes # 0.6 L (1.0-4.8) k/uL PT 12.2 H (9.0-12.0) sec INR 1.2 H (<1.2) ABG pCO2 (35-45) mmHg ABG pO2 388 H (83-108) mmHg ABG HCO3 (21-25) mmol/L ABG Total CO2 26 H (19-24) mmol/L ABG O2 Saturation 100.0 H (94-97) % ABG Hematocrit 18 L* (34.0-46.0) % ABG Sodium (135-146) mmol/L ABG Potassium 4.6 H (3.4-4.5) mmol/L ABG Ionized Calcium 4.1 L (4.5-5.3) mg/dL ABG Glucose 205 H (75-99) mg/dL ABG Lactic Acid 2.6 H* (0.5-1.6) mmol/L Hemoglobin 5.8 L* (11.4-16.0) gm/dL Chloride (98-107) mmol/L BUN (7-17) mg/dL Glucose (74-99) mg/dL POC Glucose (mg/dL) (75-99) mg/dL Calcium (8.4-10.2) mg/dL Magnesium (1.6-2.3) mg/dL AST (14-36) U/L ALT (4-34) U/L Total Protein (6.3-8.2) g/dL Albumin (3.5-5.0) g/dL Arterial Blood Potassium 4.6 H (3.4-4.5) mmol/L Arterial Blood Glucose 205 H (75-99) mg/dL Crossmatch 05/11/20 05/11/20 05/11/20 Range/Units 14:30 14:37 15:04 RBC (3.80-5.40) m/uL Hgb (11.4-16.0) gm/dL Hct (34.0-46.0) % Neutrophils # (1.3-7.7) k/uL Lymphocytes # (1.0-4.8) k/uL PT (9.0-12.0) sec INR (<1.2) ABG pCO2 (35-45) mmHg ABG pO2 146 H (83-108) mmHg ABG HCO3 (21-25) mmol/L ABG Total CO2 26 H (19-24) mmol/L ABG O2 Saturation 99.3 H (94-97) % ABG Hematocrit (34.0-46.0) % ABG Sodium (135-146) mmol/L ABG Potassium (3.4-4.5) mmol/L ABG Ionized Calcium (4.5-5.3) mg/dL ABG Glucose (75-99) mg/dL ABG Lactic Acid (0.5-1.6) mmol/L Hemoglobin (11.4-16.0) gm/dL Chloride 109 H (98-107) mmol/L BUN 18 H (7-17) mg/dL Glucose (74-99) mg/dL POC Glucose (mg/dL) 129 H (75-99) mg/dL Calcium 7.7 L (8.4-10.2) mg/dL Magnesium 2.9 H (1.6-2.3) mg/dL AST 415 H (14-36) U/L ALT 261 H (4-34) U/L Total Protein 4.9 L (6.3-8.2) g/dL Albumin 2.9 L (3.5-5.0) g/dL Arterial Blood Potassium (3.4-4.5) mmol/L Arterial Blood Glucose (75-99) mg/dL Crossmatch 05/11/20 05/11/20 05/11/20 Range/Units 16:02 17:20 17:45 RBC 2.72 L (3.80-5.40) m/uL Hgb 8.5 L (11.4-16.0) gm/dL Hct 25.0 L (34.0-46.0) % Neutrophils # 8.9 H (1.3-7.7) k/uL Lymphocytes # 0.5 L (1.0-4.8) k/uL PT (9.0-12.0) sec INR (<1.2) ABG pCO2 (35-45) mmHg ABG pO2 (83-108) mmHg ABG HCO3 (21-25) mmol/L ABG Total CO2 (19-24) mmol/L ABG O2 Saturation (94-97) % ABG Hematocrit (34.0-46.0) % ABG Sodium (135-146) mmol/L ABG Potassium (3.4-4.5) mmol/L ABG Ionized Calcium (4.5-5.3) mg/dL ABG Glucose (75-99) mg/dL ABG Lactic Acid (0.5-1.6) mmol/L Hemoglobin (11.4-16.0) gm/dL Chloride (98-107) mmol/L BUN (7-17) mg/dL Glucose (74-99) mg/dL POC Glucose (mg/dL) 125 H 116 H (75-99) mg/dL Calcium (8.4-10.2) mg/dL Magnesium (1.6-2.3) mg/dL AST (14-36) U/L ALT (4-34) U/L Total Protein (6.3-8.2) g/dL Albumin (3.5-5.0) g/dL Arterial Blood Potassium (3.4-4.5) mmol/L Arterial Blood Glucose (75-99) mg/dL Crossmatch 05/11/20 05/11/20 05/11/20 Range/Units 18:13 19:28 20:36 RBC 2.61 L (3.80-5.40) m/uL Hgb 8.4 L (11.4-16.0) gm/dL Hct 23.9 L (34.0-46.0) % Neutrophils # (1.3-7.7) k/uL Lymphocytes # 0.3 L (1.0-4.8) k/uL PT (9.0-12.0) sec INR (<1.2) ABG pCO2 (35-45) mmHg ABG pO2 (83-108) mmHg ABG HCO3 (21-25) mmol/L ABG Total CO2 (19-24) mmol/L ABG O2 Saturation (94-97) % ABG Hematocrit (34.0-46.0) % ABG Sodium (135-146) mmol/L ABG Potassium (3.4-4.5) mmol/L ABG Ionized Calcium (4.5-5.3) mg/dL ABG Glucose (75-99) mg/dL ABG Lactic Acid (0.5-1.6) mmol/L Hemoglobin (11.4-16.0) gm/dL Chloride (98-107) mmol/L BUN (7-17) mg/dL Glucose (74-99) mg/dL POC Glucose (mg/dL) 130 H 145 H (75-99) mg/dL Calcium (8.4-10.2) mg/dL Magnesium (1.6-2.3) mg/dL AST (14-36) U/L ALT (4-34) U/L Total Protein (6.3-8.2) g/dL Albumin (3.5-5.0) g/dL Arterial Blood Potassium (3.4-4.5) mmol/L Arterial Blood Glucose (75-99) mg/dL Crossmatch 05/11/20 05/11/20 05/11/20 Range/Units 21:02 21:54 22:55 RBC (3.80-5.40) m/uL Hgb (11.4-16.0) gm/dL Hct (34.0-46.0) % Neutrophils # (1.3-7.7) k/uL Lymphocytes # (1.0-4.8) k/uL PT (9.0-12.0) sec INR (<1.2) ABG pCO2 (35-45) mmHg ABG pO2 (83-108) mmHg ABG HCO3 (21-25) mmol/L ABG Total CO2 (19-24) mmol/L ABG O2 Saturation (94-97) % ABG Hematocrit (34.0-46.0) % ABG Sodium (135-146) mmol/L ABG Potassium (3.4-4.5) mmol/L ABG Ionized Calcium (4.5-5.3) mg/dL ABG Glucose (75-99) mg/dL ABG Lactic Acid (0.5-1.6) mmol/L Hemoglobin (11.4-16.0) gm/dL Chloride (98-107) mmol/L BUN (7-17) mg/dL Glucose (74-99) mg/dL POC Glucose (mg/dL) 168 H 151 H 138 H (75-99) mg/dL Calcium (8.4-10.2) mg/dL Magnesium (1.6-2.3) mg/dL AST (14-36) U/L ALT (4-34) U/L Total Protein (6.3-8.2) g/dL Albumin (3.5-5.0) g/dL Arterial Blood Potassium (3.4-4.5) mmol/L Arterial Blood Glucose (75-99) mg/dL Crossmatch 05/11/20 05/12/20 05/12/20 Range/Units 23:59 00:55 01:56 RBC (3.80-5.40) m/uL Hgb (11.4-16.0) gm/dL Hct (34.0-46.0) % Neutrophils # (1.3-7.7) k/uL Lymphocytes # (1.0-4.8) k/uL PT (9.0-12.0) sec INR (<1.2) ABG pCO2 (35-45) mmHg ABG pO2 (83-108) mmHg ABG HCO3 (21-25) mmol/L ABG Total CO2 (19-24) mmol/L ABG O2 Saturation (94-97) % ABG Hematocrit (34.0-46.0) % ABG Sodium (135-146) mmol/L ABG Potassium (3.4-4.5) mmol/L ABG Ionized Calcium (4.5-5.3) mg/dL ABG Glucose (75-99) mg/dL ABG Lactic Acid (0.5-1.6) mmol/L Hemoglobin (11.4-16.0) gm/dL Chloride (98-107) mmol/L BUN (7-17) mg/dL Glucose (74-99) mg/dL POC Glucose (mg/dL) 145 H 132 H 127 H (75-99) mg/dL Calcium (8.4-10.2) mg/dL Magnesium (1.6-2.3) mg/dL AST (14-36) U/L ALT (4-34) U/L Total Protein (6.3-8.2) g/dL Albumin (3.5-5.0) g/dL Arterial Blood Potassium (3.4-4.5) mmol/L Arterial Blood Glucose (75-99) mg/dL Crossmatch 05/12/20 05/12/20 05/12/20 Range/Units 02:54 03:47 03:50 RBC 2.29 L (3.80-5.40) m/uL Hgb 7.4 L (11.4-16.0) gm/dL Hct 21.2 L (34.0-46.0) % Neutrophils # (1.3-7.7) k/uL Lymphocytes # 0.4 L (1.0-4.8) k/uL PT (9.0-12.0) sec INR (<1.2) ABG pCO2 (35-45) mmHg ABG pO2 (83-108) mmHg ABG HCO3 (21-25) mmol/L ABG Total CO2 (19-24) mmol/L ABG O2 Saturation (94-97) % ABG Hematocrit (34.0-46.0) % ABG Sodium (135-146) mmol/L ABG Potassium (3.4-4.5) mmol/L ABG Ionized Calcium (4.5-5.3) mg/dL ABG Glucose (75-99) mg/dL ABG Lactic Acid (0.5-1.6) mmol/L Hemoglobin (11.4-16.0) gm/dL Chloride (98-107) mmol/L BUN (7-17) mg/dL Glucose (74-99) mg/dL POC Glucose (mg/dL) 130 H 133 H (75-99) mg/dL Calcium (8.4-10.2) mg/dL Magnesium (1.6-2.3) mg/dL AST (14-36) U/L ALT (4-34) U/L Total Protein (6.3-8.2) g/dL Albumin (3.5-5.0) g/dL Arterial Blood Potassium (3.4-4.5) mmol/L Arterial Blood Glucose (75-99) mg/dL Crossmatch 05/12/20 05/12/20 05/12/20 Range/Units 03:50 05:01 06:56 RBC (3.80-5.40) m/uL Hgb (11.4-16.0) gm/dL Hct (34.0-46.0) % Neutrophils # (1.3-7.7) k/uL Lymphocytes # (1.0-4.8) k/uL PT (9.0-12.0) sec INR (<1.2) ABG pCO2 (35-45) mmHg ABG pO2 (83-108) mmHg ABG HCO3 (21-25) mmol/L ABG Total CO2 (19-24) mmol/L ABG O2 Saturation (94-97) % ABG Hematocrit (34.0-46.0) % ABG Sodium (135-146) mmol/L ABG Potassium (3.4-4.5) mmol/L ABG Ionized Calcium (4.5-5.3) mg/dL ABG Glucose (75-99) mg/dL ABG Lactic Acid (0.5-1.6) mmol/L Hemoglobin (11.4-16.0) gm/dL Chloride (98-107) mmol/L BUN 20 H (7-17) mg/dL Glucose 120 H (74-99) mg/dL POC Glucose (mg/dL) 135 H 139 H (75-99) mg/dL Calcium 7.9 L (8.4-10.2) mg/dL Magnesium (1.6-2.3) mg/dL AST 177 H (14-36) U/L ALT 183 H (4-34) U/L Total Protein 4.9 L (6.3-8.2) g/dL Albumin 3.0 L (3.5-5.0) g/dL Arterial Blood Potassium (3.4-4.5) mmol/L Arterial Blood Glucose (75-99) mg/dL Crossmatch 05/12/20 05/12/20 05/12/20 Range/Units 08:13 09:10 10:18 RBC (3.80-5.40) m/uL Hgb (11.4-16.0) gm/dL Hct (34.0-46.0) % Neutrophils # (1.3-7.7) k/uL Lymphocytes # (1.0-4.8) k/uL PT (9.0-12.0) sec INR (<1.2) ABG pCO2 (35-45) mmHg ABG pO2 (83-108) mmHg ABG HCO3 (21-25) mmol/L ABG Total CO2 (19-24) mmol/L ABG O2 Saturation (94-97) % ABG Hematocrit (34.0-46.0) % ABG Sodium (135-146) mmol/L ABG Potassium (3.4-4.5) mmol/L ABG Ionized Calcium (4.5-5.3) mg/dL ABG Glucose (75-99) mg/dL ABG Lactic Acid (0.5-1.6) mmol/L Hemoglobin (11.4-16.0) gm/dL Chloride (98-107) mmol/L BUN (7-17) mg/dL Glucose (74-99) mg/dL POC Glucose (mg/dL) 208 H 223 H 177 H (75-99) mg/dL Calcium (8.4-10.2) mg/dL Magnesium (1.6-2.3) mg/dL AST (14-36) U/L ALT (4-34) U/L Total Protein (6.3-8.2) g/dL Albumin (3.5-5.0) g/dL Arterial Blood Potassium (3.4-4.5) mmol/L Arterial Blood Glucose (75-99) mg/dL Crossmatch 05/12/20 05/12/20 Range/Units 11:10 12:13 RBC (3.80-5.40) m/uL Hgb (11.4-16.0) gm/dL Hct (34.0-46.0) % Neutrophils # (1.3-7.7) k/uL Lymphocytes # (1.0-4.8) k/uL PT (9.0-12.0) sec INR (<1.2) ABG pCO2 (35-45) mmHg ABG pO2 (83-108) mmHg ABG HCO3 (21-25) mmol/L ABG Total CO2 (19-24) mmol/L ABG O2 Saturation (94-97) % ABG Hematocrit (34.0-46.0) % ABG Sodium (135-146) mmol/L ABG Potassium (3.4-4.5) mmol/L ABG Ionized Calcium (4.5-5.3) mg/dL ABG Glucose (75-99) mg/dL ABG Lactic Acid (0.5-1.6) mmol/L Hemoglobin (11.4-16.0) gm/dL Chloride (98-107) mmol/L BUN (7-17) mg/dL Glucose (74-99) mg/dL POC Glucose (mg/dL) 137 H 107 H (75-99) mg/dL Calcium (8.4-10.2) mg/dL Magnesium (1.6-2.3) mg/dL AST (14-36) U/L ALT (4-34) U/L Total Protein (6.3-8.2) g/dL Albumin (3.5-5.0) g/dL Arterial Blood Potassium (3.4-4.5) mmol/L Arterial Blood Glucose (75-99) mg/dL Crossmatch Assessment and Plan Assessment: Impression: Status post CABG, RIVERA to LAD, and SVG to obtuse marginal artery, postoperative day #1. Benign essential hypertension. Dyslipidemia. Postoperative atelectasis, expected mostly involving the left base. History of rheumatoid arthritis. History of depression. History of covid 19 infection in February of 2020 History of glaucoma. History of depression. Lifelong nonsmoker. Recommendation: Continue postoperative care including Beta blockers aspirin and Plavix and statins. Continue incentive spirometry and encouraged to use more frequently. Early ambulation. Increase activity. Continue to monitor daily labs. Discontinue unnecessary catheters and lines. Continue insulin as per protocol. We'll continue to follow. Time with Patient: Less than 30
[2020-05-12 13:52] LABS: Glucose,Whole Blood 244 mg/dL (75-99)
[2020-05-12 14:11] LABS: Glucose,Whole Blood 230 mg/dL (75-99)
[2020-05-12] MEDS: INSULIN REGULAR 100 UNIT in SODIUM CHLORIDE 0.9% 100 ML IV SCH (14:24)
--- NOTE | 2020-05-12 15:02 | P.PN ---
Subjective Progress Note Date: 05/12/20 This is a 74 year old female one of my patient with a previous medical history significant for hypertension and hypertensive cardiovascular disease, hyperlipidemia, Rheumatoid arthritis, vertigo, depression and Glaucoma, was seen and evaluated in my office for uncontrolled hypertension and feeling diaphor etic, with dyspnea on exertion, had a 12- Lead EKG that showed poor R wave progression and based on that it was recommended for her to undergo Lexiscan stress test on 04/11/2020 which showed a large fixed area of perfusion defect in the lateral wall suggestive of prior ME and a defect in the anteroseptal area during rest and not during exercise suggestive of an artifact, was not too sure so I referred the patient to see who recommended Left heart catherization which was done at [facility] through the right radial approach and while he was engaging the left main she developed EKG changes and chest pain so the procedure was aborted and she was sent to [facility] for Left heart catherization through the right femoral artery with IVUS that showed 79 % stenosis of Left main and the option was given to her of doing angioplasty VS revascularization so she was evaluated by cardiothoracic surgery for CABG an she is scheduled for today , she underwent RIVERA to LAD and SVG to OM1 patient had lost a lot of blood in the OR her HGB dropped to 5 and she is currently in the ICU on Cleviprex drip 3 mg/h and also currently on the ventilator with FIO2 50% and the plan is to extubate later on tonight. 05/12: Patient is seen today sitting up in a recliner. She appears to be in no acute distress. Patient was extubated last evening. Incentive spirometry is 450-500. She is currently on O2 at 2 L with pulse ox of 94%. Heart rate 87, blood pressure 90/39. 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 Chest tubes, epidural pacemaker, cordis and Zavala remain in place. WBC 7.7, hemoglobin 7.4, platelet count 167. Electrolytes normal, BUN 20 creatinine 0.85. Capillary blood glucose running between 107 and 223. Patient is on insulin drip. Chest x-ray reveals left lower lobe infiltrate worsening from comparison. Cardiology is also on consult. Objective - Vital Signs Vital signs: Vital Signs Temp 97.2 F L 05/11/20 16:00 Pulse 87 05/12/20 12:01 Resp 23 01/28/21 12:01 BP 119/59 05/12/20 11:30 Pulse Ox 94 L 05/12/20 12:01 Intake & Output 05/11/20 05/12/20 05/12/20 18:59 06:59 18:59 Intake Total 809.744 5688.001 775.037 Output Total 2230 805 544 Balance -1738.648 644.001 231.037 Weight 86.5 kg 86.5 kg Intake: IV 478 1438 632 ACETAMINOPHEN IV (For NPO 100 100 ) 1,000 mg In Empty Bag 1 bag @ 400 mls/hr IVPB Q6HR [facility] Rx#:[id number] Albumin Human 5% 250 ml @ 500 250 0 mls/hr IVPB .[facility]K-[facility] ONE Rx#:[id number] CO/CI 120 130 40 LR 170 600 210 Sodium Chloride 0.9% 500 40 ml 500 ml @ 20 mls/hr IV .Q24H [facility] Rx#:[id number] ceFAZolin 2 gm In Sodium 50 Chloride 0.9% 50 ml @ 100 mls/hr IVPB Q8H [facility] Rx#: [id number] pressure bag 36 108 42 Intake, IV Titration 13.352 11.001 23.037 Amount Clevidipine Butyrate 25 10.599 mg In Empty Bag 1 bag @ 1 MG/HR 2 mls/hr IV .Q24H [facility] Rx#:[id number] Insulin Regular 100 unit 11.001 23.037 In Sodium Chloride 0.9% 100 ml @ Per Protocol IV .Q0M [facility] Rx#:[id number] propofoL 1,000 mg In 2.753 Empty Bag 1 bag @ Titrate IV .Q0M [facility] Rx#: [id number] Oral 120 Output: Chest Tube Drainage 95 390 350 LP 60 202 90 MS x2 35 188 260 Gastric Drainage 400 Urine 735 415 194 Estimated Blood Loss 1000 Other: Voiding Method Indwelling Catheter Indwelling Catheter Indwelling Catheter ABP, PAP, CO, CI - Last Documented Arterial Blood Pressure 90/39 Pulmonary Artery Pressure 19/8 Cardiac Output 4.6 Cardiac Index 2.5 - Exam Review Of Systems: Constitutional: No fever, no chills, no night sweats. No weight change. Rep orts fatigue. No daytime sleepiness. EENT: No headache. No nasal drainage or congestion. No epistaxis. No sore throat. Lungs: No shortness of breath, cough, no sputum production. No wheezing. Cardiovascular: Reports chest discomfort, reports pain with inspiration, no lower extremity edema. No palpitations. No paroxysmal nocturnal dyspnea. No orthopnea. No lightheadedness or dizziness. No syncopal episodes. Abdominal: No abdominal pain. No nausea, vomiting. No diarrhea. No constipati on. No bloody or tarry stools.. No loss of appetite. Genitourinary: No dysuria, increased frequency, urgency. No urinary retention. Musculoskeletal: No myalgias. No muscle weakness, no gait dysfunction, no frequent falls. No back pain. No neck pain. Integumentary: No wounds, no lesions. No rash or pruritus. Neurologic: No aphasia. No facial droop. No change in mentation. Psychiatric: No depression. No anxiety. Endocrine: Reported abnormal blood sugars. Physical examination: HEENT: head is atraumatic normocephalic. Patient is resting and 90 ICU bed and appears to be comfortable. Cordis remains in place. Neck: supple, no JVP. Chest: decreased breath sounds at the bases otherwise clear to auscultation bilaterally, there is [address] Heart: first heart sound is depressed , second heart sound is normal there is gallop but no murmur. Abdomen: soft non tender, non distended positive bowel sounds. Zavala catheter draining clear gabby urine. Extremities: there is no edema no calf tenderness DP + 2 bilaterally. Neurologic examination: patient is awake alert and oriented 3, no focal neuro deficits. - Labs CBC & Chem 7: 05/12/20 03:50 05/12/20 03:50 Labs: Abnormal Lab Results - Last 24 Hours (Table) 05/05/20 05/11/20 05/11/20 Range/Units 07:09 08:25 10:25 RBC (3.80-5.40) m/uL Hgb (11.4-16.0) gm/dL Hct (34.0-46.0) % Neutrophils # (1.3-7.7) k/uL Lymphocytes # (1.0-4.8) k/uL PT (9.0-12.0) sec INR (<1.2) ABG pCO2 34 L (35-45) mmHg ABG pO2 >420 H 275 H (83-108) mmHg ABG HCO3 (21-25) mmol/L ABG Total CO2 (19-24) mmol/L ABG O2 Saturation 100.0 H 99.7 H (94-97) % ABG Hematocrit 33 L 29 L (34.0-46.0) % ABG Sodium (135-146) mmol/L ABG Potassium (3.4-4.5) mmol/L ABG Ionized Calcium (4.5-5.3) mg/dL ABG Glucose 107 H 146 H (75-99) mg/dL ABG Lactic Acid (0.5-1.6) mmol/L Hemoglobin 10.9 L 9.6 L (11.4-16.0) gm/dL Chloride (98-107) mmol/L BUN (7-17) mg/dL Glucose (74-99) mg/dL POC Glucose (mg/dL) (75-99) mg/dL Calcium (8.4-10.2) mg/dL Magnesium (1.6-2.3) mg/dL AST (14-36) U/L ALT (4-34) U/L Total Protein (6.3-8.2) g/dL Albumin (3.5-5.0) g/dL Arterial Blood Potassium (3.4-4.5) mmol/L Arterial Blood Glucose 107 H 146 H (75-99) mg/dL Crossmatch See Detail 05/11/20 05/11/20 05/11/20 Range/Units 11:00 11:32 12:12 RBC (3.80-5.40) m/uL Hgb (11.4-16.0) gm/dL Hct (34.0-46.0) % Neutrophils # (1.3-7.7) k/uL Lymphocytes # (1.0-4.8) k/uL PT (9.0-12.0) sec INR (<1.2) ABG pCO2 33 L (35-45) mmHg ABG pO2 >420 H 349 H 160 H (83-108) mmHg ABG HCO3 20 L 26 H (21-25) mmol/L ABG Total CO2 27 H (19-24) mmol/L ABG O2 Saturation 100.0 H 100.0 H 99.4 H (94-97) % ABG Hematocrit 20 L* 18 L* 21 L (34.0-46.0) % ABG Sodium 134 L (135-146) mmol/L ABG Potassium 4.6 H (3.4-4.5) mmol/L ABG Ionized Calcium 3.7 L 4.0 L (4.5-5.3) mg/dL ABG Glucose 123 H 199 H (75-99) mg/dL ABG Lactic Acid 3.6 H* (0.5-1.6) mmol/L Hemoglobin 6.4 L* 6.0 L* 6.9 L* (11.4-16.0) gm/dL Chloride (98-107) mmol/L BUN (7-17) mg/dL Glucose (74-99) mg/dL POC Glucose (mg/dL) (75-99) mg/dL Calcium (8.4-10.2) mg/dL Magnesium (1.6-2.3) mg/dL AST (14-36) U/L ALT (4-34) U/L Total Protein (6.3-8.2) g/dL Albumin (3.5-5.0) g/dL Arterial Blood Potassium 4.6 H (3.4-4.5) mmol/L Arterial Blood Glucose 123 H 199 H (75-99) mg/dL Crossmatch 05/11/20 05/11/20 05/11/20 Range/Units 13:01 14:30 14:30 RBC 2.55 L (3.80-5.40) m/uL Hgb 8.2 L D (11.4-16.0) gm/dL Hct 23.4 L (34.0-46.0) % Neutrophils # (1.3-7.7) k/uL Lymphocytes # 0.6 L (1.0-4.8) k/uL PT 12.2 H (9.0-12.0) sec INR 1.2 H (<1.2) ABG pCO2 (35-45) mmHg ABG pO2 388 H (83-108) mmHg ABG HCO3 (21-25) mmol/L ABG Total CO2 26 H (19-24) mmol/L ABG O2 Saturation 100.0 H (94-97) % ABG Hematocrit 18 L* (34.0-46.0) % ABG Sodium (135-146) mmol/L ABG Potassium 4.6 H (3.4-4.5) mmol/L ABG Ionized Calcium 4.1 L (4.5-5.3) mg/dL ABG Glucose 205 H (75-99) mg/dL ABG Lactic Acid 2.6 H* (0.5-1.6) mmol/L Hemoglobin 5.8 L* (11.4-16.0) gm/dL Chloride (98-107) mmol/L BUN (7-17) mg/dL Glucose (74-99) mg/dL POC Glucose (mg/dL) (75-99) mg/dL Calcium (8.4-10.2) mg/dL Magnesium (1.6-2.3) mg/dL AST (14-36) U/L ALT (4-34) U/L Total Protein (6.3-8.2) g/dL Albumin (3.5-5.0) g/dL Arterial Blood Potassium 4.6 H (3.4-4.5) mmol/L Arterial Blood Glucose 205 H (75-99) mg/dL Crossmatch 05/11/20 05/11/20 05/11/20 Range/Units 14:30 14:37 15:04 RBC (3.80-5.40) m/uL Hgb (11.4-16.0) gm/dL Hct (34.0-46.0) % Neutrophils # (1.3-7.7) k/uL Lymphocytes # (1.0-4.8) k/uL PT (9.0-12.0) sec INR (<1.2) ABG pCO2 (35-45) mmHg ABG pO2 146 H (83-108) mmHg ABG HCO3 (21-25) mmol/L ABG Total CO2 26 H (19-24) mmol/L ABG O2 Saturation 99.3 H (94-97) % ABG Hematocrit (34.0-46.0) % ABG Sodium (135-146) mmol/L ABG Potassium (3.4-4.5) mmol/L ABG Ionized Calcium (4.5-5.3) mg/dL ABG Glucose (75-99) mg/dL ABG Lactic Acid (0.5-1.6) mmol/L Hemoglobin (11.4-16.0) gm/dL Chloride 109 H (98-107) mmol/L BUN 18 H (7-17) mg/dL Glucose (74-99) mg/dL POC Glucose (mg/dL) 129 H (75-99) mg/dL Calcium 7.7 L (8.4-10.2) mg/dL Magnesium 2.9 H (1.6-2.3) mg/dL AST 415 H (14-36) U/L ALT 261 H (4-34) U/L Total Protein 4.9 L (6.3-8.2) g/dL Albumin 2.9 L (3.5-5.0) g/dL Arterial Blood Potassium (3.4-4.5) mmol/L Arterial Blood Glucose (75-99) mg/dL Crossmatch 05/11/20 05/11/20 05/11/20 Range/Units 16:02 17:20 17:45 RBC 2.72 L (3.80-5.40) m/uL Hgb 8.5 L (11.4-16.0) gm/dL Hct 25.0 L (34.0-46.0) % Neutrophils # 8.9 H (1.3-7.7) k/uL Lymphocytes # 0.5 L (1.0-4.8) k/uL PT (9.0-12.0) sec INR (<1.2) ABG pCO2 (35-45) mmHg ABG pO2 (83-108) mmHg ABG HCO3 (21-25) mmol/L ABG Total CO2 (19-24) mmol/L ABG O2 Saturation (94-97) % ABG Hematocrit (34.0-46.0) % ABG Sodium (135-146) mmol/L ABG Potassium (3.4-4.5) mmol/L ABG Ionized Calcium (4.5-5.3) mg/dL ABG Glucose (75-99) mg/dL ABG Lactic Acid (0.5-1.6) mmol/L Hemoglobin (11.4-16.0) gm/dL Chloride (98-107) mmol/L BUN (7-17) mg/dL Glucose (74-99) mg/dL POC Glucose (mg/dL) 125 H 116 H (75-99) mg/dL Calcium (8.4-10.2) mg/dL Magnesium (1.6-2.3) mg/dL AST (14-36) U/L ALT (4-34) U/L Total Protein (6.3-8.2) g/dL Albumin (3.5-5.0) g/dL Arterial Blood Potassium (3.4-4.5) mmol/L Arterial Blood Glucose (75-99) mg/dL Crossmatch 05/11/20 05/11/20 05/11/20 Range/Units 18:13 19:28 20:36 RBC 2.61 L (3.80-5.40) m/uL Hgb 8.4 L (11.4-16.0) gm/dL Hct 23.9 L (34.0-46.0) % Neutrophils # (1.3-7.7) k/uL Lymphocytes # 0.3 L (1.0-4.8) k/uL PT (9.0-12.0) sec INR (<1.2) ABG pCO2 (35-45) mmHg ABG pO2 (83-108) mmHg ABG HCO3 (21-25) mmol/L ABG Total CO2 (19-24) mmol/L ABG O2 Saturation (94-97) % ABG Hematocrit (34.0-46.0) % ABG Sodium (135-146) mmol/L ABG Potassium (3.4-4.5) mmol/L ABG Ionized Calcium (4.5-5.3) mg/dL ABG Glucose (75-99) mg/dL ABG Lactic Acid (0.5-1.6) mmol/L Hemoglobin (11.4-16.0) gm/dL Chloride (98-107) mmol/L BUN (7-17) mg/dL Glucose (74-99) mg/dL POC Glucose (mg/dL) 130 H 145 H (75-99) mg/dL Calcium (8.4-10.2) mg/dL Magnesium (1.6-2.3) mg/dL AST (14-36) U/L ALT (4-34) U/L Total Protein (6.3-8.2) g/dL Albumin (3.5-5.0) g/dL Arterial Blood Potassium (3.4-4.5) mmol/L Arterial Blood Glucose (75-99) mg/dL Crossmatch 05/11/20 05/11/20 05/11/20 Range/Units 21:02 21:54 22:55 RBC (3.80-5.40) m/uL Hgb (11.4-16.0) gm/dL Hct (34.0-46.0) % Neutrophils # (1.3-7.7) k/uL Lymphocytes # (1.0-4.8) k/uL PT (9.0-12.0) sec INR (<1.2) ABG pCO2 (35-45) mmHg ABG pO2 (83-108) mmHg ABG HCO3 (21-25) mmol/L ABG Total CO2 (19-24) mmol/L ABG O2 Saturation (94-97) % ABG Hematocrit (34.0-46.0) % ABG Sodium (135-146) mmol/L ABG Potassium (3.4-4.5) mmol/L ABG Ionized Calcium (4.5-5.3) mg/dL ABG Glucose (75-99) mg/dL ABG Lactic Acid (0.5-1.6) mmol/L Hemoglobin (11.4-16.0) gm/dL Chloride (98-107) mmol/L BUN (7-17) mg/dL Glucose (74-99) mg/dL POC Glucose (mg/dL) 168 H 151 H 138 H (75-99) mg/dL Calcium (8.4-10.2) mg/dL Magnesium (1.6-2.3) mg/dL AST (14-36) U/L ALT (4-34) U/L Total Protein (6.3-8.2) g/dL Albumin (3.5-5.0) g/dL Arterial Blood Potassium (3.4-4.5) mmol/L Arterial Blood Glucose (75-99) mg/dL Crossmatch 05/11/20 05/12/20 05/12/20 Range/Units 23:59 00:55 01:56 RBC (3.80-5.40) m/uL Hgb (11.4-16.0) gm/dL Hct (34.0-46.0) % Neutrophils # (1.3-7.7) k/uL Lymphocytes # (1.0-4.8) k/uL PT (9.0-12.0) sec INR (<1.2) ABG pCO2 (35-45) mmHg ABG pO2 (83-108) mmHg ABG HCO3 (21-25) mmol/L ABG Total CO2 (19-24) mmol/L ABG O2 Saturation (94-97) % ABG Hematocrit (34.0-46.0) % ABG Sodium (135-146) mmol/L ABG Potassium (3.4-4.5) mmol/L ABG Ionized Calcium (4.5-5.3) mg/dL ABG Glucose (75-99) mg/dL ABG Lactic Acid (0.5-1.6) mmol/L Hemoglobin (11.4-16.0) gm/dL Chloride (98-107) mmol/L BUN (7-17) mg/dL Glucose (74-99) mg/dL POC Glucose (mg/dL) 145 H 132 H 127 H (75-99) mg/dL Calcium (8.4-10.2) mg/dL Magnesium (1.6-2.3) mg/dL AST (14-36) U/L ALT (4-34) U/L Total Protein (6.3-8.2) g/dL Albumin (3.5-5.0) g/dL Arterial Blood Potassium (3.4-4.5) mmol/L Arterial Blood Glucose (75-99) mg/dL Crossmatch 05/12/20 05/12/20 05/12/20 Range/Units 02:54 03:47 03:50 RBC 2.29 L (3.80-5.40) m/uL Hgb 7.4 L (11.4-16.0) gm/dL Hct 21.2 L (34.0-46.0) % Neutrophils # (1.3-7.7) k/uL Lymphocytes # 0.4 L (1.0-4.8) k/uL PT (9.0-12.0) sec INR (<1.2) ABG pCO2 (35-45) mmHg ABG pO2 (83-108) mmHg ABG HCO3 (21-25) mmol/L ABG Total CO2 (19-24) mmol/L ABG O2 Saturation (94-97) % ABG Hematocrit (34.0-46.0) % ABG Sodium (135-146) mmol/L ABG Potassium (3.4-4.5) mmol/L ABG Ionized Calcium (4.5-5.3) mg/dL ABG Glucose (75-99) mg/dL ABG Lactic Acid (0.5-1.6) mmol/L Hemoglobin (11.4-16.0) gm/dL Chloride (98-107) mmol/L BUN (7-17) mg/dL Glucose (74-99) mg/dL POC Glucose (mg/dL) 130 H 133 H (75-99) mg/dL Calcium (8.4-10.2) mg/dL Magnesium (1.6-2.3) mg/dL AST (14-36) U/L ALT (4-34) U/L Total Protein (6.3-8.2) g/dL Albumin (3.5-5.0) g/dL Arterial Blood Potassium (3.4-4.5) mmol/L Arterial Blood Glucose (75-99) mg/dL Crossmatch 05/12/20 05/12/20 05/12/20 Range/Units 03:50 05:01 06:56 RBC (3.80-5.40) m/uL Hgb (11.4-16.0) gm/dL Hct (34.0-46.0) % Neutrophils # (1.3-7.7) k/uL Lymphocytes # (1.0-4.8) k/uL PT (9.0-12.0) sec INR (<1.2) ABG pCO2 (35-45) mmHg ABG pO2 (83-108) mmHg ABG HCO3 (21-25) mmol/L ABG Total CO2 (19-24) mmol/L ABG O2 Saturation (94-97) % ABG Hematocrit (34.0-46.0) % ABG Sodium (135-146) mmol/L ABG Potassium (3.4-4.5) mmol/L ABG Ionized Calcium (4.5-5.3) mg/dL ABG Glucose (75-99) mg/dL ABG Lactic Acid (0.5-1.6) mmol/L Hemoglobin (11.4-16.0) gm/dL Chloride (98-107) mmol/L BUN 20 H (7-17) mg/dL Glucose 120 H (74-99) mg/dL POC Glucose (mg/dL) 135 H 139 H (75-99) mg/dL Calcium 7.9 L (8.4-10.2) mg/dL Magnesium (1.6-2.3) mg/dL AST 177 H (14-36) U/L ALT 183 H (4-34) U/L Total Protein 4.9 L (6.3-8.2) g/dL Albumin 3.0 L (3.5-5.0) g/dL Arterial Blood Potassium (3.4-4.5) mmol/L Arterial Blood Glucose (75-99) mg/dL Crossmatch 05/12/20 05/12/20 05/12/20 Range/Units 08:13 09:10 10:18 RBC (3.80-5.40) m/uL Hgb (11.4-16.0) gm/dL Hct (34.0-46.0) % Neutrophils # (1.3-7.7) k/uL Lymphocytes # (1.0-4.8) k/uL PT (9.0-12.0) sec INR (<1.2) ABG pCO2 (35-45) mmHg ABG pO2 (83-108) mmHg ABG HCO3 (21-25) mmol/L ABG Total CO2 (19-24) mmol/L ABG O2 Saturation (94-97) % ABG Hematocrit (34.0-46.0) % ABG Sodium (135-146) mmol/L ABG Potassium (3.4-4.5) mmol/L ABG Ionized Calcium (4.5-5.3) mg/dL ABG Glucose (75-99) mg/dL ABG Lactic Acid (0.5-1.6) mmol/L Hemoglobin (11.4-16.0) gm/dL Chloride (98-107) mmol/L BUN (7-17) mg/dL Glucose (74-99) mg/dL POC Glucose (mg/dL) 208 H 223 H 177 H (75-99) mg/dL Calcium (8.4-10.2) mg/dL Magnesium (1.6-2.3) mg/dL AST (14-36) U/L ALT (4-34) U/L Total Protein (6.3-8.2) g/dL Albumin (3.5-5.0) g/dL Arterial Blood Potassium (3.4-4.5) mmol/L Arterial Blood Glucose (75-99) mg/dL Crossmatch 05/12/20 05/12/20 Range/Units 11:10 12:13 RBC (3.80-5.40) m/uL Hgb (11.4-16.0) gm/dL Hct (34.0-46.0) % Neutrophils # (1.3-7.7) k/uL Lymphocytes # (1.0-4.8) k/uL PT (9.0-12.0) sec INR (<1.2) ABG pCO2 (35-45) mmHg ABG pO2 (83-108) mmHg ABG HCO3 (21-25) mmol/L ABG Total CO2 (19-24) mmol/L ABG O2 Saturation (94-97) % ABG Hematocrit (34.0-46.0) % ABG Sodium (135-146) mmol/L ABG Potassium (3.4-4.5) mmol/L ABG Ionized Calcium (4.5-5.3) mg/dL ABG Glucose (75-99) mg/dL ABG Lactic Acid (0.5-1.6) mmol/L Hemoglobin (11.4-16.0) gm/dL Chloride (98-107) mmol/L BUN (7-17) mg/dL Glucose (74-99) mg/dL POC Glucose (mg/dL) 137 H 107 H (75-99) mg/dL Calcium (8.4-10.2) mg/dL Magnesium (1.6-2.3) mg/dL AST (14-36) U/L ALT (4-34) U/L Total Protein (6.3-8.2) g/dL Albumin (3.5-5.0) g/dL Arterial Blood Potassium (3.4-4.5) mmol/L Arterial Blood Glucose (75-99) mg/dL Crossmatch Assessment and Plan Plan: 1. POD #1 S/P CABG X2 with RIVERA to LAD and SCG to OM1. we will continue with current treatment as per cardiothoracic and ICU teams. 2. Acute blood loss anemia. Post 2 units of PRBCs. 3. Acute vent dependent respiratory failure due to CABG x2 . we will continue with weaning parameter and she will likely be extubated later on today. 4. Hypertension and hypertensive cardiovascular disease. we will continue with metoprolol 12.5 mg orally bid. 5. Glaucoma. we will continue with current eye drops. 6. Hyperlipidemia. we will start Lipitor 40 mg orally daily. 9. Thank you for the consult we will follow with you. Discharge plan: To be determined Impression and plan of care have been directed as dictated by the signing physician. Barbara De Los Santos nurse practitioner acting as scribe for signing [email or web address].
[2020-05-12 15:12] LABS: Glucose,Whole Blood 181 mg/dL (75-99)
[2020-05-12 16:07] LABS: Glucose,Whole Blood 145 mg/dL (75-99)
[2020-05-12 17:16] LABS: Glucose,Whole Blood 119 mg/dL (75-99)
[2020-05-12] MEDS ORDERED: FUROSEMIDE 10 MG/ML 2 ML VIAL IV ONE (17:55)
[2020-05-12 18:16] LABS: Glucose,Whole Blood 112 mg/dL (75-99)
[2020-05-12 18:59] LABS: Glucose,Whole Blood 116 mg/dL (75-99)
[2020-05-12 20:16] LABS: Glucose,Whole Blood 120 mg/dL (75-99)
[2020-05-12] MEDS: LATANOPROST 0.005% OPHTH DROPS 2.5 ML BTL BOTH EYES SCH (20:16)
[2020-05-12] MEDS: SENNOSIDES-DOCUSATE SODIUM 1 EACH TAB PO SCH (20:26)
[2020-05-12 21:10] LABS: Glucose,Whole Blood 119 mg/dL (75-99)
[2020-05-12 23:04] LABS: Glucose,Whole Blood 149 mg/dL (75-99)
[2020-05-13 00:01] LABS: Glucose,Whole Blood 137 mg/dL (75-99)
[2020-05-13 01:09] LABS: Glucose,Whole Blood 119 mg/dL (75-99)
[2020-05-13] MEDS: KETOROLAC 15 MG/ML 1 ML VIAL IVP SCH ×4 (01:12→17:12)
[2020-05-13 02:14] LABS: Glucose,Whole Blood 113 mg/dL (75-99)
[2020-05-13 03:12] LABS: Glucose,Whole Blood 115 mg/dL (75-99)
[2020-05-13 04:05] LABS: Glucose,Whole Blood 122 mg/dL (75-99)
[2020-05-13 04:13] LABS: Basophils % (A) 0 %; Eosinophils # (A) 0.4 k/uL (0-0.7); Eosinophils % (A) 5 %; HCT 17.7 % (34.0-46.0); HGB 6.1 gm/dL (11.4-16.0); Lymphocytes # (A) 0.9 k/uL (1.0-4.8); Lymphocytes % (A) 11 %; MCH 32.6 pg (25.0-35.0); MCHC 34.6 g/dL (31.0-37.0); MCV 94.4 fL (80.0-100.0); Mean Platelet Volume 7.1; Monocytes # (A) 0.4 k/uL (0-1.0); Monocytes % (A) 5 %; Neutrophils % (A) 77 %; Platelet Count 136 k/uL (150-450); RBC 1.87 m/uL (3.80-5.40); RDW 13.5 % (11.5-15.5); WBC 7.8 k/uL (3.8-10.6)
[2020-05-13 04:28] LABS: Ionized Calcium 4.8 mg/dL (4.5-5.3)
[2020-05-13 04:39] LABS: Albumin 3.4 g/dL (3.5-5.0); Calcium 8.1 mg/dL (8.4-10.2); Potassium 3.9 mmol/L (3.5-5.1); Total Bilirubin 0.6 mg/dL (0.2-1.3); Total Protein 5.3 g/dL (6.3-8.2)
[2020-05-13 05:13] LABS: Glucose,Whole Blood 121 mg/dL (75-99)
[2020-05-13] MEDS: FERROUS SULFATE 325 MG TAB PO SCH ×2 (06:12→17:12)
[2020-05-13] MEDS: PANTOPRAZOLE 40 MG TABLET PO SCH (06:12)
--- NOTE | 2020-05-13 06:36 | XR ---
EXAMINATION TYPE: XR chest 1V portable DATE OF EXAM: 05/13/2020 CLINICAL HISTORY: Difficulty breathing progress study. Post open cardiac surgery. TECHNIQUE: Single AP portable semiupright view of the chest is obtained. COMPARISON: Chest x-ray from one day earlier and older studies. FINDINGS: Interval total right internal jugular [place]-Cristobal catheter, persistent cordis sheath. 2 medi astinal drainage catheters and left-sided chest tube redemonstrated. Overlying sternal wires and medi astinal clips along with epicardial pacer wires and a left atrial appendage clip are all redemonstrat ed. Heart size stable and mildly enlarged with mild central vascular congestion and a left greater than r ight bibasilar opacities. No pneumothorax seen bilaterally. Cholecystectomy clips incidentally noted. Osseous structures are intact. IMPRESSION: Mild cardiomegaly with mild central vascular congestion and left greater than right bibas ilar acute infiltrate and/or atelectasis. Suspect small left pleural fluid collection. Left sided deidre st tube without pneumothorax. No significant change from one day earlier.
[2020-05-13] MEDS ORDERED: POTASSIUM CHLORIDE ER 20 MEQ TAB.ER PO ONE (07:00)
[2020-05-13 07:09] LABS: Glucose,Whole Blood 126 mg/dL (75-99)
[2020-05-13] MEDS: IPRATROPIUM-ALBUTEROL 3 ML NEB INHALATION SCH ×4 (07:30→21:24)
[2020-05-13] MEDS: CLEVIDIPINE BUTYRATE 25 MG in EMPTY BAG 1 BAG IV SCH (07:37)
--- NOTE | 2020-05-13 08:23 | P.PN ---
Subjective Progress Note Date: 05/13/20 Principal diagnosis: Coronary artery disease with left main disease. Previous medical history of hypertension, hyperlipidemia, lifelong nonsmoker, Covid 19 positive in February 2020, rheumatoid arthritis, vertigo, depression, and glaucoma. POD #2 coronary bypass grafting 2 vessels, left internal mammary artery to the left anterior descending artery, reverse saphenous vein graft to the obtuse marginal artery, endoscopic harvesting of the left greater saphenous vein, epi-aortic ultrasound, intraoperative transesophageal echocardiogram, ligation of the left atrial appendage using a 35 mm AtriClip Postoperative acute blood loss anemia, expected outcome given hemodilution and cardiopulmonary bypass pump Elevated transaminases, unexpected, trending down The patient is currently sitting up in a recliner in no acute distress. Does complain of mild postoperative surgical pain which is well controlled on current medication regimen, denies shortness of breath, working on her incentive spirometry. Remains in sinus rhythm and hemodynamically stable. Right internal jugular Cordis, right radial line, mediastinal and left pleural chest tubes along with epicardial pacemaker wires all present. Hemoglobin 6.1 today, this was expected as patient was given 1250 mL IV fluids yesterday secondary to borderline hypotension, likely delusional, will transfuse 1 unit packed red blood cells followed by IV Lasix. She ambulated in the hallway yesterday without difficulty. Objective - Vital Signs Vital signs: Vital Signs Temp 98.3 F 05/13/20 04:00 Pulse 100 05/13/20 07:42 Resp 24 05/13/20 07:00 BP 119/59 05/12/20 11:30 Pulse Ox 99 05/13/20 07:00 Intake & Output 05/12/20 05/13/20 05/13/20 18:59 06:59 18:59 Intake Total 2127.315 536.612 36 Output Total 744 650 70 Balance 1383.315 -113.388 -34 Weight 86.5 kg 88.3 kg Intake: IV 1598 432 36 Albumin Human 5% 250 ml @ 1000 0 mls/hr IVPB .[facility] Rx#:[id number] CO/CI 40 LR 270 120 10 Sodium Chloride 0.9% 500 160 240 20 ml 500 ml @ 20 mls/hr IV .[facility] Rx#:[id number] ceFAZolin 2 gm In Sodium 50 Chloride 0.9% 50 ml @ 100 mls/hr IVPB Q8H [facility] Rx#: [id number] pressure bag 78 72 6 Intake, IV Titration 39.315 4.612 0 Amount Insulin Regular 100 unit 39.315 4.612 0 In Sodium Chloride 0.9% 100 ml @ Per Protocol IV .Q0M [facility] Rx#:[id number] Oral 370 100 Tube Feeding 120 Output: Chest Tube Drainage 450 150 40 LP 150 80 20 MS x2 300 70 20 Urine 294 500 30 Other: Voiding Method Indwelling Catheter Indwelling Catheter ABP, PAP, CO, CI - Last Documented Arterial Blood Pressure 129/57 Pulmonary Artery Pressure 19/8 Cardiac Output 4.6 Cardiac Index 2.5 - Constitutional General appearance: Present: cooperative, no acute distress, obese - Respiratory Details: Lungs sounds diminished bilaterally. Respirations even, nonlabored. Currently on 2 L nasal cannula with oxygen saturation 98%. Able to achieve 400 mL on incentive spirometry. Weak cough. Mediastinal chest tubes present to continuous wall suction, 60 mL serosanguineous drainage overnight, 300 mL in the last 24 hours. Left pleural chest tubes present to continuous wall suction, 60 mL serosanguineous drainage overnight, 170 mL in the last 24 hours. No air leaks present. - Cardiovascular Details: S1, S2 present. Regular rate and rhythm, sinus rhythm on telemetry. Sternum stable. A/V epicardial pacemaker wires present, grounded. Palpable peripheral pulses bilaterally. Generalized trace edema present. No calf pain or tenderness noted. Heart hugger in place with patient demonstrating appropriate use. Antiembolism stockings, SCDs present. Right internal jugular Cordis, right radial arterial line present. - Gastrointestinal Gastrointestinal Comment(s): Soft, nontender, nondistended. Active bowel sounds present 4 quadrants. Tolerating diet. Negative flatus - Genitourinary Genitourinary Comment(s): Zavala present draining clear, yellow urine. Output 25-30 mL/h overnight, 794 mL in the last 24 hours. - Integumentary Integumentary Comment(s): Skin is warm and dry with evidence of good perfusion. Anterior chest incision well approximated and covered with dry intact dressing. Left lower extremity EVH site well approximated without redness or drainage - Neurologic Neurologic: Present: CNII-XII intact - Musculoskeletal Musculoskeletal: Present: gait normal, strength equal bilaterally - Psychiatric Psychiatric: Present: A&O x's 3, appropriate affect, intact judgment & insight - Allied health notes Allied health notes reviewed: nursing - Labs CBC & Chem 7: 05/13/20 04:00 05/13/20 04:00 Labs: Abnormal Lab Results - Last 24 Hours (Table) 05/05/20 05/12/20 05/12/20 Range/Units 07:09 08:13 09:10 RBC (3.80-5.40) m/uL Hgb (11.4-16.0) gm/dL Hct (34.0-46.0) % Plt Count (150-450) k/uL Lymphocytes # (1.0-4.8) k/uL Sodium (137-145) mmol/L BUN (7-17) mg/dL Glucose (74-99) mg/dL POC Glucose (mg/dL) 208 H 223 H (75-99) mg/dL Calcium (8.4-10.2) mg/dL AST (14-36) U/L ALT (4-34) U/L Total Protein (6.3-8.2) g/dL Albumin (3.5-5.0) g/dL Crossmatch See Detail 05/12/20 05/12/20 05/12/20 Range/Units 10:18 11:10 12:13 RBC (3.80-5.40) m/uL Hgb (11.4-16.0) gm/dL Hct (34.0-46.0) % Plt Count (150-450) k/uL Lymphocytes # (1.0-4.8) k/uL Sodium (137-145) mmol/L BUN (7-17) mg/dL Glucose (74-99) mg/dL POC Glucose (mg/dL) 177 H 137 H 107 H (75-99) mg/dL Calcium (8.4-10.2) mg/dL AST (14-36) U/L ALT (4-34) U/L Total Protein (6.3-8.2) g/dL Albumin (3.5-5.0) g/dL Crossmatch 05/12/20 05/12/20 05/12/20 Range/Units 13:40 14:10 15:10 RBC (3.80-5.40) m/uL Hgb (11.4-16.0) gm/dL Hct (34.0-46.0) % Plt Count (150-450) k/uL Lymphocytes # (1.0-4.8) k/uL Sodium (137-145) mmol/L BUN (7-17) mg/dL Glucose (74-99) mg/dL POC Glucose (mg/dL) 244 H 230 H 181 H (75-99) mg/dL Calcium (8.4-10.2) mg/dL AST (14-36) U/L ALT (4-34) U/L Total Protein (6.3-8.2) g/dL Albumin (3.5-5.0) g/dL Crossmatch 05/12/20 05/12/20 05/12/20 Range/Units 16:05 17:15 18:15 RBC (3.80-5.40) m/uL Hgb (11.4-16.0) gm/dL Hct (34.0-46.0) % Plt Count (150-450) k/uL Lymphocytes # (1.0-4.8) k/uL Sodium (137-145) mmol/L BUN (7-17) mg/dL Glucose (74-99) mg/dL POC Glucose (mg/dL) 145 H 119 H 112 H (75-99) mg/dL Calcium (8.4-10.2) mg/dL AST (14-36) U/L ALT (4-34) U/L Total Protein (6.3-8.2) g/dL Albumin (3.5-5.0) g/dL Crossmatch 05/12/20 05/12/20 05/12/20 Range/Units 18:57 20:16 21:09 RBC (3.80-5.40) m/uL Hgb (11.4-16.0) gm/dL Hct (34.0-46.0) % Plt Count (150-450) k/uL Lymphocytes # (1.0-4.8) k/uL Sodium (137-145) mmol/L BUN (7-17) mg/dL Glucose (74-99) mg/dL POC Glucose (mg/dL) 116 H 120 H 119 H (75-99) mg/dL Calcium (8.4-10.2) mg/dL AST (14-36) U/L ALT (4-34) U/L Total Protein (6.3-8.2) g/dL Albumin (3.5-5.0) g/dL Crossmatch 05/12/20 05/13/20 05/13/20 Range/Units 23:01 00:00 01:07 RBC (3.80-5.40) m/uL Hgb (11.4-16.0) gm/dL Hct (34.0-46.0) % Plt Count (150-450) k/uL Lymphocytes # (1.0-4.8) k/uL Sodium (137-145) mmol/L BUN (7-17) mg/dL Glucose (74-99) mg/dL POC Glucose (mg/dL) 149 H 137 H 119 H (75-99) mg/dL Calcium (8.4-10.2) mg/dL AST (14-36) U/L ALT (4-34) U/L Total Protein (6.3-8.2) g/dL Albumin (3.5-5.0) g/dL Crossmatch 05/13/20 05/13/20 05/13/20 Range/Units 02:13 03:11 04:00 RBC 1.87 L (3.80-5.40) m/uL Hgb 6.1 L* (11.4-16.0) gm/dL Hct 17.7 L* (34.0-46.0) % Plt Count 136 L (150-450) k/uL Lymphocytes # 0.9 L (1.0-4.8) k/uL Sodium (137-145) mmol/L BUN (7-17) mg/dL Glucose (74-99) mg/dL POC Glucose (mg/dL) 113 H 115 H (75-99) mg/dL Calcium (8.4-10.2) mg/dL AST (14-36) U/L ALT (4-34) U/L Total Protein (6.3-8.2) g/dL Albumin (3.5-5.0) g/dL Crossmatch 05/13/20 05/13/20 05/13/20 Range/Units 04:00 04:03 05:11 RBC (3.80-5.40) m/uL Hgb (11.4-16.0) gm/dL Hct (34.0-46.0) % Plt Count (150-450) k/uL Lymphocytes # (1.0-4.8) k/uL Sodium 135 L (137-145) mmol/L BUN 23 H (7-17) mg/dL Glucose 112 H (74-99) mg/dL POC Glucose (mg/dL) 122 H 121 H (75-99) mg/dL Calcium 8.1 L (8.4-10.2) mg/dL AST 68 H (14-36) U/L ALT 69 H (4-34) U/L Total Protein 5.3 L (6.3-8.2) g/dL Albumin 3.4 L (3.5-5.0) g/dL Crossmatch 05/13/20 Range/Units 07:08 RBC (3.80-5.40) m/uL Hgb (11.4-16.0) gm/dL Hct (34.0-46.0) % Plt Count (150-450) k/uL Lymphocytes # (1.0-4.8) k/uL Sodium (137-145) mmol/L BUN (7-17) mg/dL Glucose (74-99) mg/dL POC Glucose (mg/dL) 126 H (75-99) mg/dL Calcium (8.4-10.2) mg/dL AST (14-36) U/L ALT (4-34) U/L Total Protein (6.3-8.2) g/dL Albumin (3.5-5.0) g/dL Crossmatch Assessment and Plan Assessment: 1. Coronary artery disease with left main disease, status post 2 vessel CABG 2. Hypertension 3. Hyperlipidemia, treated, cholesterol 149, LDL 90 4. Lifelong nonsmoker, preoperative FEV1 81% of predicted 5. Covid 19 positive in February 2020, repeat test completed 05/03/2020 at [facility] was negative 6. Rheumatoid arthritis 7. Vertigo 8. Depression 9. Glaucoma 10. Postoperative acute blood loss anemia 11. Elevated transaminases, resolving Plan: 1. Continue aspirin, statin, Plavix, beta carlos therapy. Will increase beta carlos therapy as tolerated, will increase to 25 mg twice daily today. 2. Will add low dose losartan and increase as tolerated 3. Wean O2 as tolerated. Encourage incentive spirometry 10 times every hour while awake. Bronchodilators per pulmonology 4. Increase activity, ambulate as tolerated. PT/OT/cardiac rehab consulted 5. Will monitor daily labs and x-rays. Electrolyte replacement per protocol. Will transfuse 1 unit packed red blood cells followed by IV Lasix today 6. GI/DVT prophylaxis 7. Discontinue Cordis, arterial line 8. Insulin management per primary care service. Patient is not diabetic, preoperative hemoglobin A1c 6% 9. Will discontinue mediastinal chest tubes, keep left pleural chest tube for another 24 hours 10. Discontinue Zavala catheter this afternoon after blood and Lasix given. May bladder scan and straight cathed for greater than 300 mL residual 11. Strict accurate intake and output. Daily weights 12. More recommendations to follow based on patient's progress Time with Patient: Greater than 30
[2020-05-13] MEDS: CHOLECALCIFEROL 25 MCG (1000 IU) TABLET PO SCH (08:39)
[2020-05-13] MEDS: HEPARIN SODIUM,PORCINE 5,000 UNIT/ML 1 ML VIAL SQ SCH ×2 (08:39→16:11)
[2020-05-13] MEDS: ASPIRIN 325 MG TAB PO SCH (08:39)
[2020-05-13] MEDS: METOPROLOL TARTRATE 25 MG TAB PO SCH ×2 (08:39→21:28)
[2020-05-13] MEDS: ATORVASTATIN 40 MG TAB PO SCH (08:39)
[2020-05-13] MEDS: CLOPIDOGREL 75 MG TAB PO SCH (08:39)
[2020-05-13] MEDS: TIMOLOL 0.5% OPHTH DROPS 5 ML BTL BOTH EYES SCH ×2 (08:40→21:28)
[2020-05-13] MEDS: MUPIROCIN 2% OINT 22 GM TUBE NASAL SCH ×2 (08:40→21:28)
[2020-05-13] MEDS: SODIUM CHLORIDE 0.9% 500 ML 500 ML IV SCH (08:40)
--- NOTE | 2020-05-13 10:32 | PN ---
PROGRESS NOTE Mrs. Carreon is status post bypass surgery. She is progressing somewhat slowly. Incentive spirometry has shown modest improvement. She is in sinus rhythm. No chest pain. S1, S2 heard normally. Lungs reveal diminished air entry. Abdomen and lower extremities unchanged. Plan is to continue incentive spirometry, pulmonary toilet, same medical regimen. Prognosis remains fair. MMODL / IJN: [id number] /
[2020-05-13] MEDS ORDERED: FUROSEMIDE 10 MG/ML 2 ML VIAL IV ONE (11:28)
[2020-05-13 11:58] LABS: Glucose,Whole Blood 151 mg/dL (75-99)
[2020-05-13] MEDS: INSULIN ASPART (NovoLOG) 100 UNIT/ML VIAL SQ SCH ×3 (12:11→21:29)
[2020-05-13] MEDS: LOSARTAN 25 MG TAB PO SCH (12:11)
[2020-05-13] MEDS: HYDROcodone/APAP 5-325MG 1 EACH TAB PO PRN ×2 (12:11→21:30)
--- NOTE | 2020-05-13 13:49 | P.PN ---
Subjective Progress Note Date: 05/13/20 Principal diagnosis: Status post coronary artery bypass grafting 2, postoperative day #2 This is a very pleasant 74-year-old female patient with a known history hypertension, hyperlipidemia, rheumatoid arthritis. She is a lifelong nonsmoker and has not been seen by a nursing surgical services director in the past. Recently she had been having issues with shortness of breath on exertion. Subsequent stress test revealed possible ischemia and she was admitted to [facility] for cardiac catheterization at which time she developed chest discomfort and EKG changes. The procedure was stopped and she was transferred here to [facility] and found to have significant coronary artery disease was recommended coronary artery bypass grafting. Echocardiogram revealed preserved left ventricular systolic function with ejection fraction 55-60%. Spirometry with an FEV1 81%. She was subsequently discharged on 05/05/2020 and brought in today 05/11/2020 for the surgery. She had undergone coronary artery bypass grafting utilizing a RIVERA to the LAD and saphenous vein graft to the OM. She is seen today in the intensive care unit in the immediate postoperative period. She is currently intubated on a mechanical ventilator at assist control 12, tidal on 400, FiO2 40% and a PEEP of 5. Arterial blood gases revealed a pO2 of 146, pCO2 43, pH 7.37. White count 8.7. Hemoglobin 8.2. Platelet count 159. Sodium 138. Potassium 4.3. Creatinine 0.67. Glucose 125. AST 4:15. ALT 261. She is currently on a clevidipine at 2 mg per hour, insulin drip at 1 unit per hour. Propofol at 30 mcg/kg/m, nitroglycerin drip at 5 mcg/m. Right IJ Center Barnstead-Cristobal catheter in place. Cardiac output 4.0. Cardiac index 2.2. CVP 17. PA pressure 31/21. Chest x-ray reveals optimal placement of he nasogastric tube. Endotracheal tube to be pulled back 2 cm. Two mediastinal and left sided chest tubes in place. Epicardial wires in place. She is initiated on bronchodilators. Reevaluated today on 05/12/2020, patient is postoperative day #1, she had CABG 2, RIVERA to LAD, and saphenous vein graft to obtuse marginal artery. Patient was extubated at 19:46, uneventfully, and she tolerated the extubation well. She is presently sitting in bed, on 2 L nasal cannula, in no distress. She is hemodynamically stable, not requiring any inotropes or process. Her cardiac output is 4.6 cardiac index is 2.5. Continues to have a right internal jugular Center Barnstead/Cordis, she continues to have mediastinal and left pleural chest tubes along with epicardial pacemaker wires. Chest x-ray showed mostly left lower lob e atelectasis, lines and catheters are all in place as expected. WBC count is 7.7 hemoglobin is 7.4. Basic metabolic profile and renal profile are normal. The patient is seen today 05/13/2020 and follow-up in the intensive care unit. Postoperative day #2. She received a CABG 2 with a RIVERA to LAD, saphenous vein graft to the obtuse marginal artery. She is doing quite well. She is currently sitting up in a chair at the bedside. Awake and alert in no acute distress. Maintaining O2 saturations in the 90s on room air. She's afebrile. Somewhat hypertensive. Chest x-ray reveals Mild cardiomegaly with mild central vascular congestion and left greater than right bibasilar atelectasis. Small left pleural effusion. With left sided and mediastinal chest tube remains in place. Center Barnstead-Cristobal catheter to the right IJ. She is barely pulling 500 on her incentive spirometer. She is anemic today with a hemoglobin of 6.1. Receiving 1 unit of packed red blood cells. Platelet count 136. White count 7.8. Sodium 135. Potassium 3.9. Creatinine 1.02. AST 68. ALT 69. Remains on bronchodilators. No other drips currently. Objective - Vital Signs Vital signs: Vital Signs Temp 98.5 F 05/13/20 09:06 Pulse 94 05/13/20 12:00 Resp 27 H 05/13/20 12:00 BP 146/61 05/13/20 09:06 Pulse Ox 96 05/13/20 12:00 Intake & Output 05/12/20 05/13/20 05/13/20 18:59 06:59 18:59 Intake Total 2127.315 536.612 800.934 Output Total 744 650 210 Balance 1383.315 -113.388 590.934 Weight 86.5 kg 88.3 kg Intake: IV 1598 432 180 Albumin Human 5% 250 ml @ 1000 0 mls/hr IVPB .[facility] Rx#:[id number] CO/CI 40 LR 270 120 50 Sodium Chloride 0.9% 500 160 240 100 ml 500 ml @ 20 mls/hr IV .Q24H [facility] Rx#:[id number] ceFAZolin 2 gm In Sodium 50 Chloride 0.9% 50 ml @ 100 mls/hr IVPB Q8H [facility] Rx#: [id number] pressure bag 78 72 30 Intake, IV Titration 39.315 4.612 0.934 Amount Insulin Regular 100 unit 39.315 4.612 0.934 In Sodium Chloride 0.9% 100 ml @ Per Protocol IV .Q0M [facility] Rx#:[id number] Oral 370 100 Tube Feeding 120 Blood Product 620 Rc As-1 Unit 310 [id number] Output: Chest Tube Drainage 450 150 70 LP 150 80 50 MS x2 300 70 20 Urine 294 500 140 Other: Voiding Method Indwelling Catheter Indwelling Catheter ABP, PAP, CO, CI - Last Documented Arterial Blood Pressure 165/67 Pulmonary Artery Pressure 19/8 Cardiac Output 4.6 Cardiac Index 2.5 - Exam GENERAL EXAM: Alert, very pleasant 74-year-old female patient, on 1 L nasal cannula, up in chair at the bedside, comfortable in no apparent distress. HEAD: Normocephalic. EYES: Normal reaction of pupils, equal size. NOSE: Clear with pink turbinates. THROAT: No erythema or exudates. NECK: Right IJ Center Barnstead-Cristobal catheter in place. No masses, no JVD. CHEST: Sternal dressing dry and intact. Her out place. Left and mediastinal chest tubes in place. LUNGS: Equal air entry with echoes in the bases, left greater than right. CVS: S1 and S2 normal with no audible murmur, regular rhythm. ABDOMEN: No hepatosplenomegaly, normal bowel sounds, no guarding or rigidity. SPINE: No scoliosis or deformity SKIN: No rashes CENTRAL NERVOUS SYSTEM: No focal deficits, tone is normal in all 4 extremities. EXTREMITIES: There is trace peripheral edema. No clubbing, no cyanosis. Peripheral pulses are intact. - Labs CBC & Chem 7: 05/13/20 04:00 05/13/20 04:00 Labs: Abnormal Lab Results - Last 24 Hours (Table) 05/05/20 05/12/20 05/12/20 Range/Units 07:09 13:40 14:10 RBC (3.80-5.40) m/uL Hgb (11.4-16.0) gm/dL Hct (34.0-46.0) % Plt Count (150-450) k/uL Lymphocytes # (1.0-4.8) k/uL Sodium (137-145) mmol/L BUN (7-17) mg/dL Glucose (74-99) mg/dL POC Glucose (mg/dL) 244 H 230 H (75-99) mg/dL Calcium (8.4-10.2) mg/dL AST (14-36) U/L ALT (4-34) U/L Total Protein (6.3-8.2) g/dL Albumin (3.5-5.0) g/dL Crossmatch See Detail 05/12/20 05/12/20 05/12/20 Range/Units 15:10 16:05 17:15 RBC (3.80-5.40) m/uL Hgb (11.4-16.0) gm/dL Hct (34.0-46.0) % Plt Count (150-450) k/uL Lymphocytes # (1.0-4.8) k/uL Sodium (137-145) mmol/L BUN (7-17) mg/dL Glucose (74-99) mg/dL POC Glucose (mg/dL) 181 H 145 H 119 H (75-99) mg/dL Calcium (8.4-10.2) mg/dL AST (14-36) U/L ALT (4-34) U/L Total Protein (6.3-8.2) g/dL Albumin (3.5-5.0) g/dL Crossmatch 05/12/20 05/12/20 05/12/20 Range/Units 18:15 18:57 20:16 RBC (3.80-5.40) m/uL Hgb (11.4-16.0) gm/dL Hct (34.0-46.0) % Plt Count (150-450) k/uL Lymphocytes # (1.0-4.8) k/uL Sodium (137-145) mmol/L BUN (7-17) mg/dL Glucose (74-99) mg/dL POC Glucose (mg/dL) 112 H 116 H 120 H (75-99) mg/dL Calcium (8.4-10.2) mg/dL AST (14-36) U/L ALT (4-34) U/L Total Protein (6.3-8.2) g/dL Albumin (3.5-5.0) g/dL Crossmatch 05/12/20 05/12/20 05/13/20 Range/Units 21:09 23:01 00:00 RBC (3.80-5.40) m/uL Hgb (11.4-16.0) gm/dL Hct (34.0-46.0) % Plt Count (150-450) k/uL Lymphocytes # (1.0-4.8) k/uL Sodium (137-145) mmol/L BUN (7-17) mg/dL Glucose (74-99) mg/dL POC Glucose (mg/dL) 119 H 149 H 137 H (75-99) mg/dL Calcium (8.4-10.2) mg/dL AST (14-36) U/L ALT (4-34) U/L Total Protein (6.3-8.2) g/dL Albumin (3.5-5.0) g/dL Crossmatch 05/13/20 05/13/20 05/13/20 Range/Units 01:07 02:13 03:11 RBC (3.80-5.40) m/uL Hgb (11.4-16.0) gm/dL Hct (34.0-46.0) % Plt Count (150-450) k/uL Lymphocytes # (1.0-4.8) k/uL Sodium (137-145) mmol/L BUN (7-17) mg/dL Glucose (74-99) mg/dL POC Glucose (mg/dL) 119 H 113 H 115 H (75-99) mg/dL Calcium (8.4-10.2) mg/dL AST (14-36) U/L ALT (4-34) U/L Total Protein (6.3-8.2) g/dL Albumin (3.5-5.0) g/dL Crossmatch 05/13/20 05/13/20 05/13/20 Range/Units 04:00 04:00 04:03 RBC 1.87 L (3.80-5.40) m/uL Hgb 6.1 L* (11.4-16.0) gm/dL Hct 17.7 L* (34.0-46.0) % Plt Count 136 L (150-450) k/uL Lymphocytes # 0.9 L (1.0-4.8) k/uL Sodium 135 L (137-145) mmol/L BUN 23 H (7-17) mg/dL Glucose 112 H (74-99) mg/dL POC Glucose (mg/dL) 122 H (75-99) mg/dL Calcium 8.1 L (8.4-10.2) mg/dL AST 68 H (14-36) U/L ALT 69 H (4-34) U/L Total Protein 5.3 L (6.3-8.2) g/dL Albumin 3.4 L (3.5-5.0) g/dL Crossmatch 05/13/20 05/13/20 05/13/20 Range/Units 05:11 07:08 11:57 RBC (3.80-5.40) m/uL Hgb (11.4-16.0) gm/dL Hct (34.0-46.0) % Plt Count (150-450) k/uL Lymphocytes # (1.0-4.8) k/uL Sodium (137-145) mmol/L BUN (7-17) mg/dL Glucose (74-99) mg/dL POC Glucose (mg/dL) 121 H 126 H 151 H (75-99) mg/dL Calcium (8.4-10.2) mg/dL AST (14-36) U/L ALT (4-34) U/L Total Protein (6.3-8.2) g/dL Albumin (3.5-5.0) g/dL Crossmatch Assessment and Plan Assessment: 1 Coronary artery disease status post coronary artery bypass grafting utilizing a RIVERA to the LAD, saphenous vein graft to the OM. Postoperative day #2 2 Anemia, expected outcome 3 Postoperative atelectasis, expected outcome 4 Hyperlipidemia 5 Hypertension 6 Rheumatoid arthritis 7 Lifelong nonsmoker 8 Glaucoma Plan: The patient was seen and evaluated by Dr. Jamison Chest x-ray, labs reviewed Receiving 1 unit of packed red blood cells Continue bronchodilators She is encouragement regarding the increased use of the incentive spirometer and cough and deep breathing exercises Increase her activity as tolerated We will continue to follow and make further recommendations based on her clinical status. I, the cosigning physician, performed a history & physical examination of the patient. Lungs sounds with crackles in the posterior bases left greater than right. Maintaining good O2 saturations in the 90s on 1 L/m per nasal cannula. I discussed the assessment and plan of care with my nurse practitioner, Filomena Ariza. I attest to the above note as dictated by her.
--- NOTE | 2020-05-13 16:22 | P.PN ---
Subjective Progress Note Date: 05/13/20 This is a 74 year old female one of my patient with a previous medical history significant for hypertension and hypertensive cardiovascular disease, hyperlipidemia, Rheumatoid arthritis, vertigo, depression and Glaucoma, was seen and evaluated in my office for uncontrolled hypertension and feeling diaphor etic, with dyspnea on exertion, had a 12- Lead EKG that showed poor R wave progression and based on that it was recommended for her to undergo Lexiscan stress test on 04/11/2020 which showed a large fixed area of perfusion defect in the lateral wall suggestive of prior TX and a defect in the anteroseptal area during rest and not during exercise suggestive of an artifact, was not too sure so I referred the patient to see who recommended Left heart catherization which was done at [facility] through the right radial approach and while he was engaging the left main she developed EKG changes and chest pain so the procedure was aborted and she was sent to [facility] for Left heart catherization through the right femoral artery with IVUS that showed 79 % stenosis of Left main and the option was given to her of doing angioplasty VS revascularization so she was evaluated by cardiothoracic surgery for CABG an she is scheduled for today , she underwent RIVERA to LAD and SVG to OM1 patient had lost a lot of blood in the OR her HGB dropped to 5 and she is currently in the ICU on Cleviprex drip 3 mg/h and also currently on the ventilator with FIO2 50% and the plan is to extubate later on tonight. 05/12: Patient is seen today sitting up in a recliner. She appears to be in no acute distress. Patient was extubated last evening. Incentive spirometry is 450-500. She is currently on O2 at 2 L with pulse ox of 94%. Heart rate 87, blood pressure 90/39. 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 Chest tubes, epidural pacemaker, cordis and Zavala remain in place. WBC 7.7, hemoglobin 7.4, platelet count 167. Electrolytes normal, BUN 20 creatinine 0.85. Capillary blood glucose running between 107 and 223. Patient is on insulin drip. Chest x-ray reveals left lower lobe infiltrate worsening from comparison. Cardiology is also on consult. 05/12: Patient remains in the intensive care unit. Right cordis, one chest tube, Zavala have all been removed. Patient has been transitioned from IV insulin to scale insulin. WBC 7.8, hemoglobin 7.1. Creatinine 1.02. Blood sugars are running between 100 1551. Total bilirubin 0.6, AST 68, ALT 69, alkaline phosphatase 68. Patient has been afebrile, heart rate in the 90s, blood pressure 140/67, pulse ox 93% on room air. 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 Patient continues do poorly with incentive spirometry but continues to try. She states her breathing is easier today. Patient states she is eating well. No nausea vomiting. She is passing gas but no bowel movement. She slept okay last night. Discharge plan is home with [facility] Objective - Vital Signs Vital signs: Vital Signs Temp 98.5 F 05/13/20 09:06 Pulse 96 05/13/20 16:15 Resp 15 05/13/20 15:00 BP 140/67 05/13/20 15:00 Pulse Ox 93 L 05/13/20 15:00 Intake & Output 05/12/20 05/13/20 05/13/20 18:59 06:59 18:59 Intake Total 2127.315 536.612 882.934 Output Total 750 604 3575 Balance 1383.315 -113.388 -207.066 Weight 86.5 kg 88.3 kg Intake: IV 1598 432 262 Albumin Human 5% 250 ml @ 1000 0 mls/hr IVPB .K-MED [facility] Rx#:[id number] CO/CI 40 LR 270 120 80 Sodium Chloride 0.9% 500 160 240 140 ml 500 ml @ 20 mls/hr IV .Q24H [facility] Rx#:[id number] ceFAZolin 2 gm In Sodium 50 Chloride 0.9% 50 ml @ 100 mls/hr IVPB Q8H [facility] Rx#: [id number] pressure bag 78 72 42 Intake, IV Titration 39.315 4.612 0.934 Amount Insulin Regular 100 unit 39.315 4.612 0.934 In Sodium Chloride 0.9% 100 ml @ Per Protocol IV .Q0M [facility] Rx#:[id number] Oral 370 100 Tube Feeding 120 Blood Product 620 Rc As-1 Unit 310 [id number] Output: Chest Tube Drainage 450 150 70 LP 150 80 50 MS x2 300 70 20 Urine 487 536 2693 Other: Voiding Method Indwelling Catheter Indwelling Catheter Indwelling Catheter ABP, PAP, CO, CI - Last Documented Arterial Blood Pressure 126/52 Pulmonary Artery Pressure 19/8 Cardiac Output 4.6 Cardiac Index 2.5 - Exam Review Of Systems: Constitutional: No fever, no chills, no night sweats. No weight change. Reports fatigue. No daytime sleepiness. EENT: No headache. No nasal drainage or congestion. No epistaxis. No sore throat. Lungs: No shortness of breath, cough, no sputum production. No wheezing. Cardiovascular: Reports chest discomfort, reports pain with inspiration, no low er extremity edema. No palpitations. No paroxysmal nocturnal dyspnea. No orthopnea. No lightheadedness or dizziness. No syncopal episodes. Abdominal: No abdominal pain. No nausea, vomiting. No diarrhea. No constipation. No bloody or tarry stools.. No loss of appetite. Genitourinary: No dysuria, increased frequency, urgency. No urinary retention. Musculoskeletal: No myalgias. No muscle weakness, no gait dysfunction, no frequent falls. No back pain. No neck pain. Integumentary: No wounds, no lesions. No rash or pruritus. Neurologic: No aphasia. No facial droop. No change in mentation. Psychiatric: No depression. No anxiety. Endocrine: Reported abnormal blood sugars. Physical examination: HEENT: head is atraumatic normocephalic. Patient is resting and 90 ICU bed and appears to be comfortable. Cordis has been removed. Neck: supple, no JVP. Chest: decreased breath sounds at the bases otherwise clear to auscultation bilaterally, there is [address] Heart: first heart sound is depressed , second heart sound is normal there is gallop but no murmur. Abdomen: soft non tender, non distended positive bowel sounds. Extremities: there is no edema no calf tenderness DP + 2 bilaterally. Neurologic examination: patient is awake alert and oriented 3, no focal neuro deficits. - Labs CBC & Chem 7: 05/13/20 04:00 05/13/20 04:00 Labs: Abnormal Lab Results - Last 24 Hours (Table) 05/05/20 05/12/20 05/12/20 Range/Units 07:09 17:15 18:15 RBC (3.80-5.40) m/uL Hgb (11.4-16.0) gm/dL Hct (34.0-46.0) % Plt Count (150-450) k/uL Lymphocytes # (1.0-4.8) k/uL Sodium (137-145) mmol/L BUN (7-17) mg/dL Glucose (74-99) mg/dL POC Glucose (mg/dL) 119 H 112 H (75-99) mg/dL Calcium (8.4-10.2) mg/dL AST (14-36) U/L ALT (4-34) U/L Total Protein (6.3-8.2) g/dL Albumin (3.5-5.0) g/dL Crossmatch See Detail 05/12/20 05/12/20 05/12/20 Range/Units 18:57 20:16 21:09 RBC (3.80-5.40) m/uL Hgb (11.4-16.0) gm/dL Hct (34.0-46.0) % Plt Count (150-450) k/uL Lymphocytes # (1.0-4.8) k/uL Sodium (137-145) mmol/L BUN (7-17) mg/dL Glucose (74-99) mg/dL POC Glucose (mg/dL) 116 H 120 H 119 H (75-99) mg/dL Calcium (8.4-10.2) mg/dL AST (14-36) U/L ALT (4-34) U/L Total Protein (6.3-8.2) g/dL Albumin (3.5-5.0) g/dL Crossmatch 05/12/20 05/13/20 05/13/20 Range/Units 23:01 00:00 01:07 RBC (3.80-5.40) m/uL Hgb (11.4-16.0) gm/dL Hct (34.0-46.0) % Plt Count (150-450) k/uL Lymphocytes # (1.0-4.8) k/uL Sodium (137-145) mmol/L BUN (7-17) mg/dL Glucose (74-99) mg/dL POC Glucose (mg/dL) 149 H 137 H 119 H (75-99) mg/dL Calcium (8.4-10.2) mg/dL AST (14-36) U/L ALT (4-34) U/L Total Protein (6.3-8.2) g/dL Albumin (3.5-5.0) g/dL Crossmatch 05/13/20 05/13/20 05/13/20 Range/Units 02:13 03:11 04:00 RBC 1.87 L (3.80-5.40) m/uL Hgb 6.1 L* (11.4-16.0) gm/dL Hct 17.7 L* (34.0-46.0) % Plt Count 136 L (150-450) k/uL Lymphocytes # 0.9 L (1.0-4.8) k/uL Sodium (137-145) mmol/L BUN (7-17) mg/dL Glucose (74-99) mg/dL POC Glucose (mg/dL) 113 H 115 H (75-99) mg/dL Calcium (8.4-10.2) mg/dL AST (14-36) U/L ALT (4-34) U/L Total Protein (6.3-8.2) g/dL Albumin (3.5-5.0) g/dL Crossmatch 05/13/20 05/13/20 05/13/20 Range/Units 04:00 04:03 05:11 RBC (3.80-5.40) m/uL Hgb (11.4-16.0) gm/dL Hct (34.0-46.0) % Plt Count (150-450) k/uL Lymphocytes # (1.0-4.8) k/uL Sodium 135 L (137-145) mmol/L BUN 23 H (7-17) mg/dL Glucose 112 H (74-99) mg/dL POC Glucose (mg/dL) 122 H 121 H (75-99) mg/dL Calcium 8.1 L (8.4-10.2) mg/dL AST 68 H (14-36) U/L ALT 69 H (4-34) U/L Total Protein 5.3 L (6.3-8.2) g/dL Albumin 3.4 L (3.5-5.0) g/dL Crossmatch 05/13/20 05/13/20 Range/Units 07:08 11:57 RBC (3.80-5.40) m/uL Hgb (11.4-16.0) gm/dL Hct (34.0-46.0) % Plt Count (150-450) k/uL Lymphocytes # (1.0-4.8) k/uL Sodium (137-145) mmol/L BUN (7-17) mg/dL Glucose (74-99) mg/dL POC Glucose (mg/dL) 126 H 151 H (75-99) mg/dL Calcium (8.4-10.2) mg/dL AST (14-36) U/L ALT (4-34) U/L Total Protein (6.3-8.2) g/dL Albumin (3.5-5.0) g/dL Crossmatch Assessment and Plan Plan: 1. POD #2 S/P CABG X2 with RIVERA to LAD and SCG to OM1. we will continue with current treatment as per cardiothoracic and ICU teams. 2. Acute blood loss anemia. Post 2 units of PRBCs. Hemoglobin today is 6.1 patient may require additional blood. 3. Acute vent dependent respiratory failure due to CABG x2, successfully extubated. Breathing status is stable. 4. Hypertension and hypertensive cardiovascular disease. we will continue with metoprolol 12.5 mg orally bid. 5. Glaucoma. we will continue with current eye drops. 6. Hyperlipidemia. we will start Lipitor 40 mg orally daily. 7. Her glycemia without diagnosis of diabetes. Patient is currently on NovoLog scale. Thank you for the consult we will follow with you. Discharge plan: To be determined Impression and plan of care have been directed as dictated by the signing physician. Barbara De Los Santos nurse practitioner acting as scribe for signing physician.
[2020-05-13 16:54] LABS: Glucose,Whole Blood 157 mg/dL (75-99)
[2020-05-13 21:17] LABS: Glucose,Whole Blood 174 mg/dL (75-99)
[2020-05-13] MEDS: LATANOPROST 0.005% OPHTH DROPS 2.5 ML BTL BOTH EYES SCH (21:28)
[2020-05-13] MEDS: SENNOSIDES-DOCUSATE SODIUM 1 EACH TAB PO SCH (21:28)
[2020-05-13] MEDS: BENZOCAINE/MENTHOL LOZENG 1 EACH LOZENGE MUCOUS MEM PRN (21:42)
[2020-05-14] MEDS: HEPARIN SODIUM,PORCINE 5,000 UNIT/ML 1 ML VIAL SQ SCH ×4 (00:05→22:56)
[2020-05-14] MEDS: KETOROLAC 15 MG/ML 1 ML VIAL IVP SCH ×3 (00:05→11:43)
[2020-05-14] MEDS: BENZOCAINE/MENTHOL LOZENG 1 EACH LOZENGE MUCOUS MEM PRN ×2 (04:38→16:10)
[2020-05-14] MEDS: HYDROcodone/APAP 5-325MG 1 EACH TAB PO PRN ×2 (04:38→16:07)
[2020-05-14 04:54] LABS: Basophils # (A) 0.1 k/uL (0-0.2); Basophils % (A) 1 %; Eosinophils # (A) 0.6 k/uL (0-0.7); Eosinophils % (A) 7 %; HCT 23.8 % (34.0-46.0); Lymphocytes # (A) 1.3 k/uL (1.0-4.8); Lymphocytes % (A) 17 %; MCH 32.4 pg (25.0-35.0); MCHC 34.5 g/dL (31.0-37.0); MCV 93.8 fL (80.0-100.0); Mean Platelet Volume 7.3; Monocytes # (A) 0.4 k/uL (0-1.0); Monocytes % (A) 4 %; Neutrophils # (A) 5.7 k/uL (1.3-7.7); Neutrophils % (A) 70 %; Platelet Count 166 k/uL (150-450); RBC 2.53 m/uL (3.80-5.40); RDW 13.5 % (11.5-15.5); WBC 8.1 k/uL (3.8-10.6)
[2020-05-14 04:58] LABS: HGB 8.2 gm/dL (11.4-16.0)
[2020-05-14 05:09] LABS: Calcium 8.2 mg/dL (8.4-10.2); Potassium 4.5 mmol/L (3.5-5.1); Total Bilirubin 0.8 mg/dL (0.2-1.3); Total Protein 5.4 g/dL (6.3-8.2)
[2020-05-14 07:10] LABS: Glucose,Whole Blood 128 mg/dL (75-99)
[2020-05-14] MEDS: INSULIN ASPART (NovoLOG) 100 UNIT/ML VIAL SQ SCH ×4 (07:14→20:27)
[2020-05-14] MEDS: PANTOPRAZOLE 40 MG TABLET PO SCH (07:19)
[2020-05-14] MEDS: FERROUS SULFATE 325 MG TAB PO SCH ×2 (07:19→17:01)
[2020-05-14] MEDS: IPRATROPIUM-ALBUTEROL 3 ML NEB INHALATION SCH ×4 (07:41→19:27)
--- NOTE | 2020-05-14 08:14 | XR ---
EXAMINATION TYPE: XR chest 1V portable DATE OF EXAM: 05/14/2020 COMPARISON: Prior chest x-ray 05/13/2020 HISTORY: Post cardiac surgery TECHNIQUE: Single frontal view of the chest is obtained. FINDINGS: Central venous sheath is no longer seen. Left chest tube remains in place. Median sternal drains have been removed. Patient is post median sternotomy and left atrial appendage clipping placem ent. No evident pneumothorax or sizable effusion. Patchy basilar density persists, exam is expiratory . Cardiac mediastinal silhouette is stable. There are overlying artifacts. IMPRESSION: Interval tube removals. Probable basilar atelectasis.
[2020-05-14] MEDS: ASPIRIN 325 MG TAB PO SCH (08:39)
[2020-05-14] MEDS: MUPIROCIN 2% OINT 22 GM TUBE NASAL SCH ×2 (08:40→20:19)
[2020-05-14] MEDS: CLOPIDOGREL 75 MG TAB PO SCH (08:40)
[2020-05-14] MEDS: TIMOLOL 0.5% OPHTH DROPS 5 ML BTL BOTH EYES SCH ×2 (08:40→20:20)
[2020-05-14] MEDS: CHOLECALCIFEROL 25 MCG (1000 IU) TABLET PO SCH (08:40)
[2020-05-14] MEDS: ATORVASTATIN 40 MG TAB PO SCH (08:40)
[2020-05-14] MEDS: METOPROLOL TARTRATE 25 MG TAB PO SCH ×2 (08:40→20:18)
--- NOTE | 2020-05-14 08:42 | P.PN ---
Subjective Progress Note Date: 05/14/20 Principal diagnosis: Coronary artery disease with left main disease. Previous medical history of hypertension, hyperlipidemia, lifelong nonsmoker, Covid 19 positive in February 2020, rheumatoid arthritis, vertigo, depression, and glaucoma. POD #3 coronary bypass grafting 2 vessels, left internal mammary artery to the left anterior descending artery, reverse saphenous vein graft to the obtuse marginal artery, endoscopic harvesting of the left greater saphenous vein, epi-aortic ultrasound, intraoperative transesophageal echocardiogram, ligation of the left atrial appendage using a 35 mm AtriClip Postoperative acute blood loss anemia, expected outcome given hemodilution and cardiopulmonary bypass pump Elevated transaminases, unexpected, trending down The patient is currently sitting up in a recliner in no acute distress. Does complain of mild postoperative surgical pain which is well controlled on current medication regimen, denies shortness of breath, working on her incentive spirometry. Remains in sinus rhythm and hemodynamically stable. Left pleural chest tubes along with epicardial pacemaker wires present. Hemoglobin 6.1 yesterday, this was expected as patient was given 1250 mL IV fluids the day before secondary to borderline hypotension, likely delusional, received 1 unit packed red blood cells followed by IV Lasix yesterday, hemoglobin 8.2 this morning. She ambulated in the hallway yesterday without difficulty. No other new concerns Objective - Vital Signs Vital signs: Vital Signs Temp 97.9 F 05/14/20 08:00 Pulse 101 H 05/14/20 08:00 Resp 25 H 05/14/20 08:00 BP 110/57 05/14/20 08:00 Pulse Ox 97 05/14/20 08:00 Intake & Output 05/13/20 05/14/20 05/14/20 18:59 06:59 18:59 Intake Total 882.934 140 Output Total 1250 270 20 Balance -367.066 -130 -20 Weight 88.167 kg Intake: IV 262 20 LR 80 Sodium Chloride 0.9% 500 140 ml 500 ml @ 20 mls/hr IV .Q24H [facility] Rx#:[id number] flush 20 pressure bag 42 Intake, IV Titration 0.934 Amount Insulin Regular 100 unit 0.934 In Sodium Chloride 0.9% 100 ml @ Per Protocol IV .Q0M [facility] Rx#:[id number] Oral 120 Blood Product 620 Rc As-1 Unit 310 [id number] Output: Chest Tube Drainage 100 70 20 LP 80 70 20 MS x2 20 Urine 1150 200 Other: Voiding Method Indwelling Catheter Toilet # Voids 0 0 ABP, PAP, CO, CI - Last Documented Arterial Blood Pressure 126/52 Pulmonary Artery Pressure 19/8 Cardiac Output 4.6 Cardiac Index 2.5 - Constitutional General appearance: Present: cooperative, no acute distress, obese - Respiratory Details: Lungs sounds diminished bilaterally. Respirations even, nonlabored. Currently on room air with oxygen saturation 96%. Able to achieve 400 mL on incentive spirometry. Weak cough. Left pleural chest tubes present to continuous wall suction, 30 mL serosanguineous drainage overnight, 150 mL in the last 24 hours. No air leaks present. - Cardiovascular Details: S1, S2 present. Regular rate and rhythm, sinus rhythm on telemetry. Sternum stable. A/V epicardial pacemaker wires present, grounded. Palpable peripheral pulses bilaterally. Generalized trace edema present. No calf pain or tenderness noted. Heart hugger in place with patient demonstrating appropriate use. Antiembolism stockings, SCDs present. - Gastrointestinal Gastrointestinal Comment(s): Soft, nontender, nondistended. Active bowel sounds present 4 quadrants. Tolerating diet. Positive flatus, negative bowel movement - Genitourinary Genitourinary Comment(s): Zavala discontinued yesterday. Patient has voided clear, yellow urine - Integumentary Integumentary Comment(s): Skin is warm and dry with evidence of good perfusion. Anterior chest incision well approximated and covered with dry intact dressing. Left lower extremity EV H site well approximated without redness or drainage - Neurologic Neurologic: Present: CNII-XII intact - Musculoskeletal Musculoskeletal: Present: gait normal, strength equal bilaterally - Psychiatric Psychiatric: Present: A&O x's 3, appropriate affect, intact judgment & insight - Allied health notes Allied health notes reviewed: nursing - Labs CBC & Chem 7: 05/14/20 04:30 05/14/20 04:30 Labs: Abnormal Lab Results - Last 24 Hours (Table) 05/05/20 05/13/20 05/13/20 Range/Units 07:09 11:57 16:52 RBC (3.80-5.40) m/uL Hgb (11.4-16.0) gm/dL Hct (34.0-46.0) % BUN (7-17) mg/dL Glucose (74-99) mg/dL POC Glucose (mg/dL) 151 H 157 H (75-99) mg/dL Calcium (8.4-10.2) mg/dL AST (14-36) U/L ALT (4-34) U/L Total Protein (6.3-8.2) g/dL Albumin (3.5-5.0) g/dL Crossmatch See Detail 05/13/20 05/14/20 05/14/20 Range/Units 21:15 04:30 04:30 RBC 2.53 L (3.80-5.40) m/uL Hgb 8.2 L D (11.4-16.0) gm/dL Hct 23.8 L (34.0-46.0) % BUN 26 H (7-17) mg/dL Glucose 110 H (74-99) mg/dL POC Glucose (mg/dL) 174 H (75-99) mg/dL Calcium 8.2 L (8.4-10.2) mg/dL AST 64 H (14-36) U/L ALT 58 H (4-34) U/L Total Protein 5.4 L (6.3-8.2) g/dL Albumin 3.0 L (3.5-5.0) g/dL Crossmatch 05/14/20 Range/Units 07:09 RBC (3.80-5.40) m/uL Hgb (11.4-16.0) gm/dL Hct (34.0-46.0) % BUN (7-17) mg/dL Glucose (74-99) mg/dL POC Glucose (mg/dL) 128 H (75-99) mg/dL Calcium (8.4-10.2) mg/dL AST (14-36) U/L ALT (4-34) U/L Total Protein (6.3-8.2) g/dL Albumin (3.5-5.0) g/dL Crossmatch - Imaging and Cardiology Chest x-ray: report reviewed, image reviewed Assessment and Plan Assessment: 1. Coronary artery disease with left main disease, status post 2 vessel CABG 2. Hypertension 3. Hyperlipidemia, treated, cholesterol 149, LDL 90 4. Lifelong nonsmoker, preoperative FEV1 81% of predicted 5. Covid 19 positive in February 2020, repeat test completed 05/03/2020 at [facility] was negative 6. Rheumatoid arthritis 7. Vertigo 8. Depression 9. Glaucoma 10. Postoperative acute blood loss anemia 11. Elevated transaminases, resolving Plan: 1. Continue aspirin, statin, Plavix, beta carlos therapy. Will increase beta carlos therapy as tolerated 2. Continue low dose losartan and increase as tolerated 3. Encourage incentive spirometry 10 times every hour while awake. Bronchodilators per pulmonology 4. Increase activity, ambulate as tolerated. PT/OT/cardiac rehab consulted 5. Will monitor daily labs and x-rays. Electrolyte replacement per protocol. 6. GI/DVT prophylaxis 7. Insulin management per primary care service. Patient is not diabetic, preoperative hemoglobin A1c 6% 8. Will discontinue left chest tube 9. Strict accurate intake and output. Daily weights 10. Will place transfer orders for 3 S. cardiac stepdown unit. May transfer when bed available 11. More recommendations to follow based on patient's progress Time with Patient: Greater than 30
[2020-05-14] MEDS ORDERED: FUROSEMIDE 10 MG/ML 2 ML VIAL IV ONE (09:25)
--- NOTE | 2020-05-14 09:27 | P.PN ---
Subjective Progress Note Date: 05/14/20 Principal diagnosis: Coronary artery disease This is a pleasant 74-year-old female patient was seen in the [facility] for chest discomfort and underwent a heart catheterization which showed severe disease involving the ostial left main coronary artery patient underwent coron dacia artery bypass grafting. She was seen this morning pH she is doing. From a cardiovascular standpoint of the beach she has been maintaining normal sinus mechanism but she has been hemodynamically stable. Objective - Vital Signs Vital signs: Vital Signs Temp 97.9 F 05/14/20 08:00 Pulse 101 H 05/14/20 08:00 Resp 25 H 05/14/20 08:00 BP 110/57 05/14/20 08:00 Pulse Ox 97 05/14/20 08:00 Intake & Output 05/13/20 05/14/20 05/14/20 18:59 06:59 18:59 Intake Total 882.934 140 Output Total 1250 270 220 Balance -367.066 -130 -220 Weight 88.167 kg Intake: IV 262 20 LR 80 Sodium Chloride 0.9% 500 140 ml 500 ml @ 20 mls/hr IV .Q24H [facility] Rx#:[id number] flush 20 pressure bag 42 Intake, IV Titration 0.934 Amount Insulin Regular 100 unit 0.934 In Sodium Chloride 0.9% 100 ml @ Per Protocol IV .Q0M [facility] Rx#:[id number] Oral 120 Blood Product 620 Rc As-1 Unit 310 [id number] Output: Chest Tube Drainage 100 70 20 LP 80 70 20 MS x2 20 Urine 1150 200 200 Other: Voiding Method Indwelling Catheter Toilet # Voids 0 0 ABP, PAP, CO, CI - Last Documented Arterial Blood Pressure 126/52 Pulmonary Artery Pressure 19/8 Cardiac Output 4.6 Cardiac Index 2.5 - Constitutional General appearance: Present: no acute distress - Respiratory Respiratory: bilateral: CTA - Cardiovascular Rhythm: regular Heart sounds: normal: S1, S2 - Labs CBC & Chem 7: 05/14/20 04:30 05/14/20 04:30 Labs: Abnormal Lab Results - Last 24 Hours (Table) 05/05/20 05/13/20 05/13/20 Range/Units 07:09 11:57 16:52 RBC (3.80-5.40) m/uL Hgb (11.4-16.0) gm/dL Hct (34.0-46.0) % BUN (7-17) mg/dL Glucose (74-99) mg/dL POC Glucose (mg/dL) 151 H 157 H (75-99) mg/dL Calcium (8.4-10.2) mg/dL AST (14-36) U/L ALT (4-34) U/L Total Protein (6.3-8.2) g/dL Albumin (3.5-5.0) g/dL Crossmatch See Detail 05/13/20 05/14/20 05/14/20 Range/Units 21:15 04:30 04:30 RBC 2.53 L (3.80-5.40) m/uL Hgb 8.2 L D (11.4-16.0) gm/dL Hct 23.8 L (34.0-46.0) % BUN 26 H (7-17) mg/dL Glucose 110 H (74-99) mg/dL POC Glucose (mg/dL) 174 H (75-99) mg/dL Calcium 8.2 L (8.4-10.2) mg/dL AST 64 H (14-36) U/L ALT 58 H (4-34) U/L Total Protein 5.4 L (6.3-8.2) g/dL Albumin 3.0 L (3.5-5.0) g/dL Crossmatch 05/14/20 Range/Units 07:09 RBC (3.80-5.40) m/uL Hgb (11.4-16.0) gm/dL Hct (34.0-46.0) % BUN (7-17) mg/dL Glucose (74-99) mg/dL POC Glucose (mg/dL) 128 H (75-99) mg/dL Calcium (8.4-10.2) mg/dL AST (14-36) U/L ALT (4-34) U/L Total Protein (6.3-8.2) g/dL Albumin (3.5-5.0) g/dL Crossmatch Assessment and Plan Assessment: Assessment #1 coronary artery disease and status post CABG #2 hypertension #3 dyslipidemia Plan #1 continue the current medical regimen #2 follow-up with the patient
[2020-05-14 11:41] LABS: Glucose,Whole Blood 148 mg/dL (75-99)
[2020-05-14] MEDS: LOSARTAN 25 MG TAB PO SCH (11:43)
--- NOTE | 2020-05-14 13:15 | P.PN ---
Subjective Progress Note Date: 05/14/20 Principal diagnosis: Status post coronary artery bypass grafting 2, postoperative day #2 This is a very pleasant 74-year-old female patient with a known history hypertension, hyperlipidemia, rheumatoid arthritis. She is a lifelong nonsmoker and has not been seen by a reference assistant in the past. Recently she had been having issues with shortness of breath on exertion. Subsequent stress test revealed possible ischemia and she was admitted to [facility] for cardiac catheterization at which time she developed chest discomfort and EKG changes. The procedure was stopped and she was transferred here to [facility] and found to have significant coronary artery disease was recommended coronary artery bypass grafting. Echocardiogram revealed preserved left ventricular systolic function with ejection fraction 55-60%. Spirometry with an FEV1 81%. She was subsequently discharged on 05/05/2020 and brought in today 05/11/2020 for the surgery. She had undergone coronary artery bypass grafting utilizing a RIVERA to the LAD and saphenous vein graft to the OM. She is seen today in the intensive care unit in the immediate postoperative period. She is currently intubated on a mechanical ventilator at assist control 12, tidal on 400, FiO2 40% and a PEEP of 5. Arterial blood gases revealed a pO2 of 146, pCO2 43, pH 7.37. White count 8.7. Hemoglobin 8.2. Platelet count 159. Sodium 138. Potassium 4.3. Creatinine 0.67. Glucose 125. AST 4:15. ALT 261. She is currently on a clevidipine at 2 mg per hour, insulin drip at 1 unit per hour. Propofol at 30 mcg/kg/m, nitroglycerin drip at 5 mcg/m. Right IJ [place]ristobal catheter in place. Cardiac output 4.0. Cardiac index 2.2. CVP 17. PA pressure 31/21. Chest x-ray reveals optimal placement of he nasogastric tube. Endotracheal tube to be pulled back 2 cm. Two mediastinal and left sided chest tubes in place. Epicardial wires in place. She is initiated on bronchodilators. Reevaluated today on 05/12/2020, patient is postoperative day #1, she had CABG 2, RIVERA to LAD, and saphenous vein graft to obtuse marginal artery. Patient was extubated at 19:46, uneventfully, and she tolerated the extubation well. She is presently sitting in bed, on 2 L nasal cannula, in no distress. She is hemodynamically stable, not requiring any inotropes or process. Her cardiac output is 4.6 cardiac index is 2.5. Continues to have a right internal jugular [place]/Cordis, she continues to have mediastinal and left pleural chest tubes along with epicardial pacemaker wires. Chest x-ray showed mostly left lower lob e atelectasis, lines and catheters are all in place as expected. WBC count is 7.7 hemoglobin is 7.4. Basic metabolic profile and renal profile are normal. The patient is seen today 05/13/2020 and follow-up in the intensive care unit. Postoperative day #2. She received a CABG 2 with a RIVERA to LAD, saphenous vein graft to the obtuse marginal artery. She is doing quite well. She is currently sitting up in a chair at the bedside. Awake and alert in no acute distress. Maintaining O2 saturations in the 90s on room air. She's afebrile. Somewhat hypertensive. Chest x-ray reveals Mild cardiomegaly with mild central vascular congestion and left greater than right bibasilar atelectasis. Small left pleural effusion. With left sided and mediastinal chest tube remains in place. [place]-Cristobal catheter to the right IJ. She is barely pulling 500 on her incentive spirometer. She is anemic today with a hemoglobin of 6.1. Receiving 1 unit of packed red blood cells. Platelet count 136. White count 7.8. Sodium 135. Potassium 3.9. Creatinine 1.02. AST 68. ALT 69. Remains on bronchodilators. No other drips currently. The patient is seen today 05/14/2020 in follow-up in the intensive care unit. Postoperative day #3. She is doing very well. She is up ambulating in the hallway with assistance. No worsening shortness of breath, cough or congestion. Maintaining O2 saturations in the 90s on room air now. Chest x-ray reveals no evidence of pneumothorax or sizable effusion. Patchy bibasilar densities persist. Left chest tube remains in place. She is status post 1 unit packed red blood cells this admission. Current hemoglobin 8.2. Platelet count 166. Sodium 137. Potassium 4.5. Creatinine 0.82. White count 8.1. Objective - Vital Signs Vital signs: Vital Signs Temp 98.2 F 05/14/20 12:00 Pulse 93 05/14/20 12:00 Resp 24 05/14/20 12:00 BP 120/66 05/14/20 12:00 Pulse Ox 94 L 05/14/20 12:00 Intake & Output 05/13/20 05/14/20 05/14/20 18:59 06:59 18:59 Intake Total 882.934 140 Output Total 1250 270 620 Balance -367.066 -130 -620 Weight 88.167 kg Intake: IV 262 20 LR 80 Sodium Chloride 0.9% 500 140 ml 500 ml @ 20 mls/hr IV .Q24H JOSE DAVID Rx#:[id number] flush 20 pressure bag 42 Intake, IV Titration 0.934 Amount Insulin Regular 100 unit 0.934 In Sodium Chloride 0.9% 100 ml @ Per Protocol IV .Q0M JOSE DAVID Rx#:[id number] Oral 120 Blood Product 620 Rc As-1 Unit 310 [id number] Output: Chest Tube Drainage 100 70 20 LP 80 70 20 MS x2 20 Urine 1150 200 600 Other: Voiding Method Indwelling Catheter Toilet Toilet # Voids 0 0 ABP, PAP, CO, CI - Last Documented Arterial Blood Pressure 126/52 Pulmonary Artery Pressure 19/8 Cardiac Output 4.6 Cardiac Index 2.5 - Exam GENERAL EXAM: Alert, very pleasant 74-year-old female patient, on room air, up ambulating in the hallway, comfortable in no apparent distress. HEAD: Normocephalic. EYES: Normal reaction of pupils, equal size. NOSE: Clear with pink turbinates. THROAT: No erythema or exudates. NECK: Right IJ [place]ristobal catheter in place. No masses, no JVD. CHEST: Sternal dressing dry and intact. Her out place. Left chest tube in place. LUNGS: Equal air entry with crackles in the bases, left greater than right. CVS: S1 and S2 normal with no audible murmur, regular rhythm. ABDOMEN: No hepatosplenomegaly, normal bowel sounds, no guarding or rigidity. SPINE: No scoliosis or deformity SKIN: No rashes CENTRAL NERVOUS SYSTEM: No focal deficits, tone is normal in all 4 extremities. EXTREMITIES: There is trace peripheral edema. No clubbing, no cyanosis. Peripheral pulses are intact. - Labs CBC & Chem 7: 05/14/20 04:30 05/14/20 04:30 Labs: Abnormal Lab Results - Last 24 Hours (Table) 05/05/20 05/13/20 05/13/20 Range/Units 07:09 16:52 21:15 RBC (3.80-5.40) m/uL Hgb (11.4-16.0) gm/dL Hct (34.0-46.0) % BUN (7-17) mg/dL Glucose (74-99) mg/dL POC Glucose (mg/dL) 157 H 174 H (75-99) mg/dL Calcium (8.4-10.2) mg/dL AST (14-36) U/L ALT (4-34) U/L Total Protein (6.3-8.2) g/dL Albumin (3.5-5.0) g/dL Crossmatch See Detail 05/14/20 05/14/20 05/14/20 Range/Units 04:30 04:30 07:09 RBC 2.53 L (3.80-5.40) m/uL Hgb 8.2 L D (11.4-16.0) gm/dL Hct 23.8 L (34.0-46.0) % BUN 26 H (7-17) mg/dL Glucose 110 H (74-99) mg/dL POC Glucose (mg/dL) 128 H (75-99) mg/dL Calcium 8.2 L (8.4-10.2) mg/dL AST 64 H (14-36) U/L ALT 58 H (4-34) U/L Total Protein 5.4 L (6.3-8.2) g/dL Albumin 3.0 L (3.5-5.0) g/dL Crossmatch 05/14/20 Range/Units 11:40 RBC (3.80-5.40) m/uL Hgb (11.4-16.0) gm/dL Hct (34.0-46.0) % BUN (7-17) mg/dL Glucose (74-99) mg/dL POC Glucose (mg/dL) 148 H (75-99) mg/dL Calcium (8.4-10.2) mg/dL AST (14-36) U/L ALT (4-34) U/L Total Protein (6.3-8.2) g/dL Albumin (3.5-5.0) g/dL Crossmatch Assessment and Plan Assessment: 1 Coronary artery disease status post coronary artery bypass grafting utilizing a RIVERA to the LAD, saphenous vein graft to the OM. Postoperative day #3 2 Anemia, expected outcome, received 1 unit packed red blood cells. Current hemoglobin 8.2 3 Postoperative atelectasis, expected outcome 4 Hyperlipidemia 5 Hypertension 6 Rheumatoid arthritis 7 Lifelong nonsmoker 8 Glaucoma Plan: The patient was seen and evaluated by Dr. Jamison Chest x-ray, labs reviewed She is encouragement regarding the increased use of the incentive spirometer Increase her activity as tolerated We will continue to follow and make further recommendations based on her clinical status. I, the cosigning physician, performed a history & physical examination of the patient. Lungs sounds with crackles in the posterior bases left greater than right. Maintaining good O2 saturations in the 90s on room air. I discussed the assessment and plan of care with my nurse practitioner, Filomena Ariza. I attest to the above note as dictated by her.
--- NOTE | 2020-05-14 14:21 | P.PN ---
Subjective Progress Note Date: 05/14/20 This is a 74 year old female one of my patient with a previous medical history significant for hypertension and hypertensive cardiovascular disease, hyperlipidemia, Rheumatoid arthritis, vertigo, depression and Glaucoma, was seen and evaluated in my office for uncontrolled hypertension and feeling diaphor etic, with dyspnea on exertion, had a 12- Lead EKG that showed poor R wave progression and based on that it was recommended for her to undergo Lexiscan stress test on 04/11/2020 which showed a large fixed area of perfusion defect in the lateral wall suggestive of prior UT and a defect in the anteroseptal area during rest and not during exercise suggestive of an artifact, was not too sure so I referred the patient to see who recommended Left heart catherization which was done at [facility] through the right radial approach and while he was engaging the left main she developed EKG changes and chest pain so the procedure was aborted and she was sent to [facility] for Left heart catherization through the right femoral artery with IVUS that showed 79 % stenosis of Left main and the option was given to her of doing angioplasty VS revascularization so she was evaluated by cardiothoracic surgery for CABG an she is scheduled for today , she underwent RIVERA to LAD and SVG to OM1 patient had lost a lot of blood in the OR her HGB dropped to 5 and she is currently in the ICU on Cleviprex drip 3 mg/h and also currently on the ventilator with FIO2 50% and the plan is to extubate later on tonight. 05/12: Patient is seen today sitting up in a recliner. She appears to be in no acute distress. Patient was extubated last evening. Incentive spirometry is 450-500. She is currently on O2 at 2 L with pulse ox of 94%. Heart rate 87, blood pressure 90/39. shelter monitor is a sinus rhythm. Chest tubes, epidural pacemaker, cordis and Zavala remain in place. WBC 7.7, hemoglobin 7.4, platelet count 167. Electrolytes normal, BUN 20 creatinine 0.85. Capillary blood glucose running between 107 and 223. Patient is on insulin drip. Chest x-ray reveals left lower lobe infiltrate worsening from comparison. Cardiology is also on consult. 05/13: Patient sitting up in a recliner is feeling much better today she denies any chest pain, shortness breath, she continues to struggle with incentive spirometer, she denies any abdominal pain, she is eating, she has not had a bowel movement, she continues to pass some gas, she is working with physical therapy, her vital signs are stable at this time, she is being followed by cardiothoracic surgery as well as by director of medicare. 05/14: Patient sitting up in a recliner distress, she denies ingesting, less short of breath, she continues to be on oxygen, she continues to work with her incentive spirometer, she has no abdominal pain, she is tolerating her diet well, she is not eating as much, she appearS to move around better, we'll increase activity, hopefully she'll be getting out of the hospital in the next 1-2 days. Objective - Vital Signs Vital signs: Vital Signs Temp 97.9 F 05/14/20 08:00 Pulse 82 05/14/20 10:00 Resp 12 05/14/20 10:00 BP 124/64 05/14/20 10:00 Pulse Ox 95 05/14/20 10:00 Intake & Output 05/13/20 05/14/20 05/14/20 18:59 06:59 18:59 Intake Total 882.934 140 Output Total 1250 270 320 Balance -367.066 -130 -320 Weight 88.167 kg Intake: IV 262 20 LR 80 Sodium Chloride 0.9% 500 140 ml 500 ml @ 20 mls/hr IV .Q24H JOSE DAVID Rx#:[id number] flush 20 pressure bag 42 Intake, IV Titration 0.934 Amount Insulin Regular 100 unit 0.934 In Sodium Chloride 0.9% 100 ml @ Per Protocol IV .Q0M JOSE DAVID Rx#:[id number] Oral 120 Blood Product 620 Rc As-1 Unit 310 [id number] Output: Chest Tube Drainage 100 70 20 LP 80 70 20 MS x2 20 Urine 1150 200 300 Other: Voiding Method Indwelling Catheter Toilet Toilet # Voids 0 0 ABP, PAP, CO, CI - Last Documented Arterial Blood Pressure 126/52 Pulmonary Artery Pressure 19/8 Cardiac Output 4.6 Cardiac Index 2.5 - Exam Review Of Systems: Constitutional: No fever, no chills, no night sweats. No weight change. Reports fatigue. No daytime sleepiness. EENT: No headache. No nasal drainage or congestion. No epistaxis. No sore throat. Lungs: No shortness of breath, cough, no sputum production. No wheezing. Cardiovascular: Reports chest discomfort, reports pain with inspiration, no lower extremity edema. No palpitations. No paroxysmal nocturnal dyspnea. No orthopnea. No lightheadedness or dizziness. No syncopal episodes. Abdominal: No abdominal pain. No nausea, vomiting. No diarrhea. No constipation. No bloody or tarry stools.. No loss of appetite. Genitourinary: No dysuria, increased frequency, urgency. No urinary retention. Musculoskeletal: No myalgias. No muscle weakness, no gait dysfunction, no frequent falls. No back pain. No neck pain. Integumentary: No wounds, no lesions. No rash or pruritus. Neurologic: No aphasia. No facial droop. No change in mentation. Psychiatric: No depression. No anxiety. Endocrine: Reported abnormal blood sugars. Physical examination: HEENT: head is atraumatic normocephalic. Patient is resting and 90 ICU bed and appears to be comfortable. Cordis remains in place. Neck: supple, no JVP. Chest: decreased breath sounds at the bases otherwise clear to auscultation bilaterally, there is [address] Heart: first heart sound is depressed , second heart sound is normal there is gallop but no murmur. Abdomen: soft non tender, non distended positive bowel sounds. Zavala catheter draining clear gabby urine. Extremities: there is no edema no calf tenderness DP + 2 bilaterally. Neurologic examination: patient is awake alert and oriented 3, no focal neuro deficits. - Labs CBC & Chem 7: 05/14/20 04:30 05/14/20 04:30 Labs: Abnormal Lab Results - Last 24 Hours (Table) 05/05/20 05/13/20 05/13/20 Range/Units 07:09 16:52 21:15 RBC (3.80-5.40) m/uL Hgb (11.4-16.0) gm/dL Hct (34.0-46.0) % BUN (7-17) mg/dL Glucose (74-99) mg/dL POC Glucose (mg/dL) 157 H 174 H (75-99) mg/dL Calcium (8.4-10.2) mg/dL AST (14-36) U/L ALT (4-34) U/L Total Protein (6.3-8.2) g/dL Albumin (3.5-5.0) g/dL Crossmatch See Detail 05/14/20 05/14/20 05/14/20 Range/Units 04:30 04:30 07:09 RBC 2.53 L (3.80-5.40) m/uL Hgb 8.2 L D (11.4-16.0) gm/dL Hct 23.8 L (34.0-46.0) % BUN 26 H (7-17) mg/dL Glucose 110 H (74-99) mg/dL POC Glucose (mg/dL) 128 H (75-99) mg/dL Calcium 8.2 L (8.4-10.2) mg/dL AST 64 H (14-36) U/L ALT 58 H (4-34) U/L Total Protein 5.4 L (6.3-8.2) g/dL Albumin 3.0 L (3.5-5.0) g/dL Crossmatch 05/14/20 Range/Units 11:40 RBC (3.80-5.40) m/uL Hgb (11.4-16.0) gm/dL Hct (34.0-46.0) % BUN (7-17) mg/dL Glucose (74-99) mg/dL POC Glucose (mg/dL) 148 H (75-99) mg/dL Calcium (8.4-10.2) mg/dL AST (14-36) U/L ALT (4-34) U/L Total Protein (6.3-8.2) g/dL Albumin (3.5-5.0) g/dL Crossmatch Assessment and Plan Assessment: Assessment and plan: 1. POD #3 S/P CABG X2 with RIVERA to LAD and SCG to OM1. we will continue with current treatment as per cardiothoracic and ICU teams, encouraged the patient to use incentive spirometer, continue with aggressive pulmonary toileting as well. 2. Acute blood loss anemia. Post 2 units of PRBCs. We'll continue to monitor the patient hemoglobin very closely. Continue iron 325 mg orally once every day. 3. Acute vent dependent respiratory failure due to CABG x2 . Patient has been extubated continue with oxygen support, continue the aggressive lumbar toileting, continue with incentive spirometer, increase activity. 4. Hypertension and hypertensive cardiovascular disease. we will continue with metoprolol 25 mg orally twice every day, losartan 25 mg orally once every day. 5. Glaucoma. we will continue with current eye drops. 6. Hyperlipidemia. we will continue Lipitor 40 mg orally daily. 9. Increase activity, hopefully home in the next 48 hours. 10. DVT prophylaxis. Continue heparin 5000 units subcutaneously every 8 hours. 11. GI prophylaxis. Continue patient on Protonix 40 mg orally once every day.
[2020-05-14 16:48] LABS: Glucose,Whole Blood 169 mg/dL (75-99)
[2020-05-14] MEDS: SENNOSIDES-DOCUSATE SODIUM 1 EACH TAB PO SCH (20:18)
[2020-05-14] MEDS: LATANOPROST 0.005% OPHTH DROPS 2.5 ML BTL BOTH EYES SCH (20:20)
[2020-05-14 20:24] LABS: Glucose,Whole Blood 146 mg/dL (75-99)
[2020-05-15] MEDS: HYDROcodone/APAP 5-325MG 1 EACH TAB PO PRN (04:08)
[2020-05-15 06:35] LABS: Glucose,Whole Blood 137 mg/dL (75-99)
[2020-05-15] MEDS: FERROUS SULFATE 325 MG TAB PO SCH (06:35)
[2020-05-15] MEDS: PANTOPRAZOLE 40 MG TABLET PO SCH (06:35)
[2020-05-15] MEDS: INSULIN ASPART (NovoLOG) 100 UNIT/ML VIAL SQ SCH ×4 (06:36→20:06)
--- NOTE | 2020-05-15 07:39 | XR ---
EXAMINATION TYPE: XR chest 2V DATE OF EXAM: 05/15/2020 COMPARISON: Chest x-ray 05/14/2020 HISTORY: Post cardiac surgery, chest tube removal TECHNIQUE: Frontal and lateral views of the chest are obtained. FINDINGS: Interval removal of the left-sided chest tube. No evident pneumothorax. Cardiac mediastina l silhouette is stable. Patchy basilar density persists. No sizable effusion. IMPRESSION: No evident complication status post chest tube removal. Residual atelectasis, cardiomega ly.
[2020-05-15] MEDS: IPRATROPIUM-ALBUTEROL 3 ML NEB INHALATION SCH ×4 (07:40→19:07)
[2020-05-15 07:59] LABS: HCT 28.1 % (34.0-46.0); HGB 9.3 gm/dL (11.4-16.0); MCH 31.6 pg (25.0-35.0); MCV 95.9 fL (80.0-100.0); Mean Platelet Volume 7.6; Platelet Count 293 k/uL (150-450); RBC 2.93 m/uL (3.80-5.40); RDW 13.9 % (11.5-15.5); WBC 10.8 k/uL (3.8-10.6)
[2020-05-15 08:14] LABS: Potassium 4.6 mmol/L (3.5-5.1)
[2020-05-15 08:15] LABS: Calcium 8.9 mg/dL (8.4-10.2)
[2020-05-15] MEDS: HEPARIN SODIUM,PORCINE 5,000 UNIT/ML 1 ML VIAL SQ SCH ×3 (08:21→22:52)
[2020-05-15] MEDS: CHOLECALCIFEROL 25 MCG (1000 IU) TABLET PO SCH (08:21)
[2020-05-15] MEDS: METOPROLOL TARTRATE 50 MG TAB PO SCH ×2 (08:22→20:05)
[2020-05-15] MEDS: CLOPIDOGREL 75 MG TAB PO SCH (08:22)
[2020-05-15] MEDS: ATORVASTATIN 40 MG TAB PO SCH (08:22)
[2020-05-15] MEDS: ASPIRIN 325 MG TAB PO SCH (08:22)
[2020-05-15] MEDS ORDERED: FUROSEMIDE 10 MG/ML 2 ML VIAL IV ONE (08:28)
[2020-05-15] MEDS: TIMOLOL 0.5% OPHTH DROPS 5 ML BTL BOTH EYES SCH ×2 (08:30→20:06)
--- NOTE | 2020-05-15 09:49 | P.PN ---
Subjective Progress Note Date: 05/15/20 Principal diagnosis: Coronary artery disease with left main disease. Previous medical history of hypertension, hyperlipidemia, lifelong nonsmoker, Covid 19 positive in February 2020, rheumatoid arthritis, vertigo, depression, and glaucoma. POD #4 coronary bypass grafting 2 vessels, left internal mammary artery to the left anterior descending artery, reverse saphenous vein graft to the obtuse marginal artery, endoscopic harvesting of the left greater saphenous vein, epi-aortic ultrasound, intraoperative transesophageal echocardiogram, ligation of the left atrial appendage using a 35 mm AtriClip Postoperative acute blood loss anemia, expected outcome given hemodilution and cardiopulmonary bypass pump Elevated transaminases, unexpected, trending down The patient is currently sitting up in bed in no acute distress on the cardiac stepdown unit. Does complain of mild postoperative surgical pain which is well controlled on current medication regimen, denies shortness of breath, working on her incentive spirometry. Remains in sinus rhythm and hemodynamically stable. She ambulated in the hallway yesterday without difficulty. No other new concerns Objective - Vital Signs Vital signs: Vital Signs Temp 99.1 F 05/15/20 04:00 Pulse 107 H 05/15/20 08:20 Resp 16 05/15/20 08:20 BP 128/62 05/15/20 08:20 Pulse Ox 98 05/15/20 08:20 Intake & Output 05/14/20 05/15/20 05/15/20 18:59 06:59 18:59 Intake Total 10 Output Total 1320 550 Balance -1320 -540 Weight 87.6 kg Intake: IV 10 flush 10 Output: Chest Tube Drainage 20 LP 20 Urine 1300 550 Other: Voiding Method Toilet Toilet # Voids 1 1 ABP, PAP, CO, CI - Last Documented Arterial Blood Pressure 126/52 Pulmonary Artery Pressure 19/8 Cardiac Output 4.6 Cardiac Index 2.5 - Constitutional General appearance: Present: cooperative, no acute distress, obese - Respiratory Details: Lungs sounds diminished bilaterally. Respirations even, nonlabored. Currently on room air with oxygen saturation 965%. Able to achieve 400 mL on incentive spirometry. - Cardiovascular Details: S1, S2 present. Regular rate and rhythm, sinus rhythm on telemetry. Sternum stable. Palpable peripheral pulses bilaterally. Generalized trace edema present. No calf pain or tenderness noted. Heart hugger in place with patient demonstrating appropriate use. Antiembolism stockings, SCDs present. - Gastrointestinal Gastrointestinal Comment(s): Soft, nontender, nondistended. Active bowel sounds present 4 quadrants. Tolerating diet. Positive flatus, negative bowel movement - Genitourinary Genitourinary Comment(s): Continues to void clear, yellow urine - Integumentary Integumentary Comment(s): Skin is warm and dry with evidence of good perfusion. Anterior chest incision well approximated and covered with dry intact dressing. Left lower extremity EVH site well approximated without redness or drainage - Neurologic Neurologic: Present: CNII-XII intact - Musculoskeletal Musculoskeletal: Present: gait normal, strength equal bilaterally - Psychiatric Psychiatric: Present: A&O x's 3, appropriate affect, intact judgment & insight - Allied health notes Allied health notes reviewed: nursing - Labs CBC & Chem 7: 05/15/20 06:56 05/15/20 06:56 Labs: Abnormal Lab Results - Last 24 Hours (Table) 05/14/20 05/14/20 05/14/20 Range/Units 11:40 16:47 20:23 WBC (3.8-10.6) k/uL RBC (3.80-5.40) m/uL Hgb (11.4-16.0) gm/dL Hct (34.0-46.0) % Sodium (137-145) mmol/L BUN (7-17) mg/dL Glucose (74-99) mg/dL POC Glucose (mg/dL) 148 H 169 H 146 H (75-99) mg/dL 05/15/20 05/15/20 05/15/20 Range/Units 05:58 06:56 06:56 WBC 10.8 H (3.8-10.6) k/uL RBC 2.93 L (3.80-5.40) m/uL Hgb 9.3 L (11.4-16.0) gm/dL Hct 28.1 L (34.0-46.0) % Sodium 136 L (137-145) mmol/L BUN 21 H (7-17) mg/dL Glucose 140 H (74-99) mg/dL POC Glucose (mg/dL) 137 H (75-99) mg/dL - Imaging and Cardiology Chest x-ray: report reviewed, image reviewed Assessment and Plan Assessment: 1. Coronary artery disease with left main disease, status post 2 vessel CABG 2. Hypertension 3. Hyperlipidemia, treated, cholesterol 149, LDL 90 4. Lifelong nonsmoker, preoperative FEV1 81% of predicted 5. Covid 19 positive in February 2020, repeat test completed 05/03/2020 at [facility] was negative 6. Rheumatoid arthritis 7. Vertigo 8. Depression 9. Glaucoma 10. Postoperative acute blood loss anemia 11. Elevated transaminases, resolving Plan: 1. Continue aspirin, statin, Plavix, beta carlos therapy. Will increase beta carlos therapy as tolerated, increase to 50 mg twice daily today 2. Continue low dose losartan and increase as tolerated 3. Encourage incentive spirometry 10 times every hour while awake. Bronchodilators per pulmonology 4. Increase activity, ambulate as tolerated. PT/OT/cardiac rehab consulted 5. Will monitor daily labs and x-rays. Electrolyte replacement per protocol. Will give 20 mg IV Lasix today 6. GI/DVT prophylaxis 7. Insulin management per primary care service. Patient is not diabetic, preoperative hemoglobin A1c 6% 8. Strict accurate intake and output. Daily weights 9. Discharge planning in progress. Anticipate discharge to home with home care tomorrow 10. More recommendations to follow based on patient's progress Time with Patient: Greater than 30
--- NOTE | 2020-05-15 09:58 | P.PN ---
Subjective Progress Note Date: 05/15/20 This is a pleasant 74-year-old female patient with documented history of hypertension, hyperlipidemia, rheumatoid arthritis, she underwent coronary artery bypass grafting surgery with a RIVERA to the LAD and a saphenous vein graft to the obtuse marginal, postop day #4. She was seen and examined this morning, breathing is stable, denies any chest discomfort, Complaining of mild incisional discomfort. Blood pressure 128/60 with a heart rate in the 90s low 100s, 98% on room air. White blood cell count 10.8, hemoglobin 9.3 platelet count 293. Sodium 136, potassium 4.6, BUN 21, creatinine 0.8. Chest x-ray from this morning showed some residual atelectasis. Objective - Vital Signs Vital signs: Vital Signs Temp 99.1 F 05/15/20 04:00 Pulse 107 H 05/15/20 08:20 Resp 16 05/15/20 08:20 BP 128/62 05/15/20 08:20 Pulse Ox 98 05/15/20 08:20 Intake & Output 05/14/20 05/15/20 05/15/20 18:59 06:59 18:59 Intake Total 10 Output Total 1320 550 Balance -1320 -540 Weight 87.6 kg Intake: IV 10 flush 10 Output: Chest Tube Drainage 20 LP 20 Urine 1300 550 Other: Voiding Method Toilet Toilet # Voids 1 1 ABP, PAP, CO, CI - Last Documented Arterial Blood Pressure 126/52 Pulmonary Artery Pressure 19/8 Cardiac Output 4.6 Cardiac Index 2.5 - Exam GENERAL EXAM: Alert, very pleasant 74-year-old female patient, on room air, up ambulating in the hallway, comfortable in no apparent distress. HEAD: Normocephalic. EYES: Normal reaction of pupils, equal size. NOSE: Clear with pink turbinates. THROAT: No erythema or exudates. NECK: Right IJ York-Cristobal catheter in place. No masses, no JVD. CHEST: Sternal dressing dry and intact. Her out place. Left chest tube in place. LUNGS: Equal air entry with crackles in the bases, left greater than right. CVS: S1 and S2 normal with no audible murmur, regular rhythm. ABDOMEN: No hepatosplenomegaly, normal bowel sounds, no guarding or rigidity. SPINE: No scoliosis or deformity SKIN: No rashes CENTRAL NERVOUS SYSTEM: No focal deficits, tone is normal in all 4 extremities. EXTREMITIES: There is trace peripheral edema. No clubbing, no cyanosis. Peripheral pulses are intact. - Labs CBC & Chem 7: 05/15/20 06:56 05/15/20 06:56 Labs: Abnormal Lab Results - Last 24 Hours (Table) 05/14/20 05/14/20 05/14/20 Range/Units 11:40 16:47 20:23 WBC (3.8-10.6) k/uL RBC (3.80-5.40) m/uL Hgb (11.4-16.0) gm/dL Hct (34.0-46.0) % Sodium (137-145) mmol/L BUN (7-17) mg/dL Glucose (74-99) mg/dL POC Glucose (mg/dL) 148 H 169 H 146 H (75-99) mg/dL 05/15/20 05/15/20 05/15/20 Range/Units 05:58 06:56 06:56 WBC 10.8 H (3.8-10.6) k/uL RBC 2.93 L (3.80-5.40) m/uL Hgb 9.3 L (11.4-16.0) gm/dL Hct 28.1 L (34.0-46.0) % Sodium 136 L (137-145) mmol/L BUN 21 H (7-17) mg/dL Glucose 140 H (74-99) mg/dL POC Glucose (mg/dL) 137 H (75-99) mg/dL Assessment and Plan Plan: Assessment and Plan 1 Coronary artery disease status post coronary artery bypass grafting utilizing a RIVERA to the LAD, saphenous vein graft to the OM. Postoperative day #4 2 Anemia, expected outcome, received 1 unit packed red blood cells. Current hemoglobin 8.2 3 Postoperative atelectasis, expected outcome 4 Hyperlipidemia 5 Hypertension 6 Rheumatoid arthritis 7 Lifelong nonsmoker 8 Glaucoma Plan patient has been encouraged regarding the use of her incentive spirometry. She has been up ambulating in the hallway. We will increase her activity today as tolerated. DNP note has been reviewed, I agree with a documented findings and plan of care. Patient was seen and examined.
[2020-05-15] MEDS ORDERED: ACETAMINOPHEN TAB 325 MG TAB PO PRN ×2 (10:15→10:26)
[2020-05-15] MEDS: ACETAMINOPHEN TAB 325 MG TAB PO PRN ×3 (10:51→22:56)
--- NOTE | 2020-05-15 11:06 | P.PN ---
Subjective Progress Note Date: 05/15/20 This is a 74 year old female one of my patient with a previous medical history significant for hypertension and hypertensive cardiovascular disease, hyperlipidemia, Rheumatoid arthritis, vertigo, depression and Glaucoma, was seen and evaluated in my office for uncontrolled hypertension and feeling diaphor etic, with dyspnea on exertion, had a 12- Lead EKG that showed poor R wave progression and based on that it was recommended for her to undergo Lexiscan stress test on 04/11/2020 which showed a large fixed area of perfusion defect in the lateral wall suggestive of prior AK and a defect in the anteroseptal area during rest and not during exercise suggestive of an artifact, was not too sure so I referred the patient to see who recommended Left heart catherization which was done at [facility] through the right radial approach and while he was engaging the left main she developed EKG changes and chest pain so the procedure was aborted and she was sent to [facility] for Left heart catherization through the right femoral artery with IVUS that showed 79 % stenosis of Left main and the option was given to her of doing angioplasty VS revascularization so she was evaluated by cardiothoracic surgery for CABG an she is scheduled for today , she underwent RIVERA to LAD and SVG to OM1 patient had lost a lot of blood in the OR her HGB dropped to 5 and she is currently in the ICU on Cleviprex drip 3 mg/h and also currently on the ventilator with FIO2 50% and the plan is to extubate later on tonight. 05/12: Patient is seen today sitting up in a recliner. She appears to be in no acute distress. Patient was extubated last evening. Incentive spirometry is 450-500. She is currently on O2 at 2 L with pulse ox of 94%. Heart rate 87, blood pressure 90/39. monitoring specialist is a sinus rhythm. Chest tubes, epidural pacemaker, cordis and Zavala remain in place. WBC 7.7, hemoglobin 7.4, platelet count 167. Electrolytes normal, BUN 20 creatinine 0.85. Capillary blood glucose running between 107 and 223. Patient is on insulin drip. Chest x-ray reveals left lower lobe infiltrate worsening from comparison. Cardiology is also on consult. 05/13: Patient sitting up in a recliner is feeling much better today she denies any chest pain, shortness breath, she continues to struggle with incentive spirometer, she denies any abdominal pain, she is eating, she has not had a bowel movement, she continues to pass some gas, she is working with physical therapy, her vital signs are stable at this time, she is being followed by cardiothoracic surgery as well as by duplicate maker. 05/14: Patient sitting up in a recliner distress, she denies ingesting, less short of breath, she continues to be on oxygen, she continues to work with her incentive spirometer, she has no abdominal pain, she is tolerating her diet well, she is not eating as much, she appearS to move around better, we'll increase activity, hopefully she'll be getting out of the hospital in the next 1-2 days. 05/15: Patient is doing better today, she continues to try to use her incentive spirometer, she did have a low-grade temperature today, she is eating better she did have a good bowel movement today hopefully if everything is okay she can be discharged home in the next 24 hours, a follow-up with us as an outpatient in about couple weeks from now. Objective - Vital Signs Vital signs: Vital Signs Temp 99.1 F 05/15/20 04:00 Pulse 107 H 05/15/20 08:20 Resp 16 05/15/20 08:20 BP 128/62 05/15/20 08:20 Pulse Ox 98 05/15/20 08:20 Intake & Output 05/14/20 05/15/20 05/15/20 18:59 06:59 18:59 Intake Total 10 Output Total 1320 550 Balance -1320 -540 Weight 87.6 kg Intake: IV 10 flush 10 Output: Chest Tube Drainage 20 LP 20 Urine 1300 550 Other: Voiding Method Toilet Toilet Toilet # Voids 1 1 ABP, PAP, CO, CI - Last Documented Arterial Blood Pressure 126/52 Pulmonary Artery Pressure 19/8 Cardiac Output 4.6 Cardiac Index 2.5 - Exam Review Of Systems: Constitutional: No fever, no chills, no night sweats. No weight change. Reports fatigue. No daytime sleepiness. EENT: No headache. No nasal drainage or congestion. No epistaxis. No sore throat. Lungs: No shortness of breath, cough, no sputum production. No wheezing. Cardiovascular: Reports chest discomfort, reports pain with inspiration, no lower extremity edema. No palpitations. No paroxysmal nocturnal dyspnea. No orthopnea. No lightheadedness or dizziness. No syncopal episodes. Abdominal: No abdominal pain. No nausea, vomiting. No diarrhea. No constipation. No bloody or tarry stools.. No loss of appetite. Genitourinary: No dysuria, increased frequency, urgency. No urinary retention. Musculoskeletal: No myalgias. No muscle weakness, no gait dysfunction, no frequent falls. No back pain. No neck pain. Integumentary: No wounds, no lesions. No rash or pruritus. Neurologic: No aphasia. No facial droop. No change in mentation. Psychiatric: No depression. No anxiety. Endocrine: Reported abnormal blood sugars. Physical examination: HEENT: head is atraumatic normocephalic, pupils were round reactive to light and recommendation, extra ocular muscle movement were intact. Neck: supple, no JVP. Chest: decreased breath sounds at the bases, few rhonchi, incision midline appears to be clean. Heart: first heart sound is depressed , second heart sound is normal there is no gallop or murmur. Abdomen: soft non tender, non distended positive bowel sounds, no hepatosplenomegaly. Extremities: there is +1 edema no calf tenderness DP + 2 bilaterally. Neurologic examination: Vision is awake alert and oriented 3, cranial nerve II- 12 appear grossly intact, muscle power 4 out of 5 in upper and lower extremities bilaterally. - Labs CBC & Chem 7: 05/15/20 06:56 05/15/20 06:56 Labs: Abnormal Lab Results - Last 24 Hours (Table) 05/14/20 05/14/20 05/14/20 Range/Units 11:40 16:47 20:23 WBC (3.8-10.6) k/uL RBC (3.80-5.40) m/uL Hgb (11.4-16.0) gm/dL Hct (34.0-46.0) % Sodium (137-145) mmol/L BUN (7-17) mg/dL Glucose (74-99) mg/dL POC Glucose (mg/dL) 148 H 169 H 146 H (75-99) mg/dL 05/15/20 05/15/20 05/15/20 Range/Units 05:58 06:56 06:56 WBC 10.8 H (3.8-10.6) k/uL RBC 2.93 L (3.80-5.40) m/uL Hgb 9.3 L (11.4-16.0) gm/dL Hct 28.1 L (34.0-46.0) % Sodium 136 L (137-145) mmol/L BUN 21 H (7-17) mg/dL Glucose 140 H (74-99) mg/dL POC Glucose (mg/dL) 137 H (75-99) mg/dL Assessment and Plan Assessment: Assessment and plan: 1. POD #4 S/P CABG X2 with RIVERA to LAD and SCG to OM1. Increase activity, continue incentive Stromberger, patient mostly would be discharged home in the next 24 hours. 2. Acute blood loss anemia. Post 2 units of PRBCs. We'll continue to monitor the patient hemoglobin very closely. Continue iron 325 mg orally once every day. 3. Acute vent dependent respiratory failure due to CABG x2 . Patient has been extubated continue with oxygen support, continue the aggressive lumbar toileting, continue with incentive spirometer, increase activity. 4. Hypertension and hypertensive cardiovascular disease. we will continue with metoprolol 50 mg orally twice every day, losartan 25 mg orally once every day. 5. Glaucoma. we will continue with current eye drops. 6. Hyperlipidemia. we will continue Lipitor 40 mg orally daily. 9. Increase activity, hopefully home in the next 24 hours. 10. DVT prophylaxis. Continue heparin 5000 units subcutaneously every 8 hours. 11. GI prophylaxis. Continue patient on Protonix 40 mg orally once every day. 12. Patient is medically stable for discharge home in the next 24 hours.
[2020-05-15 11:38] LABS: Glucose,Whole Blood 157 mg/dL (75-99)
[2020-05-15] MEDS: LOSARTAN 25 MG TAB PO SCH (12:18)
--- NOTE | 2020-05-15 13:17 | P.PN ---
Subjective Progress Note Date: 05/15/20 Principal diagnosis: Status post coronary artery bypass grafting 2, postoperative day #2 This is a very pleasant 74-year-old female patient with a known history hypertension, hyperlipidemia, rheumatoid arthritis. She is a lifelong nonsmoker and has not been seen by a roll cutting operator in the past. Recently she had been having issues with shortness of breath on exertion. Subsequent stress test revealed possible ischemia and she was admitted to [facility] for cardiac catheterization at which time she developed chest discomfort and EKG changes. The procedure was stopped and she was transferred here to [facility] and found to have significant coronary artery disease was recommended coronary artery bypass grafting. Echocardiogram revealed preserved left ventricular systolic function with ejection fraction 55-60%. Spirometry with an FEV1 81%. She was subsequently discharged on 05/05/2020 and brought in today 05/11/2020 for the surgery. She had undergone coronary artery bypass grafting utilizing a RIVERA to the LAD and saphenous vein graft to the OM. She is seen today in the intensive care unit in the immediate postoperative period. She is currently intubated on a mechanical ventilator at assist control 12, tidal on 400, FiO2 40% and a PEEP of 5. Arterial blood gases revealed a pO2 of 146, pCO2 43, pH 7.37. White count 8.7. Hemoglobin 8.2. Platelet count 159. Sodium 138. Potassium 4.3. Creatinine 0.67. Glucose 125. AST 4:15. ALT 261. She is currently on a clevidipine at 2 mg per hour, insulin drip at 1 unit per hour. Propofol at 30 mcg/kg/m, nitroglycerin drip at 5 mcg/m. Right IJ Davis-Cristobal catheter in place. Cardiac output 4.0. Cardiac index 2.2. CVP 17. PA pressure 31/21. Chest x-ray reveals optimal placement of he nasogastric tube. Endotracheal tube to be pulled back 2 cm. Two mediastinal and left sided chest tubes in place. Epicardial wires in place. She is initiated on bronchodilators. Reevaluated today on 05/12/2020, patient is postoperative day #1, she had CABG 2, RIVERA to LAD, and saphenous vein graft to obtuse marginal artery. Patient was extubated at 19:46, uneventfully, and she tolerated the extubation well. She is presently sitting in bed, on 2 L nasal cannula, in no distress. She is hemodynamically stable, not requiring any inotropes or process. Her cardiac output is 4.6 cardiac index is 2.5. Continues to have a right internal jugular Davis/Cordis, she continues to have mediastinal and left pleural chest tubes along with epicardial pacemaker wires. Chest x-ray showed mostly left lower lob e atelectasis, lines and catheters are all in place as expected. WBC count is 7.7 hemoglobin is 7.4. Basic metabolic profile and renal profile are normal. The patient is seen today 05/13/2020 and follow-up in the intensive care unit. Postoperative day #2. She received a CABG 2 with a RIVERA to LAD, saphenous vein graft to the obtuse marginal artery. She is doing quite well. She is currently sitting up in a chair at the bedside. Awake and alert in no acute distress. Maintaining O2 saturations in the 90s on room air. She's afebrile. Somewhat hypertensive. Chest x-ray reveals Mild cardiomegaly with mild central vascular congestion and left greater than right bibasilar atelectasis. Small left pleural effusion. With left sided and mediastinal chest tube remains in place. Davis-Cristobal catheter to the right IJ. She is barely pulling 500 on her incentive spirometer. She is anemic today with a hemoglobin of 6.1. Receiving 1 unit of packed red blood cells. Platelet count 136. White count 7.8. Sodium 135. Potassium 3.9. Creatinine 1.02. AST 68. ALT 69. Remains on bronchodilators. No other drips currently. The patient is seen today 05/14/2020 in follow-up in the intensive care unit. Postoperative day #3. She is doing very well. She is up ambulating in the hallway with assistance. No worsening shortness of breath, cough or congestion. Maintaining O2 saturations in the 90s on room air now. Chest x-ray reveals no evidence of pneumothorax or sizable effusion. Patchy bibasilar densities persist. Left chest tube remains in place. She is status post 1 unit packed red blood cells this admission. Current hemoglobin 8.2. Platelet count 166. Sodium 137. Potassium 4.5. Creatinine 0.82. White count 8.1. The patient is seen today 05/15/2020 in follow-up on the selective care unit. She is currently sitting up in bed. Awake and alert in no acute distress. This is postoperative day #4. Continues to work well with the incentive spirometer. No worsening shortness of breath, cough or congestion. Maintaining good O2 saturations in the upper 90s on room air. Chest x-ray reveals removal of left- sided chest tube. No evidence of pneumothorax. Patchy basilar densities persist. She's afebrile. White count 10.8. Hemoglobin 9.3. Sodium 136. Potassium 4.6. Creatinine 0.80. Objective - Vital Signs Vital signs: Vital Signs Temp 98.2 F 05/15/20 12:00 Pulse 86 05/15/20 12:00 Resp 16 05/15/20 12:00 BP 142/61 05/15/20 12:00 Pulse Ox 98 05/15/20 12:00 Intake & Output 05/14/20 05/15/20 05/15/20 18:59 06:59 18:59 Intake Total 10 240 Output Total 1320 550 Balance -1320 -540 240 Weight 87.6 kg Intake: IV 10 flush 10 Oral 240 Output: Chest Tube Drainage 20 LP 20 Urine 1300 550 Other: Voiding Method Toilet Toilet Toilet # Voids 1 1 2 ABP, PAP, CO, CI - Last Documented Arterial Blood Pressure 126/52 Pulmonary Artery Pressure 19/8 Cardiac Output 4.6 Cardiac Index 2.5 - Exam GENERAL EXAM: Alert, very pleasant 74-year-old female patient, on room air, comfortable in no apparent distress. HEAD: Normocephalic. EYES: Normal reaction of pupils, equal size. NOSE: Clear with pink turbinates. THROAT: No erythema or exudates. NECK: Right IJ Davis-Cristobal catheter in place. No masses, no JVD. CHEST: Sternal dressing dry and intact. Heart Hugger in place. LUNGS: Equal air entry with crackles in the bases, left greater than right. CVS: S1 and S2 normal with no audible murmur, regular rhythm. ABDOMEN: No hepatosplenomegaly, normal bowel sounds, no guarding or rigidity. SPINE: No scoliosis or deformity SKIN: No rashes CENTRAL NERVOUS SYSTEM: No focal deficits, tone is normal in all 4 extremities. EXTREMITIES: There is trace peripheral edema. No clubbing, no cyanosis. Peripheral pulses are intact. - Labs CBC & Chem 7: 05/15/20 06:56 05/15/20 06:56 Labs: Abnormal Lab Results - Last 24 Hours (Table) 05/14/20 05/14/20 05/15/20 Range/Units 16:47 20:23 05:58 WBC (3.8-10.6) k/uL RBC (3.80-5.40) m/uL Hgb (11.4-16.0) gm/dL Hct (34.0-46.0) % Sodium (137-145) mmol/L BUN (7-17) mg/dL Glucose (74-99) mg/dL POC Glucose (mg/dL) 169 H 146 H 137 H (75-99) mg/dL 05/15/20 05/15/20 05/15/20 Range/Units 06:56 06:56 11:37 WBC 10.8 H (3.8-10.6) k/uL RBC 2.93 L (3.80-5.40) m/uL Hgb 9.3 L (11.4-16.0) gm/dL Hct 28.1 L (34.0-46.0) % Sodium 136 L (137-145) mmol/L BUN 21 H (7-17) mg/dL Glucose 140 H (74-99) mg/dL POC Glucose (mg/dL) 157 H (75-99) mg/dL Assessment and Plan Assessment: 1 Coronary artery disease status post coronary artery bypass grafting utilizing a RIVERA to the LAD, saphenous vein graft to the OM. Postoperative day #4 2 Anemia, expected outcome, received 1 unit packed red blood cells. Current hemoglobin 9.3 3 Postoperative atelectasis, expected outcome 4 Hyperlipidemia 5 Hypertension 6 Rheumatoid arthritis 7 Lifelong nonsmoker 8 Glaucoma Plan: The patient was seen and evaluated by Dr. Jamison Chest x-ray, labs reviewed Again encouraged regarding the increased use of the incentive spirometer Increase her activity as tolerated Possibly home in the a.m. We will continue to follow I, the cosigning physician, performed a history & physical examination of the patient. Lungs sounds with crackles in the posterior bases left greater than right. Maintaining good O2 saturations in the 90s on room air. I discussed the assessment and plan of care with my nurse practitioner, Filomena Ariza. I attest to the above note as dictated by her.
[2020-05-15 16:54] LABS: Glucose,Whole Blood 128 mg/dL (75-99)
[2020-05-15 20:03] LABS: Glucose,Whole Blood 181 mg/dL (75-99)
[2020-05-15] MEDS: SENNOSIDES-DOCUSATE SODIUM 1 EACH TAB PO SCH (20:05)
[2020-05-15] MEDS: LATANOPROST 0.005% OPHTH DROPS 2.5 ML BTL BOTH EYES SCH (20:05)
[2020-05-16 02:39] LABS: Glucose,Whole Blood 131 mg/dL (75-99)
[2020-05-16 06:26] LABS: Glucose,Whole Blood 118 mg/dL (75-99)
[2020-05-16] MEDS: INSULIN ASPART (NovoLOG) 100 UNIT/ML VIAL SQ SCH ×2 (06:28→11:36)
[2020-05-16] MEDS: PANTOPRAZOLE 40 MG TABLET PO SCH (06:39)
[2020-05-16] MEDS: IPRATROPIUM-ALBUTEROL 3 ML NEB INHALATION SCH ×3 (07:25→15:44)
[2020-05-16 07:58] LABS: HCT 27.3 % (34.0-46.0); HGB 9.5 gm/dL (11.4-16.0); MCH 32.6 pg (25.0-35.0); MCHC 34.6 g/dL (31.0-37.0); Mean Platelet Volume 7.5; Platelet Count 303 k/uL (150-450); RDW 14.1 % (11.5-15.5); WBC 10.2 k/uL (3.8-10.6)
[2020-05-16] MEDS ORDERED: FUROSEMIDE 10 MG/ML 2 ML VIAL IV ONE (08:03)
[2020-05-16 08:09] LABS: African American GFR (CKD) >90 (>60 ml/min/1.73 sqM); Anion Gap 9 mmol/L; Blood Urea Nitrogen 15 mg/dL (7-17); Calcium 8.7 mg/dL (8.4-10.2); Carbon Dioxide 23 mmol/L (22-30); Chloride 104 mmol/L (98-107); Glucose 122 mg/dL (74-99); Non-African American GFR(CKD) 89 (>60 ml/min/1.73 sqM); Potassium 4.3 mmol/L (3.5-5.1); Sodium 136 mmol/L (137-145)
--- NOTE | 2020-05-16 08:20 | XR ---
EXAMINATION TYPE: XR chest 2V DATE OF EXAM: 05/16/2020 COMPARISON: Chest x-ray from one day earlier and older studies. HISTORY: Postoperative cardiac surgery. TECHNIQUE: Frontal and lateral views of the chest are obtained. FINDINGS: Overlying sternal wires and mediastinal clips along with left atrial appendage clip are red emonstrated. There is cardiomegaly without thoracic aorta. There are small bilateral pleural effusion s. There is associated left lower lung atelectasis and/or infiltrate. No pneumothorax seen bilaterall y. Overlying EKG leads redemonstrated. Osseous structures are intact. Cholecystectomy clips are redem onstrated. Lateral view remains suboptimal due to body habitus and underpenetration. IMPRESSION: Persistent cardiomegaly with left lower lung atelectasis and/or infiltrate. No significant change from most recent x-ray.
[2020-05-16] MEDS: HEPARIN SODIUM,PORCINE 5,000 UNIT/ML 1 ML VIAL SQ SCH (08:35)
[2020-05-16] MEDS: METOPROLOL TARTRATE 50 MG TAB PO SCH (08:36)
[2020-05-16] MEDS: CHOLECALCIFEROL 25 MCG (1000 IU) TABLET PO SCH (08:36)
[2020-05-16] MEDS: ATORVASTATIN 40 MG TAB PO SCH (08:36)
[2020-05-16] MEDS: ASPIRIN 325 MG TAB PO SCH (08:36)
[2020-05-16] MEDS: CLOPIDOGREL 75 MG TAB PO SCH (08:36)
[2020-05-16] MEDS: TIMOLOL 0.5% OPHTH DROPS 5 ML BTL BOTH EYES SCH (08:37)
--- NOTE | 2020-05-16 08:38 | P.PN ---
Subjective Progress Note Date: 05/16/20 Principal diagnosis: Coronary artery disease with left main disease. Previous medical history of hypertension, hyperlipidemia, lifelong nonsmoker, Covid 19 positive in February 2020, rheumatoid arthritis, vertigo, depression, and glaucoma. POD 54 coronary bypass grafting 2 vessels, left internal mammary artery to the left anterior descending artery, reverse saphenous vein graft to the obtuse marginal artery, endoscopic harvesting of the left greater saphenous vein, epi-aortic ultrasound, intraoperative transesophageal echocardiogram, ligation of the left atrial appendage using a 35 mm AtriClip Postoperative acute blood loss anemia, expected outcome given hemodilution and cardiopulmonary bypass pump Elevated transaminases, unexpected, trending down The patient is currently sitting up in a recliner in no acute distress on the cardiac stepdown unit. Does complain of mild postoperative surgical pain which is well controlled on current medication regimen, denies shortness of breath, working on her incentive spirometry. She did have an episode of shortness of br eath this morning along with some wheezing, had nebulizer treatment and was up to the bathroom, states she feels much better. Remains in sinus rhythm and hemodynamically stable. She ambulated in the hallway yesterday without difficulty, received first postop shower yesterday. No other new concerns Objective - Vital Signs Vital signs: Vital Signs Temp 97.9 F 05/16/20 03:29 Pulse 80 05/16/20 07:37 Resp 22 05/16/20 06:49 BP 166/75 05/16/20 06:49 Pulse Ox 96 05/16/20 06:49 Intake & Output 05/15/20 05/16/20 05/16/20 18:59 06:59 18:59 Intake Total 960 240 Output Total 500 Balance 960 -260 Weight 86.9 kg Intake: Oral 960 240 Output: Urine 500 Other: Voiding Method Toilet Toilet # Voids 2 1 # Bowel Movements 1 ABP, PAP, CO, CI - Last Documented Arterial Blood Pressure 126/52 Pulmonary Artery Pressure 19/8 Cardiac Output 4.6 Cardiac Index 2.5 - Constitutional General appearance: Present: cooperative, no acute distress, obese - Respiratory Details: Lungs sounds diminished bilaterally. Respirations even, nonlabored. Currently on room air with oxygen saturation 96%. Still only able to achieve 400 mL on incentive spirometry. Weak cough, more like clearing her throat - Cardiovascular Details: S1, S2 present. Regular rate and rhythm, sinus rhythm on telemetry. Sternum stable. Palpable peripheral pulses bilaterally. Generalized trace edema present. No calf pain or tenderness noted. Heart hugger in place with patient demonstrating appropriate use. Antiembolism stockings, SCDs present. - Gastrointestinal Gastrointestinal Comment(s): Soft, nontender, nondistended. Active bowel sounds present 4 quadrants. Tolerating diet. Positive bowel movement - Genitourinary Genitourinary Comment(s): Continues to void clear, yellow urine - Integumentary Integumentary Comment(s): Skin is warm and dry with evidence of good perfusion. Anterior chest incision well approximated and covered with dry intact dressing. Left lower extremity EVH site well approximated without redness or drainage - Neurologic Neurologic: Present: CNII-XII intact - Musculoskeletal Musculoskeletal: Present: gait normal, strength equal bilaterally - Psychiatric Psychiatric: Present: A&O x's 3, appropriate affect, intact judgment & insight - Allied health notes Allied health notes reviewed: nursing - Labs CBC & Chem 7: 05/16/20 06:56 05/16/20 06:56 Labs: Abnormal Lab Results - Last 24 Hours (Table) 05/15/20 05/15/20 05/15/20 Range/Units 11:37 16:53 20:00 RBC (3.80-5.40) m/uL Hgb (11.4-16.0) gm/dL Hct (34.0-46.0) % Sodium (137-145) mmol/L Glucose (74-99) mg/dL POC Glucose (mg/dL) 157 H 128 H 181 H (75-99) mg/dL 05/16/20 05/16/20 05/16/20 Range/Units 02:36 06:22 06:56 RBC 2.90 L (3.80-5.40) m/uL Hgb 9.5 L (11.4-16.0) gm/dL Hct 27.3 L (34.0-46.0) % Sodium (137-145) mmol/L Glucose (74-99) mg/dL POC Glucose (mg/dL) 131 H 118 H (75-99) mg/dL 05/16/20 Range/Units 06:56 RBC (3.80-5.40) m/uL Hgb (11.4-16.0) gm/dL Hct (34.0-46.0) % Sodium 136 L (137-145) mmol/L Glucose 122 H (74-99) mg/dL POC Glucose (mg/dL) (75-99) mg/dL - Imaging and Cardiology Chest x-ray: report reviewed, image reviewed Assessment and Plan Assessment: 1. Coronary artery disease with left main disease, status post 2 vessel CABG 2. Hypertension 3. Hyperlipidemia, treated, cholesterol 149, LDL 90 4. Lifelong nonsmoker, preoperative FEV1 81% of predicted 5. Covid 19 positive in February 2020, repeat test completed 05/03/2020 at [facility] was negative 6. Rheumatoid arthritis 7. Vertigo 8. Depression 9. Glaucoma 10. Postoperative acute blood loss anemia 11. Elevated transaminases, resolving Plan: 1. Continue aspirin, statin, Plavix, beta carlos therapy. Will increase beta carlos therapy as tolerated 2. Continue losartan and increase as tolerated 3. Encourage incentive spirometry 10 times every hour while awake. Bronchodilators per pulmonology 4. Increase activity, ambulate as tolerated. PT/OT/cardiac rehab consulted 5. Will monitor daily labs and x-rays. Electrolyte replacement per protocol. Will give 20 mg IV Lasix today 6. GI/DVT prophylaxis 7. Insulin management per primary care service. Patient is not diabetic, preoperative hemoglobin A1c 6% 8. Strict accurate intake and output. Daily weights 9. Discharge planning in progress. Anticipate discharge to home with home care today 10. More recommendations to follow based on patient's progress Time with Patient: Greater than 30
[2020-05-16] MEDS: ACETAMINOPHEN TAB 325 MG TAB PO PRN (08:49)
[2020-05-16] MEDS ORDERED: METOPROLOL TARTRATE 25 MG TAB PO SCH (09:00)
[2020-05-16] MEDS ORDERED: METOPROLOL TARTRATE 25 MG TAB PO STA (10:12)
--- NOTE | 2020-05-16 10:30 | P.PN ---
Subjective This is a pleasant 74-year-old female POD #5 2V bypass grafting with RIVERA-LAD and SVG-OM. She follows regularly in the office with Dr. Noriega. She is seen and examined sitting up in the recliner eating breakfast in no acute distress. She complains of discomfort at the surgical incision site. No exertional chest pain or shortness of breath. Blood pressure 149/72 heart rate 100 afebrile and maintaining oxygen saturation on room air. Laboratory data reviewed, WBC 10.2, hgb 9.5, plt 303, sodium 136, potassium 4.3, creatinine 0.63 and magnesium 2.0. Currently maintained on aspirin 325 mg daily, atorvastatin 40 mg daily, plavix 75 mg daily, losartan 25 mg daily and lopressor 25 mg BID. GENERAL: Well-appearing, well-nourished and in no acute distress. NECK: Supple without JVD or thyromegaly. LUNGS: Diminished air entry, fine crackles at the right base. No wheezes or rhonchi. Respiration equal and unlabored. HEART: Regular rate and rhythm without murmurs, rubs or gallops. S1 and S2 heard. Heart hugger in place. Mid-sternal incision clean and intact. EXTREMITIES: Normal range of motion, no edema. No clubbing or cyanosis. Peripheral pulses intact. ASSESSMENT Coronary artery disease s/p 2V bypass grafting Hypertension Dyslipidemia Post-op anemia Transaminitis Rheumatoid arthritis PLAN Continue to encourage incentive spirometer use. Consider increasing anti-hypertensive regimen, will defer to CT surgery. Continue to increase activity as tolerated. Nurse Practitioner note has been reviewed, I agree with a documented findings and plan of care. Patient was seen and examined. Objective - Vital Signs Vital signs: Vital Signs Temp 99 F 05/16/20 08:00 Pulse 100 05/16/20 08:00 Resp 16 05/16/20 08:00 BP 149/72 05/16/20 08:00 Pulse Ox 97 05/16/20 08:00 Intake & Output 05/15/20 05/16/20 05/16/20 18:59 06:59 18:59 Intake Total 960 240 0 Output Total 500 350 Balance 960 -260 -350 Weight 86.9 kg Intake: Oral 960 240 0 Output: Urine 500 350 Other: Voiding Method Toilet Toilet # Voids 2 1 # Bowel Movements 1 ABP, PAP, CO, CI - Last Documented Arterial Blood Pressure 126/52 Pulmonary Artery Pressure 19/8 Cardiac Output 4.6 Cardiac Index 2.5 - Labs CBC & Chem 7: 05/16/20 06:56 05/16/20 06:56 Labs: Abnormal Lab Results - Last 24 Hours (Table) 05/15/20 05/15/20 05/15/20 Range/Units 11:37 16:53 20:00 RBC (3.80-5.40) m/uL Hgb (11.4-16.0) gm/dL Hct (34.0-46.0) % Sodium (137-145) mmol/L Glucose (74-99) mg/dL POC Glucose (mg/dL) 157 H 128 H 181 H (75-99) mg/dL 05/16/20 05/16/20 05/16/20 Range/Units 02:36 06:22 06:56 RBC 2.90 L (3.80-5.40) m/uL Hgb 9.5 L (11.4-16.0) gm/dL Hct 27.3 L (34.0-46.0) % Sodium (137-145) mmol/L Glucose (74-99) mg/dL POC Glucose (mg/dL) 131 H 118 H (75-99) mg/dL 05/16/20 Range/Units 06:56 RBC (3.80-5.40) m/uL Hgb (11.4-16.0) gm/dL Hct (34.0-46.0) % Sodium 136 L (137-145) mmol/L Glucose 122 H (74-99) mg/dL POC Glucose (mg/dL) (75-99) mg/dL
[2020-05-16 11:34] LABS: Glucose,Whole Blood 157 mg/dL (75-99)
[2020-05-16 11:40] VITALS: BP 119/64; PULSE 94; RESP 18; TEMP 97.9
[2020-05-16] MEDS ORDERED: LOSARTAN 50 MG TAB PO SCH (12:00)
--- NOTE | 2020-05-16 13:16 | P.DS ---
Providers Date of admission: 05/11/20 05:31 Expected date of discharge: 05/16/20 Attending physician: Cleveland Bullard Consults: 05/11/20 13:52 Consult Physician Routine Consulting Provider: Corona Yao Consult Reason/Comments: med mgmt Do you want consulting provider notified?: Yes Consult Physician Routine Consulting Provider: Fernando Jamison Consult Reason/Comments: Toy Department Manager Consult: post cardiac surgery Do you want consulting provider notified?: Yes Consult Physician Routine Consulting Provider: Eliseo Abbott Consult Reason/Comments: Transformer Coil Winder Consult: post cardiac surgery Do you want consulting provider notified?: Yes Primary care physician: Stated None Hospital Course: FINAL DIAGNOSIS: 1. Coronary artery disease with left main disease 2. Hypertension 3. Hyperlipidemia, treated, cholesterol 149, LDL 90 4. Lifelong nonsmoker, preoperative FEV1 81% of predicted 5. Coated 19 positive in February 2020, repeat test 05/03/2020 negative 6. Rheumatoid arthritis 7. Vertigo 8. Depression 9. Glaucoma 10. Postoperative acute blood loss anemia 11. Elevated transaminases, resolved PRINCIPAL PROCEDURE: 1. Coronary artery bypass grafting 2 vessels, left internal mammary artery to the left anterior descending artery, reverse saphenous vein graft to the obtuse marginal artery 2. Endoscopic harvesting of the left greater saphenous vein 3. Epi-aortic ultrasound and intraoperative transesophageal echocardiogram 4. Ligation of the left atrial appendage using a 35 mm AtriClip HISTORY OF PRESENT ILLNESS: This is a 74-year-old active female who follows on an outpatient basis with Dr. Yao for primary care. During a routine appointment at her primary care physician the patient had a 12-lead EKG completed demonstrating some abnormalities. Further, she underwent Lexiscan stress test which demonstrated large fixed perfusion defect along the lateral wall which was suspicious for area of prior infarct, perfusion defect involving the anterior septal wall at rest compatible with artifact. She was recommended to undergo heart catheterization which was initially done at [facility], however during that catheterization she developed chest pain and EKG changes and the cath was halted. Subsequently she was brought to [facility], cardiac catheterization ensued with DELL which demonstrated 79% stenosis to the left main coronary artery. Consultation was placed to Dr. Bullard from cardiothoracic surgery. She was recommended to undergo elective coronary artery bypass surgery. The usual perioperative course was discussed in detail with the patient, all risks and benefits were explained, all questions were answered, and consent was obtained to proceed with surgery. The patient was discharged to [facility] on maximal medical therapy to return as an outpatient for surgery at the earliest possible date. HOSPITAL COURSE: The patient was brought to the hospital on 05/11/2020, taken to the preoperative area, prepared in the usual fashion, and subsequently taken to the operating room where Dr. Bullard performed 2 vessel CABG. Upon completion of surgery the patient was transferred to the cardiovascular intensive care unit where she was recovered and monitored hemodynamically. She was extubated, all lines, tubes, and drips were discontinued when appropriate, and she was transferred to 3 S cardiac stepdown unit for further monitoring and rehabilitation. She did receive 1 unit packed red blood cells for anemia. Her oxygen was titrated down, she continued to work with physical and occupational therapy, she was tolerating oral diet, her pain was controlled, and she was ready to be discharged to home with [facility] care on postoperative day #5. She received written and verbal instruction regarding her medications, activity restrictions, signs and symptoms requiring physician notification, and follow-up appointments. COMPLICATIONS: The patient experienced no postoperative complications. Patient Condition at Discharge: Stable Plan - Discharge Summary Discharge Rx Participant: No New Discharge Prescriptions: New Aspirin 325 mg PO DAILY #30 tab Furosemide [Lasix] 20 mg PO DAILY #7 tab Metoprolol Tartrate [Lopressor] 75 mg PO BID #120 tab Clopidogrel [Plavix] 75 mg PO DAILY #30 tab Pantoprazole [Protonix] 40 mg PO AC-BRKFST #30 tablet.dr Camilo-Docusate Sodium [Senokot-S] 2 each PO HS PRN #14 tab PRN Reason: Constipation Acetaminophen Tab [Tylenol] 650 mg PO Q4HR PRN tab PRN Reason: Fever And/ Or Pain Continue Latanoprost Ophth [Xalatan 0.005%] 1 drop BOTH EYES HS Cholecalciferol [Vitamin D3 (25 Mcg = 1000 Iu)] 5,000 unit PO DAILY Timolol 0.5% Ophth Soln [Timoptic 0.5% Ophth Soln] 1 drop BOTH EYES BID traZODone HCL 50 mg PO HS PRN PRN Reason: SLEEP Vit B-12 + Folic Acid + Vit C 1 tab PO DAILY Atorvastatin [Lipitor] 80 mg PO HS #90 tab Krill/Om-3/Dha/Epa/Phospho/Ast [Megared [place]-3 Krill 350 mg] 1 each PO DAILY Changed Losartan [Cozaar] 50 mg PO DAILY@1200 #90 tab Discontinued Aspirin [Adult Low Dose Aspirin EC] 81 mg PO DAILY carvediloL [Coreg] 6.25 mg PO BID Mupirocin [Mupirocin 2%] 1 applic EA NOSTRIL BID #1 tube Mupirocin 2% Oint [Bactroban 2% Oint] 1 applic NASAL BID Discharge Medication List Latanoprost Ophth [Xalatan 0.005%] 1 drop BOTH EYES HS 01/20/19 [History] Cholecalciferol [Vitamin D3 (25 Mcg = 1000 Iu)] 5,000 unit PO DAILY 03/03/20 [History] Timolol 0.5% Ophth Soln [Timoptic 0.5% Ophth Soln] 1 drop BOTH EYES BID 03/03/20 [History] Vit B-12 + Folic Acid + Vit C 1 tab PO DAILY 05/03/20 [History] traZODone HCL 50 mg PO HS PRN 05/03/20 [History] Atorvastatin [Lipitor] 80 mg PO HS #90 tab 05/05/20 [Rx] Krill/Om-3/Dha/Epa/Phospho/Ast [Megared [place]-3 Krill 350 mg] 1 each PO DAILY 05/09/20 [History] Acetaminophen Tab [Tylenol] 650 mg PO Q4HR PRN tab 05/16/20 [Rx] Aspirin 325 mg PO DAILY #30 tab 05/16/20 [Rx] Clopidogrel [Plavix] 75 mg PO DAILY #30 tab 05/16/20 [Rx] Furosemide [Lasix] 20 mg PO DAILY #7 tab 05/16/20 [Rx] Losartan [Cozaar] 50 mg PO DAILY@1200 #90 tab 05/16/20 [Rx] Metoprolol Tartrate [Lopressor] 75 mg PO BID #120 tab 05/16/20 [Rx] Pantoprazole [Protonix] 40 mg PO ZHENG #30 tablet. 05/16/20 [Rx] Sennosides-Docusate Sodium [Senokot-S] 2 each PO HS PRN #14 tab 05/16/20 [Rx] Follow up Appointment(s)/Referral(s): Khushbu Hobbs NPC [Nurse Practitioner] - 05/23/20 11:00 am Rehab [facility] ,Cardiac [NON-STAFF] - 4 Weeks (You will be called 4 weeks after surgery for evaluation for cardiac rehab) Lisa Young NPC [Nurse Practitioner] - 05/30/20 2:30 pm (Appt will be at [address] address in the [facility]) Filomena Ariza NPC [Nurse Practitioner] - 06/03/20 2:00 pm () [facility], [NON-STAFF] - 1-2 Days Cleveland Bullard MD [STAFF PHYSICIAN] - 05/30/20 9:45 am Corona Yao MD [STAFF PHYSICIAN] - 05/25/20 10:45 am Ambulatory/Diagnostic Orders: Complete Blood Count w/diff [LAB.AMB] Time Frame: 3 Days, Location: None Selected Comprehensive Metabolic Panel [LAB.AMB] Time Frame: 3 Days, Location: None Selected Patient Instructions/Handouts: CABG (Coronary Artery Bypass Graft) (DC) Activity/Diet/Wound Care/Special Instructions: DISCHARGE INSTRUCTIONS: 1. No driving for 4 weeks, or until physician gives their ok. 2. The patient should sleep in their own bed, no medical bed needed. 3. Stairs are not an issue. If the bedroom is upstairs, it is advised that the patient go up at night and down in the morning for the first week. Go slowly, using handrail and take 1 step at a time. 4. VELMA hose are to be worn for 30 days or until physician discontinues. 5. Heart hugger is to be worn 100% of the time until physician discontinues.(except when showering) 6. No lifting, pushing, or pulling more than 10 pounds for 12 weeks. The physician will advise of any restriction changes. 7. The patient is expected to continue the prescribed walking program. 8. Continue pain control per as needed orders. 9. Continue with incentive spirometry and splinting/heart hugger until otherwise directed by the physician. 10. Must shower daily using liquid antibacterial soap and a separate white washcloth for each individual incision. 11. Routine sternal incision care. No powders, lotions, ointments on incisions. No dressings are necessary on incisions unless they are draining. Dermabond tape is to remain on sternal incision until surgeon follow-up. 12. Please call surgeon/SPECIAL EDUCATION TEACHER for temp greater than 101 F or purulent drainage from incisions. 13. All prescriptions given by surgeon for 30 days. Refills need to be filled through skin care technician/primary care physician. 14. A Red armband has been placed on the patient. It should be worn for 30 days post surgery and will be removed by the cardiac surgeons. If an ER visit is necessary, please make sure the number on the Red armband is called. 15. You have been referred to and are expected to begin Cardiac Rehab in approximately 4-6 weeks. HOME HEALTH SERVICES TO PROVIDE: RN SKILLED HOME CARE SERVICES FOR POST-OP SURGICAL PATIENTS WITH THE FOLLOWING: Coronary Artery Bypass Surgery (CABG) RN TO CONTINUE EDUCATION FROM ``ROAD TO A HEALTH HEART PATIENT EDUCATION MANUAL (GIVEN TO PATIENT IN THE HOSPITAL) MEDICATION RECONCILIATION WITH EDUCATION NEEDED ON FIRST HOME VISIT EMPHASIZE IMPORTANCE OF WEARING BREAST SUPPORT/HEART HUGGER ENCOURAGE USE OF INCENTIVE SPIROMETER 10 X EVERY HOUR WHILE AWAKE ENCOURAGE UTILIZATION OF LOWER EXTREMITY COMPRESSION STOCKINGS/VELMA HOSE and ELEVATE LEGS ABOVE LEVEL OF HEART WHILE AT REST. ENCOURAGE AMBULATION 3-5x/day INCREASING TOLERATES, WHILE AVOIDING EXTREMES IN TEMPERATURE FREQUENCY: RN TO OPEN THE PATIENT WITHIN 24 HOURS OF DISCHARGE FROM THE HOSPITAL WITH [place] [facility] [place] TO VISIT 2-3 X A WEEK FOR 4 WEEKS ESTABLISHED BY PATIENT NEEDS. LABORATORY: CBC, CMP TO BE DRAWN ON THE THIRD DAY HOME, (RAN STAT) FAX RESULTS TO [phone]. TELEHEALTH PARAMETERS: WEIGHT: NOTIFY MD OF WEIGHT GAIN OF 2 LBS IN 24 HOURS OR 5 LBS IN ONE WEEK HR: NOTIFY MD OF HR <55 BPM OR HR>100 BPM BP: NOTIFY MD IF BP <90/55 OR BP>140/100 O2 SAT: NOTIFY MD IF PO2<93% ON ROOM AIR SEND TELEHEALTH REPORT TO BINDING FOLDER MACHINE AND CARDIOVASCULAR SURGEON THE FIRST WEEK OF CARE AND THEN BI-WEEKLY. PLEASE ADDITIONALLY COMMUNICATE ANY ABNORMALS AND NEW FINDINGS TO THE SURGEONS OFFICE. For any questions or concerns please call import/export freight forwarder Khushbu @ or Don @ Discharge Disposition: HOME WITH HOME HEALTH SERVICES
--- NOTE | 2020-05-16 13:21 | P.PN ---
Subjective Progress Note Date: 05/16/20 Principal diagnosis: Status post coronary artery bypass grafting 2 This is a very pleasant 74-year-old female patient with a known history hypertension, hyperlipidemia, rheumatoid arthritis. She is a lifelong nonsmoker and has not been seen by a pharmacy scheduler in the past. Recently she had been having issues with shortness of breath on exertion. Subsequent stress test revealed possible ischemia and she was admitted to [facility] for cardiac catheterization at which time she developed chest discomfort and EKG changes. The procedure was stopped and she was transferred here to [facility] and found to have significant coronary artery disease was recommended coronary artery bypass grafting. Echocardiogram revealed preserved left ventricular systolic function with ejection fraction 55-60%. Spirometry with an FEV1 81%. She was subsequently discharged on 05/05/2020 and brought in today 05/11/2020 for the surgery. She had undergone coronary artery bypass grafting utilizing a RIVERA to the LAD and saphenous vein graft to the OM. She is seen today in the intensive care unit in the immediate postoperative period. She is currently intubated on a mechanical ventilator at assist control 12, tidal on 400, FiO2 40% and a PEEP of 5. Arterial blood gases revealed a pO2 of 146, pCO2 43, pH 7.37. White count 8.7. Hemoglobin 8.2. Platelet count 159. Sodium 138. Potassium 4.3. Creatinine 0.67. Glucose 125. AST 4:15. ALT 261. She is currently on a clevidipine at 2 mg per hour, insulin drip at 1 unit per hour. Propofol at 30 mcg/kg/m, nitroglycerin drip at 5 mcg/m. Right IJ Ferndale-Cristobal catheter in place. Cardiac output 4.0. Cardiac index 2.2. CVP 17. PA pressure 31/21. Chest x-ray reveals optimal placement of he nasogastric tube. Endotracheal tube to be pulled back 2 cm. Two mediastinal and left sided chest tubes in place. Epicardial wires in place. She is initiated on bronchodilators. Reevaluated today on 05/12/2020, patient is postoperative day #1, she had CABG 2, RIVERA to LAD, and saphenous vein graft to obtuse marginal artery. Patient was extubated at 19:46, uneventfully, and she tolerated the extubation well. She is presently sitting in bed, on 2 L nasal cannula, in no distress. She is hemodynamically stable, not requiring any inotropes or process. Her cardiac output is 4.6 cardiac index is 2.5. Continues to have a right internal jugular Ferndale/Cordis, she continues to have mediastinal and left pleural chest tubes aicha ng with epicardial pacemaker wires. Chest x-ray showed mostly left lower lobe atelectasis, lines and catheters are all in place as expected. WBC count is 7.7 hemoglobin is 7.4. Basic metabolic profile and renal profile are normal. The patient is seen today 05/13/2020 and follow-up in the intensive care unit. Postoperative day #2. She received a CABG 2 with a RIVERA to LAD, saphenous vein graft to the obtuse marginal artery. She is doing quite well. She is currently sitting up in a chair at the bedside. Awake and alert in no acute distress. Maintaining O2 saturations in the 90s on room air. She's afebrile. Somewhat hypertensive. Chest x-ray reveals Mild cardiomegaly with mild central vascular congestion and left greater than right bibasilar atelectasis. Small left pleural effusion. With left sided and mediastinal chest tube remains in place. Ferndale-Cristobal catheter to the right IJ. She is barely pulling 500 on her incentive spirometer. She is anemic today with a hemoglobin of 6.1. Receiving 1 unit of packed red blood cells. Platelet count 136. White count 7.8. Sodium 135. Potassium 3.9. Creatinine 1.02. AST 68. ALT 69. Remains on bronchodilators. No other drips currently. The patient is seen today 05/14/2020 in follow-up in the intensive care unit. Postoperative day #3. She is doing very well. She is up ambulating in the hallway with assistance. No worsening shortness of breath, cough or congestion. Maintaining O2 saturations in the 90s on room air now. Chest x-ray reveals no evidence of pneumothorax or sizable effusion. Patchy bibasilar densities persist. Left chest tube remains in place. She is status post 1 unit packed red blood cells this admission. Current hemoglobin 8.2. Platelet count 166. Sodium 137. Potassium 4.5. Creatinine 0.82. White count 8.1. The patient is seen today 05/15/2020 in follow-up on the selective care unit. She is currently sitting up in bed. Awake and alert in no acute distress. This is postoperative day #4. Continues to work well with the incentive spirometer. No worsening shortness of breath, cough or congestion. Maintaining good O2 saturations in the upper 90s on room air. Chest x-ray reveals removal of left- sided chest tube. No evidence of pneumothorax. Patchy basilar densities persi st. She's afebrile. White count 10.8. Hemoglobin 9.3. Sodium 136. Potassium 4.6. Creatinine 0.80. On 05/16/2020 patient and follow-up on selective care unit today is postoperative day #5, status post 2 vessel coronary artery bypass grafting. Patient is on room air pulse ox of 94-97%, hemodynamically stable, no chest pain, breathing comfortably, no acute events overnight. Incentive spirometer effort is still suboptimal, patient still only achieving 500 mL on it. Tolerating oral intake, no nausea vomiting or diarrhea. His chest x-ray shows persistent cardiomegaly with left lower lung atelectasis and/or infiltrate. Daily events overnight, today's labs have been reviewed showing white blood cell count of 10.2, hemoglobin is 9.5, electrolytes and renal profile unremarkable Objective - Vital Signs Vital signs: Vital Signs Temp 97.9 F 05/16/20 11:37 Pulse 94 05/16/20 11:37 Resp 18 05/16/20 11:37 BP 119/64 05/16/20 11:37 Pulse Ox 94 L 05/16/20 11:37 Intake & Output 05/15/20 05/16/20 05/16/20 18:59 06:59 18:59 Intake Total 960 240 0 Output Total 500 350 Balance 960 -260 -350 Weight 86.9 kg Intake: Oral 960 240 0 Output: Urine 500 350 Other: Voiding Method Toilet Toilet # Voids 2 1 # Bowel Movements 1 ABP, PAP, CO, CI - Last Documented Arterial Blood Pressure 126/52 Pulmonary Artery Pressure 19/8 Cardiac Output 4.6 Cardiac Index 2.5 - Exam GENERAL EXAM: Alert, very pleasant, 74-year-old white female, on room air with a pulse ox of 94-97% comfortable in no apparent distress. HEAD: Normocephalic/atraumatic. EYES: Normal reaction of pupils, equal size. Conjunctiva pink, sclera white. NOSE: Clear with pink turbinates. THROAT: No erythema or exudates. NECK: No masses, no JVD, no thyroid enlargement, no adenopathy. CHEST: No chest wall deformity. Symmetrical expansion. Midsternal sternotomy incision clean dry and intact, chest tube sites clean dry and intact LUNGS: Equal air entry with no crackles, wheeze, rhonchi or dullness. CVS: Regular rate and rhythm, normal S1 and S2, no gallops, no murmurs, no rubs ABDOMEN: Soft, nontender. No hepatosplenomegaly, normal bowel sounds, no guarding or rigidity. EXTREMITIES: No clubbing, no edema, no cyanosis, 2+ pulses and upper and lower extremities. MUSCULOSKELETAL: Muscle strength and tone normal. SPINE: No scoliosis or deformity SKIN: No rashes CENTRAL NERVOUS SYSTEM: Alert and oriented -3. No focal deficits, tone is normal in all 4 extremities. PSYCHIATRIC: Alert and oriented -3. Appropriate affect. Intact judgment and insight. - Labs CBC & Chem 7: 05/16/20 06:56 05/16/20 06:56 Labs: Abnormal Lab Results - Last 24 Hours (Table) 05/15/20 05/15/20 05/16/20 Range/Units 16:53 20:00 02:36 RBC (3.80-5.40) m/uL Hgb (11.4-16.0) gm/dL Hct (34.0-46.0) % Sodium (137-145) mmol/L Glucose (74-99) mg/dL POC Glucose (mg/dL) 128 H 181 H 131 H (75-99) mg/dL 05/16/20 05/16/20 05/16/20 Range/Units 06:22 06:56 06:56 RBC 2.90 L (3.80-5.40) m/uL Hgb 9.5 L (11.4-16.0) gm/dL Hct 27.3 L (34.0-46.0) % Sodium 136 L (137-145) mmol/L Glucose 122 H (74-99) mg/dL POC Glucose (mg/dL) 118 H (75-99) mg/dL 05/16/20 Range/Units 11:32 RBC (3.80-5.40) m/uL Hgb (11.4-16.0) gm/dL Hct (34.0-46.0) % Sodium (137-145) mmol/L Glucose (74-99) mg/dL POC Glucose (mg/dL) 157 H (75-99) mg/dL Assessment and Plan Plan: Assessment: 1 Coronary artery disease status post coronary artery bypass grafting utilizing a RIVERA to the LAD, saphenous vein graft to the OM. Postoperative day #5 2 Anemia, expected outcome, received 1 unit packed red blood cells. Current hemoglobin 9.3 3 Postoperative atelectasis, expected outcome 4 Hyperlipidemia 5 Hypertension 6 Rheumatoid arthritis 7 Lifelong nonsmoker 8 Glaucoma Plan: Patient is doing well, remains stable, breathing comfortably, she is on room air, she's tolerating ambulation, no acute events overnight, she is being discharged home today, she can follow up with Dr. Kaur in the office in one week I performed a history & physical examination of the patient and discussed their management with my nurse practitioner, Keli Borden. I reviewed the nurse practitioner's note and agree with the documented findings and plan of care. Lung sounds are positive for diminished breath sounds. The findings and the im pression was discussed with the patient. I attest to the documentation by the nurse practitioner. Time with Patient: Less than 30
--- NOTE | 2020-05-16 13:45 | CDI ---
Documentation Clarification Form Date: 05/16/2020 01:32:52 PM From: Milla Layton CCS, CCDS Admit Date: 05/11/2020 05:31:00 AM Patient Name: Sandrine Carreon Visit Number: [id number] Discharge Date: ATTENTION: The Clinical Documentation Specialists (CDI) and [facility] Coding Staff appreciate your assistance in clarifying documentation. Please respond to the clarification below the line at the bottom and electronically sign. The CDI & [facility] Coding staff will review the response and follow-up if needed. Please note: Queries are made part of the Legal Health Record. If you have any questions, please contact the author of this message via ITS. Dr. Fernando Jamiosn: The following has been documented in the Pulmonary/Critical Care Progress Notes beginning on 05/11 and in subsequent Progress Notes without further specificity: "Acute vent dependent respiratory failure due to CABG. Will continue with weaning parameter & likely extubated today. " History/Risk Factors: CAD, VA, Hypertension and Hypertensive Cardiovascular Disease, Hyperlipidemia, Rheumatoid Arthritis, Glaucoma, Non smoker. Clinical Indicators: Presented on 05/11 for elective procedure: CABG x2. Vital signs 05/11: T 96.8*, P 70-73, R 12-13 (on vent postoperatively), BP 132/63 - 165/71; PO 100 on vent 60^ FiO2 ABG 05/11: pH 7.45, pCO2 37, pO2 349^, HCO3 26^, O2 Sat 100.0^. Treatment: Intubated on vent. IV Cefazolin, IV Heparin, IV Insulin, IV Papaverine (intra-operative), IV Albumin, IV Nitro, IV Propofol, INH Duoneb, IV Tylenol, IV Toradol, IV Milrinone Lactate/Dextrose, 1 unit PRBC. In your professional opinion, can you please clarify if these findings signify one of the following conditions? Acute Respiratory Failure ruled out Acute Respiratory Failure ruled in: Other Diagnosis, please specify Unable to determine Specificity: o If known, further specify (if known): o With hypercapnia? (pCO2 >50 and pH <7.35) o With hypoxia? (pO2 <60 mm Hg or SpO2 <91% on room air) (Last Query Form Revision: December 2018) MTDD
--- NOTE | 2020-05-16 14:54 | P.PN ---
Subjective Progress Note Date: 05/16/20 This is a 74 year old female one of my patient with a previous medical history significant for hypertension and hypertensive cardiovascular disease, hyperlipidemia, Rheumatoid arthritis, vertigo, depression and Glaucoma, was seen and evaluated in my office for uncontrolled hypertension and feeling diaphor etic, with dyspnea on exertion, had a 12- Lead EKG that showed poor R wave progression and based on that it was recommended for her to undergo Lexiscan stress test on 04/11/2020 which showed a large fixed area of perfusion defect in the lateral wall suggestive of prior AL and a defect in the anteroseptal area during rest and not during exercise suggestive of an artifact, was not too sure so I referred the patient to see who recommended Left heart catherization which was done at [facility] through the right radial approach and while he was engaging the left main she developed EKG changes and chest pain so the procedure was aborted and she was sent to [facility] for Left heart catherization through the right femoral artery with IVUS that showed 79 % stenosis of Left main and the option was given to her of doing angioplasty VS revascularization so she was evaluated by cardiothoracic surgery for CABG an she is scheduled for today , she underwent RIVERA to LAD and SVG to OM1 patient had lost a lot of blood in the OR her HGB dropped to 5 and she is currently in the ICU on Cleviprex drip 3 mg/h and also currently on the ventilator with FIO2 50% and the plan is to extubate later on tonight. 05/12: Patient is seen today sitting up in a recliner. She appears to be in no acute distress. Patient was extubated last evening. Incentive spirometry is 450-500. She is currently on O2 at 2 L with pulse ox of 94%. Heart rate 87, blood pressure 90/39. quality assurance monitor final is a sinus rhythm. Chest tubes, epidural pacemaker, cordis and Zavala remain in place. WBC 7.7, hemoglobin 7.4, platelet count 167. Electrolytes normal, BUN 20 creatinine 0.85. Capillary blood glucose running between 107 and 223. Patient is on insulin drip. Chest x-ray reveals left lower lobe infiltrate worsening from comparison. Cardiology is also on consult. 05/13: Patient sitting up in a recliner is feeling much better today she denies any chest pain, shortness breath, she continues to struggle with incentive spirometer, she denies any abdominal pain, she is eating, she has not had a bowel movement, she continues to pass some gas, she is working with physical therapy, her vital signs are stable at this time, she is being followed by cardiothoracic surgery as well as by post anesthesia care unit nurse. 05/14: Patient sitting up in a recliner distress, she denies ingesting, less short of breath, she continues to be on oxygen, she continues to work with her incentive spirometer, she has no abdominal pain, she is tolerating her diet well, she is not eating as much, she appearS to move around better, we'll increase activity, hopefully she'll be getting out of the hospital in the next 1-2 days. 05/15: Patient is doing better today, she continues to try to use her incentive spirometer, she did have a low-grade temperature today, she is eating better she did have a good bowel movement today hopefully if everything is okay she can be discharged home in the next 24 hours, a follow-up with us as an outpatient in about couple weeks from now. 05/16: Patient is postop day #5, on the selective care unit. Patient is currently on room air with pulse ox of 94-97%. Her vital signs been stable. Patient denies having any chest pain, shortness of breath. She is using incentive spirometry achieving only 500. She denies having any nausea, vomiting or diarrhea. Repeat chest x-ray reveals persistent cardiomegaly with left lower lobe atelectasis and/or infiltrate. No significant change. Patient is scheduled for discharge AND will follow-up with me in the office. Objective - Vital Signs Vital signs: Vital Signs Temp 97.9 F 05/16/20 03:29 Pulse 80 05/16/20 07:37 Resp 22 05/16/20 06:49 BP 166/75 05/16/20 06:49 Pulse Ox 96 05/16/20 06:49 Intake & Output 05/15/20 05/16/20 05/16/20 18:59 06:59 18:59 Intake Total 960 240 Output Total 500 Balance 960 -260 Weight 86.9 kg Intake: Oral 960 240 Output: Urine 500 Other: Voiding Method Toilet Toilet # Voids 2 1 # Bowel Movements 1 ABP, PAP, CO, CI - Last Documented Arterial Blood Pressure 126/52 Pulmonary Artery Pressure 19/8 Cardiac Output 4.6 Cardiac Index 2.5 - Exam Review Of Systems: Constitutional: No fever, no chills, no night sweats. No weight change. Reports fatigue. No daytime sleepiness. EENT: No headache. No nasal drainage or congestion. No epistaxis. No sore throat. Lungs: No shortness of breath, cough, no sputum production. No wheezing. Cardiovascular: Reports chest discomfort, reports pain with inspiration, no lower extremity edema. No palpitations. No paroxysmal nocturnal dyspnea. No orthopnea. No lightheadedness or dizziness. No syncopal episodes. Abdominal: No abdominal pain. No nausea, vomiting. No diarrhea. No constipation. No bloody or tarry stools.. No loss of appetite. Genitourinary: No dysuria, increased frequency, urgency. No urinary retention. Musculoskeletal: No myalgias. No muscle weakness, no gait dysfunction, no frequent falls. No back pain. No neck pain. Integumentary: No wounds, no lesions. No rash or pruritus. Neurologic: No aphasia. No facial droop. No change in mentation. Psychiatric: No depression. No anxiety. Endocrine: Reported abnormal blood sugars. Physical examination: HEENT: head is atraumatic normocephalic, pupils were round reactive to light and recommendation, extra ocular muscle movement were intact. Neck: supple, no JVP. Chest: decreased breath sounds at the bases, few rhonchi, incision midline appears to be clean. Heart: first heart sound is depressed , second heart sound is normal there is no gallop or murmur. Abdomen: soft non tender, non distended positive bowel sounds, no hepatosplenomegaly. Extremities: there is +1 edema no calf tenderness DP + 2 bilaterally. Neurologic examination: Vision is awake alert and oriented 3, cranial nerve II- 12 appear grossly intact, muscle power 4 out of 5 in upper and lower extremities bilaterally. - Labs CBC & Chem 7: 05/16/20 06:56 05/16/20 06:56 Labs: Abnormal Lab Results - Last 24 Hours (Table) 05/15/20 05/15/20 05/15/20 Range/Units 06:56 11:37 16:53 RBC (3.80-5.40) m/uL Hgb (11.4-16.0) gm/dL Hct (34.0-46.0) % Sodium 136 L (137-145) mmol/L BUN 21 H (7-17) mg/dL Glucose 140 H (74-99) mg/dL POC Glucose (mg/dL) 157 H 128 H (75-99) mg/dL 05/15/20 05/16/20 05/16/20 Range/Units 20:00 02:36 06:22 RBC (3.80-5.40) m/uL Hgb (11.4-16.0) gm/dL Hct (34.0-46.0) % Sodium (137-145) mmol/L BUN (7-17) mg/dL Glucose (74-99) mg/dL POC Glucose (mg/dL) 181 H 131 H 118 H (75-99) mg/dL 05/16/20 Range/Units 06:56 RBC 2.90 L (3.80-5.40) m/uL Hgb 9.5 L (11.4-16.0) gm/dL Hct 27.3 L (34.0-46.0) % Sodium (137-145) mmol/L BUN (7-17) mg/dL Glucose (74-99) mg/dL POC Glucose (mg/dL) (75-99) mg/dL Assessment and Plan Assessment: Assessment and plan: 1. POD #5 S/P CABG X2 with RIVERA to LAD and SCG to OM1. Increase activity, c ontinue incentive Stromberger, patient mostly would be discharged home later today. 2. Acute blood loss anemia. Post 2 units of PRBCs. We'll continue to monitor the patient hemoglobin very closely. Continue iron 325 mg orally once every day. 3. Acute vent dependent respiratory failure due to CABG x2 . Patient has been extubated continue with oxygen support, continue the aggressive lumbar toil eting, continue with incentive spirometer, increase activity. 4. Hypertension and hypertensive cardiovascular disease. we will continue with metoprolol 50 mg orally twice every day, losartan 25 mg orally once every day. 5. Glaucoma. we will continue with current eye drops. 6. Hyperlipidemia. we will continue Lipitor 40 mg orally daily. 9. Increase activity, hopefully home in the next 24 hours. 10. DVT prophylaxis. Continue heparin 5000 units subcutaneously every 8 hours. 11. GI prophylaxis. Continue patient on Protonix 40 mg orally once every day. 12. Patient is medically stable for discharge home today.
== END 2020-05-16 15:50 | disposition home health service (06) | DRG 236 ==
LOC: 2ORMAIN 05:31 → 2SICU 13:40 → 3SCARD 05-14 17:11
PROVIDERS: ADMIT Internal Medicine Interventional Cardiology; ATTEND Surgery
PROC: 06BQ4ZZ Excision of Left Saphenous Vein, Percutaneous Endoscopic Approach (ICD-10-PCS; principal; 2020-05-11 08:00)
PROC: 02NN0ZZ Release Pericardium, Open Approach (ICD-10-PCS; principal; 2020-05-11 08:00)
PROC: 02100Z9 Bypass Coronary Artery, One Artery from Left Internal Mammary, Open Approach (ICD-10-PCS; principal; 2020-05-11 08:00)
PROC: B24BZZ4 Ultrasonography of Heart with Aorta, Transesophageal (ICD-10-PCS; principal; 2020-05-11 08:00)
PROC: 0210093 Bypass Coronary Artery, One Artery from Coronary Artery with Autologous Venous Tissue, Open Approach (ICD-10-PCS; principal; 2020-05-11 08:00)
PROC: 02L70CK Occlusion of Left Atrial Appendage with Extraluminal Device, Open Approach (ICD-10-PCS; principal; 2020-05-11 08:00)
PROC: 03HY32Z Insertion of Monitoring Device into Upper Artery, Percutaneous Approach (ICD-10-PCS; 2020-05-11 08:00)
PROC: 4A133B1 Monitoring of Arterial Pressure, Peripheral, Percutaneous Approach (ICD-10-PCS; 2020-05-11 08:00)
PROC: 4A133J1 Monitoring of Arterial Pulse, Peripheral, Percutaneous Approach (ICD-10-PCS; 2020-05-11 08:00)
PROC: 30233N1 Transfusion of Nonautologous Red Blood Cells into Peripheral Vein, Percutaneous Approach (ICD-10-PCS; 2020-05-13)
DX: I25.10 Atherosclerotic heart disease of native coronary artery without angina pectoris (principal); D62 Acute posthemorrhagic anemia; J98.11 Atelectasis; I31.0 Chronic adhesive pericarditis; M06.9 Rheumatoid arthritis, unspecified; R74.01 Elevation of levels of liver transaminase levels; I95.9 Hypotension, unspecified; I11.9 Hypertensive heart disease without heart failure; R42 Dizziness and giddiness; E78.5 Hyperlipidemia, unspecified; H40.9 Unspecified glaucoma; F32.9 Major depressive disorder, single episode, unspecified; Z86.16 Personal history of COVID-19; Z20.822 Contact with and (suspected) exposure to COVID-19; I25.2 Old myocardial infarction; Z98.42 Cataract extraction status, left eye; Z98.41 Cataract extraction status, right eye; Z90.49 Acquired absence of other specified parts of digestive tract; Z90.710 Acquired absence of both cervix and uterus; Z88.5 Allergy status to narcotic agent; Z88.8 Allergy status to other drugs, medicaments and biological substances; Z79.82 Long term (current) use of aspirin; Z79.899 Other long term (current) drug therapy; Z86.718 Personal history of other venous thrombosis and embolism; Z82.49 Family history of ischemic heart disease and other diseases of the circulatory system; Z83.3 Family history of diabetes mellitus; Z81.8 Family history of other mental and behavioral disorders
CPT/HCPCS: 71045; 71046; 80048; 80053; 82330; 82805; 83735; 85025; 85027; 85520; 85610; 85730; 86850; 86891; 86900; 86901; 86920; 94002; 94640

== ENCOUNTER → 2021-05-01 | Outpatient (CLI) | payer MEDICARE ==
--- NOTE | 2021-05-01 14:09 | BD ---
EXAMINATION TYPE: Axial Bone Density DATE OF EXAM: 05/01/2021 COMPARISON: 06.05.2016 CLINICAL HISTORY: 75 YR OLD FEMALE.....ICD-10 CODE: M81.0 OSTEOPOROSIS Height: 61.5 Weight: 184 FRAX RISK QUESTIONS: Glucocorticoids (More than 3mos): YES, FOR ASTHMA (Ex: prednisone, prednisolone, methylprednisolone, dexamethasone, and hydrocortisone). Secondary Osteoporosis: YES 3. Menopause before 45: YES RISK FACTORS HISTORY OF: Diet low in dairy products/other sources of calcium: YES Postmenopausal woman: YES AT AGE 43 TOTAL HYST Take estrogen and/or progesterone medications: YES, FOR 5 YRS, IN THE PAST, NONE NOW Lost more than 2 inches in height since high school: YES Hyperparathyroidism: NO Adrenal Insufficiency: NO MEDICATIONS: Prednisone or other steroids: YES, FOR FOR ASTHMA How Lon YRS Additional Medications: BP MEDS, DIABETIC MEDS, JARDIANCE, VIT D , STATIN FOR CHOLESTEROL, Additional History: HYPERTENSION, DIABETIC, CHOLESTEROL, OSTEOARTHRITIS EXAM MEASUREMENTS: Bone mineral densitometry was performed using the [employer] System. Bone mineral density as measured about the Lumbar spine is: ----- L1-L4(G/cm2): 1.024 T Score Values are as follows: ----- L1: -1.4 ----- L2: -1.6 ----- L3: -1.4 ----- L4: -1.0 ----- L1-L4: -1.3 Bone mineral density has: Increased 1.4% since study of: 06.05.2016 Bone mineral density about the R hip (g/cm2): 0.908 Bone mineral density about the L hip (g/cm2): 0.968 T Score values are as follows: -----R Neck: -1.3 -----L Neck: -0.9 -----R Total: -0.8 -----L Total: -0.3 Bone mineral density has: Decreased -1.7% since study of: 06.05.2016 FRAX%s: THERE IS A 9.2% CHANCE FOR A MAJOR OSTEOPOROTIC FX AND A 1.9% FOR HIPS......PROBABILITY FO R FX IN 10 YRS TIME IMPRESSION: Osteopenia (T Score between -2.5 and -1). There is slightly increased risk of fracture and the patient may be considered for treatment. Re-Screen 2-5 years. NOTE: T-SCORE=SD OF THE YOUNG ADULT MEAN.
--- NOTE | 2021-05-02 13:21 | MM ---
Reason for exam: screening (asymptomatic). Last mammogram was performed 2 years and 4 months ago. History: Patient is postmenopausal. Physical Findings: A clinical breast exam by your physician is recommended on an annual basis and results should be correlated with mammographic findings. MG 3D Screening Mammo W/Cad Bilateral CC and MLO view(s) were taken. Prior study comparison: January 09, 2019, bilateral MG screening mammo w CAD. June 05, 2016, bilateral MG screening mammo w CAD. There are scattered fibroglandular densities. There are benign appearing vascular calcifications bilaterally. No significant changes when compared with prior studies. ASSESSMENT: Benign, BI-RAD 2 RECOMMENDATION: Routine screening mammogram of both breasts in 1 year.
== END | disposition home or self-care (01) ==
LOC: RADBDWWP 13:08
PROVIDERS: ATTEND Internal Medicine
DX: Z12.31 Encounter for screening mammogram for malignant neoplasm of breast (principal); M85.89 Other specified disorders of bone density and structure, multiple sites; Z78.0 Asymptomatic menopausal state
CPT/HCPCS: 77063; 77067; 77080

== ENCOUNTER → 2022-07-03 | Outpatient (CLI) | payer MEDICARE ==
--- NOTE | 2022-07-04 07:58 | MM ---
Reason for Exam: Screening (asymptomatic). Last mammogram was performed 1 year(s) and 2 month(s) ago. Patient History: Menarche at age 11. First Full-Term at age 18. Left ovary removed at age 48. Right ovary removed at age 48. Hysterectomy at age 48. Postmenopausal. Risk Values: Dana 5 year model risk: 1.4%. NCI Lifetime model risk: 2.8%. Prior Study Comparison: 06/05/2016 Bilateral Screening Mammogram, [facility]. 01/09/2019 Bilateral Screening Mammogram, [facility]. 05/01/2021 Bilateral Screening Mammogram, [facility]. Tissue Density: There are scattered fibroglandular densities. Findings: Analyzed By CAD. There is no suspicious group of microcalcifications or new suspicious mass in either breast. Overall Assessment: Benign, BI-RAD 2 Management: Screening Mammogram of both breasts in 1 year. A clinical breast exam by your physician is recommended on an annual basis and results should be correlated with mammographic findings. Electronically signed and approved by: Andi Cortez M.D. Radiologis
== END | disposition home or self-care (01) ==
LOC: RADMAMWWP 09:52
PROVIDERS: ATTEND Internal Medicine
DX: Z12.31 Encounter for screening mammogram for malignant neoplasm of breast (principal); Z78.0 Asymptomatic menopausal state
CPT/HCPCS: 77063; 77067

== ENCOUNTER → 2024-08-07 | Outpatient (CLI) | payer MEDICARE ==
--- NOTE | 2024-08-07 12:12 | MM ---
Reason for Exam: Screening (asymptomatic). Last mammogram was performed 2 year(s) and 1 month(s) ago. Patient History: Menarche at age 11. First Full-Term at age 18. Left ovary removed at age 48. Right ovary removed at age 48. Hysterectomy at age 48. Postmenopausal. Risk Values: Dana 5 year model risk: 1.4%. NCI Lifetime model risk: 2.5%. Prior Study Comparison: 01/09/2019 Bilateral Screening Mammogram, [facility]. 05/01/2021 Bilateral Screening Mammogram, [facility]. 07/03/2022 Bilateral MG 3D screening mammo w/cad, [facility]. Tissue Density: There are scattered areas of fibroglandular density. Findings: Analyzed By CAD. There is no suspicious group of microcalcifications or new suspicious mass in either breast. Overall Assessment: Benign, BI-RAD 2 Management: Screening Mammogram of both breasts in 1 year. . Patient should continue monthly self-breast exams. A clinical breast exam by your physician is recommended on an annual basis. This exam should not preclude additional follow-up of suspicious palpable abnormalities. Note on Dana scores and lifetime risk: 1. A Dana score greater than 3% is considered moderate risk. If this is the case, consider specialist referral to assess eligibility for a risk reducing agent. 2. If overall lifetime risk for the development of breast cancer is 20% or higher, the patient may qualify for future screening with alternating mammogram and breast MRI. [facility], , 08/07/2024 12:09 PM. Electronically signed and approved by: Andi Cortez M.D. Radiologis
== END | disposition home or self-care (01) ==
LOC: RADMAMWWP 11:41
PROVIDERS: ATTEND Internal Medicine
DX: Z12.31 Encounter for screening mammogram for malignant neoplasm of breast (principal); R92.323 Mammographic fibroglandular density, bilateral breasts; Z78.0 Asymptomatic menopausal state
CPT/HCPCS: 77063; 77067

== ENCOUNTER 2024-09-28 06:48 | Day surgery (SDC) | payer MEDICARE ==
[2024-09-23 12:30] VITALS: BMI 32.0
[~2024-09-28 06:48] MED LIST changes: -ALBUMIN HUMAN 25% 50 ML IV ONE; -ALBUMIN HUMAN 5% 500 ML IVPB ONE; -ASPIRIN 325 MG TAB PO ONE; -ATORVASTATIN 10 MG TAB PO ONE; -CALCIUM CHLORIDE 100 MG/ML 10 ML SYRINGE IV ONE; -CHLORHEXIDINE GLUCONATE 15 ML CUP MUCOUS MEM ONE; -CLEVIDIPINE BUTYRATE 25 MG in EMPTY BAG 1 BAG IV ONE; -DEXTROSE 5% IN WATER 1,000 ML with POTASSIUM CHLORIDE 110 MEQ, MAGNESIUM SULFATE 16 MEQ... IV ONE; -DEXTROSE 5% IN WATER 1,000 ML with POTASSIUM CHLORIDE 25 MEQ, SODIUM CHLORIDE 4MEQ/ML V... IRRIGATION ONE; -HEPARIN SODIUM 1,000 UN/ML (10ML VL) IV ONE; -HEPARIN SODIUM,PORCINE 5,000 UNIT in SODIUM CHLORIDE 0.9% 500 ML 500 ML IV ONE; -INSULIN REGULAR 100 UNIT in SODIUM CHLORIDE 0.9% 100 ML IV ONE; -LACTATED RINGERS 1,000 ML IV ONE; -MAGNESIUM SULFATE MG 500 MG/ML IV ONE; -MANNITOL 25% 12.5 GM/50 ML VIAL IV ONE; -METOPROLOL TARTRATE 12.5 MG TAB PO ONE; -NITROGLYCERIN-D5W PMX 25 MG/250 ML BTL IV ONE; -NITROGLYCERIN-D5W PMX 50 MG in DEXTROSE/WATER 1 250ML.BAG IV ONE; -NOREPINEPHRINE 4 MG in SODIUM CHLORIDE 0.9% 250 ML IV ONE; -PAPAVERINE 360 MG in SODIUM CHLORIDE 0.9% 90 ML IV ONE; -PHENYLEPHRINE 10 MG/ML VIAL IV ONE; -PHENYLEPHRINE 40 MG in SODIUM CHLORIDE 0.9% 250 ML IV ONE; -PROTAMINE SULFATE 10 MG/ML 25 ML VIAL IV ONE; -PROTAMINE SULFATE 250 MG in EMPTY BAG 1 BAG IV ONE; -SODIUM BICARB 8.4% 50 ML SYR (1 MEQ/ML) IV ONE; -SODIUM CHLORIDE 0.9% 1,000 ML IV ONE; +TRANEXAMIC 1,000 MG/100ML-NACL 1,000 MG in SALINE 1 100ML.BAG IVPB PRN; -TRANEXAMIC ACID 2,000 MG in SODIUM CHLORIDE 0.9% 80 ML IV ONE; -ceFAZolin 1,000 MG in SODIUM CHLORIDE 0.9% IRRIGATIO 1,000 ML IRRIGATION ONE; -propofoL 1,000 MG/100 ML VIAL IV ONE
[2024-09-28] MEDS: IV FLUID CONTINUATION 1,000 ML IV ONE ×2 (07:00→12:35)
[2024-09-28 07:29] LABS: Glucose,Whole Blood 106 mg/dL (70-110)
[2024-09-28] MEDS: GABAPENTIN 300 MG CAP PO PRN (07:38)
[2024-09-28] MEDS: MELOXICAM 7.5 MG TAB PO PRN (07:38)
[2024-09-28] MEDS: ACETAMINOPHEN TAB 500 MG TAB PO PRN (07:38)
[2024-09-28] MEDS: ONDANSETRON 4 MG/2 ML VIAL IVP ONE (07:39)
[2024-09-28] MEDS: DEXAMETHASONE SOD PHOSPHATE 4 MG/ML 1 ML VIAL IV ONE (07:39)
[2024-09-28] MEDS: LACTATED RINGERS 1,000 ML IV SCH (07:39)
[2024-09-28] MEDS: MIDAZOLAM 2 MG/2 ML VIAL IV PRN (07:49)
--- NOTE | 2024-09-28 08:18 | P.ANPRN ---
Procedure Note - Anesthesia - Nerve Block Performed Right Adductor Canal Infusion Time Out Performed: Yes Date of Procedure: 09/28/24 Procedure Start Time: 07:49 Procedure Stop Time: 07:55 Location of Patient: PreOp Indication: Acute Post-Operative Pain, Requested by Surgeon Sedation Type: Sedate with meaningful contact maintained Preparation: Sterile Prep Position: Supine Catheter: Indwelling Needle Types: Pajunk Needle Gauge: 18 Ultrasound used to visualize needle placement: Yes Ultrasound used to observe medication spread: Yes Injectate: 0.5% Ropivacaine (see comment for volume) (20 mL +10 mL of normal saline) Blood Aspirated: No Pain Paresthesia on Injection Noted: No Resistance on Injection: Normal Image Stored and Saved: Yes Events: Uneventful and Well Tolerated
[2024-09-28] MEDS ORDERED: ROPIVACAINE 1,100 MG, SODIUM CHLORIDE 0.9% 500 ML 330 ML, EMPTY PAIN BALL 1 EACH MISCELLANE PRN (08:19)
--- NOTE | 2024-09-28 08:19 | P.ANPRN ---
Procedure Note - Anesthesia - Nerve Block Performed Right Ryanck Single Time Out Performed: Yes Date of Procedure: 09/28/24 Procedure Start Time: 07:56 Procedure Stop Time: 08:03 Location of Patient: PreOp Indication: Acute Post-Operative Pain, Requested by Surgeon Sedation Type: Sedate with meaningful contact maintained Preparation: Sterile Prep Position: Left Lateral Needle Types: Pajunk Needle Gauge: 21 Ultrasound used to visualize needle placement: Yes Ultrasound used to observe medication spread: Yes Injectate: 0.5% Ropivacaine (see comment for volume) (20 mL +10 mL of normal saline +4 mg dexamethasone) Blood Aspirated: No Pain Paresthesia on Injection Noted: No Resistance on Injection: Normal Image Stored and Saved: Yes Events: Uneventful and Well Tolerated
[2024-09-28] MEDS: ENALAPRILAT 1.25 MG/ML 1 ML VIAL IVP STA (08:31)
[2024-09-28] MEDS: FLUMAZENIL 0.1 MG/ML 5 ML VIAL IVP STA (08:32)
[2024-09-28] MEDS ORDERED: NALOXONE 0.4 MG/ML 1 ML VIAL IV PRN (08:56)
[2024-09-28] MEDS ORDERED: ONDANSETRON 4 MG/2 ML VIAL IVP PRN (08:56)
[2024-09-28] MEDS ORDERED: NA PHOS,M-B/NA PHOS,DI-BA 133 ML ENEMA RECTAL PRN (08:56)
[2024-09-28] MEDS ORDERED: MAGNESIUM HYDROXIDE 2,400 MG/30 ML CUP PO PRN (08:56)
[2024-09-28] MEDS ORDERED: bisacodyL 10 MG SUPP RECTAL PRN (08:56)
[2024-09-28] MEDS ORDERED: HYDROmorphone 0.5 MG/0.5 ML SYRINGE IVP PRN ×2 (08:56)
[2024-09-28] MEDS ORDERED: GLYCOPYRROLATE 0.2 MG/ML 2 ML VIAL ONE (09:03)
[2024-09-28] MEDS ORDERED: fentaNYL (PF) 50 MCG/ML 2 ML AMP ONE (09:03)
[2024-09-28] MEDS ORDERED: NEOSTIGMINE 1 MG/ML 10 ML VIAL ONE (09:03)
[2024-09-28] MEDS ORDERED: PROPOFOL 10 MG/ML 20 ML VIAL IV ONE (09:03)
[2024-09-28] MEDS ORDERED: TRANEXAMIC 1,000 MG/100ML-NACL PREMIX BAG ONE (09:03)
[2024-09-28] MEDS ORDERED: LIDOCAINE 1% INJ 10MG/ML (20 ML MDV) ONE (09:03)
[2024-09-28] MEDS ORDERED: ROCURONIUM 10 MG/ML (5 ML VIAL) IV ONE (09:03)
[2024-09-28] MEDS ORDERED: ROPIVACAINE 5 MG/ML 30 ML VIAL ONE (09:03)
[2024-09-28] MEDS ORDERED: SUCCINYLCHOLINE CHLORIDE 200 MG/10 ML VIAL IV ONE (09:03)
[2024-09-28] MEDS ORDERED: SODIUM CHLORIDE 0.9% (PF) 10 ML VIAL ONE (09:03)
[2024-09-28] MEDS ORDERED: DEXAMETHASONE SOD PHOSPHATE 4 MG/ML 1 ML VIAL ONE (09:03)
[2024-09-28] MEDS: ceFAZolin 2 GM in DEXTROSE 5% IN WATER 50 ML IVPB PRN (09:06)
[2024-09-28] MEDS: ceFAZolin 1,000 MG in SODIUM CHLORIDE 0.9% 1,000 ML IRRIGATION ONE (09:27)
--- NOTE | 2024-09-28 10:12 | P.OP ---
Date of Procedure: 09/28/24 Preoperative Diagnosis: Severe osteoarthritis right knee Postoperative Diagnosis: Severe osteoarthritis right knee Procedure(s) Performed: Right total knee arthroplasty Implants: Young & Nephew Journey II CR Oxinium cruciate retaining femoral component size 5, right Young & Nephew Journey nonporous tibial baseplate size 4, right Young & Nephew Journey II, XLPE Deep Dished articular insert, size 11 mm, Size 3-4, right Young & Nephew Journey Ana II resurfacing patellar component, oval, 29 mm All components were cemented using Palacos R bone cement The articulation is Oxinium on polyethylene Anesthesia: GALI Surgeon: Cipriano Jones Division Commander #1: Racquel Esat Estimated Blood Loss (ml): 25 Pathology: none sent Condition: stable Disposition: PACU Indications for Procedure: The patient's knee is end-stage, and conservative management has failed. The operation of knee replacement has been discussed at length in the office, as well as potential risks and complications. These are inclusive of, but not limited to: Infection, bleeding, scarring, discomfort, stiffness, blood vessel and nerve damage, need for further surgery, failure to relieve symptoms, persistence, recurrence, or worsening of problems, loosening, dislocation, wear, blood clot, pulmonary embolism, , gait dysfunction, stiffness, and other risks as discussed in the office. Patient elects to proceed and the consent form has been signed. Operative Findings: The operative findings are consistent with severe osteoarthritis of the right knee Description of Procedure: The patient was seen in the preoperative area, the consent was reviewed and the operative site was marked with a skin marker. The patient verified the procedure and the operative site. An adductor canal pain catheter and an iPACK block were placed by anesthesia in the preoperative area. The patient was then brought to the operating room and positioned on the operating room table in the supine position. Preoperative antibiotics and a gram of tranexamic acid were given intravenously. A general anesthetic was administered by the anesthesia department. Care was taken to make sure that all pressure points were ad equately padded. A tourniquet was placed on the upper thigh and the lower extremity was prepped with ChloraPrep and draped in usual sterile fashion. A universal time-out was then performed which confirmed the patient's name, surgical site, ALLERGIES, and consent. The lower extremity was then exsanguinated and tourniquet was inflated to 250 mmHg. A standard anterior midline approach to the knee was performed. The skin and subcutaneous tissue were sharply dissected down to the patellar tendon. A medial parapatellar arthrotomy was then performed. The knee was then extended, the patellar was everted, and the knee was flexed. The infra-patellar fat pad was removed in order to enhance exposure. The anterior horns of both menisci were excised, and a release was performed to the posterior medial aspect of the knee. On gross visual inspection, there was complete loss of articular cartilage in the medial and patellofemoral joint spaces. There was also significant cartilage damage in the lateral compartment. There were multiple periarticular osteophytes globally about the knee which were then removed with a Ronguer. The femoral canal was then opened with the 9.5 mm intramedullary drill. The 8 mm intramedullary karen was then inserted into the femoral canal with the distal femoral cutting guide set for 5 of valgus. The distal femoral cutting block was then pinned in place. The intramedullary karen was then removed, and the distal femur was then cut. The cutting block was then removed and the cut was checked for symmetry. The resected bone was then measured to confirm the appropriate distal femoral resection. Next, the sizing guide was then placed and set for 3 external rotation based off of the epicondylar axis and [place]'s line. Pins were then placed and the drill holes, and the femur was sized with the sizing stylus. The pins were then removed, and the sizing guide was then removed. The spikes of the appropriate size femoral block was then placed into the predrilled holes, and malleted into place. Two 45 mm pins were then placed into the fixation holes on the cutting block. An danielle wing was then used to ensure there would be no notching with the anterior cut. The anterior condyles were cut without notching. The anterior chord cut was then performed, followed by the posterior cut, posterior chamfer cut, and the anterior chamfer cut. The collateral ligaments were protected during the entire process. The cutting block was then removed. Any remaining bone and osteophytes were removed from the femur with a Ronguer. Attention was then directed to the tibia. The remaining ACL was removed with a Ronguer, and the tibia was then gently subluxed forward with a large bent knee retractor. Any remaining menisci were excised. The posterior lateral corner was cauterized in order to coagulate the lateral geniculate artery. The extra medullary tibial cutting guide was then placed, set for the appropriate rotation, slope, and depth of resection. The proximal tibia cutting guide was then pinned in place. Proximal tibia was then cut and sized. A curved osteotome was then used to remove any posterior osteophytes from the distal femur. The femoral trial was placed. A narrow saw blade was then used to remove the anterior intracondylar femoral bone. The CR notch trial was then placed. The tibial trial was placed with the appropriate-sized insert. The knee was able to fully extend and flex to 130 and was stable throughout all range of motion. The knee was then extended and the patella was everted. Patella was then measur ed, and then using an osteotomy guide, the patella was cut at the appropriate level. The patellar component was sized. The patellar drill guide was placed and the patella was drilled. The patella trial was then placed. The knee was then taken through range of motion with the patella trial and the patella tracked normally using the no thumbs technique. The patella trial was then removed. The knee was then flexed and lug holes were drilled through the femoral trial and the femoral trial was then removed. The tibial was then re- exposed, and the tibial broach guide was then pinned in place after it was set for the appropriate rotation to allow for the most coverage without overhang. The tibia was then reamed and broached. The femoral canal was plugged with autologous bone. The cut surfaces of bone were then irrigated with pulsatile lavage. The knee was also irrigated with Irrisept solution. The components were then opened, the cement was mixed. Cement was placed on the backside of the femoral, tibial, and patellar components. Cement was then applied to the tibial surface and pressurized into the surface using finger pressurization technique. The tibial component was then applied and excess cement was removed after it was impacted securely noted to be flush with the cut surface. In similar fashion, the cement was applied to the cut femoral surface, pressurized and using finger pressurization the component was impacted in place. Excess cement was removed. The polyethylene spacer was then implanted and locked into position. Patellar component was then applied in a similar technique and the patellar clamp was used to hold patella in place while the cement hardened. The knee was held in full extension while the cement hardened. Once the cement had fully hardened, the knee was reinspected. Any other cement extrusion was removed the final range of motion testing showed range of motion from 0-130 with excellent stability, both medial and laterally and appropriate alignment of the leg. Patella tracked normally. After the cemented hardened, the tourniquet was released and hemostasis was obtained. A second gram of transexamic acid was given intravenously. The knee was again irrigated. The knee was again taken through range of motion and found to be stable throughout all range of motion of 0-130, and the patella tracked normally. The fascia was then closed with 0 Vicryl followed by #2 strata fix suture. The subcutaneous tissue was closed with 3-0 Vicryl and 3-0 strata fix. Exofin glue was used for the skin and placed with the knee in flexion. After the glue had dried, and Optafoam silver impregnated dressing was applied. A lightly compressive dressing was applied using web roll and Scotty wrap. Patient was then transferred to the stretcher and taken to recovery room in stable condition. Sponge and needle counts were correct. The emergency veterinary assistant FAYE Conte was required due the complexity surgery and the need for a skilled metal forger's assistant. She assisted in positioning, draping, retraction, and closure of the wound.
[2024-09-28] MEDS: SODIUM CHLORIDE 0.9% 1,000 ML IV SCH (11:00)
[2024-09-28] MEDS: fentaNYL (PF) 50 MCG/ML 2 ML AMP IV PRN (11:13)
--- NOTE | 2024-09-28 11:37 | XR ---
EXAMINATION TYPE: XR knee limited RT DATE OF EXAM: 09/28/2024 11:26 AM COMPARISON: 02/13/2022 CLINICAL INDICATION: Female, 78 years old with history of Evaluation for Postop abnormality and align ment; PHH, pain TECHNIQUE: XR knee limited RT XX views submitted. FINDINGS: Status post total knee arthroplasty changes with hardware in appropriate alignment and in tact. No evidence of fracture. Subcutaneous lucencies and lucencies within the joint consistent with surgical changes. IMPRESSION: Status post total knee arthroplasty changes with hardware intact and appropriate alignment. No fractu res identified. [facility], , 09/28/2024 11:34 AM
[2024-09-28] MEDS: HYDROcodone/APAP 5-325MG 1 EACH TAB PO PRN (13:54)
[2024-09-28] MEDS: metFORMIN 500 MG TAB PO SCH (16:46)
[2024-09-28] MEDS: ceFAZolin 2 GM in DEXTROSE 5% IN WATER 50 ML IVPB SCH (16:46)
[2024-09-28] MEDS: HYDROmorphone 0.5 MG/0.5 ML SYRINGE IVP PRN (16:47)
[2024-09-28 16:52] LABS: Glucose,Whole Blood 165 mg/dL (70-110)
[2024-09-28 20:04] LABS: Glucose,Whole Blood 163 mg/dL (70-110)
[2024-09-28] MEDS: SENNOSIDES-DOCUSATE SODIUM 1 EACH TAB PO SCH (21:02)
[2024-09-28] MEDS: METOPROLOL TARTRATE 25 MG TAB PO SCH (21:02)
[2024-09-28] MEDS: EZETIMIBE 10 MG TAB PO SCH (21:03)
[2024-09-28] MEDS: MONTELUKAST 10 MG TAB PO SCH (21:03)
[2024-09-28] MEDS: LATANOPROST 0.005% OPHTH DROPS 2.5 ML BTL LEFT EYE SCH (21:14)
[2024-09-28] MEDS: ASPIRIN 325 MG TAB PO SCH (21:14)
[2024-09-28] MEDS: TIMOLOL 0.5% OPHTH DROPS 5 ML BTL LEFT EYE SCH (21:14)
[2024-09-29] MEDS: HYDROcodone/APAP 5-325MG 1 EACH TAB PO PRN (01:05)
[2024-09-29 06:13] LABS: Glucose,Whole Blood 121 mg/dL (70-110)
--- NOTE | 2024-09-29 07:36 | P.DS ---
Providers Expected date of discharge: 09/29/24 Attending physician: Cipriano Jones Consults: 09/28/24 08:56 Consult Physician Routine Consulting Provider: Corona Yao Consult Reason/Comments: medical management Do you want consulting provider notified?: Yes Primary care physician: Corona Yao - Discharge Diagnosis(es) (1) Osteoarthritis of right knee Current Visit: Yes Status: Acute (2) S/P total knee arthroplasty Current Visit: Yes Status: Acute Hospital Course: This is a 78-year-old female with known history of degenerative arthritis of the right knee. The patient presented for evaluation as an outpatient. After discussion and consideration patient elects to proceed with total knee arthroplasty. The patient is seen preoperatively by Dr. Jones and medically cleared for surgery by their primary care physician. Patient is admitted to [facility] on 09/28/2024 for total knee arthroplasty. The procedure is performed without complication or sequelae. The patient is doing well postoperatively. Labs and vital signs are stable on day of discharge. On day of discharge patient's knee incision is healing well. There is minimal erythema. There is no drainage noted at this time. There is minimal soft tissue swelling to the knee. Patient has full foot and ankle motion without difficulty or pain. Calf is soft and nontender to palpation. Neurovascular status to the right lower extremity is intact. Patient is discharged home in good condition. Please see med rec for accurate list of home medications. Plan - Discharge Summary Discharge Rx Participant: Yes New Discharge Prescriptions: New Aspirin 325 mg PO BID #60 tab HYDROcodone/APAP 5-325MG [[place] 5-325] 1 - 2 tab PO Q6HR PRN #32 tab PRN Reason: Pain Sennosides [Senokot] 2 tab PO DAILY PRN #60 tablet PRN Reason: Constipation No Action Latanoprost Ophth [Xalatan 0.005%] 1 drop LEFT EYE HS Timolol 0.5% Ophth Soln [Timoptic 0.5% Ophth Soln] 1 drop LEFT EYE BID metFORMIN HCL [Glucophage] 500 mg PO AC-SUPPER Vitamin A,D & K Supplement 1 dose PO DAILY Valsartan 320 mg PO DAILY@1200 Montelukast [Singulair] 10 mg PO HS Metoprolol Tartrate [Lopressor] 25 mg PO BID Ezetimibe [Zetia] 10 mg PO HS Aspirin [Adult Low Dose Aspirin EC] 81 mg PO DAILY Co-Q10 Pqq Supplement 2 dose PO QAM Calcium 1200mg-Vit D3 25mcg 1 dose PO DAILY Acetaminophen [Tylenol Extra Strength] 1,000 mg PO DAILY PRN PRN Reason: Pain Discharge Medication List Latanoprost Ophth [Xalatan 0.005%] 1 drop LEFT EYE HS 01/20/19 [History] Timolol 0.5% Ophth Soln [Timoptic 0.5% Ophth Soln] 1 drop LEFT EYE BID 03/03/20 [History] Acetaminophen [Tylenol Extra Strength] 1,000 mg PO DAILY PRN 09/23/24 [History] Aspirin [Adult Low Dose Aspirin EC] 81 mg PO DAILY 09/23/24 [History] Calcium 1200mg-Vit D3 25mcg 1 dose PO DAILY 09/23/24 [History] Co-Q10 Pqq Supplement 2 dose PO QAM 09/23/24 [History] Ezetimibe [Zetia] 10 mg PO HS 09/23/24 [History] Metoprolol Tartrate [Lopressor] 25 mg PO BID 09/23/24 [History] Montelukast [Singulair] 10 mg PO HS 09/23/24 [History] Valsartan 320 mg PO DAILY@1200 09/23/24 [History] Vitamin A,D & K Supplement 1 dose PO DAILY 09/23/24 [History] metFORMIN HCL [Glucophage] 500 mg PO AC-SUPPER 09/23/24 [History] Aspirin 325 mg PO BID #60 tab 09/28/24 [Rx] HYDROcodone/APAP 5-325MG [[place] 5-325] 1 - 2 tab PO Q6HR PRN #32 tab 09/28/24 [Rx] Sennosides [Senokot] 2 tab PO DAILY PRN #60 tablet 09/28/24 [Rx] Follow up Appointment(s)/Referral(s): Cipriano Jones DO [Doctor of Osteopathic Medicine] - 2 Weeks Activity/Diet/Wound Care/Special Instructions: Weightbearing as tolerated with a walker. Leave dressing intact. Dressing may be removed by home care nurse or by patient in 7 days. Then change dressing twice daily until follow up. May shower with initial dressing intact and after removal. If dressing become saturated, please remove. Recommend use of compression stockings daily until follow up to help prevent swelling and blood clots. May remove at night before sleeping. Please take aspirin 325mg twice daily for 30 days to prevent blood clots. Please follow up with [facility] and call with any questions or concerns, . Discharge Disposition: HOME WITH HOME HEALTH SERVICES
--- NOTE | 2024-09-29 07:52 | P.PN ---
Progress Note - Text Progress Note Date: 09/29/24 Postoperative day # 1 status post total knee arthroplasty, and adductor canal catheter placed for postoperative analgesia, currently at ropivacaine 0.2% 8 mL per hour and continuous infusion, visual analogue scale is 3/10, patient using oral pain medication for breakthrough pain. Assessment and plan= Acute postoperative pain, adductor canal catheter for pain control, pain is well controlled we'll continue the same management.
[2024-09-29 08:07] LABS: Basophils # (A) 0.02 X 10*3/uL (0.00-0.10); Basophils % (A) 0.2 %; Eosinophils # (A) 0 X 10*3/uL (0.04-0.35); Eosinophils % (A) 0 %; HCT 32.3 % (37.2-46.3); HGB 10.7 g/dL (12.0-15.0); Lymphocytes # (A) 1.43 X 10*3/uL (0.90-5.00); Lymphocytes % (A) 15.5 %; MCH 30.4 pg (27.0-32.0); MCHC 33.1 g/dL (32.0-37.0); MCV 91.8 FL (80.0-97.0); Mean Platelet Volume 9.4 FL (9.5-12.2); Monocytes # (A) 1.11 X 10*3/uL (0.20-1.00); NRBC Per 100 WBC 0 X 10*3/uL (0.00-0.01); Neutrophils # (A) 6.62 X 10*3/uL (1.80-7.70); Neutrophils % (A) 71.9 %; Platelet Count 273 X 10*3/uL (140-440); RBC 3.52 X 10*6/uL (4.10-5.20); RDW 13.6 % (11.5-14.5); WBC 9.22 X 10*3/uL (4.50-10.00)
[2024-09-29] MEDS ORDERED: [UNRECOGNIZED DRUG - OTHER] PO SCH (09:00)
[2024-09-29 09:18] VITALS: BP 130/78; PULSE 70; RESP 17; TEMP 98.8
[2024-09-29] MEDS ORDERED: VALSARTAN 160 MG TAB PO SCH (12:00)
--- NOTE | 2024-09-30 14:07 | P.CONS ---
History of Present Illness - Reason for Consult Consult date: 09/28/24 Medical management Requesting physician: Cipriano Jones - Chief Complaint Status post right total knee arthroplasty - History of Present Illness HISTORY OF PRESENT ILLNESS: This is a 78-year-old female patient of mine with a previous medical history significant for coronary artery disease status post coronary artery bypass graft, hypertension hypertensive cardiovascular disease, hyperlipidemia, diabetes mellitus type 2, significant history of osteoarthritis, patient underwent right total knee arthroplasty that was done successfully by Dr. Jones and we were asked to see the patient for postoperative medical management, patient is sitting up in bed in no apparent distress, she just got back from the OR, she has no chest pain or shortness of breath at this time, she has no abdominal pain, appeared to be a bit nauseated after she had the same food earlier, she denies any abdominal pain with that, she has no other symptoms, her pain is well-controlled at this point, she does have an On-Q pump in place, and she has pain medicine ordered as well, status parameters at bedside, she was instructed about the way of using it, and she will increase her activity over the next 24 hours so she can be discharged home tomorrow morning as planned . REVIEW OF SYSTEMS: Constitutional: No documented fever, no chills, no night sweats. No weight change. No weakness, fatigue or lethargy. No daytime sleepiness. EENT: No headache. No blurred vision or double vision, no loss of vision. No loss of Hearing, no ringing in the ears, no dizziness. No nasal drainage or congestion. No epistaxis. No sore throat. Lungs: No shortness of breath, no cough, no sputum production. No wheezing. Reports dyspnea with activity. Cardiovascular: No chest pain, no lower extremity edema. No palpitations. No paroxysmal nocturnal dyspnea. No orthopnea. No lightheadedness or dizziness. No syncopal episodes. Abdominal: Reports abdominal pain. positive for nausea, one episode of vomiting. No diarrhea. No constipation. No bloody or tarry stools reports loss of appetite. Genitourinary: No dysuria, increased frequency, urgency. No urinary retention. Musculoskeletal: No myalgias. No muscle weakness, no gait dysfunction, no frequent falls. No back pain. No neck pain. Integumentary: Right knee wound is covered , no lesions. No rash or pruritus. No unusual bruising. No change in hair or nails. Neurologic: No aphasia. No facial droop. No change in mentation. No head injury. No headache. No paralysis. No paresthesia. Psychiatric: No depression. No anxiety. No mood swings. Endocrine: No abnormal blood sugars. No weight change. PAST MEDICAL HISTORY: Hypertension hypertensive cardiovascular disease. Mixed hyperlipidemia. CAD post CABG with RIVERA to LAD and SVG to OM1 2020 Diabetes mellitus type 2. Osteoarthritis. Glaucoma. Obesity. Obstructive sleep apnea. Osteopenia of the right hip. Right thyroid nodule. PAST SURGICAL HISTORY: Bilateral cataract surgery 2019 Secondary cataract with laser 2018 colonoscopy 2019 CABG with RIVERA to LAD and SVG to OM 05/04/2020 Colonoscopy 01/22/2019 normal Right eye stent surgery 04/24/2023 SOCIAL HISTORY: Patient is a lifelong non-smoker, she drinks about 1 to 2 cups of coffee every day, she denies any alcohol ingestion, she denies any drug use or abuse, but she does have a very good family support. FAMILY HISTORY: Father at the age of 80 from unknown cause mother at the age of 96 with a CVA and she was residing at [facility] patient has 3 sons youngest son has heart problem, patient has 4 daughters alive and well patient had 7 sister one of them of unclear etiology PHYSICAL EXAMINATION: General: 78-year-old female laying down in bed in no apparent distress. HEENT: Head is atraumatic, normocephalic, pupils were equal round reactive to light and recommendation, extraocular muscle movement were intact, sclera nonicteric, conjunctivae were pale, mucous membranes of the mouth are somewhat dry. Neck: Supple, no JVP, normal carotid upstroke bilaterally, no lymphadenopathy. Chest: Decreased breath sounds at the bases, few rhonchi, no expiratory wheezes, no chest wall tenderness, no intercostal retractions. Heart: First heart sound is normal, second heart sounds normal there is systolic ejection murmur 2/6 located in the left sternal border. Abdomen: Soft, nontender, nondistended, positive bowel sounds. Extremities: There is no edema no calf tenderness DP +2 bilaterally the right lower extremity is wrapped with an Scotty wrap, there is an On-Q pump in place. Neurologic examination: Patient is awake alert and oriented x3, cranial nerves II-12 appear grossly intact, muscle power were 5 out of 5 in upper extremities and 5 out of 5 in bilateral lower extremities, deep tendon reflexes normal bilaterally. ASSESSMENT AND PLAN: 1. Postoperative day #0 status post right total knee arthroplasty. Patient was instructed about the use of incentive spirometer to reduce the incidence atelectasis and healthcare associated pneumonia, continue current pain management as outlined by orthopedic surgery increase activity, follow-up with the patient very closely, likely the patient will be discharged home in the next 24 hours. 2. History of coronary artery disease status post CABG x 2 with RIVERA to LAD SVG to OM1 continue patient on aspirin 81 mg orally once every day, continue with metoprolol tartrate 25 mg orally twice every day, continue atorvastatin 80 mg once every day as well as Zetia 10 mg once every day. 3 hypertension and hypertensive cardiovascular disease. Continue valsartan 320 mg once every day, continue metoprolol tartrate 25 mg orally twice every day, follow-up with the patient very closely. 4. Diabetes mellitus type 2. Continue patient on metformin ER 500 mg orally once every day Farxiga 5 mg orally once every day start the patient on sliding scale insulin check her sugar before each meal and bedtime. 5. History of glaucoma. Continue patient on timolol eyedrops as well as latanoprost eyedrops. 6. Osteoarthritis. Continue current pain management. 7. History of right thyroid nodule. Ultrasound of the thyroid is up-to-date. 8. Obesity with obstructive sleep apnea. Patient has not had sleep study yet. 9. DVT prophylaxis. Patient was started on aspirin 81 mg orally twice every day continue bilateral knee-high VELMA hose increase activity level. 10. GI prophylaxis. Not needed. 11. Thank you for the consult we will follow the patient with you. Past Medical History Past Medical History: Coronary Artery Disease (CAD), Diabetes Mellitus, Eye Disorder, Hyperlipidemia, Hypertension, Rheumatoid Arthritis (RA) Additional Past Medical History / Comment(s): Glaucoma, vertigo, superficial blood clot with last 40 years ago, SOB w/exertion, COVID-not hospitalized, hx of R "eye stroke". Past Type 2 diabetes, currently in a pre- diabetic range. History of Any Multi-Drug Resistant Organisms: None Reported Past Surgical History: Cholecystectomy, Heart Catheterization, Hysterectomy Additional Past Surgical History / Comment(s): Nasal surgery due to a broken nose in the past, multiple laser eye surgeries w/ Dr. Nieto, B/L cataracts, R eye stent 2023. Colonoscopy 2018, CABG-Double bypass-2020. Past Anesthesia/Blood Transfusion Reactions: No Reported Reaction Additional Past Anesthesia/Blood Transfusion Reaction / Comm: Had a blood transfusion for CABG-no reactions. Past Psychological History: No Psychological Hx Reported Smoking Status: Never smoker Past Alcohol Use History: None Reported Past Drug Use History: None Reported - Past Family History Mother Family Medical History: CVA/TIA, Diabetes Mellitus, Hypertension, Thyroid Disorder Additional Family Medical History / Comment(s): She is currently 94 years old. Father History Unknown: Yes Family Medical History: Dementia Brother(s) Family Medical History: No Reported History Sister(s) Family Medical History: No Reported History Son(s) Family Medical History: No Reported History Daughter(s) Family Medical History: No Reported History Medications and Allergies Home Medications Medication Instructions Recorded Confirmed Type Latanoprost Ophth [Xalatan 0.005%] 1 drop LEFT EYE HS 01/20/19 09/28/24 History Timolol 0.5% Ophth Soln [Timoptic 1 drop LEFT EYE BID 03/03/20 09/28/24 History 0.5% Ophth Soln] Acetaminophen [Tylenol Extra 1,000 mg PO DAILY PRN 09/23/24 09/28/24 History Strength] Aspirin [Adult Low Dose Aspirin EC] 81 mg PO DAILY 09/23/24 09/28/24 History Calcium 1200mg-Vit D3 25mcg 1 dose PO DAILY 09/23/24 09/28/24 History Co-Q10 Pqq Supplement 2 dose PO QAM 09/23/24 09/28/24 History Ezetimibe [Zetia] 10 mg PO HS 09/23/24 09/28/24 History Metoprolol Tartrate [Lopressor] 25 mg PO BID 09/23/24 09/28/24 History Montelukast [Singulair] 10 mg PO HS 09/23/24 09/28/24 History Valsartan 320 mg PO DAILY@1200 09/23/24 09/28/24 History Vitamin A,D & K Supplement 1 dose PO DAILY 09/23/24 09/28/24 History metFORMIN HCL [Glucophage] 500 mg PO AC-SUPPER 09/23/24 09/28/24 History Aspirin 325 mg PO BID #60 tab 09/28/24 Rx Sennosides [Senokot] 2 tab PO DAILY PRN #60 tablet 09/28/24 Rx HYDROcodone/APAP 5-325MG [[place] 1 - 2 tab PO Q6HR PRN #32 tab 09/29/24 Rx 5-325] Allergies Allergy/AdvReac Type Severity Reaction Status Date / Time indomethacin [From Indocin] Allergy Rapid Verified 09/28/24 07:06 Heart Rate atorvastatin AdvReac leg Verified 09/28/24 07:06 pain/cramping codeine AdvReac Nausea & Verified 09/28/24 07:06 Vomiting hydromorphone [From Dilaudid] AdvReac Nausea & Verified 09/28/24 07:06 Vomiting tramadol AdvReac Nausea & Verified 09/28/24 07:06 Vomiting Physical Exam Vitals: Vital Signs Temp Pulse Resp BP BP Pulse Ox 09/28/24 13:14 97.6 F 79 18 154/73 96 09/28/24 13:09 97.6 F 79 18 154/73 96 09/28/24 12:30 68 12 150/69 98 09/28/24 12:00 61 12 168/79 98 09/28/24 11:45 76 14 162/78 98 09/28/24 11:30 77 14 161/70 100 09/28/24 11:15 57 L 12 162/76 98 09/28/24 11:00 59 L 12 157/69 98 09/28/24 10:50 97.1 F L 65 12 162/76 98 09/28/24 09:04 157/100 09/28/24 08:04 81 14 191/102 100 09/28/24 07:59 86 18 208/119 100 09/28/24 07:54 84 18 218/111 100 09/28/24 07:00 96.6 F L 65 14 185/88 99 Intake and Output 09/28/24 09/28/24 09/28/24 06:59 14:59 22:59 Intake Total 1051 Output Total 25 Balance 1026 Intake: IV 1051 Output: Estimated Blood Loss 25 Other: # Voids 1 1 Weight 80.5 kg Results CBC & Chem 7: 09/29/24 03:51 Labs: Abnormal Lab Results - Last 24 Hours (Table) 09/28/24 Range/Units 16:46 POC Glucose (mg/dL) 165 H (70-110) mg/dL
--- NOTE | 2024-09-30 14:09 | P.PN ---
Subjective Progress Note Date: 09/29/24 HISTORY OF PRESENT ILLNESS: This is a 78-year-old female patient of mine with a previous medical history significant for coronary artery disease status post coronary artery bypass graft, hypertension hypertensive cardiovascular disease, hyperlipidemia, diabetes mellitus type 2, significant history of osteoarthritis, patient underwent right total knee arthroplasty that was done successfully by Dr. Jeanne huff and we were asked to see the patient for postoperative medical management, patient is sitting up in bed in no apparent distress, she just got back from the OR, she has no chest pain or shortness of breath at this time, she has no abdominal pain, appeared to be a bit nauseated after she had the same food earlier, she denies any abdominal pain with that, she has no other symptoms, her pain is well-controlled at this point, she does have an On-Q pump in place, and she has pain medicine ordered as well, status parameters at bedside, she was instructed about the way of using it, and she will increase her activity over the next 24 hours so she can be discharged home tomorrow morning as planned . 09/30: Patient sitting up in the recliner chair, no apparent distress, her pain is rated as 2 out of 10 intensity, she did receive her pain medicine today, she was seen by physical therapy, she is able to ambulate using a walker, her daughter was at the bedside, patient was instructed to continue use incentive spirometer, she is to be discharged home later on today, if okay with orthopedic surgery, patient is medically stable for discharge, reviewed her laboratory evaluation showed minimal anemia to be expected after surgery. Follow-up with the patient very closely. REVIEW OF SYSTEMS: Constitutional: No documented fever, no chills, no night sweats. No weight change. No weakness, fatigue or lethargy. No daytime sleepiness. EENT: No headache. No blurred vision or double vision, no loss of vision. No loss of Hearing, no ringing in the ears, no dizziness. No nasal drainage or c ongestion. No epistaxis. No sore throat. Lungs: No shortness of breath, no cough, no sputum production. No wheezing. Reports dyspnea with activity. Cardiovascular: No chest pain, no lower extremity edema. No palpitations. No paroxysmal nocturnal dyspnea. No orthopnea. No lightheadedness or dizziness. No syncopal episodes. Abdominal: Reports abdominal pain. positive for nausea, one episode of vomiting. No diarrhea. No constipation. No bloody or tarry stools reports loss of appetite. Genitourinary: No dysuria, increased frequency, urgency. No urinary retention. Musculoskeletal: No myalgias. No muscle weakness, no gait dysfunction, no frequent falls. No back pain. No neck pain. Integumentary: Right knee wound is covered , no lesions. No rash or pruritus. No unusual bruising. No change in hair or nails. Neurologic: No aphasia. No facial droop. No change in mentation. No head injury. No headache. No paralysis. No paresthesia. Psychiatric: No depression. No anxiety. No mood swings. Endocrine: No abnormal blood sugars. No weight change. PHYSICAL EXAMINATION: General: 78-year-old female laying down in bed in no apparent distress. HEENT: Head is atraumatic, normocephalic, pupils were equal round reactive to light and recommendation, extraocular muscle movement were intact, sclera nonicteric, conjunctivae were pale, mucous membranes of the mouth are somewhat dry. Neck: Supple, no JVP, normal carotid upstroke bilaterally, no lymphadenopathy. Chest: Decreased breath sounds at the bases, few rhonchi, no expiratory wheezes, no chest wall tenderness, no intercostal retractions. Heart: First heart sound is normal, second heart sounds normal there is systolic ejection murmur 2/6 located in the left sternal border. Abdomen: Soft, nontender, nondistended, positive bowel sounds. Extremities: There is no edema no calf tenderness DP +2 bilaterally the right lower extremity is wrapped with an Scotty wrap, there is an On-Q pump in place. Neurologic examination: Patient is awake alert and oriented x3, cranial nerves II-12 appear grossly intact, muscle power were 5 out of 5 in upper extremities and 5 out of 5 in bilateral lower extremities, deep tendon reflexes normal bilaterally. ASSESSMENT AND PLAN: 1. Postoperative day #1 status post right total knee arthroplasty. Patient was instructed about the use of incentive spirometer to reduce the incidence atelectasis and healthcare associated pneumonia, continue current pain management as outlined by orthopedic surgery increase activity, follow-up with the patient very closely, likely the patient will be discharged home in the next 24 hours. 2. Acute blood loss anemia expected outcome of surgery. Monitor the patient CBC, her hemoglobin is 10.1, patient may use [id number] iron treatment in 5 mg once every day. Follow-up with the patient in the office as an outpatient 3. History of coronary artery disease status post CABG x 2 with RIVERA to LAD SVG to OM1 continue patient on aspirin 81 mg orally once every day, continue with metoprolol tartrate 25 mg orally twice every day, continue atorvastatin 80 mg once every day as well as Zetia 10 mg once every day. 4 hypertension and hypertensive cardiovascular disease. Continue valsartan 320 mg once every day, continue metoprolol tartrate 25 mg orally twice every day, follow-up with the patient very closely. 5. Diabetes mellitus type 2. Continue patient on metformin ER 500 mg orally once every day Farxiga 5 mg orally once every day start the patient on sliding scale insulin check her sugar before each meal and bedtime. 6. History of glaucoma. Continue patient on timolol eyedrops as well as latanoprost eyedrops. 7. Osteoarthritis. Continue current pain management. 8. History of right thyroid nodule. Ultrasound of the thyroid is up-to-date. 9. Obesity with obstructive sleep apnea. Patient has not had sleep study yet. 10. DVT prophylaxis. Patient was started on aspirin 81 mg orally twice every day continue bilateral knee-high VELMA hose increase activity level. 11. GI prophylaxis. Not needed. 12. Patient is medically stable for discharge. Objective - Vital Signs Vital signs: Vital Signs Temp 98.8 F 09/29/24 07:47 Pulse 70 09/29/24 07:47 Resp 17 09/29/24 07:47 BP 130/78 09/29/24 07:47 Pulse Ox 99 09/29/24 07:47 FiO2 Intake & Output 09/29/24 09/30/24 09/30/24 18:59 06:59 18:59 Other: Voiding Method Toilet - Labs CBC & Chem 7: 09/29/24 03:51
== END 2024-09-29 11:01 | disposition home health service (06) ==
LOC: OR 06:48 → 4SSUR 10:20 → OR 09-29 11:01
PROVIDERS: ATTEND Orthopaedic Surgery
DX: M17.0 Bilateral primary osteoarthritis of knee (principal); G89.18 Other acute postprocedural pain; E78.2 Mixed hyperlipidemia; I25.810 Atherosclerosis of coronary artery bypass graft(s) without angina pectoris; M85.851 Other specified disorders of bone density and structure, right thigh; H40.89 Other specified glaucoma; E04.1 Nontoxic single thyroid nodule; G47.33 Obstructive sleep apnea (adult) (pediatric); I11.9 Hypertensive heart disease without heart failure; E11.9 Type 2 diabetes mellitus without complications; Z79.02 Long term (current) use of antithrombotics/antiplatelets; Z79.899 Other long term (current) drug therapy; Z79.84 Long term (current) use of oral hypoglycemic drugs; Z79.82 Long term (current) use of aspirin; Z90.710 Acquired absence of both cervix and uterus; Z90.49 Acquired absence of other specified parts of digestive tract; Z98.49 Cataract extraction status, unspecified eye; Z98.890 Other specified postprocedural states; Z95.1 Presence of aortocoronary bypass graft; Z88.5 Allergy status to narcotic agent; Z88.6 Allergy status to analgesic agent
CPT/HCPCS: 27447; 97161; 64448; 64473; 85025; 73560; C1713; C1776; C1751; J2250; J0330; J1100; J2710; J0690 ×3; J2405; J2003; J3010; J2795; J2704; J1171; J1596